=== PATIENT | female | born 1945 | race Caucasian/White ===

== ENCOUNTER 2016-11-18 20:39 | Emergency (ER) | payer OTHER ==
[~2016-11-18] VITALS: Ht 162.6 cm; Wt 63.5 kg
[~2016-11-18 20:39] MED LIST: AMT50 PO; BUSP15TA70 PO; ESCI5TAB PO; LISI-725 PO; MELO7.5T5 PO
[2016-11-18 21:03] VITALS: TEMP 36.9; Ht 162.6 cm; Wt 63.5 kg
--- NOTE | 2016-11-18 23:19 | EMERGENCY ROOM VISIT NOTE ---
ED Visit Note First contact with patient: 21:43 CHIEF COMPLAINT: Rash HISTORY OF PRESENT ILLNESS: This 71-year-old female patient presents to the emergency department complaining of a rash on her nose and around her lips which started 3 days ago. Patient states she had been out in the sun the day before and thought that she got a sunburn on her face. She reports blistering rash on her nose and around her lips that is painful and burning in nature. The patient denies fever, chills, nausea, or loss of appetite. They deny any URI symptoms. The patient has tried some topical lotion for the rash. No change in food, soap, detergents, or other environmental factors. No new medications. No weakness or numbness. Patient states she did have some eye irritation 2 days ago with swelling and redness around the eyes, but states this has gotten better. She denies eye pain, discharge, or changes in vision. She wears glasses, denies wearing contacts. She did not receive a shingles vaccination. Her tetanus is up-to-date. REVIEW OF SYSTEMS: A 6 system review of systems was completed with positives and pertinent negatives listed in the HPI. ALLERGIES: See chart MEDICATIONS: See chart PMH: See chart SOCIAL HISTORY: See chart PHYSICAL EXAM: Vital Signs: Reviewed Nurse's notes, vital signs stable. GENERAL : Pleasant, Cooperative, in no acute distress, well-developed, well-nourished. SKIN: Excoriated lesions noted around the lips appear consistent with possible HSV infection. There is also one lesion noted on the left side of the nose. No drainage from the lesions. Capillary refill less than 2 seconds. EYES: The pupils are equal round and reactive to light and accommodation. EOMs are full and without tenderness. There is no discharge from the eyes and they are not injected. There is no foreign body visible under the eyelid even after lid eversion. Funduscopic exam reveals no hemorrhages, papilledema, or other abnormalities. No foreign body was seen embedded in the cornea under slit lamp exam. The cornea was clear and no hyphema was seen. Fluorescein uptake was observed with ultraviolet light significant for a possible dendritic lesion forming on the cornea of the left eye. EMERGENCY DEPARTMENT COURSE: I examined the patient. A slit lamp exam was performed as above. Patient was given her first dose of valacyclovir in the ED , prescription sent to pharmacy. I did speak on the phone with Dr. Hooks, Dr. Agrawal's ophthalmology colleague, who agrees with patient follow-up in the clinic tomorrow. The patient was given strict follow-up instructions, she verbalized understanding. The patient was discharged home in good condition. Medication Reconciliation: I attest that I have personally reviewed the patient' s current medication list. Blood pressure screening: The patient was found to have an elevated blood pressure and was referred to their primary doctor for recheck and further treatment. I discussed the patient with Dr. Rice, who also evaluated the patient and agrees with my assessment and disposition. Current/Historical Medications Scheduled Amitriptyline Hcl (Elavil), 10 MG PO HS Buspirone Hcl (Buspar), 15 MG PO BID Escitalopram Oxalate (Lexapro), 5 MG PO BID Lisinopril (Zestril), 20 MG PO DAILY Meloxicam (Mobic), 7.5 MG PO BID Valacyclovir Hcl (Valtrex), 1,000 MG PO TID Allergies Coded Allergies: Hydrocodone (Unverified Allergy, Unknown, UNKNOWN, 11/18/16) Morphine (Unverified Allergy, Unknown, HIVES, 11/18/16) Sulfa Drugs (Verified Allergy, Unknown, 11/18/16) Vital Signs Date Time Temp Pulse Resp B/P (MAP) Pulse Ox O2 Delivery O2 Flow Rate FiO2 11/19/16 00:43 60 18 171/83 98 Room Air 11/18/16 23:27 61 16 160/86 99 Room Air 11/18/16 21:03 36.9 63 18 167/72 96 Room Air Medications Administered Medications (Trade) Dose Ordered Sig/Jordi Route Start Time Stop Time Status Last Admin Dose Admin Valacyclovir HCl (Valtrex Tab) 1,000 mg NOW ONCE PO 11/18/16 23:15 11/18/16 23:16 DC 11/18/16 23:26 1,000 MG Departure Information Impression Primary Impression: Shingles Additional Impression: 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 Patient Instructions ED Shingles, My [facility] Additional Instructions Valacyclovir 1 tablet 3 times a day for 7 days. Take medication as prescribed. This is to treat the shingles. You may use saline drops or refresh ointment to the eyes to relieve irritation. Tylenol or Motrin as needed for pain. Call Dr. Agrawal's clinic tomorrow morning at 8am to make an appointment tomorrow for follow up. Please return to the ER for worsening symptoms, including severe headache, blurry or decreased vision, discharge from the eyes, fevers or chills, or any other concerns. 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
[2016-11-18] MEDS ORDERED: VALA1TAB2 PO (23:58)
[2016-11-19 00:43] VITALS: BP 171/83; PULSE 60; O2SAT 98
--- NOTE | 2016-11-19 01:41 | EMERGENCY ROOM VISIT NOTE ---
ED Visit Note First contact with patient: 21:43 I have personally evaluated this patient examined her and reviewed the pertinent labs and data. I have discussed the case with Nimisha Madden, the nurse practitioner, and agree with the plan. Please refer to the GAS SYSTEMS WORKER note. This patient comes in after having some blisters around her lips are both sides but more so on the right are also into her face. She has no ocular complaints however when we did stain her eyes, she has a some increase uptake of the fluoroscein on the left eye between 6 and 9:00, there is a corneal abnormality but not at definite dendritic lesion. We will start Valtrex for possible shingles although this may be more of a fever blisters and also may be related to sun exposure. She did get in the sun and has been rubbing her eyes a lot. We have talked to Dr. [place] and they will see her in the office in the morning to recheck the eyes for lesions and further treatment.
== END 2016-11-19 00:42 | disposition home or self-care (01) ==
LOC: C.EDB 20:40 → C.EDD 11-19 00:42
DX: B02.30 Zoster ocular disease, unspecified (principal); B00.52 Herpesviral keratitis; Z79.899 Other long term (current) drug therapy

== ENCOUNTER → 2017-02-02 | Outpatient (CLI) | payer OTHER | LOC: C.PATHSPEC 17:44 | PROVIDERS: ATTEND Plastic Surgery | DX: D22.9 Melanocytic nevi, unspecified (principal) ==

== ENCOUNTER → 2017-06-07 | Outpatient (CLI) | payer BC ==
--- NOTE | 2017-06-08 14:01 | MAMMOGRAPHY REPORT ---
BILATERAL DIGITAL SCREENING MAMMOGRAM TOMOSYNTHESIS WITH CAD: 06/07/2017 CLINICAL HISTORY: Routine screening. Patient has no complaints. TECHNIQUE: Breast tomosynthesis in addition to standard 2D mammography was performed. Current study was also evaluated with a Computer Aided Detection (CAD) system. COMPARISON: Comparison is made to exams dated: 02/26/2016 mammogram, 01/07/2015 mammogram, and 07/11/19 14 mammogram - [facility]. BREAST COMPOSITION: The tissue of both breasts is heterogeneously dense, which may obscure small mas ses. FINDINGS: There are mild vascular calcifications in both breasts. No suspicious mass, architectural distortion or cluster of microcalcifications is seen. IMPRESSION: ACR BI-RADS CATEGORY 2: BENIGN There is no mammographic evidence of malignancy. A 1 year screening mammogram is recommended. The pa tient will receive written notification of the results. Approximately 10% of breast cancers are not detected with mammography. A negative mammographic report should not delay biopsy if a clinically suggestive mass is present. Melida Lindo M.D. ay/:06/07/2017 15:55:04 Manager Business Process: Amairani MRUPHY(Carlos)(Gloria)(BD), [facility] letter sent: Normal 1/2 BI-RADS Code: ACR BI-RADS Category 2: Benign
== END | disposition home or self-care (01) ==
LOC: C.MAMM 10:15
PROVIDERS: ATTEND Physician Assistant
DX: Z12.31 Encounter for screening mammogram for malignant neoplasm of breast (principal)

== ENCOUNTER → 2017-07-20 | Day surgery (SDC) | payer MEDICARE ==
[2017-07-12 07:51] VITALS: Ht 162.6 cm; Wt 63.6 kg
[~2017-07-20] VITALS: Ht 162.6 cm; Wt 63.6 kg
[~2017-07-20] MED LIST changes: +500ML BSS 0.3ML EPI 1:1000PF IRRIG ONE; +ACETAMINOPHEN 325 MG TAB PO PRN; +AMIT10TA6 PO; -AMT50 PO; +AMVISC PLUS 0.8ML SYRINGE INT OCU ONE; +ATROPINE SULFATE 0.1 MG/ML 5ML SYR IV PRN; +BETAXOLOL HCL 0.25% OP SUSP PER DROP CHARGE OPL SCH; +BRIMONIDINE TART 0.2% OP SOLN PER DROP CHARGE ONE; +BSS FLUSH ONE; +ENDOCOAT 0.85ML SYRINGE INT OCU ONE; +EpHEDrine SULFATE INJ 50 MG/ML AMP IV PRN; +EpINEphrine INJ 1MG/ML AMP 1 MG/ML AMP ONE; +FENTANYL CITRATE INJ 50 MCG/1 ML 2 ML VIAL IV PRN; +LACTATED RINGER'S 1000ML 500 ML IV SCH; +LIDOCAINE 4% OP SOLN DROP CHARGE ONE; +LIDOCAINE 4% OP SOLN DROP CHARGE OPL SCH; +LIDOCAINE HCL 1% MPF 2 ML VIAL ONE; +MIDAZOLAM HCL 1 MG/ML 2ML VIAL ONE; +MIX: 4ML BSS 1ML EPI 1:1000 PF INSTIL ONE; +MOXIFLOXACIN OPH SOLN PER DROP CHARGE ONE; +PHENYLEPHRINE HCL 10% OP SOLN PER DROP CHARGE OPL SCH; +POVIDONE-IODINE OP SOLN 30 ML BTL ONE; +PROPARACAINE 0.5% OP SOLN PER DROP CHARGE OPL SCH; +PROPARACAINE HCL 0.5% OP SOLN 15 ML BTL OPL ONE; +SENN-56 PO; +TOBRAMYCIN/DEXAMETHASONE OPH OINT PER APPLN CHARGE ONE
[2017-07-20] MEDS: PHENYLEPHRINE HCL 2.5% OP SOLN PER DROP CHARGE OPL SCH ×2 (06:34→06:41)
--- NOTE | 2017-07-20 06:36 | History & Physical Bridge - SC ---
H&P Re-Evaluation Bridge Note: I have examined the patient, reviewed the History & Physical and in the interval since the performance of the History & Physical I have noted the following changes of clinical significance: No changes noted
[2017-07-20] MEDS: TROPICAMIDE 1% OP SOLN PER DROP CHARGE OPL SCH ×2 (06:37→06:42)
[2017-07-20] MEDS: CYCLOPENTOLATE HCL 1% OP SOLN PER DROP CHARGE OPL SCH ×2 (06:38→06:43)
[2017-07-20] MEDS: MOXIFLOXACIN OPH SOLN PER DROP CHARGE OPL SCH ×2 (06:39→06:48)
--- NOTE | 2017-07-20 07:23 | [facility] Operative Report ---
Operative Report Date of Service Jul 20, 2017. Operative Report 1. PREOPERATIVE DIAGNOSIS: Senile nuclear cataract, left eye. 2. POSTOPERATIVE DIAGNOSIS: Senile nuclear cataract, left eye. 3. PROCEDURE: Phacoemulsification of left cataract with posterior chamber lens implant, type [employer]ch [employer] Lomb, model MI60L, power +19.5 diopters. ANESTHESIA: Local standby. SURGEON: Dr. Meyer. COMPLICATIONS: None. OPERATING TIME: 10 minutes. 4. OPERATION AND FINDINGS: DESCRIPTION OF PROCEDURE: The left pupil was dilated. The patient was transported to the Femto Laser room. The Femto Laser was used to make the primary incision, the astigmatic incision, open the capsule, and break up the lens. The patient was transported to the operating room. The anesthetic was administered using a topical technique. The left eye was prepped and draped. A speculum was placed. A clear corneal incision was formed. The chamber was filled with Amvisc Plus and Endocoat. Epinephrine solution was used. A paracentesis was placed. A capsulorrhexis was performed. The nucleus was hydrodissected. The lens was removed with phacoemulsification. Time was 2.75 seconds. The aspiration unit was used to remove the cortex. The capsule was filled with Amvisc Plus. The lens implant was folded and placed into the capsule. The incisions were hydrated. The Amvisc was aspirated. The wounds were secure. The chamber was deep. The pupil was round. The keratotomy incisions were opened. Brimonidine, TobraDex ointment and Vigamox solution were placed. The speculum was removed. The patient was returned to the Recovery Room in stable condition. I attest to the content of the Intraoperative Record and any orders documented therein. Any exceptions are noted below. The scribe's documentation has been prepared in my presence, under my direction and personally reviewed by me in its entirety. I confirm that the note above accurately reflects all work, treatment, procedures, and medical decision making performed by me. I personally scribed for Deandre Meyer M.D. ([email or web address]) on 07/20/17 at 07:23. Electronically submitted by Khushboo Diaz ([email or web address]).
[2017-07-20 07:25] VITALS: TEMP 36.3
--- NOTE | 2017-07-20 07:26 | Discharge Instructions-SurgCtr ---
Discharge Instructions Date of Service Jul 20, 2017. Visit Reason for Visit: Cataract Left Eye Discharge Discharge Diagnosis / Problem: lens implant left eye Discharge Goals Goal(s): Improve function Activity Recommendations Activity Limitations: resume your previous activity Lifting Limitations: no more than 10 pounds Exercise/Sports Limitations: gradually increase as tolerated May Resume Sexual Activity: when tolerated Shower/Bathe: tomorrow Driving or Machine Use: resume 1 day after discharge Anesthesia . Post Anesthesia Instructions: If you have had General Anesthesia or IV Sedation: * Do not drive today. * Resume driving when surgeon permits. * Do not make important decisions or sign legal documents today. * Call surgeon for: 1. Temperature elevations greater than 101 degrees F. 2. Uncontrollable pain. 3. Excessive bleeding. 4. Persistent nausea and vomiting. 5. Medication intolerance (nausea, vomiting or rash). * For nausea and vomiting use only clear liquids such as: tea, soda, bouillon until nausea subsides, then gradually increase diet as tolerated. * If you have any concerns or questions, call your surgeon's office. If physician is unavailable and it is an emergency, call 911 or go to the nearest emergency room. . Instructions / Follow-Up Instructions / Follow-Up ACTIVITY RECOMMENDATIONS: * Light activities. * Mild irritation and blurred vision are common for the first few days. * You may walk outside, read, watch television. * Redness around the white part of the eye is common. MEDICATIONS: Resume previous medications unless instructed otherwise by your surgeon. Start all eye drops at 1 pm today: * Eye drops (today and tomorrow): Prednisone - one drop in operative eye every 3 hours while awake Ofloxacin - one drop in operative eye every 3 hours while awake SPECIAL CARE INSTRUCTIONS: * Tape plastic shield over eye to sleep at night. Call your doctor at with any concerns or problems. FOLLOW UP VISIT: Follow-up with Dr Meyer at [place] office as scheduled. Diet Recommendations Home Diet: no limitations Procedures Procedures Performed: Left Cataract Phacoemulsification With Intraocular Lens Implant Pending Studies Studies pending at discharge: no Medical Emergencies . Who to Call and When: Medical Emergencies: If at any time you feel your situation is an emergency, please call 911 immediately. . Non-Emergent Contact Non-Emergency issues call your: Automatic Presser Call Non-Emergent contact if: your pain is not controlled [phone] . . "Provider Documentation" section prepared by Deandre Meyer. .
[2017-07-20 07:50] VITALS: BP 144/84; PULSE 68; O2SAT 97
--- NOTE | 2017-07-20 08:07 | Anesthesia Progress Nt - [facility] ---
Anesthesia Post Op Note Date & Time Jul 20, 2017 at 08:06 Vital Signs Pain Intensity: 0 Vital Signs Past 12 Hours Date Time Temp Pulse Resp B/P (MAP) Pulse Ox O2 Delivery O2 Flow Rate FiO2 07/20/17 07:50 68 16 144/84 (104) 97 Room Air 07/20/17 07:25 36.3 69 16 143/89 (107) 100 Room Air 07/20/17 07:01 60 20 169/80 96 07/20/17 06:55 59 16 167/91 94 07/20/17 06:25 36.5 68 16 155/84 (107) 97 Room Air Notes Mental Status: alert / awake / arousable, participated in evaluation Pt Amnestic to Procedure: Yes Nausea / Vomiting: adequately controlled Pain: adequately controlled Airway Patency, RR, SpO2: stable & adequate BP & HR: stable & adequate Hydration State: stable & adequate Anesthetic Complications: no major complications apparent
== END | disposition home or self-care (01) ==
LOC: X.SURG 06:10
PROVIDERS: ATTEND Specialist
DX: H25.12 Age-related nuclear cataract, left eye (principal); I10 Essential (primary) hypertension; Z88.5 Allergy status to narcotic agent; Z88.2 Allergy status to sulfonamides

== ENCOUNTER → 2017-07-28 | Outpatient (CLI) | payer MEDICARE ==
[~2017-07-28] MED LIST changes: -500ML BSS 0.3ML EPI 1:1000PF IRRIG ONE; -ACETAMINOPHEN 325 MG TAB PO PRN; -AMVISC PLUS 0.8ML SYRINGE INT OCU ONE; -ATROPINE SULFATE 0.1 MG/ML 5ML SYR IV PRN; -BETAXOLOL HCL 0.25% OP SUSP PER DROP CHARGE OPL SCH; -BRIMONIDINE TART 0.2% OP SOLN PER DROP CHARGE ONE; -BSS FLUSH ONE; -ENDOCOAT 0.85ML SYRINGE INT OCU ONE; -EpHEDrine SULFATE INJ 50 MG/ML AMP IV PRN; -EpINEphrine INJ 1MG/ML AMP 1 MG/ML AMP ONE; -FENTANYL CITRATE INJ 50 MCG/1 ML 2 ML VIAL IV PRN; -LACTATED RINGER'S 1000ML 500 ML IV SCH; -LIDOCAINE 4% OP SOLN DROP CHARGE ONE; -LIDOCAINE 4% OP SOLN DROP CHARGE OPL SCH; -LIDOCAINE HCL 1% MPF 2 ML VIAL ONE; -MIDAZOLAM HCL 1 MG/ML 2ML VIAL ONE; -MIX: 4ML BSS 1ML EPI 1:1000 PF INSTIL ONE; -MOXIFLOXACIN OPH SOLN PER DROP CHARGE ONE; -PHENYLEPHRINE HCL 10% OP SOLN PER DROP CHARGE OPL SCH; -POVIDONE-IODINE OP SOLN 30 ML BTL ONE; -PROPARACAINE 0.5% OP SOLN PER DROP CHARGE OPL SCH; -PROPARACAINE HCL 0.5% OP SOLN 15 ML BTL OPL ONE; -TOBRAMYCIN/DEXAMETHASONE OPH OINT PER APPLN CHARGE ONE
[2017-07-28 17:13] LABS: EOS % 1.6 %; EOS ABS # 0.09 K/uL (0-0.5); HEMATOCRIT 42.5 % (37-47); HEMOGLOBIN 14.7 g/dL (12.0-16.0); IG# 0.01 K/uL (0.00-0.02); LYMPH % 31.8 %; MEAN CELL VOLUME 93.8 fL (80-100); MEAN CORPUSCULAR HEMOGLOBIN 32.5 pg (25-34); MEAN CORPUSCULAR HGB CONC 34.6 g/dl (32-36); MEAN PLATELET VOLUME 10.7 fL (7.4-10.4); MONO % 8.3 %; MONO ABS # 0.47 K/uL (0.11-0.59); NEUT % 58.1 %; NEUT ABS # 3.29 K/uL (1.4-6.5); PLATELET COUNT 193 K/uL (130-400); RED CELL DISTRIBUTION WIDTH CV 12.5 % (11.5-14.5); RED CELL DISTRIBUTION WIDTH SD 42.8 fL (36.4-46.3); WHITE BLOOD COUNT 5.66 K/uL (4.8-10.8)
== END | disposition home or self-care (01) ==
LOC: C.LABBC 14:47
PROVIDERS: ATTEND Specialist
DX: M31.6 Other giant cell arteritis (principal)

== ENCOUNTER 2017-12-12 19:49 | Emergency (ER) | payer MEDICARE ==
[~2017-12-12] VITALS: Ht 162.6 cm; Wt 67.1 kg
[~2017-12-12 19:49] MED LIST changes: -AMIT10TA6 PO; +AMIT50TA3 PO; +ASPI81TA28 PO
[2017-12-12 19:53] VITALS: Ht 162.6 cm; Wt 67.1 kg
--- NOTE | 2017-12-12 20:27 | DIAGNOSTIC IMAGING REPORT ---
RIGHT FOOT 3 VIEWS HISTORY: Dropped frozen food on foot COMPARISON: None. FINDINGS: There is no fracture or dislocation. Mild soft tissue swelling within the dorsal forefoot. Posterior calcaneal spur is noted. No radiopaque foreign bodies. IMPRESSION: No fractures. Electronically signed by: Hermann Bustos M.D. 12/12/2017 8:26 PM Dictated Date/Time: 12/12/2017 8:22 PM
--- NOTE | 2017-12-12 21:27 | EMERGENCY ROOM VISIT NOTE ---
History First contact with patient: 20:59 Chief Complaint: FOOT PAIN Stated Complaint: DROPPED FROZEN CONTAINER ON FOOT,POSSIBLY BROKEN History of Present Illness The patient is a 72 year old female who presents to the Emergency Room via private vehicle with complaints of "dropped frozen container and foot, possibly broken". The patient states that earlier today, she was at home around 12:30 PM when she actually dropped a heavy, 15-20 pound frozen bag of food on her right foot, specifically just proximal to the right fifth digit of that foot. She notes pain with walking. She points to bruising and swelling of that region. She notes that it will at times shooting radiate up her leg. She notes the only area that she was struck was on the right distal lateral foot. Review of Systems A complete 6-point Review of Systems was discussed with the patient, with pertinent positives and negatives listed in the History of Present Illness. All remaining Review of Systems questions can be considered negative unless otherwise specified. Past Medical/Surgical History Noncontributory. Family History Depression Diabetes mellitus FH: [place] (myocardial infarction) Hypertension Social History Smoking Status: Never Smoker Alcohol Use: none Drug Use: none Marital Status: Housing Status: lives with family Current/Historical Medications Scheduled Amitriptyline Hcl (Amitriptyline Hcl), 50 MG PO HS Aspirin (Aspirin Ec), 81 MG PO DAILY Buspirone Hcl (Buspar), 15 MG PO BID Escitalopram Oxalate (Lexapro), 5 MG PO BID Lisinopril (Zestril), 20 MG PO QAM Meloxicam (Mobic), 7.5 MG PO BID Sennosides (Senna-Lax), 2 TABS PO HS Physical Exam Vital Signs Date Time Temp Pulse Resp B/P (MAP) Pulse Ox O2 Delivery O2 Flow Rate FiO2 12/12/17 21:46 36.9 88 17 146/76 96 12/12/17 19:53 36.9 88 17 146/76 96 Room Air Physical Exam VITAL SIGNS - Vital signs and nursing notes were reviewed. Stable. Afebrile. GENERAL -72-year-old female appearing her stated age who is in no acute distress. Communicates well with provider and answers questions appropriately. SKIN - Without rashes. No meningeal or petechial rash. The skin overlying the right foot, specifically at the distal and lateral most aspect just proximal to that of the right fifth toe is edematous, slightly erythematous and is darkened indicative of bruising. No bony deformity noted to inspection. The integument is intact. No other abnormality noted to inspection of the foot, ankle or leg. EXTREMITIES - No clubbing or peripheral cyanosis. No pretibial edema present. There is tenderness to palpation overlying the patient's right fifth metatarsal distal region. No other areas of tenderness. Skin changes and visual inspection as above. She is neurovascular intact in that region and distally. +5/5 strength noted in UE/LE bilaterally. Medical Decision & Procedures ER Provider Diagnostic Interpretation: RIGHT FOOT 3 VIEWS HISTORY: Dropped frozen food on foot COMPARISON: None. FINDINGS: There is no fracture or dislocation. Mild soft tissue swelling within the dorsal forefoot. Posterior calcaneal spur is noted. No radiopaque foreign bodies. IMPRESSION: No fractures. Electronically signed by: Hermann Bustos M.D. 12/12/2017 8:26 PM Dictated Date/Time: 12/12/2017 8:22 PM Medical Decision Patient was seen and evaluated as above in room D1 peer. Review was performed of nursing notes and vital signs. After obtaining a thorough history and physical examination the above work up was performed. She presents to us today with pain in the right foot at the distalmost lateral portion. X-ray does not reveal fracture. I suspect soft tissue contusion. I will recommend postop shoe , limited weightbearing and follow-up with orthopedics if the pain persists for repeat x-ray if she was educated upon risk of occult fracture. She is to elevate and ice the region. She is to be cautious with movements. She is to return here with worsening. Neurovascularly intact noted. The patient was educated upon management, educated upon todays findings/results, educated upon symptoms in which to return, had questions answered prior to discharge, and was discharged home in good condition. I attest that I have personally reviewed the patient medication list. I attest that I have reviewed the patient's blood pressure and it was found to be elevated likely secondary to situation. In the evaluation and treatment of this patient the following differential diagnoses were entertained: Fracture, dislocation, contusion, occult fracture, among others. Impression Primary Impression: Foot pain Departure Information Dispostion Home / Self-Care Condition GOOD Referrals Maris Lee PA-C (PCP) Gerald Marie D.O. Patient Instructions My [facility] Additional Instructions You have been treated in the Emergency Department for L toe pain. For pain control, you can use the following [id number] medicines (if >12 yo): - Regular strength (325mg/tab) Tylenol (acetaminophen) 2 tabs every 4-6 hours as needed. Do not exceed 12 tablets in a 24 hour period. Avoid taking more than 3 grams (3000 mg) of Tylenol per day. This includes any other sources of acetaminophen you may take on a regular basis. - Regular strength (200 mg/tab) Advil (ibuprofen) 1-2 tabs every 4-6 hours as needed. Do not exceed a dose of 3200 mg per day. If this is a recent injury (<24 hrs), ice can be applied to the area of pain for the first 3 days to help decrease pain and inflammation. You have been provided the number for an Orthopaedic Surgeon. You should call this number as soon as possible to establish a follow-up visit from today's Emergency Department visit. Return to the Emergency Department if your current symptoms worsen despite treatment course outlined above, or if you develop any of the following symptoms : intractable pain despite aforementioned treatment course or new onset of numbness or tingling of the foot.
[2017-12-12 21:46] VITALS: BP 146/76; PULSE 88; TEMP 36.9; O2SAT 96
== END 2017-12-12 21:47 | disposition home or self-care (01) ==
LOC: C.EDB 19:50 → C.EDD 21:47
DX: M79.671 Pain in right foot (principal); R60.0 Localized edema; W20.8XXA Other cause of strike by thrown, projected or falling object, initial encounter; Z79.82 Long term (current) use of aspirin; Z79.899 Other long term (current) drug therapy

== ENCOUNTER 2023-01-12 05:04 | Observation (INO) ==
--- NOTE | 2022-12-29 10:02 | PAT Medication Instructions ---
Medication Instructions Date of Service December 29, 2022 Home Medications Medication Instructions Recorded blood pressure monitor #1 ea 03/11/20 rosuvastatin 5 mg tablet 5 mg PO QPM #90 tabs 07/26/22 escitalopram oxalate 10 mg tablet 10 mg PO HS #90 tabs 08/16/22 lisinopril 10 mg tablet 10 mg PO QAM #90 tabs 08/30/22 hydrochlorothiazide 25 mg tablet 25 mg PO QAM #90 tabs 09/06/22 buspirone 7.5 mg tablet 7.5 mg PO BID #180 tabs 10/01/22 esomeprazole magnesium 40 mg 40 mg PO BID #180 ea 10/01/22 granules delayed release for susp meloxicam 7.5 mg tablet 7.5 mg PO BID PRN pain #180 tabs 10/11/22 Prolia 60 mg/mL subcutaneous 60 mg subcut ONCE #1 mL 11/29/22 syringe (denosumab) gabapentin 300 mg capsule 300 mg PO BID #120 caps 12/07/22 aspirin 81 mg tablet,delayed release 81 mg PO QAM sennosides 8.6 mg tablet (senna) 17.2 mg PO HS melatonin 10 mg capsule 10 mg PO HS calcium carbonate 500 mg-vitamin D3 3.125 mcg (125 unit) tablet 1 tab PO QAM ketoconazole 2 %-hydrocortisone 2.5 % topical cream See Rx Instructions topical .COMPLEX PRN ud rosuvastatin 5 mg tablet 5 mg PO QPM escitalopram oxalate 10 mg tablet 10 mg PO HS lisinopril 10 mg tablet 10 mg PO QAM hydrochlorothiazide 25 mg tablet 25 mg PO QAM buspirone 7.5 mg tablet 7.5 mg PO BID esomeprazole magnesium 40 mg granules delayed release for susp 40 mg PO BID meloxicam 7.5 mg tablet 7.5 mg PO BID PRN pain Prolia 60 mg/mL subcutaneous syringe (denosumab) 60 mg subcut ONCE gabapentin 300 mg capsule 300 mg PO BID acetaminophen 500 mg capsule 1,000 mg PO BID PRN Pain Continue as directed Prolia 60 mg/mL subcutaneous syringe (denosumab) 60 mg subcut ONCE ASK your surgeon for instructions meloxicam 7.5 mg tablet 7.5 mg PO BID PRN pain STOP taking 24 hours before surgery ketoconazole 2 %-hydrocortisone 2.5 % topical cream See Rx Instructions topical .COMPLEX PRN ud DO NOT take the morning of surgery calcium carbonate 500 mg-vitamin D3 3.125 mcg (125 unit) tablet 1 tab PO QAM lisinopril 10 mg tablet 10 mg PO QAM hydrochlorothiazide 25 mg tablet 25 mg PO QAM Take morning of surgery With a small sip of water, OTHERWISE NOTHING TO EAT OR DRINK AFTER MIDNIGHT: aspirin 81 mg tablet,delayed release 81 mg PO QAM (unless surgeon directed otherwise) buspirone 7.5 mg tablet 7.5 mg PO BID esomeprazole magnesium 40 mg granules delayed release for susp 40 mg PO BID gabapentin 300 mg capsule 300 mg PO BID acetaminophen 500 mg capsule 1,000 mg PO BID PRN Pain (if needed) Take evening before surgery sennosides 8.6 mg tablet (senna) 17.2 mg PO HS melatonin 10 mg capsule 10 mg PO HS rosuvastatin 5 mg tablet 5 mg PO QPM escitalopram oxalate 10 mg tablet 10 mg PO HS buspirone 7.5 mg tablet 7.5 mg PO BID esomeprazole magnesium 40 mg granules delayed release for susp 40 mg PO BID gabapentin 300 mg capsule 300 mg PO BID acetaminophen 500 mg capsule 1,000 mg PO BID PRN Pain (if needed) Other Notes If you have any questions please call us at [phone] or [phone] or [phone] or [phone]
--- NOTE | 2023-01-07 08:52 | Anesthesiology Consultation ---
Date of Service January 07, 2023 Assessment & Plan (1) Encounter for pre-operative examination: - Case discussed with Dr. Baires who also personally reviewed chart including pre-op EKG and he advised patient is acceptable to proceed with surgery as scheduled for [facility] tomorrow. - Outpatient joint assessment: Patient is currently scheduled for inpatient pathway. If re-evaluated and patient/surgeon requests outpatient pathway, patient is not recommended candidate for outpatient joint program from anesthes ia standpoint. Chart Review Chart Review: Acceptable Risk for Surgery and Patient seen in Pre Admission Testing Teaching & Discussion Pre-Anesthesia Teaching/Discussion Notes: Instructed NPO after midnight before surgery, except medications with 15 cc of water. Medication instructions provided according to the PAT guidelines. History Surgery Operation Date: 01/12/23 08:50 Proposed Procedures p Left Total Knee Arthroplasty - Mihai Shelton MD Height/Weight Height: 5 ft 4 in Weight: 75.3 kg Allergies Allergy/AdvReac Type Severity Reaction Status Date / Time acetaminophen Allergy Severe itching Verified 01/06/23 16:27 Sulfa (Sulfonamide Allergy Intermediate Hives Verified 12/29/22 10:51 Antibiotics) hydrocodone AdvReac Mild GI upset Verified 12/29/22 10:51 morphine AdvReac Mild Hives Verified 12/29/22 10:51 tramadol Allergy Intermediate diarrhea Uncoded 01/06/23 16:27 Medications Home Medications Medication Instructions Recorded Confirmed Last Taken aspirin 81 mg tablet,delayed 81 mg PO QAM 10/09/19 12/29/22 08/04/21 release sennosides 8.6 mg tablet (senna) 17.2 mg PO HS 10/09/19 12/29/22 08/04/21 blood pressure monitor #1 ea 03/11/20 12/09/22 Unknown melatonin 10 mg capsule 10 mg PO HS 10/03/20 12/29/22 08/04/21 calcium carbonate 500 mg-vitamin 1 tab PO QAM 02/12/21 12/29/22 08/04/21 D3 3.125 mcg (125 unit) tablet ketoconazole 2 %-hydrocortisone See Rx Instructions topical 01/22/22 12/29/22 Unknown 2.5 % topical cream .COMPLEX PRN ud rosuvastatin 5 mg tablet 5 mg PO QPM #90 tabs 07/26/22 12/29/22 Unknown escitalopram oxalate 10 mg tablet 10 mg PO HS #90 tabs 08/16/22 12/29/22 Unknown lisinopril 10 mg tablet 10 mg PO QAM #90 tabs 08/30/22 12/29/22 Unknown hydrochlorothiazide 25 mg tablet 25 mg PO QAM #90 tabs 09/06/22 12/29/22 Unknown buspirone 7.5 mg tablet 7.5 mg PO BID #180 tabs 10/01/22 12/29/22 Unknown esomeprazole magnesium 40 mg 40 mg PO BID #180 ea 10/01/22 12/29/22 Unknown granules delayed release for susp meloxicam 7.5 mg tablet 7.5 mg PO BID PRN pain #180 tabs 10/11/22 12/29/22 Unknown Prolia 60 mg/mL subcutaneous 60 mg subcut ONCE #1 mL 11/29/22 12/29/22 Unknown syringe (denosumab) gabapentin 300 mg capsule 300 mg PO BID #120 caps 12/07/22 12/29/22 Unknown acetaminophen 500 mg capsule 1,000 mg PO BID PRN Pain 12/29/22 12/29/22 Unknown acetaminophen 500 mg tablet 1,000 mg PO TID pain 30 days #180 01/10/23 Unknown (Tylenol Extra Strength) tabs aspirin 81 mg tablet,delayed 81 mg PO BID 45 days #90 tabs 01/10/23 Unknown release (Keyanna Low Dose Aspirin) ketorolac 10 mg tablet 10 mg PO Q6 pain 5 days #20 tabs 01/10/23 Unknown ondansetron 4 mg disintegrating 4 mg PO Q8 PRN nausea #20 tabs 01/10/23 Unknown tablet oxycodone 5 mg tablet 5 mg PO Q4H PRN pain #40 tabs 01/10/23 Unknown sennosides 8.6 mg tablet (Senokot) 8.6 mg PO BID prevent constipation 01/10/23 Unknown 14 days #28 tabs Past Medical History Medical History (Updated 01/07/23 @ 09:32 by Summer Mcintosh PA-C) Acquired deviated nasal septum Anxiety Depression Hip pain left, occasional History of COVID-19 03/2021-denies hospitalization-denies residual symptoms Hx of migraine headaches Hypertension controlled, stable per pt; white coat hypertension LPRD (laryngopharyngeal reflux disease) controlled, stable per pt; occasional dysphagia with food LVH (left ventricular hypertrophy) Mild cLVH per 10/2020 Echo Mixed conductive and sensorineural hearing loss of left ear with restricted hearing of right ear Osteoporosis Stroke "Mini stroke" to left eye during cataract surgery (2019) > blurry vision residual Vertigo occasional, chronic, denies change or worsening Patient denies h/o seizures, heart attack, heart failure, DM, blood clots/DVTs or blood transfusions. Exercise / Class Metabolic Activity III < 4 Walking/Shop/Light housework (less than 8 steps in home, denies chest discomfort or shortness with usual activities) Past Family History Family History Brother Cardiac arrest Father Cardiac arrest Mother Cardiac arrest Dementia Other Heart disease Hypertension No family history of adverse response to anesthesia No family history of bleeding disorder Past Surgical History Surgical History (Updated 01/07/23 @ 09:35 by Summer Mcintosh PA-C) H/O hemorrhoidectomy H/O laparoscopy x2, tubal pregnancies H/O wrist surgery Left (2018) History of appendectomy History of colonoscopy History of dilatation and curettage History of esophageal dilatation History of esophagogastroduodenoscopy (EGD) History of hip surgery Right LYNDON (1999), replacement (2000), repair of replacement (2001) History of lumbar surgery History of thumb surgery Left History of tonsillectomy History of tooth extraction History of trigger finger Right ring + small finger trigger finger release (01/2021, [facility] [place] Hx of bilateral cataract extraction Past Anesthesia History No Hx of Anesthesia Complications and No Family Hx of Anesthesia Complications History of PONV No Hx of PONV and No Hx of Motion Sickness Social History Smoking Status: Never smoker Do You Dip or Chew Tobacco: No Hx Alcohol Use: No Hx Substance Use: No substance use type: does not use Review of Systems Occasional snoring, denies witnessed apneas. Patient denies chest pain, shortness of breath, dyspnea on exertion, fever, chills, cough, wheezing, or palpitations. Physical Exam Vital Signs Vitals BP 108/70 P 63 TEMP 98.4 SP02 99% on RA RESP 18 Physical Patient resting comfortably in chair in no acute distress, alert and oriented, responding appropriately throughout visit Full cervical extension range of motion without pain TMD 3.5 finger breadths Mallampati Score 2 Dentition: edentulous, full upper and lower dentures Lungs: normal respiratory effort. Good air movement, clear throughout to auscultation, no adventitious breath sounds Cardiac: regular rate and rhythm, no murmurs noted Carotid arteries: negative bruit bilat Lab Results Anesthesia Preop Results Results Anesthesia Widget: WBC 6.48 K/ul (4.8-10.8) 01/07/23 Hgb 13.4 g/dl (12.0-16.0) 01/07/23 Hct 40.6 % (37.0-47.0) 01/07/23 Plt 220 K/uL (130-400) 01/07/23 Na 138 mmol/L (136-145) 01/07/23 K 4.4 mmol/L (3.5-5.1) 01/07/23 Cl 104 mmol/L (98-107) 01/07/23 CO2 27 mmol/L (21-32) 01/07/23 BUN 34 mg/dl (6-23) H 01/07/23 Creat 0.93 mg/dl (0.6-1.2) 01/07/23 Glucose Level 107 mg/dl (70-99(Fasting)) H 01/07/23 PT 9.9 Seconds (9.0-12.0) 01/07/23 PTT 25.0 Seconds (21.0-31.0) 01/07/23 INR 0.9 (0.9-1.1) 01/07/23 TSH 2.154 uIu/ml (0.300-4.500) 11/23/22 Blood Type B Positive 01/07/23 Antibody Screen NEGATIVE 01/07/23 Testing Electrocardiogram Date: 01/07/23 Sinus rhythm with 1st degree AV block, rate 61 bpm Inferior infarct, age undetermined Anterolateral infarct, age undetermined When compared with 07/25/22 ECG LBBB is no longer present Anterior infarct is now present Anterolateral infarct is now present Inferior infarct is now present Chest X-Ray Date: 01/07/23 No acute process Echocardiogram Date: 10/31/20 EF 60-65% Normal LV wall motion Mild cLVH No significant valvular heart disease Stress Test Date: 03/13/19 Negative for inducible ischemia MPHR 113% Cervical Spine Date: 08/03/22 x-ray 1. No acute bony abnormality is seen involving the cervical spine. 2. Osteopenia and spondylotic change as above.
[2023-01-12] MEDS ORDERED: ceFAZolin 2000MG 2,000 MG/15 ML SYR IV SCH (06:00)
[2023-01-12] MEDS ORDERED: LR 500ML BOLUS, THEN 15ML/HR IV SCH (06:00)
[2023-01-12] MEDS ORDERED: BUPIVACAINE LIPOSOME/PF 266 MG, BUPIVACAINE/EPINEPHRINE 50 ML, SODIUM CHLORIDE 0.9% PF ... INFIL SCH (06:00)
[2023-01-12] MEDS ORDERED: ACETAMINOPHEN 500 MG TAB PO SCH (06:00)
[2023-01-12] MEDS ORDERED: TRANEXAMIC ACID 1,000 MG **IV Intra-op IV SCH (06:00)
[2023-01-12] MEDS ORDERED: dexAMETHasone**PF** 10 MG/ML VIAL IV SCH (06:00)
[2023-01-12] MEDS ORDERED: LR 60ML/HR IV SCH (06:00)
[2023-01-12] MEDS ORDERED: FAMOTIDINE 20 MG TAB PO SCH (06:00)
[2023-01-12] MEDS ORDERED: METOCLOPRAMIDE HCL 10 MG TABLET PO SCH (06:00)
[2023-01-12] MEDS ORDERED: BUPIVACAINE 0.5 % 5 MG/1 ML PF 10ML VIAL ONE (06:17)
[2023-01-12] MEDS ORDERED: EPINEPHrine INJ 1 MG/ML AMP ONE (06:17)
[2023-01-12] MEDS ORDERED: ROPIVACAINE 0.5% 5 MG/ML 30 ML VIAL ONE (06:17)
[2023-01-12] MEDS ORDERED: LIDOCAINE 2% 2 ML VIAL/AMP(20MG/ML) INFIL ONE (06:40)
[2023-01-12] MEDS ORDERED: PROPOFOL IV EMULSION 10 MG/ML 20 ML VIAL IV ONE (06:40)
[2023-01-12] MEDS ORDERED: fentaNYL citrate PF 100 MCG/2 ML VIAL ONE (06:41)
[2023-01-12] MEDS ORDERED: MIDAZOLAM HCL 1 MG/ML 2ML VIAL ONE (06:41)
--- NOTE | 2023-01-12 06:52 | History & Physical Bridge Note ---
Date of Service January 12, 2023 History & Physical Bridge Note I have examined the patient, reviewed the History & Physical and in the interval since the performance of the History & Physical I have noted the following changes of clinical significance: no changes noted
[2023-01-12] MEDS ORDERED: SODIUM CHLORIDE 0.9% PF INJ 10 ML VIAL ONE (06:54)
[2023-01-12] MEDS ORDERED: BUPIVACAINE/EPINEPHRINE 0.25% 1:200,000 30 ML VIAL ONE (06:54)
[2023-01-12] MEDS ORDERED: BUPIVACAINE LIPOSOME 1.3% 266 MG/20 ML VIAL ONE (06:55)
[2023-01-12] MEDS ORDERED: SODIUM CHLORIDE 0.9% PF 50 ML VIAL ONE (06:56)
--- NOTE | 2023-01-12 09:10 | Operative Report ---
PG Post Operative Report Pre & Post Diagnosis Operation Date: 01/12/23 07:00 Pre-Op Diagnosis: Left Knee Degenerative Joint Disease Post-Op Diagnosis: Left Knee Degenerative Joint Disease I identified the patient and participated in the time-out.: Yes Procedure Operation Date: 01/12/23 07:00 Actual Procedures p Left Unicompartmental Knee Arthroplasty(Left) - Mihai Shelton MD Surgeon Mihai Shelton MD Project Construction Manager Thomas Lagunas PA-C Estimated Blood Loss 25 Findings Consistent with Post-Op Diagnosis Operative findings revealed full-thickness cartilage loss of the medial femoral condyle and the portion of the medial tibial plateau. Her ACL and PCL were intact. The lateral compartment was well-preserved. There is very mild changes in the trochlea. Small knee joint effusion. Specimens Left knee sent for pathology Anesthesia Type Spinal MAC Complications none Disposition Accompanied Patient To Recovery: No Indications Patient 77-year-old female whose had a year history of increasing left knee pain discomfort describes gotten worse particularly more severe over the past several months patient been to extensive conservative treatment which became less successful over time. X-rays show progressive knee arthritis. MRI showed fairly isolated medial compartment disease with significant marrow edema in the meniscus tear. The patient indicated for surgical management. Description of Procedure Operative implants consist of: 1. [employer] [place] small femoral component. 2. [employer] [place] left medial size B tibial tray. 3. 4 mm mobile-bearing polyethylene insert. The patient was taken the operating, identified, placed on the operating table supine position. All contact areas were appropriately padded. IV antibiotics tried by anesthesia team. A spinal anesthetic and abductor canal block had provided holding area. Pena catheter was placed in sterile fashion the left factor was then placed in left lower extremities and prepped and draped in usual sterile fashion. The left leg was elevated exsanguinated with use of an Esmarch and the turn was placed at 300 mmHg. An anterior approach the left knee was then performed to longitudinal incision beginning at the superior pole patella and extending just medial to the tibial tubercle. Sharp dissection was carried through subcutaneous tissues to the extensor mechanism. A medial parapatellar arthrotomy incision was made. Some subperiosteal dissection was carried out medially taking great care to protect the MCL ligament at all times. The fat pad was resected. I examined the knee. The ACL and PCL were intact and the lateral compartment was well-preserved. There is fairly mild changes in the trochlea and we elected proceed with a partial knee replacement. The femur was then sized to a size small. Some osteophytes were taken off the intercondylar notch area. The external tibial alignment jig was then placed in the interface the tibia and adjusted to the small spoon and attached with a 4G clamp. The tibial cutting guide was secured in place. The proximal tibial cut was made. The tibia was sized to a size B. Attention drawn the femur. The distal femur was then with a sharp drill. The IM estela was placed. A small left femoral template was placed set at 4. It was attached to the IM estela. The holes were drilled for the femoral component. Posterior cutting guide was placed and posterior cut was made. The knee was then flexed and the medial meniscus remnant was excised. 0 spigot was used to milled the distal femur. We then trialed the knee and the 4 feeler gauge fit in flexion and the 1 in extension. Therefore a 3 spigot was used and a distal femur was milled. After this the 4 feeler gauge fit appropriate in flexion extension. We elect to place these implants. All trial implants were removed. The tibial tray was pinned in place and the toothbrush blade was used to create the defect for the tibial keel. The distal femoral preparation device was placed. The posterior osteophyte was removed. The anterior femur was milled. We then trialed the knee 1 more time and the 4 in splint fit appropriately. I elect to place these implants. All trial implants were removed. I irrigated extensively. We injected with 100 cc of combination of 20 cc of Exparel, 30 cc normal saline, 50 cc of quarter percent Marcaine with epinephrine. Patient did receive 1 g tranexamic acid. The knee was then irrigated. A single batch [place] G cement was mixed. A [employer] [place] left medial size B tray was cemented in place followed by a small femoral component. All extraneous cement was removed. The 4 feeler gauge was placed and the knee was brought out into about 30 degrees short of full extension till cement hardened. Final cement check was then performed. We trialed the knee 1 more time and the 4 insert fit appropriately. The permanent 4 insert was placed. I irrigated extensively. The tourniquet was let down for tourniquet time 64 minutes. Hemostasis reduced electrocautery. Extensor mechanism then closed with #1 Vicryl suture in a [id number] fashion. The subcutaneous tissue then closed with 2 Dexon suture in a buried interrupted fashion skin was closed skin yokasta. Leg was then cleaned and dried and sterile dressing was Xeroform, 4 fours, sterile ABD pad, sterile cast padding, Rohit bandage were applied. Patient then transferred to the recovery room in stable condition. The patient tolerated the procedure well and there were no complications. Thomas Lagunas, my physician entry level marketing assistant, was present for the entire procedure. His assistance was essential and required for appropriate patient positioning, prepping and draping, surgical exposure, performing the technical details of the operation, placement the implants, closure of the wound, and placement of the sterile bandage. I attest to the content of the Intraoperative Record and any orders documented therein. Any exceptions are noted below.
[2023-01-12] MEDS ORDERED: ATROPINE SULFATE 0.1 MG/ML 10ML SYR IV PRN (09:18)
[2023-01-12] MEDS ORDERED: ePHEDrine sulfate 50 MG/ML AMP IV PRN (09:18)
--- NOTE | 2023-01-12 09:41 | XRay Report ---
LEFT KNEE 2 VIEWS History: Left knee arthroplasty. Degenerative arthritis. Postop. FINDINGS: The patient is status post a left medial unicondylar knee prosthesis. The hardware is intac t. No fracture or dislocation. Skin yokasta are in place. IMPRESSION: Left medial unicondylar knee prosthesis. No evidence for hardware complication. ACT 112: Negative or not required by law. Electronically signed by: Hermann Bustos M.D. 01/12/2023 9:40 AM
--- NOTE | 2023-01-12 09:43 | Anesthesiology Progress Note ---
Date of Service January 12, 2023 Anesthesia Post Procedure Vital Signs Vital Signs: Temp Pulse Resp BP Pulse Ox O2 Del Method O2 Flow Rate 01/12/23 09:35 64 15 130/55 L 96 Oxymask 2 01/12/23 09:25 65 13 129/54 L 97 Oxymask 4 01/12/23 09:15 62 15 118/57 L 100 Oxymask 4 01/12/23 09:05 36.1 C L 74 12 124/52 L 99 Oxymask 6 01/12/23 05:57 36.6 C 56 L 18 169/77 H 97 Room Air Transfer of Care Handoff Completed per policy Notes Mental Status: alert / awake / arousable Patient Amnestic to Procedure: Yes Nausea / Vomiting: adequately controlled Pain: adequately controlled Airway Patency, RR, SpO2: stable & adequate BP & HR: stable & adequate Hydration State: stable & adequate Neuraxial Anesthesia: was administered and sensory block is resolving Anesthetic Complications: no major complications apparent
[2023-01-12] MEDS ORDERED: NALOXONE HCL 0.4 MG/1 ML VIAL/CARP IV PRN (10:09)
[2023-01-12] MEDS ORDERED: ALUMINUM/MAGNESIUM SUSP 30 ML UDC PO PRN (10:09)
[2023-01-12] MEDS ORDERED: MAGNESIUM HYDROXIDE SUSP 30 ML UDC PO PRN (10:09)
[2023-01-12] MEDS ORDERED: HYDROmorphone INJ 0.5 MG/0.5 ML SYR IV PRN (10:09)
[2023-01-12] MEDS ORDERED: bisacodyL 10 MG SUPP PR PRN (10:09)
[2023-01-12] MEDS ORDERED: SODIUM CHLORIDE 0.9% 1,000 ML IV SCH (10:09)
[2023-01-12] MEDS ORDERED: ONDANSETRON INJ 2 MG/ML 2 ML VIAL IV PRN (10:09)
[2023-01-12] MEDS ORDERED: METOCLOPRAMIDE HCL INJ 5 MG/ML 2 ML VIAL IV PRN (10:09)
[2023-01-12] MEDS: PANTOprazole 40 MG TAB PO SCH ×2 (11:15→19:57)
[2023-01-12] MEDS: lisinopril 10 MG TAB PO SCH (11:15)
[2023-01-12] MEDS: MULTIVITAMIN TAB PO SCH (11:15)
[2023-01-12] MEDS: ASPIRIN 81 MG ECTAB PO SCH ×2 (11:16→19:54)
[2023-01-12] MEDS: DOCUSATE SODIUM 100 MG CAP PO SCH ×2 (11:16→20:00)
[2023-01-12] MEDS: KETOROLAC TROMETHAMINE 15 MG/ML VIAL IV SCH ×3 (11:16→23:08)
[2023-01-12] MEDS: hydroCHLOROthiazide 25 MG TAB PO SCH (11:16)
[2023-01-12] MEDS: CALCIUM 600MG + VIT D 400 IU TAB PO SCH (11:16)
[2023-01-12] MEDS: ceFAZolin 1000MG 1,000 MG/7.5 ML SYR IV SCH ×2 (14:39→23:08)
[2023-01-12] MEDS: ACETAMINOPHEN 500 MG TAB PO SCH ×2 (14:39→19:53)
[2023-01-12] MEDS: oxyCODONE HCL IR 5 MG TAB (IMMEDIATE RELEASE) PO PRN (19:52)
[2023-01-12] MEDS: busPIRone 7.5 MG TAB PO SCH (19:55)
[2023-01-12] MEDS: GABAPENTIN 300 MG CAP PO SCH (19:56)
[2023-01-12] MEDS: ESCITALOPRAM OXALATE 10 MG TAB PO SCH (19:56)
[2023-01-12] MEDS: MELATONIN 3 MG TAB PO SCH (19:57)
[2023-01-12] MEDS: ROSUVASTATIN CALCIUM 5 MG TAB PO SCH (19:58)
[2023-01-12] MEDS: SENNA 8.6 MG TAB PO SCH (20:00)
[2023-01-12] MEDS ORDERED: SENNA 8.6 MG TAB PO SCH (21:00)
[2023-01-13] MEDS: oxyCODONE HCL IR 5 MG TAB (IMMEDIATE RELEASE) PO PRN ×5 (01:04→21:39)
[2023-01-13] MEDS: KETOROLAC TROMETHAMINE 15 MG/ML VIAL IV SCH ×3 (05:43→17:31)
[2023-01-13 06:12] LABS: Hematocrit (blood only) 32.1 % (37.0-47.0); Hemoglobin 10.7 g/dl (12.0-16.0); Mean Corpuscular Hemoglobin 31.4 pg (25.0-34.0); Mean Corpuscular Hgb Conc 33.3 g/dL (32.0-36.0); Mean Corpuscular Volume 94.1 fL (80.0-100.0); Mean Platelet Volume 10.8 fL (9.4-12.4); Platelet Count 192 K/uL (130-400); RDW Coefficient of Variation 14.5 % (11.5-14.5); RDW Standard Deviation 49.8 fL (36.4-46.3); Red Blood Count 3.41 M/uL (4.20-5.40); White Blood Count 9.92 K/ul (4.8-10.8)
[2023-01-13 06:21] LABS: BUN Creatinine Ratio 39.4 (10-20); Calcium 7.8 mg/dl (8.6-10.3); Creatinine Clr Calc Pharmacy 48.1 ml/min; Est GFR (African American) 64.2 ml/min; Est GFR (Non-African American) 55.4 ml/min; Potassium 4.1 mmol/L (3.5-5.1)
[2023-01-13] MEDS: ACETAMINOPHEN 500 MG TAB PO SCH ×3 (07:51→20:03)
--- NOTE | 2023-01-13 07:51 | Orthopedic Progress Note ---
Date of Service January 13, 2023 Assessment & Plan (1) Status post left partial knee replacement: 77-year-old female postop day 1 from a left partial knee replacement. She is doing pretty well. Bit more pain with suspected but not out of the ordinary. Leg is functioning pretty well. She is neurologically intact. Plan: 1. DVT prophylaxis including thigh-high teds, SCDs, aspirin twice a day. 2. PT OT. Weight-bear as tolerated left total knee protocol. 3. Pain control doing okay with current pain regimen. 4. Disposition plan is to discharge to home with some home health. We will see how she does in therapy today. Subjective . 77-year-old female postop day 1 from a left partial knee replacement. He is doing okay this morning. Currently had quite a bit of discomfort last night but doing better this morning. No chest pain or shortness of breath. Review of Systems All systems reviewed & are unremarkable except as noted in HPI & below. Physical Exam . Physical examination was a pleasant middle-age female. She is sitting up in bed looks pretty comfortable this morning. Examination left leg reveals the dressing clean dry and intact. Leg is well aligned. She can dorsiflex and plantarflex her foot appropriately. She can do a pretty good straight leg raise. Respiratory normal respiratory effort, lungs clear to auscultation Cardiovascular RRR, no murmur, no edema Gastrointestinal (Abdomen) normal bowel sounds, soft, nontender, no hepatosplenomegaly Results & Data Results & Data Laboratory Results . Hemoglobin is 10.7. Hematocrit is 32.1. Electrolytes are stable. Diagnostic Findings . PG Care Time/CCT Total # of Minutes Spent Total Time Spent with Patient: Total time spent is greater than 50% in coordination of care (as documented) at patient's floor/unit and/or counseling patient: Coding Level of Care Code 12032 Post Operative Follow-Up Diagnoses Status post left partial knee replacement Z96.652
[2023-01-13] MEDS: COUGH DROP (SUGAR FREE) LOZ 24 LOZ/1 BOX BUCCAL PRN (07:52)
[2023-01-13] MEDS: PANTOprazole 40 MG TAB PO SCH ×2 (07:54→20:06)
[2023-01-13] MEDS: lisinopril 10 MG TAB PO SCH (07:54)
[2023-01-13] MEDS: MULTIVITAMIN TAB PO SCH (07:54)
[2023-01-13] MEDS: hydroCHLOROthiazide 25 MG TAB PO SCH (07:57)
[2023-01-13] MEDS: GABAPENTIN 300 MG CAP PO SCH ×2 (07:57→20:05)
[2023-01-13] MEDS: DOCUSATE SODIUM 100 MG CAP PO SCH ×2 (07:57→20:07)
[2023-01-13] MEDS: CALCIUM 600MG + VIT D 400 IU TAB PO SCH (07:58)
[2023-01-13] MEDS: busPIRone 7.5 MG TAB PO SCH ×2 (07:58→20:05)
[2023-01-13] MEDS: ASPIRIN 81 MG ECTAB PO SCH ×2 (07:58→20:04)
[2023-01-13] MEDS ORDERED: dexAMETHasone 10 MG in SYRINGE 0 ML IV SCH (08:00)
[2023-01-13] MEDS: ROSUVASTATIN CALCIUM 5 MG TAB PO SCH (20:06)
[2023-01-13] MEDS: MELATONIN 3 MG TAB PO SCH (20:06)
[2023-01-13] MEDS: ESCITALOPRAM OXALATE 10 MG TAB PO SCH (20:06)
[2023-01-13] MEDS: SENNA 8.6 MG TAB PO SCH (20:08)
[2023-01-14] MEDS: KETOROLAC TROMETHAMINE 15 MG/ML VIAL IV SCH ×2 (00:24→05:35)
[2023-01-14] MEDS: ACETAMINOPHEN 500 MG TAB PO SCH ×3 (07:45→19:52)
[2023-01-14] MEDS: CALCIUM 600MG + VIT D 400 IU TAB PO SCH (07:46)
[2023-01-14] MEDS: hydroCHLOROthiazide 25 MG TAB PO SCH (07:46)
[2023-01-14] MEDS: DOCUSATE SODIUM 100 MG CAP PO SCH ×2 (07:46→19:53)
[2023-01-14] MEDS: lisinopril 10 MG TAB PO SCH ×2 (07:47→19:54)
[2023-01-14] MEDS: MULTIVITAMIN TAB PO SCH (07:47)
[2023-01-14] MEDS: ASPIRIN 81 MG ECTAB PO SCH ×2 (07:49→19:55)
[2023-01-14] MEDS: PANTOprazole 40 MG TAB PO SCH ×2 (07:49→19:53)
[2023-01-14] MEDS: busPIRone 7.5 MG TAB PO SCH ×2 (07:50→19:54)
[2023-01-14] MEDS: GABAPENTIN 300 MG CAP PO SCH ×2 (07:50→19:52)
--- NOTE | 2023-01-14 09:38 | Orthopedic Progress Note ---
Date of Service January 14, 2023 Assessment & Plan (1) Status post left partial knee replacement: 77-year-old female postop day 2 from a left partial knee replacement. Clinically she seems to be doing okay. Subjectively if she is concerned about this dizziness. She is done well in therapy. Plan: 1. DVT prophylaxis including thigh-high teds, SCDs, aspirin twice a day. 2. PT OT. Weight-bear as. Total knee protocol. 3. Pain control seems to be doing okay with current pain regimen. 4. Disposition she is hoping to be discharged home with home health. She does not feel ready to go home yet today. She is a little dizzy in order to be cautious with her. If she is not doing any better by tomorrow she might need to go to rehab. We will see how therapy goes today and tomorrow morning. Subjective . 77-year-old female postop day 2 from a left partial knee replacement. Her legs doing okay. Mod amount of pain. She is continue to feel dizzy and lightheaded when she gets up. She is concerned about falling. Does not have much help at home. Denies any chest pain or shortness of breath. Review of Systems All systems reviewed & are unremarkable except as noted in HPI & below. Physical Exam . Physical exam shows a pleasant elderly female. Sitting up in bedside chair looks comfortable. Examination left leg reveals to be well aligned. Dressings in place. A little bit of bloody drainage at the inferior aspect. She can do a good straight leg raise. Range of motion 0 to 90 degrees. She is neurologically intact. Results & Data Results & Data Laboratory Results . Diagnostic Findings . PG Care Time/CCT Total # of Minutes Spent Total Time Spent with Patient: Total time spent is greater than 50% in coordination of care (as documented) at patient's floor/unit and/or counseling patient: Coding Level of Care Code 88250 Post Operative Follow-Up Diagnoses Status post left partial knee replacement Z96.652
[2023-01-14] MEDS: oxyCODONE HCL IR 5 MG TAB (IMMEDIATE RELEASE) PO PRN ×3 (09:51→19:50)
[2023-01-14] MEDS: COUGH DROP (SUGAR FREE) LOZ 24 LOZ/1 BOX BUCCAL PRN (19:51)
[2023-01-14] MEDS: SENNA 8.6 MG TAB PO SCH (19:54)
[2023-01-14] MEDS: MELATONIN 3 MG TAB PO SCH (19:56)
[2023-01-14] MEDS: ESCITALOPRAM OXALATE 10 MG TAB PO SCH (19:56)
[2023-01-14] MEDS: ROSUVASTATIN CALCIUM 5 MG TAB PO SCH (19:56)
[2023-01-15] MEDS: oxyCODONE HCL IR 5 MG TAB (IMMEDIATE RELEASE) PO PRN ×2 (01:09→08:05)
--- NOTE | 2023-01-15 07:52 | Orthopedic Progress Note ---
Date of Service January 15, 2023 Assessment & Plan (1) Status post left partial knee replacement: 77-year-old female postop day 3 from left knee replacement gradually improving. Still in quite a bit of pain. Medically she seems to be improved. Plan: 1. DVT prophylaxis including thigh-high teds, SCDs, aspirin twice a day. 2. PT OT. Weight-bear as tolerated left total knee protocol. 3. Pain control doing okay with current pain regimen. 4. Disposition plan to discharge home with some home health hopefully today Subjective . 77-year-old female postop day 3 from a partial knee replacement. Doing bit better this morning. The dizziness seems to be improved. Still having quite a bit left knee pain. No chest pain or shortness of breath Review of Systems All systems reviewed & are unremarkable except as noted in HPI & below. Physical Exam . Physical examination was a pleasant elderly female. She is lying in bed looks pretty comfortable. Examination left leg reveals leg to be well aligned. Mild swelling. She can dorsiflex and plantarflex her foot appropriately. She has a good straight leg raise. Results & Data Results & Data Laboratory Results . Diagnostic Findings . PG Care Time/CCT Total # of Minutes Spent Total Time Spent with Patient: Total time spent is greater than 50% in coordination of care (as documented) at patient's floor/unit and/or counseling patient: Coding Level of Care Code 16503 Post Operative Follow-Up Diagnoses Status post left partial knee replacement Z96.652
[2023-01-15] MEDS: PANTOprazole 40 MG TAB PO SCH (08:02)
[2023-01-15] MEDS: DOCUSATE SODIUM 100 MG CAP PO SCH (08:02)
[2023-01-15] MEDS: MULTIVITAMIN TAB PO SCH (08:02)
[2023-01-15] MEDS: busPIRone 7.5 MG TAB PO SCH (08:02)
[2023-01-15] MEDS: GABAPENTIN 300 MG CAP PO SCH (08:02)
[2023-01-15] MEDS: hydroCHLOROthiazide 25 MG TAB PO SCH (08:02)
[2023-01-15] MEDS: CALCIUM 600MG + VIT D 400 IU TAB PO SCH (08:03)
[2023-01-15] MEDS: ASPIRIN 81 MG ECTAB PO SCH (08:03)
[2023-01-15] MEDS: lisinopril 10 MG TAB PO SCH (08:03)
[2023-01-15] MEDS: ACETAMINOPHEN 500 MG TAB PO SCH (08:03)
== END 2023-01-15 12:11 | disposition home health service (06) ==
LOC: ASU 05:04 → 3E 05:04

== ENCOUNTER 2024-04-27 09:45 | Inpatient (IN) ==
--- NOTE | 2024-04-27 09:55 | Emergency Department Note ---
Impression & Plan Hypoxia, Fever, Elevated troponin ED Provider Note NAME: CALVIN GONZALEZ AGE: 79 SEX: F : 1945 ARRIVES VIA: Ambulance INFORMANT: Patient ED PROVIDER(S): Korey Quinn DO CHIEF COMPLAINT: Recurrent falls, confusion HPI: Patient is a 79-year-old female with a past medical history of hypertension, heart failure, and cerebral meningioma who presents to the ER following several falls. Patient fell twice yesterday and twice today. Per EMS who provided additional history they note that the patient has been confused today. She denies any headache or neck pain. No chest pain or shortness of breath. No belly pain. No nausea, vomiting, or diarrhea. She notes that she has some mild pain with her shoulder on the left when she turns certain ways. Movement of her shoulder does not change the pain and she has pain in her nose as well following falling forward and hitting her head. notes that she has been coughing since yesterday. He believes that she has only fallen once. ADDITIONAL HISTORY OBTAINED: Per HPI Chronic Medical/Social Conditions Affecting Care: Per HPI PAST MEDICAL HISTORY:See Below PAST SURGICAL HISTORY:See Below FAMILY HISTORY:See Below SOCIAL HISTORY:See Below HOME MEDICATIONS:See Below ALLERGIES:See Below VITALS:See Below PHYSICAL EXAMINATION: GENERAL: alert, well appearing, well nourished, no distress, non-toxic HEAD: normal cephalic, atraumatic EYE EXAM: normal conjunctiva, PERRL and EOM's grossly intact OROPHARYNX: no exudate, no erythema, lips, buccal mucosa, and tongue normal and mucous membranes are moist NECK: supple, no nuchal rigidity, cervical collar in place, no midline tenderness on palpation CHEST: stable to compression anteriorly and posteriorly LUNGS: clear to auscultation. Normal chest wall mechanics HEART: no murmurs, S1 normal and S2 normal ABDOMEN: abdomen soft, non-tender, normo-active bowel sounds, no masses, no rebound or guarding. PELVIS: stable to compression anteriorly and posteriorly BACK: Back is symmetrical on inspection and there is no deformity, no midline tenderness, no CVA tenderness. UPPER EXTREMITIES: full active and passive range of motion of all joints without tenderness to palpation LOWER EXTREMITIES: full active and passive range of motion of all joints without tenderness to palpation NEURO EXAM: Normal sensorium, cranial nerves II-XII grossly intact, normal speech, no gross weakness of arms, no gross weakness of legs. GCS: 15. MEDICAL DECISION MAKING: Patient is a 79-year-old female who presents ER for the above-stated complaint. IV was established and blood work was obtained. Labs show no significant leukocytosis. Mild anemia at 11.2. BMP along with LFTs bilirubin was unremarkable. Lactic acid was normal. Trope was mildly elevated. Lipase was normal. Pro-Andrzej normal. Chest x-ray with questionable right lower lobe infiltrates. CT of the head face and cervical spine was negative. X-ray of the pelvis was unremarkable. Patient was given IV fluids, Tylenol, Rocephin and azithromycin. She was updated bedside. Discussed with the hospitalist for further evaluation management treatment. Consults/Care Managements Discussions: Per [facility] Triage Nursing notes reviewed. Limited review of prior medical records performed Vital Signs: reviewed and remarkable for febrile Differential diagnosis: Differential diagnosis includes etiologies such as sepsis, UTI, pneumonia, metabolic, electrolyte abnormalities, cardiac sources, intracerebral event, toxicologic, neurological, as well as others were entertained. ER treatment provided: See below Diagnostics interpreted by me include EKG and cardiac monitoring as listed below: -Cardiac Monitoring: An order was placed for continuous cardiac monitoring. The monitor shows a rate of 60 with sinus rhythm. -ECG: Sinus rhythm rate of 55 Normal axis PVCs QTc 415 T wave inversions from V4 through V6 -Laboratory studies:Interpreted by me as stated above in MDM and shown below. Imaging studies: Xrays: As interpreted by me: Portable AP upright 1 view of the chest shows opacity in the right lower base X-ray of the pelvis showed no acute fracture CTs show: CT of the head face cervical spine was negative per radiology Procedures:none Critical Care: I have personally spent 35 minutes of critical care time in the direct management of this patient. This includes bedside care, interpretation of diagnostic studies, and testing, discussion with consultants, patient, and family members, and other required patient management activities. This 35 minutes is in excess of all separately billable procedures. Past Med/Surg History Problem List (Updated 04/27/24 @ 14:01 by Korey Quinn DO) Elevated troponin (Acute) Fever (Acute) Hypoxia (Acute) Fall (Acute) Elevated troponin Acute respiratory failure with hypoxemia Pneumonia Hypertension controlled, stable per pt; white coat hypertension LVH (left ventricular hypertrophy) Diastolic dysfunction Dyslipidemia Insomnia Meningioma, cerebral Trigeminal neuralgia of left side of face Vitamin D deficiency Hyperparathyroidism Arthritis of knee, left Depression with anxiety LPRD (laryngopharyngeal reflux disease) controlled, stable per pt; occasional dysphagia with food Osteoporosis Ulnar neuropathy Carpal tunnel syndrome, left Sacroiliitis Cervical stenosis of spinal canal Medical History TMJ dysfunction Glossopharyngeal neuralgia syndrome Constipation Hip bursitis, left Hiatal hernia Contusion of left knee Vitamin D deficiency LVH (left ventricular hypertrophy) Mild cLVH per 10/2020 Echo Mixed conductive and sensorineural hearing loss of left ear with restricted hearing of right ear History of COVID-19 03/2021-denies hospitalization-denies residual symptoms Hx of migraine headaches Vertigo occasional, chronic, denies change or worsening Osteoporosis Acquired deviated nasal septum Stroke "Mini stroke" to left eye during cataract surgery (2018) > blurry vision residual Knee osteonecrosis, left Hip pain left, occasional Depression Anxiety Surgical History Status post left partial knee replacement H/O laparoscopy x2, tubal pregnancies History of esophageal dilatation History of esophagogastroduodenoscopy (EGD) History of trigger finger Right ring + small finger trigger finger release (01/2021, [facility] [place]) History of colonoscopy History of dilatation and curettage Hx of bilateral cataract extraction H/O hemorrhoidectomy History of thumb surgery Left History of tonsillectomy History of lumbar surgery H/O wrist surgery Left (2018) History of tooth extraction History of hip surgery Right LYNDON (1999), replacement (2000), repair of replacement (2001) History of appendectomy Family History Brother Cardiac arrest Father Cardiac arrest Mother Cardiac arrest Dementia Other Heart disease Hypertension No family history of adverse response to anesthesia No family history of bleeding disorder Denies family history of Ovarian cancer Breast cancer Lung cancer Colorectal cancer Stroke Social History Smoking Status: Never smoker Second Hand Exposure: No; Do You Dip or Chew Tobacco: No; Hx Alcohol Use: No Hx Substance Use: No Preferred Language: Jordanian Communication Ability: Effective Visual Impairment: No Limitations Hearing Ability: Normal 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 Beliefs That Will Affect Care: None marital status: Current Living Situation: Spouse current occupational status: retired How many Children do You have: 3 Feels Safe at Home: Yes Childhood Exposure to Second-Hand Smoke: No Diet: regular caffeine: No Dental Care, Regularly: Yes Physical Activity Frequency: Does not Exercise Seatbelt Use: always Sunscreen Use: Yes Do you think of yourself as: straight/heterosexual Assistive Devices: Cane and Walker Allergies Allergies Allergy/AdvReac Type Severity Reaction Status Date / Time Sulfa (Sulfonamide Allergy Intermediate Hives Verified 04/27/24 13:52 Antibiotics) morphine Allergy Mild Hives Verified 04/27/24 13:52 tramadol AdvReac Intermediate Diarrhea Verified 04/27/24 13:52 hydromorphone [From Dilaudid] AdvReac Hallucinati Verified 04/27/24 13:52 ons Home Meds Home Medications Medication Instructions Recorded Confirmed ketoconazole 2 %-hydrocortisone See Rx Instructions topical 01/22/22 04/12/24 2.5 % topical cream .COMPLEX PRN ud aspirin 81 mg tablet,delayed 81 mg PO DAILY 04/05/23 04/12/24 release (Keyanna Low Dose Aspirin) cholecalciferol (vitamin D3) 50 100 mcg PO DAILY 05/09/23 04/12/24 mcg (2,000 unit) capsule L.acid,bul,para,rham-B.anim,long cap PO DAILY 08/04/23 04/12/24 10 billion cell-inulin 100 mg capsule (Probitoic Digestive Support (6 strain)) calcium 500 mg (as 1 tab PO BID 03/06/24 04/12/24 carbonate)-vitamin D3 3.125 mcg (125 unit) tablet melatonin 10 mg capsule 5 mg PO HS 03/06/24 04/12/24 pregabalin 75 mg capsule 75 mg PO BID 04/03/24 04/12/24 Previous Rx's Medication Instructions Recorded blood pressure monitor #1 ea 03/11/20 diclofenac sodium 1 % topical gel 2 g topical QID #300 grams 03/02/23 denosumab 60 mg/mL subcutaneous 60 mg subcut Q6MO #1 mL 05/18/23 syringe (Prolia) rosuvastatin 5 mg tablet 5 mg PO QPM #90 tabs 08/08/23 escitalopram oxalate 10 mg tablet 10 mg PO DAILY #90 tabs 11/14/23 esomeprazole magnesium 40 mg 40 mg PO BID #180 caps 12/13/23 capsule,delayed release buspirone 7.5 mg tablet 7.5 mg PO BID #180 tabs 12/20/23 hydrochlorothiazide 25 mg tablet 25 mg PO QAM #90 tabs 12/26/23 lisinopril 20 mg tablet 20 mg PO QAM #60 tabs 03/20/24 Magic Mouthwash 300 mL mouthwash 5 ml mucous membrane Q6 PRN pain 03/31/24 #300 mL lidocaine HCl 2 % mucosal solution 1 applic mucous membrane QID PRN 04/03/24 (Lidocaine Viscous) oral ulcers #300 mL oxycodone 10 mg tablet See Rx Instructions PO Q6H PRN 04/12/24 severe pain (scale score 7-10) #90 tabs lamotrigine 100 mg tablet 100 mg PO BID #60 tabs 04/16/24 Results & Data (ED) Vital Signs Vital Signs - 24 hr 04/27/24 09:51 04/27/24 09:51 04/27/24 09:59 Temperature 38.5 C H Temperature Source Oral Pulse Rate 51 L 51 L Pulse Rate [Apical] 51 L Pulse Rate from SpO2 Sensor Pulse Rhythm Irregular Irregular Pulse Rhythm [Apical] Irregular Pulse Strength Normal Pulse Strength [Apical] Normal Respiratory Rate 19 19 19 Respiratory Effort / Characteristics Non-Labored Non-Labored Respiratory Depth Normal Normal Respiratory Pattern Regular Regular Blood Pressure 127/84 Blood Pressure [Right Arm] 125/84 Blood Pressure Mean 98 Blood Pressure Mean [Right Arm] 97 Blood Pressure Position Lying Pulse Oximetry 88 L 88 L 94 Oxygen Delivery Method Room Air Room Air Nasal Cannula Oxygen Flow Rate 2 Sepsis Recent Fever Within 48 Hours Yes Sepsis New/Unexplained Change in Mental Status Yes Sepsis Action Taken by Nursing Physician Notified 04/27/24 10:00 04/27/24 10:16 04/27/24 10:30 Temperature Temperature Source Pulse Rate 61 66 61 Pulse Rate [Apical] Pulse Rate from SpO2 Sensor 58 L 55 L Pulse Rhythm Pulse Rhythm [Apical] Pulse Strength Pulse Strength [Apical] Respiratory Rate 18 20 Respiratory Effort / Characteristics Respiratory Depth Respiratory Pattern Blood Pressure 131/60 99/64 L Blood Pressure [Right Arm] Blood Pressure Mean 83 75 Blood Pressure Mean [Right Arm] Blood Pressure Position Pulse Oximetry 95 95 Oxygen Delivery Method Nasal Cannula Nasal Cannula Oxygen Flow Rate 2 2 Sepsis Recent Fever Within 48 Hours Sepsis New/Unexplained Change in Mental Status Sepsis Action Taken by Nursing 04/27/24 12:00 Temperature Temperature Source Pulse Rate Pulse Rate [Apical] 55 L Pulse Rate from SpO2 Sensor Pulse Rhythm Pulse Rhythm [Apical] Pulse Strength Pulse Strength [Apical] Respiratory Rate 20 Respiratory Effort / Characteristics Respiratory Depth Respiratory Pattern Blood Pressure Blood Pressure [Right Arm] 96/56 L Blood Pressure Mean Blood Pressure Mean [Right Arm] 69 Blood Pressure Position Pulse Oximetry 95 Oxygen Delivery Method Room Air Oxygen Flow Rate Sepsis Recent Fever Within 48 Hours Sepsis New/Unexplained Change in Mental Status Sepsis Action Taken by Nursing Laboratory Data 04/27/24 10:17 04/27/24 10:17 Lab Results 04/27/24 04/27/24 04/27/24 Range/Units 10:17 10:20 10:22 WBC 8.17 (4.8-10.8) K/ul RBC 3.64 L (4.20-5.40) M/uL Hgb 11.2 L (12.0-16.0) g/dl Hct 33.5 L (37.0-47.0) % MCV 92.0 (80.0-100.0) fL MCH 30.8 (25.0-34.0) pg MCHC 33.4 (32.0-36.0) g/dL RDW Std Deviation 45.6 (36.4-46.3) fL RDW Coeff of Jerry 13.4 (11.5-14.5) % Plt Count 176 (130-400) K/uL MPV 11.0 (9.4-12.4) fL Immature Gran % (Auto) 0.2 % Neut % (Auto) 88.0 % Lymph % (Auto) 7.1 % [place] % (Auto) 4.7 % Eos % (Auto) 0.0 % Baso % (Auto) 0.0 % Neut # (Auto) 7.19 H (1.40-6.50) K/uL Lymph # (Auto) 0.58 L (1.20-3.40) K/uL [place] # (Auto) 0.38 (0.11-0.59) K/uL Eos # (Auto) 0.00 (0.00-0.50) K/uL Baso # (Auto) 0.00 (0.00-0.20) K/uL Immature Gran # (Auto) 0.02 (0.01-0.20) K/uL Sodium 137 (136-145) mmol/L Potassium 4.0 (3.5-5.1) mmol/L Chloride 102 (98-107) mmol/L Carbon Dioxide 28 (21-32) mmol/L Anion Gap 7 (3-11) BUN 13 (6-23) mg/dl Creatinine 0.83 (0.6-1.2) mg/dl Est Cr Clr Drug Dosing 53.9 ml/min eGFR 72.11 BUN/Creatinine Ratio 15.7 (10-20) Glucose 125 H (70-99(Fasting)) mg/dl Lactate 1.3 (0.4-2.0) mmol/L Calcium 8.6 (8.6-10.3) mg/dl Total Bilirubin 0.5 (0.2-1.0) mg/dl AST 24 (13-39) U/L ALT 15 (7-52) U/L Alkaline Phosphatase 39 (34-104) U/L Troponin I High Sens 26.8 H (0-14) pg/ml Total Protein 6.7 (6.0-8.3) gm/dl Albumin 3.8 (3.4-5.0) gm/dl Globulin 2.9 (2.5-4.0) gm/dl Albumin/Globulin Ratio 1.3 (0.9-2) Lipase 29 (11-82) U/L Procalcitonin 0.13 (0-0.5) ng/ml Urine Color Yellow Urine Appearance Clear (Clear) Urine pH 7.5 (4.5-7.5) Ur Specific [place] 1.011 (1.000-1.030) Urine Protein Negative (Negative) Urine Glucose (UA) Negative (Negative) Urine Ketones Negative (Negative) Urine Blood Negative (Negative) Urine Nitrite Negative (Negative) Urine Bilirubin Negative (Negative) Urine Urobilinogen Negative (Negative) Ur Leukocyte Esterase Trace H (Negative) Urine WBC (Auto) 0-5 (0-5) /hpf Urine RBC (Auto) 0-2 (0-2) /hpf U Hyaline Cast (Auto) 0-2 (0-2) /lpf U Epithel Cells (Auto) 0-2 (0-2) /hpf Urine Bacteria (Auto) None Seen (None Seen) Adenovirus (PCR) (NotDetected) B. pertussis DNA (PCR) (NotDetected) B.parapertussis DNA PCR (NotDetected) C. pneumoniae DNA (PCR) (NotDetected) Coronavirus OC43 (PCR) (NotDetected) Coronavirus HKU1 (PCR) (NotDetected) Coronavirus 229E (PCR) (NotDetected) SARS-CoV-2 (PCR) (NotDetected) Coronavirus NL63 (PCR) (NotDetected) Human Metapneumovir PCR (NotDetected) Influenza Type A (PCR) (NotDetected) Influenza Type B (PCR) (NotDetected) M. pneumoniae (PCR) (NotDetected) Parainfluenza 1 (PCR) (NotDetected) Parainfluenza 2 (PCR) (NotDetected) Parainfluenza 3 (PCR) (NotDetected) Parainfluenza 4 (PCR) (NotDetected) RSV (PCR) (NotDetected) Entero/Rhino (PCR) (NotDetected) 04/27/24 04/27/24 Range/Units 12:00 Unknown WBC (4.8-10.8) K/ul RBC (4.20-5.40) M/uL Hgb (12.0-16.0) g/dl Hct (37.0-47.0) % MCV (80.0-100.0) fL MCH (25.0-34.0) pg MCHC (32.0-36.0) g/dL RDW Std Deviation (36.4-46.3) fL RDW Coeff of Jerry (11.5-14.5) % Plt Count (130-400) K/uL MPV (9.4-12.4) fL Immature Gran % (Auto) % Neut % (Auto) % Lymph % (Auto) % [place] % (Auto) % Eos % (Auto) % Baso % (Auto) % Neut # (Auto) (1.40-6.50) K/uL Lymph # (Auto) (1.20-3.40) K/uL [place] # (Auto) (0.11-0.59) K/uL Eos # (Auto) (0.00-0.50) K/uL Baso # (Auto) (0.00-0.20) K/uL Immature Gran # (Auto) (0.01-0.20) K/uL Sodium (136-145) mmol/L Potassium (3.5-5.1) mmol/L Chloride (98-107) mmol/L Carbon Dioxide (21-32) mmol/L Anion Gap (3-11) BUN (6-23) mg/dl Creatinine (0.6-1.2) mg/dl Est Cr Clr Drug Dosing ml/min eGFR BUN/Creatinine Ratio (10-20) Glucose (70-99(Fasting)) mg/dl Lactate (0.4-2.0) mmol/L Calcium (8.6-10.3) mg/dl Total Bilirubin (0.2-1.0) mg/dl AST (13-39) U/L ALT (7-52) U/L Alkaline Phosphatase (34-104) U/L Troponin I High Sens 26.9 H (0-14) pg/ml Total Protein (6.0-8.3) gm/dl Albumin (3.4-5.0) gm/dl Globulin (2.5-4.0) gm/dl Albumin/Globulin Ratio (0.9-2) Lipase (11-82) U/L Procalcitonin (0-0.5) ng/ml Urine Color Urine Appearance (Clear) Urine pH (4.5-7.5) Ur Specific [place] (1.000-1.030) Urine Protein (Negative) Urine Glucose (UA) (Negative) Urine Ketones (Negative) Urine Blood (Negative) Urine Nitrite (Negative) Urine Bilirubin (Negative) Urine Urobilinogen (Negative) Ur Leukocyte Esterase (Negative) Urine WBC (Auto) (0-5) /hpf Urine RBC (Auto) (0-2) /hpf U Hyaline Cast (Auto) (0-2) /lpf U Epithel Cells (Auto) (0-2) /hpf Urine Bacteria (Auto) (None Seen) Adenovirus (PCR) Not Detected (NotDetected) B. pertussis DNA (PCR) Not Detected (NotDetected) B.parapertussis DNA PCR Not Detected (NotDetected) C. pneumoniae DNA (PCR) Not Detected (NotDetected) Coronavirus OC43 (PCR) Not Detected (NotDetected) Coronavirus HKU1 (PCR) Not Detected (NotDetected) Coronavirus 229E (PCR) Not Detected (NotDetected) SARS-CoV-2 (PCR) Not Detected (NotDetected) Coronavirus NL63 (PCR) Not Detected (NotDetected) Human Metapneumovir PCR Not Detected (NotDetected) Influenza Type A (PCR) Not Detected (NotDetected) Influenza Type B (PCR) Not Detected (NotDetected) M. pneumoniae (PCR) Not Detected (NotDetected) Parainfluenza 1 (PCR) Not Detected (NotDetected) Parainfluenza 2 (PCR) Not Detected (NotDetected) Parainfluenza 3 (PCR) Not Detected (NotDetected) Parainfluenza 4 (PCR) Not Detected (NotDetected) RSV (PCR) Not Detected (NotDetected) Entero/Rhino (PCR) Not Detected (NotDetected) Administered Medications Discontinued Medications Acetaminophen (Acetaminophen 325 Mg Tab) 650 mg PO NOW STA Stop: 04/27/24 09:58 Last Admin: 04/27/24 10:42 Dose: 650 mg Documented By: SRL Azithromycin (Azithromycin 250 Mg Tab) 500 mg PO NOW ONE Stop: 04/27/24 11:52 Last Admin: 04/27/24 12:35 Dose: 500 mg Documented By: ANDI Sodium Chloride (Nss) 1,000 mls @ 999 mls/hr IV .Q1H1M ONE Stop: 04/27/24 10:57 Last Infusion: 04/27/24 11:58 Dose: Infused Documented By: Admin: 04/27/24 10:41 Dose: 999 mls/hr Documented By: SRL Ceftriaxone Sodium (Rocephin) 2,000 mg in 50 mls @ 100 mls/hr IV NOW STA Stop: 04/27/24 12:20 Last Infusion: 04/27/24 13:08 Dose: Infused Documented By: Admin: 04/27/24 12:35 Dose: 100 mls/hr Documented By: ANDI Sodium Chloride (Nss) 500 mls @ 999 mls/hr IV .Q31M ONE Stop: 04/27/24 12:43 Last Infusion: 04/27/24 13:08 Dose: Infused Documented By: Admin: 04/27/24 12:36 Dose: 999 mls/hr Documented By: ANDI Imaging Data Radiologist's Impression: Cervical Spine CT 04/27/24 09:51 CT cervical spine wo con CLINICAL HISTORY: 79 years-old Female with Trauma/fall. Acute neck injury status post fall COMPARISON: 07/19/2023 TECHNIQUE: Multiple axial CT images of the cervical spine were obtained without contrast. A dose lowering technique was utilized adhering to the principles of ALARA. FINDINGS: Moderate to advanced degenerative changes of the cervical spine redemonstrated. No acute cervical spine fracture or subluxation identified. The cervical soft tissues appear unremarkable. Intralobular septal thickening of the lung apices. No pneumothorax. Nonspecific wall thickening of the upper thoracic esophagus. Moderate calcified plaque of the carotid bulbs. Head CT dictated separately. IMPRESSION: No acute cervical spine fracture or subluxation identified. ACT 112: Negative or not required by law. The above report was generated using voice recognition software. It may contain grammatical, syntax or spelling errors. Electronically signed by: Grant Roman M.D. 04/27/2024 11:35 AM Chest X-Ray 04/27/24 09:51 XR chest 1V portable HISTORY: 79 years-old Female Chest pain, nonspecific COMPARISON: 10/21/2023 TECHNIQUE: AP view of the chest FINDINGS: Small pleural effusions. Mild cardiomegaly. Pulmonary vascular congestion with interstitial coarsening. Ill-defined right mid lung and right greater than left bibasilar airspace opacities. No pneumothorax. Bones appear grossly intact. Atherosclerosis of the aorta. IMPRESSION: 1. Cardiomegaly with interstitial pulmonary edema and small pleural effusions. 2. Right basilar predominant opacities may represent atelectasis versus pneumonitis. ACT 112: Negative or not required by law. The above report was generated using voice recognition software. It may contain grammatical, syntax or spelling errors. Electronically signed by: Grant Roman M.D. 04/27/2024 10:[address] 04/27/24 09:51 CT facial bones wo con CLINICAL HISTORY: 79 years-old Female presenting with Trauma/fall. Acute facial and head trauma status post fall COMPARISON STUDY: CT head and cervical spine studies of same day TECHNIQUE: High-resolution CT scan of the facial bones is performed. Images are reviewed in the axial, sagittal, and coronal planes. IV contrast was not administered for this examination. A dose lowering technique was utilized adhering to the principles of ALARA. FINDINGS: Streak artifact from the patient's earrings limit the exam. Mastoid air cells and middle ear cavities appear clear. Degenerative changes of the cervical spine. Mild mucosal thickening of the ethmoid sinuses. Mild leftward bowing and spurring of the nasal septum. No acute facial bone fracture identified. Moderate degeneration of the right temporomandibular joint. Right greater than left bilateral cole bullosa. Unremarkable soft tissues. Bilateral lens repair. IMPRESSION: No acute facial bone fracture. ACT 112: Negative or not required by law. The above report was generated using voice recognition software. It may contain grammatical, syntax or spelling errors. Electronically signed by: Grant Roman M.D. 04/27/2024 11:[address] 04/27/24 09:51 CT head/brain wo con CLINICAL HISTORY: Trauma/fall Technique: Contiguous axial CT images of the head were acquired from the base of the skull to the vertex without intravenous contrast administration. Images were viewed in brain, subdural and bone windows. Automated dose lowering techniques and/or adjustment according to patient size were utilized for this exam. Comparison: Comparison is made to CT head 07/19/2023 Findings: The ventricles, basal cisterns, and cerebral sulci are normal. There is no acute intracranial hemorrhage or evidence of acute territorial infarction. Neither mass effect, shift of the midline structures, nor abnormal extra-axial fluid collections are shown. Imaged portions of the paranasal sinuses and mastoid air cells are clear. The orbits appear normal. There are no acute fractures of the calvaria or scalp swelling. Impression: No acute intracranial hemorrhage, no evidence of acute territorial infarction or other acute intracranial disease process. ACT 112: Negative or not required by law. Electronically signed by: Pascual Perkins M.D. 04/27/2024 11:23 AM Pelvis X-Ray 04/27/24 09:51 XR pelvis 1-2V routine CLINICAL HISTORY: fall TECHNIQUE: A single frontal view of the pelvis was obtained. Comparison: None available at the time of this dictation. FINDINGS: There is no evidence of an acute fracture. Right hip arthroplasty and pelvic reconstruction is seen. No soft tissue abnormality is seen. IMPRESSION: No evidence of acute osseous injury. ACT 112: Negative or not required by law. Electronically signed by: Pascual Perkins M.D. 04/27/2024 10:37 AM Discharge Plan Visit Data Chief Complaint: Fall Stated Complaint: FALL, CONFUSION ED Provider: Korey Quinn Discharge Problem: Hypoxia, Fever, Elevated troponin Forms Stand Alone Forms: [facility] [employer] Prescriptions Prescriptions: No Action (DME) blood pressure monitor Kit See Rx Instructions .ROUTE .MEDSUPPLY Qty: 1 0RF Rx Instructions: AUTOMATIC BLOOD PRESSURE CUFF DX: I10 diclofenac sodium 1 % gel 2 g topical QID Qty: 300 3RF Rx Instructions: apply to single elbow, wrist or hand; for hand includes palm/fingers/back of hand cholecalciferol (vitamin D3) 50 mcg (2,000 unit) capsule 100 mcg PO DAILY Prolia 60 mg/mL syringe 60 mg subcut Q6MO Qty: 1 1RF Rx Instructions: auth good starts 11/25/22 with no end date rosuvastatin 5 mg tablet 5 mg PO QPM Qty: 90 3RF escitalopram oxalate 10 mg tablet 10 mg PO DAILY Qty: 90 3RF esomeprazole magnesium 40 mg capsule,delayed release(DR/EC) 40 mg PO BID Qty: 180 3RF buspirone 7.5 mg tablet 7.5 mg PO BID Qty: 180 3RF hydrochlorothiazide 25 mg tablet 25 mg PO QAM Qty: 90 3RF lamotrigine 100 mg tablet 100 mg PO BID Qty: 60 5RF Probiotic Digest Supp (6-strn) 10 billion cell -100 mg capsule PO DAILY ketoconazole-hydrocortisone 2-2.5 % cream See Rx Instructions topical .COMPLEX PRN (Reason: ud) Rx Instructions: Apply to rash once daily topically ; Apply to rash once daily PRN; aspirin [Keyanna Low Dose Aspirin] 81 mg tablet,delayed release (DR/EC) 81 mg PO DAILY Rx Instructions: Take to prevent blood clots. melatonin 10 mg capsule 5 mg PO HS lisinopril 20 mg tablet 20 mg PO QAM Qty: 60 0RF Hold Instructions: reduction to 10 mg with dizziness after Covid pregabalin 75 mg capsule 75 mg PO BID lidocaine HCl [Lidocaine Viscous] 2 % solution 1 applic mucous membrane QID PRN (Reason: oral ulcers) Qty: 300 0RF oxycodone 10 mg tablet See Rx Instructions PO Q6H PRN (Reason: severe pain (scale score 7-10)) Qty: 90 0RF Hold Instructions: change to 4x daily Rx Instructions: 5-10mg po q6hrs orally every 6 hours PRN; calcium carbonate-vitamin D3 500 mg-3.125 mcg (125 unit) tablet 1 tab PO BID Magic Mouthwash 300 mL mouthwash 5 ml mucous membrane Q6 PRN (Reason: pain) Qty: 300 0RF Rx Instructions: Benadryl 12.5 mg/5 mL oral elixir; Maalox 200 mg-200 mg-20 mg/5 mL oral suspension; Xylocaine Viscous 2 % mucosal solution;[Generic substitution ok] 1:1:1 compound Per 300 mL Swish and spit. Referrals Referrals: Milton López DO [Primary Care Provider] - Discharge Problem: Fever Qualifiers: Fever type: unspecified Qualified Code(s): R50.9 - Fever, unspecified
--- NOTE | 2024-04-27 10:38 | XRay Report ---
XR pelvis 1-2V routine CLINICAL HISTORY: fall TECHNIQUE: A single frontal view of the pelvis was obtained. Comparison: None available at the time of this dictation. FINDINGS: There is no evidence of an acute fracture. Right hip arthroplasty and pelvic reconstruction is seen. No soft tissue abnormality is seen. IMPRESSION: No evidence of acute osseous injury. ACT 112: Negative or not required by law. Electronically signed by: Pascual Perkins M.D. 04/27/2024 10:37 AM
[2024-04-27] MEDS: SODIUM CHLORIDE 0.9% 1,000 ML IV ONE (10:41)
[2024-04-27] MEDS: ACETAMINOPHEN 325 MG TAB PO STA (10:42)
[2024-04-27 10:46] LABS: Hematocrit (blood only) 33.5 % (37.0-47.0); Hemoglobin 11.2 g/dl (12.0-16.0); Immature Granulocytes # (auto) 0.02 K/uL (0.01-0.20); Immature Granulocytes % (auto) 0.2 %; Lymphocytes # (auto) 0.58 K/uL (1.20-3.40); Lymphocytes % (auto) 7.1 %; Mean Corpuscular Hemoglobin 30.8 pg (25.0-34.0); Mean Corpuscular Hgb Conc 33.4 g/dL (32.0-36.0); Monocytes # (auto) 0.38 K/uL (0.11-0.59); Monocytes % (auto) 4.7 %; Neutrophils # (auto) 7.19 K/uL (1.40-6.50); Platelet Count 176 K/uL (130-400); RDW Coefficient of Variation 13.4 % (11.5-14.5); RDW Standard Deviation 45.6 fL (36.4-46.3); Red Blood Count 3.64 M/uL (4.20-5.40); White Blood Count 8.17 K/ul (4.8-10.8)
--- NOTE | 2024-04-27 10:46 | XRay Report ---
XR chest 1V portable HISTORY: 79 years-old Female Chest pain, nonspecific COMPARISON: 10/21/2023 TECHNIQUE: AP view of the chest FINDINGS: Small pleural effusions. Mild cardiomegaly. Pulmonary vascular congestion with interstitial coarsenin g. Ill-defined right mid lung and right greater than left bibasilar airspace opacities. No pneumothor ax. Bones appear grossly intact. Atherosclerosis of the aorta. IMPRESSION: 1. Cardiomegaly with interstitial pulmonary edema and small pleural effusions. 2. Right basilar predominant opacities may represent atelectasis versus pneumonitis. ACT 112: Negative or not required by law. The above report was generated using voice recognition software. It may contain grammatical, syntax o r spelling errors. Electronically signed by: Grant Roman M.D. 04/27/2024 10:45 AM
[2024-04-27 10:56] LABS: Albumin Globulin Ratio 1.3 (0.9-2); Albumin Level 3.8 gm/dl (3.4-5.0); BUN Creatinine Ratio 15.7 (10-20); Bilirubin,Total 0.5 mg/dl (0.2-1.0); Calcium 8.6 mg/dl (8.6-10.3); Creatinine Clr Calc Pharmacy 53.9 ml/min; Globulin 2.9 gm/dl (2.5-4.0); Total Protein 6.7 gm/dl (6.0-8.3)
[2024-04-27 11:01] LABS: Troponin I High Sensitivity 26.8 pg/ml (0-14)
[2024-04-27 11:02] LABS: Appearance Urine Clear (Clear); Bacteria Urine Automated None Seen (None Seen); Bilirubin Urine Negative (Negative); Blood Urine Negative (Negative); Cast Urine Automated 0-2 /lpf (0-2); Color Urine Yellow; Epithelial Cell Urine Auto 0-2 /hpf (0-2); Glucose Urine UA Negative (Negative); Ketones Urine Negative (Negative); Leukocyte Esterase Urine Trace (Negative); Nitrite Urine Negative (Negative); Protein Urine Negative (Negative); RBC Urine Automated 0-2 /hpf (0-2); Specific Gravity Urine 1.011 (1.000-1.030); Urobilinogen Urine Negative (Negative); WBC Urine Automated 0-5 /hpf (0-5); pH Urine 7.5 (4.5-7.5)
--- NOTE | 2024-04-27 11:24 | CT Scan Report ---
CT head/brain wo con CLINICAL HISTORY: Trauma/fall Technique: Contiguous axial CT images of the head were acquired from the base of the skull to the [place] without intravenous contrast administration. Images were viewed in brain, subdural and [facility]. Automated dose lowering techniques and/or adjustment according to patient size were utilized for this exam. Comparison: Comparison is made to CT head 07/19/2023 Findings: The ventricles, basal cisterns, and cerebral sulci are normal. There is no acute intracranial hemorrh age or evidence of acute territorial infarction. Neither mass effect, shift of the midline structures , nor abnormal extra-axial fluid collections are shown. Imaged portions of the paranasal sinuses and mastoid air cells are clear. The orbits appear normal. There are no acute fractures of the calvaria or scalp swelling. Impression: No acute intracranial hemorrhage, no evidence of acute territorial infarction or other acute intracra nial disease process. ACT 112: Negative or not required by law. Electronically signed by: Pascual Perkins M.D. 04/27/2024 11:23 AM
--- NOTE | 2024-04-27 11:37 | CT Scan Report ---
CT cervical spine wo con CLINICAL HISTORY: 79 years-old Female with Trauma/fall. Acute neck injury status post fall COMPARISON: 07/19/2023 TECHNIQUE: Multiple axial CT images of the cervical spine were obtained without contrast. A dose low ering technique was utilized adhering to the principles of ALARA. FINDINGS: Moderate to advanced degenerative changes of the cervical spine redemonstrated. No acute ce rvical spine fracture or subluxation identified. The cervical soft tissues appear unremarkable. Intr alobular septal thickening of the lung apices. No pneumothorax. Nonspecific wall thickening of the up per thoracic esophagus. Moderate calcified plaque of the carotid bulbs. Head CT dictated separately. IMPRESSION: No acute cervical spine fracture or subluxation identified. ACT 112: Negative or not required by law. The above report was generated using voice recognition software. It may contain grammatical, syntax o r spelling errors. Electronically signed by: Grant Roman M.D. 04/27/2024 11:35 AM
--- NOTE | 2024-04-27 11:43 | CT Scan Report ---
CT facial bones wo con CLINICAL HISTORY: 79 years-old Female presenting with Trauma/fall. Acute facial and head trauma statu s post fall COMPARISON STUDY: CT head and cervical spine studies of same day TECHNIQUE: High-resolution CT scan of the facial bones is performed. Images are reviewed in the axia l, sagittal, and coronal planes. IV contrast was not administered for this examination. A dose lower ing technique was utilized adhering to the principles of ALARA. FINDINGS: Streak artifact from the patient's earrings limit the exam. Mastoid air cells and middle ear cavities appear clear. Degenerative changes of the cervical spine. Mild mucosal thickening of the ethmoid sin uses. Mild leftward bowing and spurring of the nasal septum. No acute facial bone fracture identified . Moderate degeneration of the right temporomandibular joint. Right greater than left bilateral conch a bullosa. Unremarkable soft tissues. Bilateral lens repair. IMPRESSION: No acute facial bone fracture. ACT 112: Negative or not required by law. The above report was generated using voice recognition software. It may contain grammatical, syntax o r spelling errors. Electronically signed by: Grant Roman M.D. 04/27/2024 11:42 AM
[2024-04-27 11:48] LABS: Adenovirus PCR Not Detected (NotDetected); Bordetella parapertussis PCR Not Detected (NotDetected); Bordetella pertussis PCR Not Detected (NotDetected); Chlamydia pneumoniae PCR Not Detected (NotDetected); Coronavirus 229E PCR Not Detected (NotDetected); Coronavirus CoV-2 (COVID19)PCR Not Detected (NotDetected); Coronavirus HKU1 PCR Not Detected (NotDetected); Coronavirus NL63 PCR Not Detected (NotDetected); Coronavirus OC43PCR Not Detected (NotDetected); Human Metapneumovirus PCR Not Detected (NotDetected); Influenza A PCR Not Detected (NotDetected); Influenza B PCR Not Detected (NotDetected); Mycoplasma pneumoniae PCR Not Detected (NotDetected); Parainfluenza Virus 1 PCR Not Detected (NotDetected); Parainfluenza Virus 2 PCR Not Detected (NotDetected); Parainfluenza Virus 3 PCR Not Detected (NotDetected); Parainfluenza Virus 4 PCR Not Detected (NotDetected); Respiratory Syncytial VirusPCR Not Detected (NotDetected); Rhinovirus/Enterovirus PCR Not Detected (NotDetected)
--- OUTSIDE RECORDS SUMMARY | 2024-04-27 12:16 | External Medical Summary | Continuity of Care Document ---
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 Name Role Phone Milton López Primary Care Physician [phone] [id number] Date(s): 04/17/24 - 04/17/[address] [place] [address] [facility] [address] [place] [address] [phone] Encounter Diagnosis Body mass index [BMI] 26.0-26.9, adult(Discharge Diagnosis) - 04/17/24 Trigeminal neuralgia(Discharge Diagnosis) - 04/17/24 Discharge Disposition: Home or Self Care Attending Physician: KYAW Cullen Julia Referring Physician: DO López Brian R Allergies, Adverse Reactions, Alerts Substance Criticality Severity Reaction Reaction Severity Status morphine Hives Active HYDROmorphone Hallucinations A ctive traMADol Diarrhea Active sulfa drugs Hives Active Medications acetaminophen 325 mg oral tablet Start: 12/27/23 10:32:00 AM EDT, 1 tab, PO, q4h, PRN: as needed for pain Start Date: 12/27/23 Status: Ordered aspirin 81 mg oral capsule Start: 12/27/23 10:30:00 AM EDT, 1 cap, PO, q24h Start Date: 12/27/23 Status: Ordered baclofen 20 mg oral tablet Start: 12/27/23 10:34:00 AM EDT, 1 tab, PO, bid Start Date: 12/27/23 Status: Ordered busPIRone 7.5 mg oral tablet Start: 12/27/23 10:30:00 AM EDT, 1 tab, PO, bid Start Date: 12/27/23 Status: Ordered escitalopram 10 mg oral tablet Start: 12/27/23 10:34:00 AM EDT, 1 tab, PO, Daily Start Date: 12/27/23 Status: Ordered esomeprazole 20 mg oral delayed release capsule Start: 12/27/23 10:33:00 AM EDT, 2 cap, PO, Daily Start Date: 12/27/23 Status: Ordered hydroCHLOROthiazide 25 mg oral tablet Start: 12/27/23 10:34:00 AM EDT, 1 tab, PO, Daily Start Date: 12/27/23 Status: Ordered lamoTRIgine 100 mg oral tablet Start: 12/27/23 10:35:00 AM EDT, 1 tab, PO, Daily Start Date: 12/27/23 Status: Ordered lisinopril 10 mg oral tablet Start: 12/27/23 10:32:00 AM EDT, 1 tab, PO, Daily Start Date: 12/27/23 Status: Ordered Melatonin Start: 12/27/23 10:32:00 AM EDT Start Date: 12/27/23 Status: Ordered oxyCODONE 10 mg oral tablet Start: 02/06/24 2:15:00 PM EDT, 1 tab, PO, q4h, Disp# 120 tab, Refills: 0, Note to Pharmacy: Increased regimen post-procedure, PRN: Pain, Pharmacy: [id number] Start Date: 02/06/24 Status: Ordered oxyCODONE 5 mg oral tablet Start: 03/28/24 10:49:00 AM EST, 5 mg =, PO, q6h, Disp# 120 tab, Refills: 0, PRN: as needed for pain, Pharmacy: [id number] Start Date: 03/28/24 Status: Ordered oxyCODONE 5 mg oral tablet Start: 12/27/23 10:35:00 AM EDT, 1 tab, PO, q4h, Refills: 0, PRN: as needed for pain Start Date: 12/27/23 Status: Ordered pregabalin 75 mg oral capsule Start: 03/21/24 3:08:00 PM EST, 1 cap, PO, bid, Disp# 60 cap, Refills: 3, Pharmacy: [id number] Start Date: 03/21/24 Stop Date: 07/19/24 Status: Ordered Probiotic Formula Start: 12/27/23 10:33:00 AM EDT Start Date: 12/27/23 Status: Ordered Prolia 60 mg/mL subcutaneous solution Start: 12/27/23 10:31:00 AM EDT Start Date: 12/27/23 Status: Ordered rosuvastatin 5 mg oral tablet Start: 12/27/23 10:33:00 AM EDT, 1 tab, PO, Daily Start Date: 12/27/23 Status: Ordered Vitamin D3 Start: 12/27/23 10:31:00 AM EDT Start Date: 12/27/23 Status: Ordered Mental Status 04/17/24 Barriers to Learning one year None evide nt Mandatory Health Literacy Documentation Yes Health Literacy Communication Barriers N ever Primary Language Japanese Problem List Condition Confirmation Course Effective Dates Status Health Status Informant Arthritis of knee Confirmed Active Atypical face pain Confirmed Active Atypical neuralgia Confirmed Active Left carpal tunnel syndrome Confirmed Active Deviated nasal septum Confirmed Active Diastolic dysfunction Confirmed Active Dyslipidemia Confirmed Active Dysphagia Confirmed Active Glossopharyngeal neuralgia syndrome Confirmed Active Hiatal hernia Confirmed Active Hyperparathyroidism Confirmed Active Hypertension Confirmed Active Sacroiliitis Confirmed Active Insomnia Confirmed Active Cerebral meningioma Confirmed Active LVH (left ventricular hypertrophy) Confirmed Active Migraines Confirmed Active Anxiety and depression Confirmed Active Osteoporosis Confirmed Active Left SNHL Confirmed Active Cervical stenosis of spine Confirmed Active 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 Vertigo Confirmed Active Vitamin D deficiency Confirmed Active Diagnosis Diagnosis Type Effective Dates Health Status Clinical Service Informant Body mass index [BMI] 26.0-26.9, adult Discharge Diagnosis 04/17/24 Non-Specified Trigeminal neuralgia Discharge Diagnosis 04/17/24 Non-Specified Procedures Procedure Date Related Diagnosis Body Site Status Gamma Knife 1 01/23/24 Completed Appendectomy Completed Bilateral cataract extraction Completed Carpal tunnel decompression Completed Colonoscopy Completed Dilation and curettage Co mpleted Dilation of esophageal stricture Completed Esophagogastroduodenoscopy Completed Extraction of wisdom tooth Completed Finger 2 Completed Hemorrhoidectomy Complete d History of lumbar spine surgery Completed Laparoscopy Completed Miscarriage of tubal ectopic Completed Release of trigger finger Completed Right hip injury 3 Comple khari Tonsillectomy Completed Total knee replacement, LEFT Completed 1Dr. [facility] Left atypical face pain 49.3 minutes 2right hand middle finger nail 3and replacement Vital Signs Most recent to oldest [Reference Range]: 1 Height 160.02 cm (04/17/24 10:24 AM) Patient Weight 67.0 kg (04/17/24 10:24 AM) Body Mass Index 26.17 kg/m2 (04/17/24 10:24 AM) Social History Social History Type Response Smoking Status Never smoked cigaret kayleen Sex Female Sex Representation Female (finding) Patient Care team information Care Team Personnel Name: DO López Brian R Position: Referring Member Role: Primary Care Provider Address: [address] [place] [address] [place] Care Team Related Persons Name: FRANCIS GONZALEZ
--- OUTSIDE RECORDS SUMMARY | 2024-04-27 12:16 | External Medical Summary | Continuity of Care Document ---
Author Name Unknown [facility] [address] 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 [address] [facility] [place] [address], [address], [address] [place] [address] [phone] Encounter Diagnosis Trigeminal neuralgia(Discharge Diagnosis) - 04/20/24 Discharge Disposition: Home or Self Care Attending Physician: MD Jain Randolph Y Allergies, Adverse Reactions, Alerts Substance Criticality Severity Reaction Reaction Severity Status morphine Hives Active HYDROmorphone Hallucinations A ctive traMADol Diarrhea Active sulfa drugs Hives Active Assessment and Plan Extracted from: Title:Office Visit Note Author:MD Cristobal, Byron russell Y Date:04/20/24 1.Trigeminal neuralgia Interventions: -None at this time Patient was just evaluatedat neurosurgeryfor possibleablationby Dr. Escobar Medications: Since patient has no side effectwith Lyrica at 75 mg twice a daybut with no efficacy,increaseLyrica to 150mg twice a dayfor 2 weeksthen increase to3 times daily. Patient will also look intoaddingmarijuana Gummiesin the future. - Can consider adding duloxetine in the future in conjunction with Lyrica. Follow Up: -4-6 weeks [2] Jomar Jain M.D. Medications acetaminophen 325 mg oral tablet Start: [...] Pharmacy: Increased regimen post-procedure, PRN: Pain, Pharmacy: [id number] Start Date: 02/06/24 Status: Ordered oxyCODONE 5 mg oral tablet Start: 03/28/24 10:49:00 AM EST, 5 mg =, PO, q6h, Disp# 120 tab, Refills: 0, PRN: as needed for pain, Pharmacy: [id number] Start Date: 03/28/24 Status: Ordered pregabalin 150 mg oral capsule Start: 04/20/24 2:33:00 PM EST, 1 cap, PO, tid, Disp# 90 cap, Refills: 3, Pharmacy: [id number] Start Date: 04/20/24 Stop Date: 08/18/24 Status: Ordered pregabalin 75 mg oral capsule Start: 03/21/24 3:08:00 PM EST, 1 cap, PO, bid, Disp# 60 cap, Refills: 3, Pharmacy: [id number] Start Date: 03/21/24 Stop [...] Start Date: 12/27/23 Status: Ordered Mental Status 04/20/24 Barriers to Learning one year None evide nt Mandatory Health Literacy Documentation Yes Health Literacy Communication Barriers N ever Primary Language [place] Problem List Condition Confirmation Course Effective Dates [...] Effective Dates Health Status Clinical Service Informant Trigeminal neuralgia Discharge Diagnosis 04/20/24 Procedures Procedure Date Related Diagnosis Body Site [...] 2right hand middle finger nail 3and replacement Social History Social History Type Response Smoking Status Never smoked cigaret kayleen Sex Female Sex Representation Female (finding) Chronic Pain Outpt Note * MD Cristobal, Jomar Gama: PERFORM Event Display: Chronic Pain Outpt Note Authored Date: [id number] Chief Complaint pain management Left facepainsecondary to trigeminal neuralgia History of Present Illness Charlee a79 year-oldFemalewith a past medical history significant forHTN, cervical stenosis, hyperparathyroidism, migraine headaches whohas trigeminal neuralgia with left sided facial pain. Patient was started onLyrica 75 mg twice a day few weeks agowith minimalimprovement. Location of pain:deep in the left ear as well as anterior/posterior to ear Pain radiates to:left frontalhead, down towards left jaw Onset of current episode:December 2022 Precipitating event or injury: The patientdoes notrecall precipitating event or injury.Denies dental pain, dental or jaw injury, or preceding rash over the left face. The patient characterizes the pain as:constant with sharp exacerbations Thereis notassociated paraesthesias__ The pain is9/10 currently,8/10 on average,6/10 at its least, and10/10 at worst The pain worsens with:air from the car window when it hits her ear, moving her jaw certain ways, otherwise exacerbations are random The pain is relieved by:oxycodone 10 mg every 4 hours Patientdeniesweakness_. Patientdeniesbowel or bladder incontinence,Deniessymptoms of saddle anesthesia,deniesfevers/chills/night sweats,deniesunintentional weight loss. Psychosocial Factors: The patient describes their mood asdepressed. The patientdeniessuicidal ideation. The patient'ssleephas been severely affectedaffected by the pain (total 2.5-3 hours of sleep per night, wakes up very often from pain).The patient's activities of daily livinghas been mildly affec tedaffected by the pain.The patientis notemployed. Thereis not pending litigationrelated to the presenting pain condition.The patientis noton social security disability income. Specialists Seen: The patient was referred byKYAW Cullen Julia. Other providers seen for this condition include: Dentist [facility] - saw them for about 9 months The patientdoes nothave a controlled substance contract with another provider. [1] Review of Systems: A 10 point review of systems was negative except HPI Assessment/Plan 1.Trigeminal neuralgia Interventions: -None at this time Patient was just evaluatedat neurosurgeryfor possibleablationby Dr. Escobar Medications: Since patient has no side effectwith Lyrica at 75 mg twice a daybut with no efficacy,increaseLyrica to 150mg twice a dayfor 2 weeksthen increase to3 times daily. Patient will also look intoaddingmarijuana Gummiesin the future. - Can consider adding duloxetine in the future in conjunction with Lyrica. Follow Up: -4-6 weeks [2] Jomar Jain M.D. Problem List/Past Medical History Ongoing Anxiety and depression Arthritis of knee Atypical face pain Atypical neuralgia Cerebral meningioma Cervical stenosis of spine Deviated nasal septum Diastolic dysfunction Dyslipidemia Dysphagia Glossopharyngeal neuralgia syndrome Hiatal hernia Hyperparathyroidism Hypertension Insomnia Left carpal tunnel syndrome Left SNHL LVH (left ventricular hypertrophy) Migraines Osteoporosis Sacroiliitis TMJ dysfunction Ulnar neuropathy Vertigo Vitamin D deficiency Resolved COVID-19 Procedure/Surgical History Gamma Knife| Service Date: 01/23/2024History of lumbar spine surgeryDilation and curettageBilateral cataract extractionDilation of esophageal strictureTonsillectomyAppendectomyCarpal tunnel decompressionRelease of trigger fingerTotal knee replacement, LEFTEsophagogas troduodenoscopyColonoscopyHemorrhoidectomyLaparoscopyExtraction of wisdom toothMiscarriage of tubal ectopic pregnancyFingerRight hip injury Medications acetaminophen(acetaminophen 325 mg oral tablet), 325 mg= 1 tab, PO, q4h, PRN aspirin(aspirin 81 mg oral capsule), 81 mg= 1 cap, PO, q24h baclofen(baclofen 20 mg oral tablet), 20 mg= 1 tab, PO, bid bifidobacterium-lactobacillus(Probiotic Formula) busPIRone(busPIRone 7.5 mg oral tablet), 7.5 mg= 1 tab, PO, bid cholecalciferol(Vitamin D3) denosumab(Prolia 60 mg/mL subcutaneous solution) escitalopram(escitalopram 10 mg oral tablet), 10 mg= 1 tab, PO, Daily esomeprazole(esomeprazole 20 mg oral delayed release capsule), 40 mg= 2 cap, PO, Daily hydroCHLOROthiazide(hydroCHLOROthiazide 25 mg oral tablet), 25 mg= 1 tab, PO, Daily lamoTRIgine(lamoTRIgine 100 mg oral tablet), 100 mg= 1 tab, PO, Daily lisinopril(lisinopril 10 mg oral tablet), 10 mg= 1 tab, PO, Daily melatonin(Melatonin) oxyCODONE(oxyCODONE 10 mg oral tablet), 10 mg= 1 tab, PO, q4h, PRN oxyCODONE(oxyCODONE 5 mg oral tablet), 5 mg, PO, q6h, PRN pregabalin(pregabalin 75 mg oral capsule), 75 mg= 1 cap, PO, bid, 3 refills pregabalin(pregabalin 150 mg oral capsule), 150 mg= 1 cap, PO, tid, 3 refills rosuvastatin(rosuvastatin 5 mg oral tablet), 5 mg= 1 tab, PO, Daily Allergies HYDROmorphoneHallucinations morphineHives sulfa drugsHives traMADolDiarrhea Social History Smoking Status Never smoked cigarettes Alcohol - Denies Alcohol Use Employment/School Status:Retired Home/Environment Lives with:Spouse Living situation:Home/Independent Home equipment:Walker/Cane Nutrition/Health - Comments: occasional difficulty swallowing Substance Abuse - Denies Substance Abuse Tobacco - Denies Tobacco Use Family History Cardiac arrest: Mother, Father and Brother. Dementia: Mother. Health Status Family Member(s) Family Member(s) Relationship: Mother, Age: Unknown, Cause: cardiac arrest Relationship: Father, Age: Unknown, Cause: cardiac arrest Relationship: Brother, Age: Unknown, Cause: cardiac arrest Recommendations Health Maintenance Pending(in the next year) OverDue Adult Influenza Vaccine due10/30/23and every 1year Due Medicare Annual Wellness Visit due04/20/24and every 1year Satisfied(in the past 1 year) There are no satisfied recommendations within the defined date range [1]Chronic Pain Consult; DO Dean Toquynh 03/21/2024 13:03 EST [2]Chronic Pain Consult; DO Dean Toquynh 03/21/2024 13:03 EST Electronic Signature on File Electronically Reviewed/Signed by: Jomar Jain MD Author Signature Dt/Tm:04/20/2024 02:51 PM Department of Anesthesia [facility] Patient Care team information Care Team Personnel Name: DO López Brian R Position: Referring Member Role: Primary Care Provider Address: [address] [place] [address] [place] Care Team Related Persons Name: FRANCIS GONZALEZ"
[2024-04-27] MEDS: cefTRIAXone SODIUM 2,000 MG/50 ML BAG IV STA (12:35)
[2024-04-27] MEDS: AZITHROMYCIN 250 MG TAB PO ONE (12:35)
[2024-04-27] MEDS: SODIUM CHLORIDE 0.9% 500 ML IV ONE (12:36)
--- NOTE | 2024-04-27 13:21 | History & Physical Report ---
Date of Service April 27, 2024 Assessment & Plan (1) Pneumonia: (2) Acute respiratory failure with hypoxemia: (3) Elevated troponin: (4) Fall: Plan This patient is a 79-year-old female with a history of meningioma, trigeminal neuralgia on chronic opioids, HTN, HL, GERD, anxiety disorder, osteoporosis, cervical spine stenosis, hyperparathyroidism, who presents to the ER with falls, mild confusion at home, cough and congestion, with pneumonia on admission. #Pneumonia/acute encephalopathy/acute hypoxemic respiratory failure-mild confusion secondary to febrile illness but has already resolved with resolution of fever in the ED. Pneumonia is multifocal on chest x-ray and she has crackles on examination and fever along with cough and congestion. Viral respiratory BioFire panel is negative but yet so is procalcitonin. Blood pressures here are a bit low despite initial IV fluid resuscitation. Lactate is negative. Nonetheless, suspect community-acquired pneumonia. Admit to medical floor with telemetry for arrhythmia monitoring given junctional rhythm on ECG Continue ceftriaxone and azithromycin Follow chest imaging to resolution in 4 to 6 weeks Supplemental O2 to keep pulse ox greater than 90% and wean off as able to Tylenol as needed for fever Follow blood cultures #Elevated troponin-minimally elevated in the mid 20s x 2, no chest pain and here with pneumonia. Likely myocardial demand ischemia. ECG with junctional rhythm and some T wave inversions. Trend serial troponin x 1 more along with serial EKGs Check echocardiogram Monitor on telemetry #Falls-has fallen 8 times in the last month since increasing the dose of her pregabalin for trigeminal neuralgia. Suspect medication related. She is on chronic oxycodone but the dose of this has not changed. CT head/face/cervical spine negative for acute issues. Lower pregabalin dose back down to original dosing of 75 Mg p.o. twice daily PT/OT evaluations ordered #Trigeminal neuralgia/chronic pain/opioid dependence-chronic and planning to undergo some sort of nerve ablation procedure at [place] in the near future Continue Lyrica but at lower dose of 75 Mg p.o. twice daily Continue home oxycodone dose #Anxiety disorder-no acute issues Continue home Lexapro, Lamictal, and BuSpar #HTN/HL-blood pressures here are soft-giving further IV fluid bolus Continue home aspirin but hold home HCTZ, lisinopril until blood pressures improve Continue home statin #GERD-no acute issues Continue PPI DVT prophylaxis-Lovenox SQ, SCDs Disposition-admit to medical floor with telemetry unit, PT/OT evaluations ordered for multiple falls to see if needs rehab placement History of Present Illness Chief Complaint: Falls, confusion Primary Care Provider: Milton López DO This patient is a 79-year-old female with a history of meningioma, trigeminal neuralgia on chronic opioids, HTN, HL, GERD, anxiety disorder, osteoporosis, cervical spine stenosis, hyperparathyroidism, who presents to the ER with falls, mild confusion at home, nonproductive cough and congestion x 1 day. She had shaking chills all through last night in bed. She was found to be febrile in the ER and mildly hypoxic and showed multifocal pneumonia on her chest x-ray. A viral respiratory BioFire was negative. In the falls, she did strike her head and face on 04/[address] of the head/face and cervical spine was negative for acute issues. Her ECG did show a junctional rhythm as well as a mildly elevated troponin but she did not have any chest pains. Her notes that she has fallen 8 times in the last month since the dose of her Lyrica was increased to 150 mg 3 times a day. Allergies Allergy/AdvReac Type Severity Reaction Status Date / Time Sulfa (Sulfonamide Allergy Intermediate Hives Verified 04/27/24 13:52 Antibiotics) morphine Allergy Mild Hives Verified 04/27/24 13:52 tramadol AdvReac Intermediate Diarrhea Verified 04/27/24 13:52 hydromorphone [From Dilaudid] AdvReac Hallucinati Verified 04/27/24 13:52 ons Home Medications Medication Instructions Recorded Confirmed Type blood pressure monitor #1 ea 03/11/20 04/12/24 Rx ketoconazole 2 %-hydrocortisone See Rx Instructions topical 01/22/22 04/12/24 History 2.5 % topical cream .COMPLEX PRN ud diclofenac sodium 1 % topical gel 2 g topical QID #300 grams 03/02/23 04/27/24 Rx aspirin 81 mg tablet,delayed 81 mg PO DAILY 04/05/23 04/27/24 History release (Keyanna Low Dose Aspirin) cholecalciferol (vitamin D3) 50 100 mcg PO DAILY 05/09/23 04/27/24 History mcg (2,000 unit) capsule denosumab 60 mg/mL subcutaneous 60 mg subcut Q6MO #1 mL 05/18/23 04/12/24 Rx syringe (Prolia) L.acid,bul,para,rham-B.anim,long 1 cap PO DAILY 08/04/23 04/27/24 History 10 billion cell-inulin 100 mg capsule (Probitoic Digestive Support (6 strain)) rosuvastatin 5 mg tablet 5 mg PO QPM #90 tabs 08/08/23 04/12/24 Rx escitalopram oxalate 10 mg tablet 10 mg PO DAILY #90 tabs 11/14/23 04/12/24 Rx esomeprazole magnesium 40 mg 40 mg PO BID #180 caps 12/13/23 04/12/24 Rx capsule,delayed release buspirone 7.5 mg tablet 7.5 mg PO BID #180 tabs 12/20/23 04/12/24 Rx hydrochlorothiazide 25 mg tablet 25 mg PO QAM #90 tabs 12/26/23 04/12/24 Rx calcium 500 mg (as 1 tab PO BID 03/06/24 04/27/24 History carbonate)-vitamin D3 3.125 mcg (125 unit) tablet melatonin 10 mg capsule 5 mg PO HS 03/06/24 04/27/24 History lisinopril 20 mg tablet 20 mg PO QAM #60 tabs 03/20/24 04/12/24 Rx Magic Mouthwash 300 mL mouthwash 5 ml mucous membrane Q6 PRN pain 03/31/24 04/12/24 Rx #300 mL lidocaine HCl 2 % mucosal solution 1 applic mucous membrane QID PRN 04/03/24 04/12/24 Rx (Lidocaine Viscous) oral ulcers #300 mL lamotrigine 100 mg tablet 100 mg PO BID #60 tabs 04/16/24 Rx oxycodone 5 mg tablet 5 mg PO Q6H PRN Pain 04/27/24 04/27/24 History pregabalin 150 mg capsule 150 mg PO TID 04/27/24 04/27/24 History Past Med/Surg History Problem List (Updated 04/27/24 @ 14:01 by Korey Quinn DO) Elevated troponin (Acute) Fever (Acute) Hypoxia (Acute) Fall (Acute) Elevated troponin Acute respiratory failure with hypoxemia Pneumonia Hypertension controlled, stable per pt; white coat hypertension LVH (left ventricular hypertrophy) Diastolic dysfunction Dyslipidemia Insomnia Meningioma, cerebral Trigeminal neuralgia of left side of face Vitamin D deficiency Hyperparathyroidism Arthritis of knee, left Depression with anxiety LPRD (laryngopharyngeal reflux disease) controlled, stable per pt; occasional dysphagia with food Osteoporosis Ulnar neuropathy Carpal tunnel syndrome, left Sacroiliitis Cervical stenosis of spinal canal Medical History TMJ dysfunction Glossopharyngeal neuralgia syndrome Constipation Hip bursitis, left Hiatal hernia Contusion of left knee Vitamin D deficiency LVH (left ventricular hypertrophy) Mild cLVH per 10/2020 Echo Mixed conductive and sensorineural hearing loss of left ear with restricted hearing of right ear History of COVID-19 03/2021-denies hospitalization-denies residual symptoms Hx of migraine headaches Vertigo occasional, chronic, denies change or worsening Osteoporosis Acquired deviated nasal septum Stroke "Mini stroke" to left eye during cataract surgery (2018) > blurry vision residual Knee osteonecrosis, left Hip pain left, occasional Depression Anxiety Surgical History Status post left partial knee replacement H/O laparoscopy x2, tubal pregnancies History of esophageal dilatation History of esophagogastroduodenoscopy (EGD) History of trigger finger Right ring + small finger trigger finger release (01/2021, [facility] [place]) History of colonoscopy History of dilatation and curettage Hx of bilateral cataract extraction H/O hemorrhoidectomy History of thumb surgery Left History of tonsillectomy History of lumbar surgery H/O wrist surgery Left (2018) History of tooth extraction History of hip surgery Right LYNDON (1999), replacement (2000), repair of replacement (2001) History of appendectomy Family History Brother Cardiac arrest Father Cardiac arrest Mother Cardiac arrest Dementia Other Heart disease Hypertension No family history of adverse response to anesthesia No family history of bleeding disorder Denies family history of Ovarian cancer Breast cancer Lung cancer Colorectal cancer Stroke Social History Smoking Status: Never smoker Second Hand Exposure: No; Do You Dip or Chew Tobacco: No; Hx Alcohol Use: No Hx Substance Use: No Preferred Language: Ethiopian Communication Ability: Effective Visual Impairment: No Limitations Hearing Ability: Normal Police Officer Required: No Beliefs That Will Affect Care: None marital status: Current Living Situation: Spouse current occupational status: retired How many Children do You have: 3 Feels Safe at Home: Yes Childhood Exposure to Second-Hand Smoke: No Diet: regular caffeine: No Dental Care, Regularly: Yes Physical Activity Frequency: Does not Exercise Seatbelt Use: always Sunscreen Use: Yes Do you think of yourself as: straight/heterosexual Assistive Devices: Cane and Walker Physical Exam Constitutional: WD/WN, vitals as above Eyes: PERRL, conjunctivae normal, anicteric sclerae ENMT: external ear and nose normal, oropharynx normal Neck: trachea midline, no thyromegaly Respiratory: normal respiratory effort; no cough Auscultation: + crackles (Bibasilar); no rhonchi and no wheezes Cardiovascular: Rate/Rhythm: regular rhythm and + bradycardic Heart Sounds: no murmur Vessels: dorsalis pedis pulses present Extremities: no edema Chest (Breasts): Chest: normal inspection of chest Gastrointestinal (Abdomen): normal bowel sounds, soft, nontender, no hepatosplenomegaly Musculoskeletal: Extremities: extremities normal to inspection; no cyanosis and no clubbing Skin: no rashes, warm and dry Neurologic: moves all extremities and awake; no focal motor deficits Psychiatric: A+Ox3, euthymic affect Lymphatic: no lymphedema Results & Data Results & Data Vital Signs (Past 12 Hours) Vital Signs Temp Pulse Pulse Resp BP BP Pulse Ox 04/27/24 12:00 55 L 20 96/56 L 95 04/27/24 10:30 61 20 99/64 L 95 04/27/24 10:16 66 04/27/24 10:00 61 18 131/60 95 04/27/24 09:59 51 L 19 125/84 94 04/27/24 09:51 51 L 19 88 L 04/27/24 09:51 38.5 C H 51 L 19 127/84 88 L O2 Del Method O2 Flow Rate 04/27/24 12:00 Room Air 04/27/24 10:30 Nasal Cannula 2 04/27/24 10:16 04/27/24 10:00 Nasal Cannula 2 04/27/24 09:59 Nasal Cannula 2 04/27/24 09:51 Room Air 04/27/24 09:51 Room Air Laboratory Results CBC, CMP, troponin, procalcitonin, UA, viral respiratory BioFire panel reviewed Diagnostic Findings Chest x-ray image personally reviewed by me CT head, face, cervical spine reviewed Pelvis x-ray reviewed ECG Additional Comments: ECG on 04/27/2024 1205 with junctional rhythm with PVCs, rate 55, T wave inversions in inferior anterolateral leads new from previous Code Status & VTE Plan Code Status Full code PG Care Time/CCT Total # of Minutes Spent Total Time Spent with Patient: Total time spent is greater than 50% in coordination of care (as documented) at patient's floor/unit and/or counseling patient: Coding Level of Care Code 20980 INT INP/OBS CARE 3/75MIN Diagnoses Pneumonia J18.9 Acute respiratory failure with hypoxemia J96.01 Elevated troponin R79.89 Fall W19.XXXA
[2024-04-27] MEDS: SODIUM CHLORIDE 0.9% 250 ML IV ONE (15:19)
[2024-04-27] MEDS ORDERED: ONDANSETRON INJ 2 MG/ML 2 ML VIAL IV PRN (16:33)
[2024-04-27] MEDS: oxyCODONE HCL IR 5 MG TAB (IMMEDIATE RELEASE) PO PRN (17:10)
[2024-04-27] MEDS: ENOXAPARIN INJ 40 MG/0.4 ML SYR SQ SCH (17:11)
--- NOTE | 2024-04-27 18:08 | Electrocardiogram Report ---
Test Reason : Blood Pressure : */* mmHG Vent. Rate : 70 BPM Atrial Rate : * BPM P-R Int : * ms QRS Dur : 96 ms QT Int : 412 ms P-R-T Axes : * -9 -46 degrees QTcB Int : 444 ms Accelerated Junctional rhythm with frequent Premature ventricular complexes and fusion beats Low voltage QRS Abnormal ECG Confirmed by Dionicio Taylor ([id number]) on 04/27/2024 6:08:38 PM Referred By: REFERRED SELF Confirmed By: Dionicio Taylor
--- NOTE | 2024-04-27 18:09 | Electrocardiogram Report ---
Test Reason : Blood Pressure : */* mmHG Vent. Rate : 55 BPM Atrial Rate : * BPM P-R Int : * ms QRS Dur : 88 ms QT Int : 434 ms P-R-T Axes : * 0 -47 degrees QTcB Int : 415 ms Junctional rhythm with occasional Premature ventricular complexes Low voltage QRS T wave abnormality, consider inferolateral ischemia Abnormal ECG When compared with ECG of 27-Apr-2024 09:55, (unconfirmed) Inverted T waves have replaced nonspecific T wave abnormality in Lateral leads Confirmed by Dionicio Taylor ([id number]) on 04/27/2024 6:09:01 PM Referred By: REFERRED SELF Confirmed By: Dionicio Taylor
[2024-04-27] MEDS: POLYETHYLENE (MIRALAX) 17 GM PACK PO PRN (19:12)
[2024-04-27] MEDS: ACETAMINOPHEN 325 MG TAB PO PRN (19:12)
[2024-04-27] MEDS: CALCIUM 600MG + VIT D 400 IU TAB PO SCH (20:56)
[2024-04-27] MEDS: MELATONIN 3 MG TAB PO SCH (20:56)
[2024-04-27] MEDS: PREGABALIN 75 MG CAP PO SCH (20:56)
[2024-04-27] MEDS: busPIRone 7.5 MG TAB PO SCH (20:56)
[2024-04-27] MEDS: lamoTRIgine 100 MG TAB PO SCH (20:57)
[2024-04-27] MEDS: PANTOprazole 40 MG TAB PO SCH (20:58)
[2024-04-27] MEDS: ROSUVASTATIN CALCIUM 5 MG TAB PO SCH (20:59)
[2024-04-28] MEDS: COUGH DROP (SUGAR FREE) LOZ 24 LOZ/1 BOX BUCCAL PRN (04:36)
[2024-04-28 07:52] LABS: Hematocrit (blood only) 30.5 % (37.0-47.0); Immature Granulocytes # (auto) 0.02 K/uL (0.01-0.20); Immature Granulocytes % (auto) 0.4 %; Lymphocytes # (auto) 1.14 K/uL (1.20-3.40); Lymphocytes % (auto) 23.5 %; Mean Corpuscular Hemoglobin 30.6 pg (25.0-34.0); Mean Corpuscular Hgb Conc 32.8 g/dL (32.0-36.0); Mean Corpuscular Volume 93.3 fL (80.0-100.0); Mean Platelet Volume 11.2 fL (9.4-12.4); Monocytes # (auto) 0.47 K/uL (0.11-0.59); Monocytes % (auto) 9.7 %; Neutrophils # (auto) 3.23 K/uL (1.40-6.50); Neutrophils % (auto) 66.4 %; Platelet Count 164 K/uL (130-400); RDW Coefficient of Variation 13.5 % (11.5-14.5); RDW Standard Deviation 46.1 fL (36.4-46.3); Red Blood Count 3.27 M/uL (4.20-5.40); White Blood Count 4.86 K/ul (4.8-10.8)
[2024-04-28 07:59] LABS: BUN Creatinine Ratio 15.2 (10-20); Calcium 8.2 mg/dl (8.6-10.3); Creatinine Clr Calc Pharmacy 68.5 ml/min; Magnesium 2.2 mg/dl (1.7-2.4); Potassium 3.7 mmol/L (3.5-5.1)
[2024-04-28] MEDS: lisinopril 20 MG TAB PO SCH (08:36)
[2024-04-28] MEDS: CHOLECALCIFEROL 25 MCG (1000 UNITS) TAB PO SCH (08:36)
[2024-04-28] MEDS: ASPIRIN 81 MG ECTAB PO SCH (08:36)
[2024-04-28] MEDS: AZITHROMYCIN 250 MG TAB PO SCH (08:37)
[2024-04-28] MEDS: ESCITALOPRAM OXALATE 10 MG TAB PO SCH (08:37)
--- NOTE | 2024-04-28 10:54 | Hospitalist Progress Note ---
<Statement entered by Stephanie Banuelos MD - 04/28/24 17:15> I have reviewed vital signs, chart notes, labs and imaging. I have also discussed the management of the patient with the JULEE and I agree with the exam findings documented in the history and physical examination and the documented assessment and plan unless otherwise stated below. 79-year-old woman with trigeminal neuralgia on recently increased Lyrica and chronic opioids admitted with right basilar pneumonia, could be CAP versus aspiration pneumonia or pneumonitis plan to continue ceftriaxone and azithromycin she seems to be responding, fever may be resolved she has minimally elevated troponin consistent with myocardial demand ischemia, BNP elevated at 578 and had a junctional rhythm upon presentation in the ED that is now resolved. telemetry overnight sinus rhythm with first-degree AV block. I reviewed her TTE today she does have elevated right ventricular systolic pressure and grade 1 diastolic dysfunction which probably explains her BNP elevation. She is not having any overt signs and symptoms of heart failure, seems to be well-managed on her usual lisinopril and hydrochlorothiazide which we will resume in the morning Date of Service April 28, 2024 Assessment & Plan (1) Pneumonia: Plan: This patient is a 79-year-old female with a history of meningioma, trigeminal neuralgia on chronic opioids, HTN, HL, GERD, anxiety disorder, osteoporosis, cer vical spine stenosis, hyperparathyroidism, who presents to the ER with falls, mild confusion at home, cough and congestion, with pneumonia on admission. #Pneumonia/acute encephalopathy/acute hypoxemic respiratory failure-mild confusion secondary to febrile illness but has already resolved with resolution of fever in the ED. Pneumonia is multifocal on chest x-ray. Viral respiratory BioFire panel is negative but yet so is procalcitonin. Lactate is negative. Nonetheless, suspect community-acquired pneumonia. Admit to medical floor with telemetry for arrhythmia monitoring given junctional rhythm on ECG Continue ceftriaxone and azithromycin Follow chest imaging to resolution in 4 to 6 weeks Supplemental O2 to keep pulse ox greater than 90% - currently on Room Air Tylenol as needed for fever Blood cultures - prelim result shows no growth after 24 hours (2) Acute respiratory failure with hypoxemia: Plan: See #1 (3) Elevated troponin: Plan: Elevated troponin-minimally elevated in the mid 20s x 2, no chest pain and here with pneumonia. Likely myocardial demand ischemia. ECG with junctional rhythm and some T wave inversions. Trend serial troponin x 1 more along with serial EKGs. Repeat EKG done at 1140 = When compared with ECG of 27-Apr-2024 - Sins rhythm has replaced junctional rhythm; T wave inversion no longer evident in lateral leads. Check echocardiogram Monitor on telemetry (4) Fall: Plan: Has fallen 8 times in the last month since increasing the dose of her pregabalin for trigeminal neuralgia. Suspect medication related. She is on chronic oxycodone but the dose of this has not changed. CT head/face/cervical spine negative for acute issues. Lower pregabalin dose back down to original dosing of 75 Mg p.o. twice daily PT/OT evaluations ordered Plan #Trigeminal neuralgia/chronic pain/opioid dependence-chronic and planning to undergo some sort of nerve ablation procedure at [place] in the near future Continue Lyrica but at lower dose of 75 Mg p.o. twice daily Continue home oxycodone dose #Anxiety disorder-no acute issues Continue home Lexapro, Lamictal, and BuSpar #HTN/HL Continue home aspirin and Lisinopril. Restart HCTZ as BPs have been stable. Continue home statin #GERD-no acute issues Continue PPI DVT prophylaxis-Lovenox SQ, SCDs Disposition-admit to medical floor with telemetry unit, PT/OT evaluations ordered for multiple falls to see if needs rehab placement Admission and Anticipated Discharge Date Admission Date: April 27, 2024 Subjective Nu Tamayo is sitting in bed. Reports improvement of her symptoms. CT head/face/cspine was negative. Biofire was negative. Blood cultures pending. She continues on Ceftriaxone and Azithromycin for Pneumonia. Possible discharge tomorrow. Review of Systems Constitutional: no fever and no chills Ear, Nose, Mouth, Throat: + ear pain (L; Chronic) Respiratory: no cough and no dyspnea Cardiovascular: no chest pain and no edema Gastrointestinal: no abdominal pain, no constipation and no diarrhea/loose stools Genitourinary: no dysuria Integumentary: no rash Physical Exam Constitutional: WD/WN, vitals as above Eyes: PERRL Respiratory: no respiratory distress, no labored breathing and no cough Auscultation: lungs clear to auscultation bilaterally Cardiovascular: Rate/Rhythm: regular rate and regular rhythm Gastrointestinal (Abdomen): Inspection/Auscultation: normal bowel sounds Percussion/Palpation: abdomen soft; abdomen nontender Musculoskeletal: Extremities: extremities normal to inspection Skin: no rashes Psychiatric: Orientation: alert and oriented x 3 Results & Data Results & Data Vital Signs (Past 12 Hours) Vital Signs Temp Pulse Pulse Resp BP BP Pulse Ox 04/28/24 07:32 36.7 C 58 L 17 155/65 H 93 04/28/24 07:25 62 04/28/24 06:32 91 04/28/24 03:54 36.7 C 89 18 148/54 H 97 04/27/24 23:36 60 04/27/24 23:14 36.4 C L 65 18 141/57 H 95 O2 Del Method O2 Flow Rate 04/28/24 07:32 Room Air 04/28/24 07:25 04/28/24 06:32 Room Air 04/28/24 03:54 Nasal Cannula 1 04/27/24 23:36 04/27/24 23:14 Nasal Cannula 1 PG Care Time/CCT Total # of Minutes Spent Total Time Spent with Patient: Total time spent is greater than 50% in coordination of care (as documented) at patient's floor/unit and/or counseling patient: Coding [place] [address] SUB INP/OBS CARE 2/35MIN Patient Type Established History Expanded Problem Focused Exam Expanded Problem Focused Medical Decision Making Moderate Complexity Diagnoses Pneumonia J18.9 Acute respiratory failure with hypoxemia J96.01 Elevated troponin R79.89 Fall W19.XXXA
--- NOTE | 2024-04-28 11:41 | Electrocardiogram Report ---
Test Reason : Blood Pressure : */* mmHG Vent. Rate : 58 BPM Atrial Rate : 58 BPM P-R Int : 242 ms QRS Dur : 100 ms QT Int : 454 ms P-R-T Axes : 75 -5 -21 degrees QTcB Int : 445 ms Sinus bradycardia with 1st degree A-V block Low voltage QRS Inferior infarct , age undetermined Cannot rule out Anterior infarct (cited on or before 07-Jan-2023) Abnormal ECG When compared with ECG of 27-Apr-2024 12:05, Sinus rhythm has replaced Junctional rhythm T wave inversion no longer evident in Lateral leads Confirmed by Capri Tate ([id number]) on 04/28/2024 11:40:53 AM Referred By: REFERRED SELF Confirmed By: Capri Tate
[2024-04-28] MEDS: cefTRIAXone SODIUM 1,000 MG/50 ML BAG IV SCH (12:47)
[2024-04-28] MEDS: AZITHROMYCIN 250 MG TAB PO STA (17:21)
[2024-04-29 07:33] VITALS: RESP 19; TEMP 98.6; O2SAT 96
[2024-04-29] MEDS: AZITHROMYCIN 250 MG TAB PO ONE (09:58)
[2024-04-29] MEDS: hydroCHLOROthiazide 25 MG TAB PO SCH (09:58)
--- NOTE | 2024-04-29 10:58 | Discharge Summary ---
<Statement entered by Stephanie Banuelos MD - 04/29/24 17:47> I have reviewed vital signs, chart notes, labs and imaging. I have personally seen, evaluated and examined the patient. I have also discussed the management of the patient with the JULEE and I agree with the exam findings documented in the history and physical examination and the documented assessment and plan unless otherwise stated below. On exam she is awake alert oriented walking around the room steadily, lungs are clear to auscultation bilaterally not sure whether she had CAP or aspiration pneumonia/pneumonitis but clinically improved on current antibiotics I think a big trigger was the increase in pregabalin dose which she did not tolerate, doing much better on her previous dose Discharge Summary Date of Service April 29, 2024 Principal Dx & Hospital Course #1 = Principal Diagnosis (1) Pneumonia: This patient is a 79-year-old female with a history of meningioma, trigeminal neuralgia on chronic opioids, HTN, HL, GERD, anxiety disorder, osteoporosis, cervical spine stenosis, hyperparathyroidism, who presents to the ER with falls, mild confusion at home, cough and congestion, with pneumonia on admission. #Pneumonia/acute encephalopathy/acute hypoxemic respiratory failure-mild confusion secondary to febrile illness but has already resolved with resolution of fever in the ED. Pneumonia is multifocal on chest x-ray ?aspiration pneumonitis. Viral respiratory BioFire panel is negative but yet so is procalcitonin. Lactate is negative. Nonetheless, suspect community-acquired pneumonia and was treated with 2 days of IV ceftriaxone and azithromycin. Will discharge on 5 more days of Cefuroxime. Course of Azithromycin completed here. Discharge to home. Follow chest imaging to resolution in 4 to 6 weeks Tylenol as needed for fever Blood cultures - prelim result shows no growth after 24 hours (2) Acute respiratory failure with hypoxemia: See #1 (3) Elevated troponin: Elevated troponin-minimally elevated in the mid 20s x 2, no chest pain and here with pneumonia. Likely myocardial demand ischemia. ECG with junctional rhythm and some T wave inversions. Trend serial troponin x 1 more along with serial EKGs. Repeat EKG done at 1140 = When compared with ECG of 27-Apr-2024 - Sins rhythm has replaced junctional rhythm; T wave inversion no longer evident in lateral leads. Restarted her HCTZ. Echo showed moderate L ventricular hypertrophy. LVEF >70%. Trace mitral regurg, mild tricuspid regurg. R ventricular systolic pressure 30- 40mmHG. Grade 1 diastolic dysfunction. (4) Fall: Has fallen 8 times in the last month since increasing the dose of her pregabalin for trigeminal neuralgia. Suspect medication related. She is on chronic oxycodone but the dose of this has not changed. CT head/face/cervical spine negative for acute issues. Lower pregabalin dose back down to original dosing of 75 Mg p.o. twice daily PT reports she is at her baseline functional status and is good to return to home. Plan #Trigeminal neuralgia/chronic pain/opioid dependence-chronic and planning to undergo some sort of nerve ablation procedure at [facility] in the near future Continue Lyrica but at lower dose of 75 Mg p.o. twice daily. She had a script refilled on 04/18 for a months supply of 75mg BID. She was reduced to that dose inpatient and should stay at the reduced dose d/t falls/confusion. Continue home oxycodone dose #Anxiety disorder-no acute issues Continue home Lexapro, Lamictal, and BuSpar #HTN/HL Continue home aspirin and Lisinopril. Restart HCTZ as BPs have been stable. Continue home statin #GERD-no acute issues Continue PPI DVT during hospital stay prophylaxis-Lovenox SQ, SCDs Admission HPI Per Admitting Provider This patient is a 79-year-old female with a history of meningioma, trigeminal neuralgia on chronic opioids, HTN, HL, GERD, anxiety disorder, osteoporosis, cervical spine stenosis, hyperparathyroidism, who presents to the ER with falls, mild confusion at home, nonproductive cough and congestion x 1 day. She had shaking chills all through last night in bed. She was found to be febrile in the ER and mildly hypoxic and showed multifocal pneumonia on her chest x-ray. A viral respiratory BioFire was negative. In the falls, she did strike her head and face on 04/[address] of the head/face and cervical spine was negative for acute issues. Her ECG did show a junctional rhythm as well as a mildly elevated troponin but she did not have any chest pains. Her notes that she has fallen 8 times in the last month since the dose of her Lyrica was increased to 150 mg 3 times a day. Discharge Exam Constitutional WD/WN, vitals as above Eyes PERRL Respiratory no respiratory distress, no labored breathing and no cough Auscultation: lungs clear to auscultation bilaterally Cardiovascular Rate/Rhythm: regular rate and regular rhythm Gastrointestinal (Abdomen) Inspection/Auscultation: normal bowel sounds Percussion/Palpation: abdomen soft; abdomen nontender Musculoskeletal Extremities: extremities normal to inspection Skin no rashes Psychiatric Orientation: alert and oriented x 3 Discharge Plan Discharge Items Patient Disposition: Home - Self-Care Reason For Visit: PNA,CONFUSION Discharge Diagnosis: PNA, Confusion Activity: Resume your previous activity Non-emergency contact: Primary Care Provider Call non-emergency contact if: your symptoms worsen and your temperature is above 101 Follow-up/Referrals: Milton López, [Primary Care Provider] - Diet: Heart Healthy Addtl Attending Provider Instructions: Complete 5 more days of antibiotics. I am ordering Cefuroxime 500mg twice daily for the next five days. Please take your Lyrica (Pregabalin) 75mg twice daily. An RX for this was filled on 04/18, so you should have some remaining at home. Pending Studies at Discharge: Yes (Prelim Blood Cultures are Negative. Final result pending) Stand-Alone Forms: [facility] [employer], Smoking Cessation Medications and DC Order Prescriptions: New pregabalin [Lyrica] 75 mg Capsule 75 mg PO BID Qty: 60 0RF cefuroxime axetil 500 mg tablet 500 mg PO BID 5 Days Qty: 10 0RF Continued (DME) blood pressure monitor Kit See Rx Instructions .ROUTE .MEDSUPPLY Qty: 1 0RF Rx Instructions: AUTOMATIC BLOOD PRESSURE CUFF DX: I10 diclofenac sodium 1 % gel 2 g topical QID Qty: 300 3RF Rx Instructions: Unable to verify OTC meds at this date/time. Apply to single elbow, wrist or hand; for hand includes palm/fingers/back of hand cholecalciferol (vitamin D3) 50 mcg (2,000 unit) capsule 100 mcg PO DAILY Rx Instructions: Unable to verify OTC meds at this date/time. Prolia 60 mg/mL syringe 60 mg subcut Q6MO Qty: 1 1RF Rx Instructions: auth good starts 11/25/22 with no end date rosuvastatin 5 mg tablet 5 mg PO QPM Qty: 90 3RF escitalopram oxalate 10 mg tablet 10 mg PO DAILY Qty: 90 3RF esomeprazole magnesium 40 mg capsule,delayed release(DR/EC) 40 mg PO BID Qty: 180 3RF buspirone 7.5 mg tablet 7.5 mg PO BID Qty: 180 3RF hydrochlorothiazide 25 mg tablet 25 mg PO QAM Qty: 90 3RF lamotrigine 100 mg tablet 100 mg PO BID Qty: 60 5RF Probiotic Digest Supp (6-strn) 10 billion cell -100 mg capsule 1 cap PO DAILY Rx Instructions: Unable to verify OTC meds at this date/time. ketoconazole-hydrocortisone 2-2.5 % cream See Rx Instructions topical .COMPLEX PRN (Reason: ud) Rx Instructions: Apply to rash once daily topically ; Apply to rash once daily PRN; aspirin [Keyanna Low Dose Aspirin] 81 mg tablet,delayed release (DR/EC) 81 mg PO DAILY Rx Instructions: Take to prevent blood clots. Unable to verify OTC meds at this date/time. melatonin 10 mg capsule 5 mg PO HS Rx Instructions: Unable to verify OTC meds at this date/time. lidocaine HCl [Lidocaine Viscous] 2 % solution 1 applic mucous membrane QID PRN (Reason: oral ulcers) Qty: 300 0RF calcium carbonate-vitamin D3 500 mg-3.125 mcg (125 unit) tablet 1 tab PO BID Rx Instructions: Unable to verify OTC meds at this date/time. Magic Mouthwash 300 mL mouthwash 5 ml mucous membrane Q6 PRN (Reason: pain) Qty: 300 0RF Rx Instructions: Benadryl 12.5 mg/5 mL oral elixir; Maalox 200 mg-200 mg-20 mg/5 mL oral suspension; Xylocaine Viscous 2 % mucosal solution;[Generic substitution ok] 1:1:1 compound Per 300 mL Swish and spit. oxycodone 5 mg tablet 5 mg PO Q6H PRN (Reason: Pain) lisinopril 20 mg tablet 0 mg PO QAM Rx Instructions: Per pharmacy, Lisinopril 10mg was discontinued by their system on 03/20/24. They do NOT have a lisinopril 20mg on file. Unable to verify w/ pt. Original Directions: 20mg by mouth daily Discontinued pregabalin 150 mg capsule 150 mg PO TID Discharge Orders: Discharge Order (Routine); Ordered 04/29/24 Ordered By: Clarisa Chowdhury Admission Data Admit Date/Time: 04/27/24 11:37 Attending Provider: Stephanie Banuelos Admit Provider: Samantha Hyman Primary Care Provider: Milton López Other Providers: Samantha Hyman Hospital Stay Data Consultations 04/27/24 12:13 ED Decision to Admit Stat Diagnostic Imagining Performed 04/27/24 09:51 CT cervical spine wo con Stat CT face [CT facial bones wo con] Stat CT head/brain wo con Stat Pending Results Patient Have Any Pending Studies at Discharge: Yes (Prelim Blood Cultures are Negative. Final result pending) Discharge Instructions Given to Patient (Per Discharging Provider) Complete 5 more days of antibiotics. I am ordering Cefuroxime 500mg twice daily for the next five days. Please take your Lyrica (Pregabalin) 75mg twice daily. An RX for this was filled on 04/18, so you should have some remaining at home. Total Time Total Time Spent Total Time Spent (In Minutes): 30 Coding [place] [address] INP/OBS DISCH >30 MIN Patient Type Established History Expanded Problem Focused Exam Expanded Problem Focused Medical Decision Making Moderate Complexity Diagnoses Pneumonia J18.9 Acute respiratory failure with hypoxemia J96.01 Elevated troponin R79.89 Fall W19.XXXA
[2024-04-29 12:26] VITALS: BP 155/65; PULSE 64
--- NOTE | 2024-04-30 09:00 | Electrocardiogram Report ---
Test Reason : Blood Pressure : */* mmHG Vent. Rate : 54 BPM Atrial Rate : 54 BPM P-R Int : 232 ms QRS Dur : 102 ms QT Int : 458 ms P-R-T Axes : 71 9 -19 degrees QTcB Int : 434 ms Sinus bradycardia with 1st degree A-V block Low voltage QRS Cannot rule out Inferior infarct (cited on or before 07-Jan-2023) Cannot rule out Anterior infarct (cited on or before 07-Jan-2023) Abnormal ECG When compared with ECG of 28-Apr-2024 05:56, No significant change was found Confirmed by Capri Tate (Ugo) on 04/30/2024 8:59:58 AM Referred By: REFERRED SELF Confirmed By: Capri Tate
== END 2024-04-29 14:00 | disposition home or self-care (01) | DRG 193 ==
LOC: ED 09:45 → 2S 11:37 → SUATTDRO 11:37 → 2S 15:15
DX: Z79.82 Long term (current) use of aspirin; Z79.891 Long term (current) use of opiate analgesic; T42.6X5A Adverse effect of other antiepileptic and sedative-hypnotic drugs, initial encounter; J18.9 Pneumonia, unspecified organism; G89.29 Other chronic pain; F41.9 Anxiety disorder, unspecified; Z79.899 Other long term (current) drug therapy; G93.40 Encephalopathy, unspecified; J96.01 Acute respiratory failure with hypoxia; Z88.5 Allergy status to narcotic agent; Z88.2 Allergy status to sulfonamides; I24.89 Other forms of acute ischemic heart disease; I49.2 Junctional premature depolarization; K21.9 Gastro-esophageal reflux disease without esophagitis; R29.6 Repeated falls; E78.5 Hyperlipidemia, unspecified; Z79.620 Long term (current) use of immunosuppressive biologic; G50.0 Trigeminal neuralgia; I10 Essential (primary) hypertension

== ENCOUNTER 2024-08-04 12:51 | Observation (INO) ==
[2024-08-04] MEDS: FAMOTIDINE 20MG IV PUSH 20 MG/5 ML SYR IV STA (13:22)
[2024-08-04] MEDS: dexAMETHasone**PF** 10 MG/ML VIAL IV ONE (13:22)
[2024-08-04] MEDS: diphenhydrAMINE 50 MG/ML VIAL IV STA (13:22)
[2024-08-04 13:47] LABS: Hematocrit (blood only) 37.2 % (37.0-47.0); Immature Granulocytes # (auto) 0.01 K/uL (0.01-0.20); Immature Granulocytes % (auto) 0.2 %; Lymphocytes % (auto) 21.5 %; Mean Corpuscular Hemoglobin 28.2 pg (25.0-34.0); Mean Corpuscular Hgb Conc 32.3 g/dL (32.0-36.0); Mean Corpuscular Volume 87.5 fL (80.0-100.0); Mean Platelet Volume 10.4 fL (9.4-12.4); Monocytes # (auto) 0.66 K/uL (0.11-0.59); Monocytes % (auto) 11.8 %; Neutrophils % (auto) 66.5 %; Platelet Count 250 K/uL (130-400); RDW Coefficient of Variation 14.4 % (11.5-14.5); Red Blood Count 4.25 M/uL (4.20-5.40); White Blood Count 5.57 K/ul (4.8-10.8)
[2024-08-04 13:51] LABS: Albumin Globulin Ratio 1.2 (0.9-2); Albumin Level 4.3 gm/dl (3.4-5.0); BUN Creatinine Ratio 15.1 (10-20); Bilirubin,Total 0.6 mg/dl (0.2-1.0); Calcium 9.2 mg/dl (8.6-10.3); Creatinine Clr Calc Pharmacy 50.2 ml/min; Globulin 3.5 gm/dl (2.5-4.0); Potassium 3.9 mmol/L (3.5-5.1); Total Protein 7.8 gm/dl (6.0-8.3)
--- NOTE | 2024-08-04 14:45 | Emergency Department Note ---
Impression & Plan Angioedema ED Provider Note NAME: CALVIN GONZALEZ AGE: 79 SEX: Female INFORMANT: Patient ED PROVIDER(S): Rohan Benson MD CHIEF COMPLAINT: Allergic reaction PLAN: Disposition: Admission Outpatient prescription management: none Referral: None MEDICAL DECISION MAKING: Patient was evaluated promptly as she was made a priority due to the lip swelling. Her examination looked consistent with angioedema and she is on an MELISSA inhibitor. She did take this today. She had an IV established. She was treated with IV Benadryl, Decadron, and Pepcid. She was monitored frequently. I did reassess her every 15 to 20 minutes. She had stabilized but still had moderate swelling of the upper lip. After about 1 hour and 45 minutes from arrival she had some slight improvement in the swelling. Vital signs are stable. She was monitored and frequently reassessed. Patient seemed to stabilize as far as the upper lip goes. At about 4 hours from time of arrival she had some swelling develop in the right cheek but the tongue and airway were patent. Voice was unchanged. At this point I discussed the need for admission with the patient and and they were in agreement. I did discuss her case with on-call critical care, . He felt the patient can be monitored in the PCU setting on the hospitalist service and did require ICU admission at this point. Did recommend FFP. Patient did consent to FFP transfusion. I did order this. Did consult with the [facility] hospitalist service, Dr. Riddle. Discussed case and presentation. Also discussed recommendations from ICU. Patient was reassessed prior to FFP infusion and was stable. FFP infusion initiated in ED. Patient was admitted for further management. Care/management discussed with: Case management, ICU, hospitalist Level of care consideration(s): After review of the information above and other included data, I feel the patient requires escalation of care to admission Triage Nursing notes: reviewed and agree them. Vital Signs: reviewed and remarkable for hypertension Additional History obtained from: Patient's . Notes voice is normal. Chronic Medical/Social Conditions affecting care: Hypertension, MELISSA inhibitor use Prior/ Outside/ External records reviewed: none Differential Diagnosis: Angioedema, allergic reaction, anaphylaxis, urticaria, Sigala-Rock syndrome, toxic epidermal necrolysis, erythema multiforme, contact dermatitis, cellulitis, as well as other pathologies. Diagnostics, independently interpreted by me: ECG: none Cardiac Monitoring: Cardiac monitoring ordered by me: The patient was placed on continuous cardiac monitoring and observed. It revealed a normal sinus rhythm at 69 beats per minute without ectopy or evidence of dysrhythmia. Medical decision rules: none Imaging studies: Deferred HPI: 79 year old Female arrives for evaluation of possible allergic reaction. Patient notes this happened about 9:00 this morning. She notes upper lip swelling. She states her mouth feels funny but denies any tongue swelling. is present and states voice is about normal for her. Patient notes no new exposures. No prior history of severe allergic reaction. She does have some medication allergies but has not been given any of those recently. Patient notes a transient bit of lip swelling last week but it resolved. Pt denies LOC, headache, fevers, chills, diaphoresis, visual changes, neck pain, chest pain, breathing difficulties, nausea, vomiting, abdominal pain, back pain, melena, hematochezia, urinary symptoms, numbness, weakness, lymphadenopathy, rash, or other complaints. PAST MEDICAL HISTORY: See Below, hypertension PAST SURGICAL HISTORY: See Below, SOCIAL HISTORY: See Below, HOME MEDICATIONS: See Below ALLERGIES: See Below VITALS: See Below PHYSICAL EXAMINATION: GENERAL: Awake, alert, mildly-appearing, in no distress HENT: Normocephalic, atraumatic. Moderate angioedema of the upper lip which is symmetric. Lower lip is normal. Oropharynx unremarkable. Tongue is normal. Uvula unremarkable. EYES: Normal conjunctiva. Sclera non-icteric. NECK: Inspection normal. Non-tender. Supple. No nuchal rigidity. FROM. No masses. No stridor. RESPIRATORY: Clear to auscultation. No wheezes. No rales. Normal respiratory effort. CARDIAC: Normal rate. Normal rhythm. No murmurs. No rubs. Extremities warm and well perfused. Pulses equal. No JVD. GI: Soft, non-distended. No tenderness to palpation. No rebound or guarding. No masses. RECTAL: Deferred. MUSCULOSKELETAL: Atraumatic. The back is symmetrical on inspection without obvious abnormality. There is no CVA tenderness to palpation. No joint edema. LOWER EXTREMITIES: Calves are equal size bilaterally and non-tender. No edema. No discoloration. NEURO: Normal sensorium. No sensory or motor deficits noted. SKIN: No rash or jaundice noted. PROCEDURES: none CRITICAL CARE: I have personally spent greater than 45 minutes of critical care time in the direct management of this patient. This includes bedside care, interpretation of diagnostic studies, and testing, discussion with consultants, patient, and family members, and other required patient management activities. These minutes are in excess of all separately billable procedures. OBSERVATION NOTE: none Past Med/Surg History Problem List (Updated 08/04/24 @ 14:45 by Rohan Benson MD) Angioedema (Acute) Myofascial pain Opioid-induced constipation Cervical paraspinal muscle spasm Cervico-occipital neuralgia Pneumonia Hypertension controlled, stable per pt; white coat hypertension LVH (left ventricular hypertrophy) Diastolic dysfunction Dyslipidemia Insomnia Meningioma, cerebral Trigeminal neuralgia of left side of face Vitamin D deficiency Hyperparathyroidism Arthritis of knee, left Depression with anxiety LPRD (laryngopharyngeal reflux disease) controlled, stable per pt; occasional dysphagia with food Osteoporosis Ulnar neuropathy Carpal tunnel syndrome, left Sacroiliitis Cervical stenosis of spinal canal Medical History Elevated troponin Hypoxia Acute respiratory failure with hypoxemia Fall TMJ dysfunction Glossopharyngeal neuralgia syndrome Constipation Hip bursitis, left Hiatal hernia Contusion of left knee Vitamin D deficiency LVH (left ventricular hypertrophy) Mild cLVH per 10/2020 Echo Mixed conductive and sensorineural hearing loss of left ear with restricted hearing of right ear History of COVID-19 03/2021-denies hospitalization-denies residual symptoms Hx of migraine headaches Vertigo occasional, chronic, denies change or worsening Osteoporosis Acquired deviated nasal septum Stroke "Mini stroke" to left eye during cataract surgery (2018) > blurry vision residual Knee osteonecrosis, left Hip pain left, occasional Depression Anxiety Surgical History Status post left partial knee replacement H/O laparoscopy x2, tubal pregnancies History of esophageal dilatation History of esophagogastroduodenoscopy (EGD) History of trigger finger Right ring + small finger trigger finger release (01/2021, [facility] [place]) History of colonoscopy History of dilatation and curettage Hx of bilateral cataract extraction H/O hemorrhoidectomy History of thumb surgery Left History of tonsillectomy History of lumbar surgery H/O wrist surgery Left (2018) History of tooth extraction History of hip surgery Right LYNDON (1999), replacement (2000), repair of replacement (2001) History of appendectomy Family History Brother Cardiac arrest Father Cardiac arrest Mother Cardiac arrest Dementia Other Heart disease Hypertension No family history of adverse response to anesthesia No family history of bleeding disorder Denies family history of Ovarian cancer Breast cancer Lung cancer Colorectal cancer Stroke Social History Smoking Status: Never smoker Second Hand Exposure: No; Do You Dip or Chew Tobacco: No; Hx Alcohol Use: No Hx Substance Use: No Preferred Language: Micronesian Communication Ability: Effective Visual Impairment: No Limitations Hearing Ability: Normal Content Development Manager Required: No Beliefs That Will Affect Care: None marital status: Current Living Situation: Spouse current occupational status: retired How many Children do You have: 3 Feels Safe at Home: Yes Childhood Exposure to Second-Hand Smoke: No Diet: regular caffeine: No Dental Care, Regularly: Yes Physical Activity Frequency: Does not Exercise Seatbelt Use: always Sunscreen Use: Yes Do you think of yourself as: straight/heterosexual Assistive Devices: Denture - Upper and Denture - Lower Allergies Allergies Allergy/AdvReac Type Severity Reaction Status Date / Time Sulfa (Sulfonamide Allergy Intermediate Hives Verified 08/04/24 16:40 Antibiotics) morphine Allergy Mild Hives Verified 08/04/24 16:40 tramadol AdvReac Intermediate Diarrhea Verified 08/04/24 16:40 hydromorphone [From Dilaudid] AdvReac Hallucinati Verified 08/04/24 16:40 ons Home Meds Home Medications Medication Instructions Recorded Confirmed ketoconazole 2 %-hydrocortisone See Rx Instructions topical 01/22/22 08/04/24 2.5 % topical cream .COMPLEX PRN ud aspirin 81 mg tablet,delayed 81 mg PO DAILY 04/05/23 08/04/24 release (Keyanna Low Dose Aspirin) L.acid,bul,para,rham-B.anim,long 1 cap PO DAILY 04/30/24 08/04/24 10 billion cell-inulin 100 mg capsule (Probitoic Digestive Support (6 strain)) calcium 500 mg (as 1 tab PO BID 04/30/24 08/04/24 carbonate)-vitamin D3 3.125 mcg (125 unit) tablet cholecalciferol (vitamin D3) 50 100 mcg PO DAILY 04/30/24 08/04/24 mcg (2,000 unit) capsule melatonin 10 mg capsule 5 mg PO HS 04/30/24 08/04/24 cyclobenzaprine 5 mg tablet 5 mg PO BID PRN muscle spasm 06/25/24 08/04/24 duloxetine 30 mg capsule,delayed 0 mg PO DAILY 07/31/24 08/04/24 release escitalopram oxalate 10 mg tablet 10 mg PO DAILY 07/31/24 08/04/24 lidocaine HCl 2 % mucosal solution 1 applic mucous membrane DAILY 07/31/24 08/04/24 (Lidocaine Viscous) pregabalin 75 mg capsule 75 mg PO TID 08/04/24 08/04/24 Previous Rx's Medication Instructions Recorded blood pressure monitor #1 ea 03/11/20 esomeprazole magnesium 40 mg 40 mg PO BID #180 caps 12/13/23 capsule,delayed release hydrochlorothiazide 25 mg tablet 25 mg PO QAM #90 tabs 12/26/23 lamotrigine 100 mg tablet 100 mg PO BID #60 tabs 04/16/24 denosumab 60 mg/mL subcutaneous 60 mg subcut Q6MO #1 mL 05/25/24 syringe (Prolia) duloxetine 60 mg capsule,delayed 60 mg PO DAILY #30 caps 06/06/24 release lisinopril 20 mg tablet 20 mg PO QAM #90 tabs 06/11/24 Magic Mouthwash 300 mL mouthwash 5 ml mucous membrane Q6 PRN pain 06/25/24 #300 mL diclofenac sodium 1 % topical gel 2 g topical QID PRN pain #100 grams 06/25/24 oxycodone 10 mg tablet 10 mg PO Q8H PRN pain #90 tabs 07/20/24 rosuvastatin 5 mg tablet 5 mg PO QPM #90 tabs 07/31/24 Results & Data (ED) Vital Signs Vital Signs - 24 hr 08/04/24 12:56 08/04/24 13:27 08/04/24 13:27 Temperature 36.7 C Temperature Source Temporal Artery Scan Pulse Rate 72 Pulse Rate [Apical] 66 Pulse Rate from SpO2 Sensor Pulse Rhythm Pulse Rhythm [Apical] Regular Pulse Strength [Apical] Normal Respiratory Rate 18 22 Respiratory Effort / Characteristics Non-Labored Spontaneous Non-Labored Spontaneous Respiratory Depth Normal Normal Respiratory Pattern Regular Regular Blood Pressure 136/72 Blood Pressure [Right Arm] 149/66 H Blood Pressure Mean 93 Blood Pressure Mean [Right Arm] 93 Blood Pressure Position [Right Arm] Semi-fowlers Pulse Oximetry 96 96 96 Oxygen Delivery Method Room Air Room Air Room Air Sepsis Recent Fever Within 48 Hours No Sepsis New/Unexplained Change in Mental Status N/A Sepsis Action Taken by Nursing No Action Required 08/04/24 13:27 08/04/24 13:33 08/04/24 13:38 Temperature Temperature Source Pulse Rate 66 68 66 Pulse Rate [Apical] Pulse Rate from SpO2 Sensor 68 Pulse Rhythm Regular Pulse Rhythm [Apical] Pulse Strength [Apical] Respiratory Rate 22 18 Respiratory Effort / Characteristics Respiratory Depth Respiratory Pattern Blood Pressure 174/71 H Blood Pressure [Right Arm] Blood Pressure Mean 105 Blood Pressure Mean [Right Arm] Blood Pressure Position [Right Arm] Pulse Oximetry 96 95 Oxygen Delivery Method Room Air Room Air Sepsis Recent Fever Within 48 Hours Sepsis New/Unexplained Change in Mental Status Sepsis Action Taken by Nursing 08/04/24 14:00 08/04/24 14:12 08/04/24 14:30 Temperature Temperature Source Pulse Rate 65 Pulse Rate [Apical] Pulse Rate from SpO2 Sensor 65 Pulse Rhythm Pulse Rhythm [Apical] Pulse Strength [Apical] Respiratory Rate 18 Respiratory Effort / Characteristics Respiratory Depth Respiratory Pattern Blood Pressure 150/77 H 159/75 H Blood Pressure [Right Arm] Blood Pressure Mean 96 103 Blood Pressure Mean [Right Arm] Blood Pressure Position [Right Arm] Pulse Oximetry 92 Oxygen Delivery Method Room Air Sepsis Recent Fever Within 48 Hours Sepsis New/Unexplained Change in Mental Status Sepsis Action Taken by Nursing 08/04/24 14:36 08/04/24 15:00 08/04/24 15:30 Temperature Temperature Source Pulse Rate 62 65 66 Pulse Rate [Apical] Pulse Rate from SpO2 Sensor 63 65 66 Pulse Rhythm Pulse Rhythm [Apical] Pulse Strength [Apical] Respiratory Rate 16 23 16 Respiratory Effort / Characteristics Respiratory Depth Respiratory Pattern Blood Pressure 151/85 H 150/77 H Blood Pressure [Right Arm] Blood Pressure Mean 101 132 Blood Pressure Mean [Right Arm] Blood Pressure Position [Right Arm] Pulse Oximetry 95 93 92 Oxygen Delivery Method Room Air Sepsis Recent Fever Within 48 Hours Sepsis New/Unexplained Change in Mental Status Sepsis Action Taken by Nursing 08/04/24 16:31 08/04/24 17:00 08/04/24 17:41 Temperature Temperature Source Pulse Rate 64 67 72 Pulse Rate [Apical] Pulse Rate from SpO2 Sensor 65 68 Pulse Rhythm Pulse Rhythm [Apical] Pulse Strength [Apical] Respiratory Rate 20 23 Respiratory Effort / Characteristics Respiratory Depth Respiratory Pattern Blood Pressure 159/92 H 165/80 H Blood Pressure [Right Arm] Blood Pressure Mean 118 99 Blood Pressure Mean [Right Arm] Blood Pressure Position [Right Arm] Pulse Oximetry 94 94 Oxygen Delivery Method Sepsis Recent Fever Within 48 Hours Sepsis New/Unexplained Change in Mental Status Sepsis Action Taken by Nursing 08/04/24 19:13 Temperature 36.7 C Temperature Source Oral Pulse Rate 69 Pulse Rate [Apical] Pulse Rate from SpO2 Sensor Pulse Rhythm Pulse Rhythm [Apical] Pulse Strength [Apical] Respiratory Rate 16 Respiratory Effort / Characteristics Respiratory Depth Respiratory Pattern Blood Pressure 169/80 H Blood Pressure [Right Arm] Blood Pressure Mean 109 Blood Pressure Mean [Right Arm] Blood Pressure Position [Right Arm] Pulse Oximetry 94 Oxygen Delivery Method Sepsis Recent Fever Within 48 Hours Sepsis New/Unexplained Change in Mental Status Sepsis Action Taken by Nursing Laboratory Data 08/04/24 13:15 08/04/24 13:15 Lab Results 08/04/24 08/04/24 Range/Units 13:15 17:18 WBC 5.57 (4.8-10.8) K/ul RBC 4.25 (4.20-5.40) M/uL Hgb 12.0 (12.0-16.0) g/dl Hct 37.2 (37.0-47.0) % MCV 87.5 (80.0-100.0) fL MCH 28.2 (25.0-34.0) pg MCHC 32.3 (32.0-36.0) g/dL RDW Std Deviation 46.0 (36.4-46.3) fL RDW Coeff of Jerry 14.4 (11.5-14.5) % Plt Count 250 (130-400) K/uL MPV 10.4 (9.4-12.4) fL Immature Gran % (Auto) 0.2 % Neut % (Auto) 66.5 % Lymph % (Auto) 21.5 % Divide % (Auto) 11.8 % Eos % (Auto) 0.0 % Baso % (Auto) 0.0 % Neut # (Auto) 3.70 (1.40-6.50) K/uL Lymph # (Auto) 1.20 (1.20-3.40) K/uL Divide # (Auto) 0.66 H (0.11-0.59) K/uL Eos # (Auto) 0.00 (0.00-0.50) K/uL Baso # (Auto) 0.00 (0.00-0.20) K/uL Immature Gran # (Auto) 0.01 (0.01-0.20) K/uL Sodium 136 (136-145) mmol/L Potassium 3.9 (3.5-5.1) mmol/L Chloride 102 (98-107) mmol/L Carbon Dioxide 30 (21-32) mmol/L Anion Gap 4 (3-11) BUN 13 (6-23) mg/dl Creatinine 0.86 (0.6-1.2) mg/dl Est Cr Clr Drug Dosing 50.2 ml/min eGFR 69.10 BUN/Creatinine Ratio 15.1 (10-20) Glucose 86 (70-99(Fasting)) mg/dl Calcium 9.2 (8.6-10.3) mg/dl Total Bilirubin 0.6 (0.2-1.0) mg/dl AST 16 (13-39) U/L ALT 10 (7-52) U/L Alkaline Phosphatase 48 (34-104) U/L Total Protein 7.8 (6.0-8.3) gm/dl Albumin 4.3 (3.4-5.0) gm/dl Globulin 3.5 (2.5-4.0) gm/dl Albumin/Globulin Ratio 1.2 (0.9-2) Blood Type B Positive Antibody Screen NEGATIVE Administered Medications Discontinued Medications Dexamethasone Sodium Phosphate (DexamethasonePf 10 Mg/Ml Vial) 10 mg IV NOW ONE Stop: 08/04/24 13:10 Last Admin: 08/04/24 13:22 Dose: 10 mg Documented By: Diphenhydramine HCl (Diphenhydramine 50 Mg/Ml Vial) 25 mg IV NOW STA Stop: 08/04/24 13:10 Last Admin: 08/04/24 13:22 Dose: 25 mg Documented By: MSEstuardo Famotidine (Pepcid 20mg Iv Push) 20 mg in 5 mls @ 2.5 mls/min IV NOW STA Stop: 08/04/24 13:10 Last Admin: 08/04/24 13:22 Dose: 2.5 mls/min Documented By: MSG Discharge Plan Visit Data Chief Complaint: Allergic Reaction Stated Complaint: SWOLLEN LIP FROM ALLERGIC REACTION ED Provider: Rohan Benson Discharge Problem: Angioedema Forms Stand Alone Forms: My [facility] Prescriptions Prescriptions: No Action duloxetine 30 mg capsule,delayed release(DR/EC) 0 mg PO DAILY Rx Instructions: Verified on 07/31/24 by other medical staff, but this hasn't been filled since 05/2024 x30 day supply per pharmacy. escitalopram oxalate 10 mg tablet 10 mg PO DAILY lidocaine HCl [Lidocaine Viscous] 2 % solution 1 applic mucous membrane DAILY Rx Instructions: Not on file w/ pharmacy (DME) blood pressure monitor Kit See Rx Instructions .ROUTE .MEDSUPPLY Qty: 1 0RF Rx Instructions: AUTOMATIC BLOOD PRESSURE CUFF DX: I10 esomeprazole magnesium 40 mg capsule,delayed release(DR/EC) 40 mg PO BID Qty: 180 3RF Rx Instructions: Last filled 05/2024 x30 day supply hydrochlorothiazide 25 mg tablet 25 mg PO QAM Qty: 90 3RF lamotrigine 100 mg tablet 100 mg PO BID Qty: 60 5RF Probiotic Digest Supp (6-strn) 10 billion cell -100 mg capsule 1 cap PO DAILY Rx Instructions: Unable to verify OTC meds at this date/time. melatonin 10 mg capsule 5 mg PO HS Rx Instructions: Unable to verify OTC meds at this date/time. cholecalciferol (vitamin D3) 50 mcg (2,000 unit) capsule 100 mcg PO DAILY Rx Instructions: Unable to verify OTC meds at this date/time. calcium carbonate-vitamin D3 500 mg-3.125 mcg (125 unit) tablet 1 tab PO BID Rx Instructions: Unable to verify OTC meds at this date/time. Prolia 60 mg/mL syringe 60 mg subcut Q6MO Qty: 1 1RF Rx Instructions: auth good starts 11/25/22 with no end date lisinopril 20 mg tablet 20 mg PO QAM Qty: 90 3RF rosuvastatin 5 mg tablet 5 mg PO QPM Qty: 90 3RF ketoconazole-hydrocortisone 2-2.5 % cream See Rx Instructions topical .COMPLEX PRN (Reason: ud) Rx Instructions: Apply to rash once daily topically ; Apply to rash once daily PRN; aspirin [Keyanna Low Dose Aspirin] 81 mg tablet,delayed release (DR/EC) 81 mg PO DAILY Rx Instructions: Take to prevent blood clots. Unable to verify OTC meds at this date/time. cyclobenzaprine 5 mg tablet 5 mg PO BID PRN (Reason: muscle spasm) diclofenac sodium 1 % gel 2 g topical QID PRN (Reason: pain) Qty: 100 1RF Rx Instructions: Unable to verify OTC meds at this date/time. Apply to single elbow, wrist or hand; for hand includes palm/fingers/back of hand Magic Mouthwash 300 mL mouthwash 5 ml mucous membrane Q6 PRN (Reason: pain) Qty: 300 0RF Rx Instructions: Benadryl 12.5 mg/5 mL oral elixir; Maalox 200 mg-200 mg-20 mg/5 mL oral suspension; Xylocaine Viscous 2 % mucosal solution;[Generic substitution ok] 1:1:1 compound Per 300 mL Swish and spit. duloxetine 60 mg capsule,delayed release(DR/EC) 60 mg PO DAILY Qty: 30 2RF oxycodone 10 mg tablet 10 mg PO Q8H PRN (Reason: pain) Qty: 90 0RF pregabalin 75 mg capsule 75 mg PO TID Referrals Referrals: Milton López DO [Primary Care Provider] -
--- NOTE | 2024-08-04 16:56 | History & Physical Report ---
Date of Service August 04, 2024 Assessment & Plan (1) Angioedema: Plan: Patient received IV steroids post steroid administration patient again started swelling up and her cheeks were getting swollen intensive care unit physician was consulted recommendation was to get her FFP's and admit her overnight for observation to PCU Patient also received Benadryl and histamine jennifer As patient is not getting better and there is an danger of progression I will admit patient keep her on IV Benadryl overnight DC lisinopril start patient on amlodipine DVT prophylaxis (2) Hypertension: Plan: IV steroids can also increase hypertension will start patient on amlodipine Plan Admit patient to PCU patient will be n.p.o. except ice chips and water further recommendations will be based on patient response to treatment and hospital course History of Present Illness Primary Care Provider: Milton López DO 79 year old Female arrives for evaluation of possible allergic reaction. Patient notes this happened about 9:00 this morning. She notes upper lip swe lling. She states her mouth feels funny but denies any tongue swelling. is present and states voice is about normal for her. Patient notes no new exposures. No prior history of severe allergic reaction. She does have some medication allergies but has not been given any of those recently. Patient notes a transient bit of lip swelling last week but it resolved. Pt denies LOC, headache, fevers, chills, diaphoresis, visual changes, neck pain, chest pain, breathing difficulties, nausea, vomiting, abdominal pain, back pain, melena, hematochezia, urinary symptoms, numbness, weakness, lymphadenopathy, rash, or other complaints. Allergies Allergy/AdvReac Type Severity Reaction Status Date / Time Sulfa (Sulfonamide Allergy Intermediate Hives Verified 08/05/24 11:28 Antibiotics) morphine Allergy Mild Hives Verified 08/05/24 11:28 tramadol AdvReac Intermediate Diarrhea Verified 08/05/24 11:28 hydromorphone [From Dilaudid] AdvReac Hallucinati Verified 08/05/24 11:28 ons lisinopril Allergy Severe angioedema Uncoded 08/05/24 11:28 Home Medications Medication Instructions Recorded Confirmed Type blood pressure monitor #1 ea 03/11/20 07/31/24 Rx ketoconazole 2 %-hydrocortisone See Rx Instructions topical 01/22/22 08/04/24 History 2.5 % topical cream .COMPLEX PRN ud aspirin 81 mg tablet,delayed 81 mg PO DAILY 04/05/23 08/04/24 History release (Keyanna Low Dose Aspirin) esomeprazole magnesium 40 mg 40 mg PO BID #180 caps 12/13/23 08/04/24 Rx capsule,delayed release hydrochlorothiazide 25 mg tablet 25 mg PO QAM #90 tabs 12/26/23 08/04/24 Rx lamotrigine 100 mg tablet 100 mg PO BID #60 tabs 04/16/24 08/04/24 Rx L.acid,bul,para,rham-B.anim,long 1 cap PO DAILY 04/30/24 08/04/24 History 10 billion cell-inulin 100 mg capsule (Probitoic Digestive Support (6 strain)) calcium 500 mg (as 1 tab PO BID 04/30/24 08/04/24 History carbonate)-vitamin D3 3.125 mcg (125 unit) tablet cholecalciferol (vitamin D3) 50 100 mcg PO DAILY 04/30/24 08/04/24 History mcg (2,000 unit) capsule melatonin 10 mg capsule 5 mg PO HS 04/30/24 08/04/24 History denosumab 60 mg/mL subcutaneous 60 mg subcut Q6MO #1 mL 05/25/24 08/04/24 Rx syringe (Prolia) duloxetine 60 mg capsule,delayed 60 mg PO DAILY #30 caps 06/06/24 08/04/24 Rx release Magic Mouthwash 300 mL mouthwash 5 ml mucous membrane Q6 PRN pain 06/25/24 08/04/24 Rx #300 mL cyclobenzaprine 5 mg tablet 5 mg PO BID PRN muscle spasm 06/25/24 08/04/24 History diclofenac sodium 1 % topical gel 2 g topical QID PRN pain #100 grams 06/25/24 08/04/24 Rx oxycodone 10 mg tablet 10 mg PO Q8H PRN pain #90 tabs 07/20/24 08/04/24 Rx duloxetine 30 mg capsule,delayed 0 mg PO DAILY 07/31/24 08/04/24 History release escitalopram oxalate 10 mg tablet 10 mg PO DAILY 07/31/24 08/04/24 History lidocaine HCl 2 % mucosal solution 1 applic mucous membrane DAILY 07/31/24 08/04/24 History (Lidocaine Viscous) rosuvastatin 5 mg tablet 5 mg PO QPM #90 tabs 07/31/24 08/04/24 Rx pregabalin 75 mg capsule 75 mg PO TID 08/04/24 08/04/24 History amlodipine 10 mg tablet 10 mg PO DAILY 30 days #30 tabs 08/05/24 Rx diphenhydramine HCl 25 mg capsule 25 mg PO HS itching 30 days #30 08/05/24 Rx (Benadryl) caps Past Med/Surg History Problem List (Updated 08/04/24 @ 14:45 by Rohan Benson MD) Angioedema (Acute) Myofascial pain Opioid-induced constipation Cervical paraspinal muscle spasm Cervico-occipital neuralgia Pneumonia Hypertension controlled, stable per pt; white coat hypertension LVH (left ventricular hypertrophy) Diastolic dysfunction Dyslipidemia Insomnia Meningioma, cerebral Trigeminal neuralgia of left side of face Vitamin D deficiency Hyperparathyroidism Arthritis of knee, left Depression with anxiety LPRD (laryngopharyngeal reflux disease) controlled, stable per pt; occasional dysphagia with food Osteoporosis Ulnar neuropathy Carpal tunnel syndrome, left Sacroiliitis Cervical stenosis of spinal canal Medical History Elevated troponin Hypoxia Acute respiratory failure with hypoxemia Fall TMJ dysfunction Glossopharyngeal neuralgia syndrome Constipation Hip bursitis, left Hiatal hernia Contusion of left knee Vitamin D deficiency LVH (left ventricular hypertrophy) Mild cLVH per 10/2020 Echo Mixed conductive and sensorineural hearing loss of left ear with restricted hearing of right ear History of COVID-19 03/2021-denies hospitalization-denies residual symptoms Hx of migraine headaches Vertigo occasional, chronic, denies change or worsening Osteoporosis Acquired deviated nasal septum Stroke "Mini stroke" to left eye during cataract surgery (2018) > blurry vision residual Knee osteonecrosis, left Hip pain left, occasional Depression Anxiety Surgical History Status post left partial knee replacement H/O laparoscopy x2, tubal pregnancies History of esophageal dilatation History of esophagogastroduodenoscopy (EGD) History of trigger finger Right ring + small finger trigger finger release (01/2021, [facility] [place]) History of colonoscopy History of dilatation and curettage Hx of bilateral cataract extraction H/O hemorrhoidectomy History of thumb surgery Left History of tonsillectomy History of lumbar surgery H/O wrist surgery Left (2018) History of tooth extraction History of hip surgery Right LYNDON (1999), replacement (2000), repair of replacement (2001) History of appendectomy Family History Brother Cardiac arrest Father Cardiac arrest Mother Cardiac arrest Dementia Other Heart disease Hypertension No family history of adverse response to anesthesia No family history of bleeding disorder Denies family history of Ovarian cancer Breast cancer Lung cancer Colorectal cancer Stroke Social History Smoking Status: Never smoker Second Hand Exposure: No; Do You Dip or Chew Tobacco: No; Tobacco Cessation Education Requested by Patient: No Hx Alcohol Use: No Hx Substance Use: No Preferred Language: Kazakh Communication Ability: Effective Visual Impairment: No Limitations Hearing Ability: Normal Court Operations Clerk Required: No Beliefs That Will Affect Care: None marital status: Current Living Situation: Spouse current occupational status: retired How many Children do You have: 3 Other Information That Helps Us Care for You: No Feels Safe at Home: Yes Safety Concerns: Feels Safe At This Time Childhood Exposure to Second-Hand Smoke: No Diet: regular caffeine: No Dental Care, Regularly: Yes Physical Activity Frequency: Does not Exercise Seatbelt Use: always Sunscreen Use: Yes Do you think of yourself as: straight/heterosexual Assistive Devices: Cane, Denture - Upper, Denture - Lower, Glasses and Walker Review of Systems Review of Systems: Positive for swelling of the upper lip cheeks negative for any wheezing negative for any itching negative for any chest tightness or sore throat negative for any closeness of the upper respiratory Physical Exam Physical Exam: GENERAL: Awake, alert, mildly-appearing, in no distress HENT: Normocephalic, atraumatic. Moderate angioedema of the upper lip which is symmetric. Lower lip is normal. Oropharynx unremarkable. Tongue is normal. Uvula unremarkable. EYES: Normal conjunctiva. Sclera non-icteric. NECK: Inspection normal. Non-tender. Supple. No nuchal rigidity. FROM. No bertha s. No stridor. RESPIRATORY: Clear to auscultation. No wheezes. No rales. Normal respiratory effort. CARDIAC: Normal rate. Normal rhythm. No murmurs. No rubs. Extremities warm and well perfused. Pulses equal. No JVD. GI: Soft, non-distended. No tenderness to palpation. No rebound or guarding. No masses. RECTAL: Deferred. MUSCULOSKELETAL: Atraumatic. The back is symmetrical on inspection without obvious abnormality. There is no CVA tenderness to palpation. No joint edema. LOWER EXTREMITIES: Calves are equal size bilaterally and non-tender. No edema. No discoloration. NEURO: Normal sensorium. No sensory or motor deficits noted. SKIN: No rash or jaundice noted. Results & Data Results & Data Vital Signs (Past 12 Hours) Vital Signs Temp Pulse Pulse Resp BP BP Pulse Ox 08/04/24 14:36 62 16 95 08/04/24 14:30 159/75 H 08/04/24 14:12 65 18 92 08/04/24 14:00 150/77 H 08/04/24 13:38 66 08/04/24 13:33 68 18 174/71 H 95 08/04/24 13:27 66 22 96 08/04/24 13:27 66 22 149/66 H 96 08/04/24 13:27 96 08/04/24 12:56 36.7 C 72 18 136/72 96 O2 Del Method 08/04/24 14:36 Room Air 08/04/24 14:30 08/04/24 14:12 Room Air 08/04/24 14:00 08/04/24 13:38 08/04/24 13:33 Room Air 08/04/24 13:27 Room Air 08/04/24 13:27 Room Air 08/04/24 13:27 Room Air 08/04/24 12:56 Room Air PG Care Time/CCT Total # of Minutes Spent Total Time Spent with Patient: Total time spent is greater than 50% in coordination of care (as documented) at patient's floor/unit and/or counseling patient: Coding Level of Care Code 28382 INT INP/OBS CARE 2/55MIN Diagnoses Angioedema T78.3XXA Hypertension I10
[2024-08-04] MEDS ORDERED: SODIUM CHLORIDE 0.9% 100 ML IV PRN (17:13)
[2024-08-04 23:39] VITALS: RESP 18
[2024-08-05] MEDS ORDERED: ACETAMINOPHEN 325 MG TAB PO PRN (02:07)
[2024-08-05] MEDS ORDERED: diphenhydrAMINE 50 MG/ML VIAL IV PRN (02:07)
[2024-08-05] MEDS ORDERED: ONDANSETRON INJ 2 MG/ML 2 ML VIAL IV PRN (02:07)
[2024-08-05] MEDS: amLODIPine BESYLATE 5 MG TAB PO ONE (02:44)
[2024-08-05] MEDS: MELATONIN 3 MG TAB PO PRN (02:47)
[2024-08-05 07:50] VITALS: BP 155/95; PULSE 78; TEMP 98.1; O2SAT 98
[2024-08-05] MEDS: predniSONE 20 MG TAB PO SCH (08:00)
[2024-08-05] MEDS: PANTOprazole 40 MG TAB PO SCH (08:00)
--- NOTE | 2024-08-05 16:53 | Discharge Summary ---
Date of Service August 05, 2024 Admission HPI Per Admitting Provider 79 year old Female arrives for evaluation of possible allergic reaction. Patient notes this happened about 9:00 this morning. She notes upper lip swelling. She states her mouth feels funny but denies any tongue swelling. is present and states voice is about normal for her. Patient notes no new exposures. No prior history of severe allergic reaction. She does have some medication allergies but has not been given any of those recently. Patient notes a transient bit of lip swelling last week but it resolved. Pt denies LOC, headache, fevers, chills, diaphoresis, visual changes, neck pain, chest pain, breathing difficulties, nausea, vomiting, abdominal pain, back pain, melena, hematochezia, urinary symptoms, numbness, weakness, lymphadenopathy, rash, or other complaints. Admission Exam (Per Admitting) Constitutional GENERAL: Awake, alert, mildly-appearing, in no distress HENT: Normocephalic, atraumatic. Swelling of the upper lip has significantly reduced lower lip is normal. Oropharynx unremarkable. Tongue is normal. Uvula unremarkable. EYES: Normal conjunctiva. Sclera non-icteric. NECK: Inspection normal. Non-tender. Supple. No nuchal rigidity. FROM. No masses. No stridor. RESPIRATORY: Clear to auscultation. No wheezes. No rales. Normal respiratory effort. CARDIAC: Normal rate. Normal rhythm. No murmurs. No rubs. Extremities warm and well perfused. Pulses equal. No JVD. GI: Soft, non-distended. No tenderness to palpation. No rebound or guarding. No masses. RECTAL: Deferred. MUSCULOSKELETAL: Atraumatic. The back is symmetrical on inspection without obvious abnormality. There is no CVA tenderness to palpation. No joint edema. LOWER EXTREMITIES: Calves are equal size bilaterally and non-tender. No edema. No discoloration. NEURO: Normal sensorium. No sensory or motor deficits noted. SKIN: No rash or jaundice noted. Discharge Data Consultations 08/04/24 17:15 ED Decision to Admit Stat Hospital Course (1) Angioedema: Patient received IV steroids post steroid administration patient again started swelling up and her cheeks were getting swollen intensive care unit physician was consulted recommendation was to get her FFP's and admit her overnight for observation to PCU Patient also received Benadryl and histamine jennifer As patient is not getting better and there is an danger of progression I will admit patient keep her on IV Benadryl overnight DC lisinopril start patient on amlodipine Overnight patient improved significantly we will discharge patient on p.o. Benadryl DC lisinopril start amlodipine and prednisone 10 mg on a tapering dose (2) Hypertension: IV steroids can also increase hypertension will start patient on amlodipine Plan Discharge patient home with outpatient follow-up with primary care doctor Coding Level of Care Code 55467 INP/OBS DISCH >30 MIN Diagnoses Angioedema T78.3XXA Hypertension I10
== END 2024-08-05 12:36 | disposition home or self-care (01) ==
LOC: SUATTDRO → EDINP 12:51 → ED 12:51 → 2E 08-05 02:08

== ENCOUNTER 2025-01-17 23:07 | Inpatient (IN) ==
[2025-01-17] MEDS: ONDANSETRON INJ 2 MG/ML 2 ML VIAL IV STA (23:30)
[2025-01-17] MEDS: KETOROLAC TROMETHAMINE 15 MG/ML VIAL IV STA (23:30)
[2025-01-17] MEDS: HYDROmorphone INJ 0.5 MG/0.5 ML SYR IV STA (23:33)
--- NOTE | 2025-01-17 23:49 | Emergency Department Note ---
Impression & Plan Septic arthritis of hip [facility] Provider Note NAME: CALVIN GONZALEZ AGE: 79 SEX: Female INFORMANT: Patient ED PROVIDER(S): Laura Moya DO CHIEF COMPLAINT: right hip pain PLAN: Disposition: [facility] MEDICAL DECISION MAKING: This is a 79-year-old female patient with a history of right hip arthroplasty with pelvic reconstruction from an accident years ago who presents to the emergency department with sudden onset of severe right hip pain. Patient denies any acute trauma. She states that the pain was kind of gradual in onset throughout the day but became much more severe tonight. laboratory studies revealed a white blood cell count of 12.8. Sed rate was 44. C-reactive protein was 3.67. H&H were stable. BUN was elevated at 27 with a BUN/creatinine ratio of 28.4. Glucose was 104. Procalcitonin and lactate were negative. Patient was medicated with IV Dilaudid and Zofran upon initial arrival because of the severe pain. She also did receive a dose of IV Toradol. Plain films were performed Which showed evidence of the hardware in her right hip. Patient will go for MRI of the right hip and lumbar spine. She was medicated with a subsequent dose of IV Dilaudid. I reviewed the results with the patient and her . The patient was treated with IV vancomycin and IV Rocephin out of concern this is septic arthritis. Patient will require admission to the hospital through the [facility] Triage Nursing notes: reviewed and agree with them. Vital Signs: reviewed and unremarkable Prior/ Outside/ External records reviewed: I did look at previous x-rays of the hardware noted in her right hip. Differential Diagnosis: Loosening hardware, acute fracture, prosthetic dislocation, hip strain Diagnostics, independently interpreted by me: Imaging studies: right hip/pelvis x-ray: no displaced hardware. It appears unchanged from previous plain films. MRI of the lumbar spine: As per [facility] MRI of the right hip: As per [facility] HPI: 79 year old Female arrives for evaluation of Right hip pain. patient with a history of right hip arthroplasty with pelvic reconstruction from an accident years ago who presents to the emergency department with severe right hip pain. Patient denies any acute trauma. She states that the pain was kind of gradual in onset throughout the day but became much more severe tonight. PAST MEDICAL HISTORY: See Below, PAST SURGICAL HISTORY: See Below, SOCIAL HISTORY: See Below, HOME MEDICATIONS: see list ALLERGIES: see list VITALS: See Below PHYSICAL EXAMINATION: HEENT: Head - normocephalic and atraumatic. Pupils are equal, round, and reactive to light. Extraocular eye muscles are intact, and sclera are anicteric. Nose - moist nasal mucosa without discharge. Mouth - moist buccal mucosa. Oropharynx is nonerythematous and there is no tonsillar exudate or edema noted. Neck: Supple; no cervical lymphadenopathy appreciated Heart: Regular rate and rhythm. There is a normal S1 and S2 with no murmurs, clicks, or gallops appreciated. Lungs: Clear to auscultation bilaterally with no wheezes, rales, or rhonchi. Abdomen: Soft, completely nontender, nondistended, with good bowel sounds. There are no palpable pulsatile masses or hepatosplenomegaly. There is no guarding, rigidity, or rebound noted. Extremities: Limited range of motion to the right lower extremity secondary to pain. Moderate pain to palpation over the right groin and right hip. The patient has full range of motion of the left lower extremity although it does seem to increase the pain on the right side when she moves the left leg. Skin: warm and dry with good turgor and no rashes. back: No obvious pain to palpation of the lumbar spine. 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 A complete history and physical was performed. IV lock was initiated and labs were drawn as above. Patient was medicated with IV Dilaudid and IV Zofran for the severe pain she has with even slight movement of the right lower extremity. She went on to receive a dose of IV Toradol. BUN/creatinine ratio was elevated. The patient was bolused with IV normal saline solution. Plain films of the right hip/pelvis were performed as described above. The patient's arrived in the emergency department and explained that the patient has been having some increased difficulty with ambulation for the past couple weeks and has complained of low back pain. Patient will go for MRI of the lumbar spine and right hip. She was given another dose of IV Dilaudid for comfort. MRI shows a fluid collection in the right hip concerning for possible septic arthritis. The patient will be medicated with IV vancomycin and IV Rocephin. patient will be evaluated by the [facility] group for further inpatient care. Past Med/Surg History Problem List (Updated 01/18/25 @ 06:00 by Laura Moya DO) Septic arthritis of hip (Acute) Hives (Acute) Allergic reaction (Acute) Leg pain MDD (major depressive disorder), recurrent episode, mild Nervus intermedius neuralgia Abdominal pain DDD (degenerative disc disease), cervical Traumatic coccydynia Cervical dystonia Myofascial pain Opioid-induced constipation Cervical paraspinal muscle spasm Cervico-occipital neuralgia Pneumonia Meningioma, cerebral Trigeminal neuralgia of left side of face Cervical stenosis of spinal canal Vitamin D deficiency Hyperparathyroidism Sacroiliitis Carpal tunnel syndrome, left Ulnar neuropathy LPRD (laryngopharyngeal reflux disease) controlled, stable per pt; occasional dysphagia with food Dyslipidemia Osteoporosis Depression with anxiety Arthritis of knee, left Insomnia Diastolic dysfunction LVH (left ventricular hypertrophy) Hypertension controlled, stable per pt; white coat hypertension Medical History Meningioma, cerebral hx, per [place] neuro records Traumatic coccydynia hx, 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 Gave her 2 failed enemas. Resolved with milk of magnesia after seeing dr and getting instructions to take it." Diastolic dysfunction hx, w/LVH Status post gamma [place] [facility] [place] (late 2023) per pt. "to help with pain she has deep in her left ear." Cervico-occipital neuralgia left; per [place] neuro record "Her symptoms are not really typical for trigeminal neuralgia and have not responded to standard treatments for this condition, including the recent gamma knife procedure done at [facility]. I suspect she has cervical occipital neuralgia or auricular neuralgia." DDD (degenerative disc disease), cervical Hx of hyperparathyroidism Dyslipidemia History of hypertension Hx of insomnia Cervical stenosis of spinal canal pain with ROM in neck per pt.; has received steroid injections in the past from [place] pain clinic History of dysphagia Hx of abdominal pain "belly hurts when she eats" Ear pain, left "reason for oxycodone" per pt. Per [place] neurology record "Her symptoms are not really typical for trigeminal neuralgia and have not responded to standard treatments for this condition, including the recent gamma knife procedure done at [facility]. I suspect she has cervical occipital neuralgia or auricular neuralgia." Angioedema 07/2024, found to be a reaction to her lisinopril, no longer taking Elevated troponin Hypoxia hx, resolved Acute respiratory failure with hypoxemia Fall TMJ dysfunction pt denies Glossopharyngeal neuralgia syndrome hx Constipation Hip bursitis, left hx, resolved Hiatal hernia Contusion of left knee hx resolved Vitamin D deficiency LVH (left ventricular hypertrophy) Mild cLVH per 10/2020 Echo Mixed conductive and sensorineural hearing loss of left ear with restricted hearing of right ear History of COVID-19 03/2021-denies hospitalization-denies residual symptoms Hx of migraine headaches Vertigo occasional, chronic, denies change or worsening Osteoporosis Acquired deviated nasal septum Stroke "Mini stroke" to left eye during cataract surgery (2018) > blurry vision residual Knee osteonecrosis, left resolved w/sx. Hip pain left, occasional Depression Anxiety Surgical History Status post left partial knee replacement H/O laparoscopy x2, tubal pregnancies History of esophageal dilatation History of esophagogastroduodenoscopy (EGD) History of trigger finger Right ring + small finger trigger finger release (01/2021, [facility] [place] History of colonoscopy History of dilatation and curettage Hx of bilateral cataract extraction H/O hemorrhoidectomy History of thumb surgery Left History of tonsillectomy History of lumbar surgery late 50's or early 60's in age, lower back H/O wrist surgery Left (2018) History of tooth extraction History of hip surgery Right LYNDON (1999), replacement (2000), repair of replacement (2001) History of appendectomy Family History Brother Cardiac arrest Father Cardiac arrest Mother Cardiac arrest Dementia Other Heart disease Hypertension No family history of adverse response to anesthesia No family history of bleeding disorder Denies family history of Ovarian cancer Breast cancer Lung cancer Colorectal cancer Stroke Social History Smoking Status: Never smoker Second Hand Exposure: Yes (hx, smoked years ago); Do You Dip or Chew Tobacco: No; Hx Alcohol Use: Yes (many years ago, socially) Hx Substance Use: No Preferred Language: Armenian Communication Ability: Effective Visual Impairment: No Limitations Hearing Ability: Normal 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 Beliefs That Will Affect Care: None marital status: Current Living Situation: Spouse current occupational status: retired How many Children do You have: 3 Feels Safe at Home: Yes Childhood Exposure to Second-Hand Smoke: No Diet: regular caffeine: No Dental Care, Regularly: Yes Physical Activity Frequency: Does not Exercise Seatbelt Use: always Sunscreen Use: Yes Do you think of yourself as: straight/heterosexual Assistive Devices: Denture - Upper, Denture - Lower and Glasses Allergies Allergies Allergy/AdvReac Type Severity Reaction Status Date / Time lisinopril Allergy Severe angioedema Verified 01/18/25 00:03 cashew nut Allergy Intermediate Hives Verified 01/18/25 00:03 morphine Allergy Intermediate Hives Verified 01/18/25 00:03 Sulfa (Sulfonamide Allergy Intermediate Hives Verified 01/18/25 00:03 Antibiotics) amoxicillin [From Augmentin] AdvReac Intermediate Diarrhea Verified 01/18/25 00:03 cefdinir AdvReac Intermediate Diarrhea Verified 01/18/25 00:06 clavulanic acid AdvReac Intermediate Diarrhea Verified 01/18/25 00:03 [From Augmentin] hydromorphone [From Dilaudid] AdvReac Intermediate Hallucinati Verified 01/18/25 00:03 ons pregabalin AdvReac Intermediate Dizziness Verified 01/18/25 00:03 tramadol AdvReac Intermediate Diarrhea Verified 01/18/25 00:03 Home Meds Home Medications Medication Instructions Recorded Confirmed aspirin 81 mg tablet,delayed 81 mg PO QAM 04/05/23 01/18/25 release (Keyanna Low Dose Aspirin) L.acid,bul,para,rham-B.anim,long 1 cap PO QAM 04/30/24 01/18/25 10 billion cell-inulin 100 mg capsule (Probitoic Digestive Support (6 strain)) melatonin 10 mg capsule 10 mg PO HS 04/30/24 01/18/25 amlodipine 10 mg tablet 10 mg PO QAM 10/26/24 01/18/25 calcium 600 mg (as 1 tab PO BID 10/26/24 01/18/25 carbonate)-vitamin D3 10 mcg (400 unit) tablet (Calcium 600 + D(3)) cholecalciferol (vitamin D3) 50 50 mcg PO BID 10/26/24 01/18/25 mcg (2,000 unit) capsule (Vitamin D3) onabotulinumtoxinA 100 unit 300 unit IM DIRECTED 12/26/24 01/18/25 solution for injection Previous Rx's Medication Instructions Recorded blood pressure monitor #1 ea 03/11/20 denosumab 60 mg/mL subcutaneous 60 mg subcut Q6MO #1 mL 05/25/24 syringe (Prolia) diclofenac sodium 1 % topical gel 2 g topical QID PRN pain #100 grams 06/25/24 rosuvastatin 5 mg tablet 5 mg PO QPM #90 tabs 07/31/24 hydrochlorothiazide 25 mg tablet 25 mg PO QAM #90 tabs 09/25/24 lamotrigine 100 mg tablet 100 mg PO BID #60 tabs 10/24/24 baclofen 10 mg tablet 10 mg PO BID #60 tabs 11/06/24 spironolactone 25 mg tablet 25 mg PO QAM #90 tabs 11/06/24 Colin Hose #1 ea 11/26/24 duloxetine 60 mg capsule,delayed 60 mg PO QAM #30 caps 12/03/24 release mirtazapine 15 mg tablet 15 mg PO HS #30 tabs 01/02/25 Results & Data (ED) Vital Signs Vital Signs - 24 hr 01/17/25 23:21 01/17/25 23:21 01/18/25 00:00 Temperature 37.0 C 37 C Temperature Source Oral Oral Pulse Rate 84 Pulse Rate [Right Finger] 84 Pulse Rhythm Regular Pulse Rhythm [Right Finger] Regular Pulse Strength Normal Pulse Strength [Right Finger] Normal Respiratory Rate 25 H 24 Respiratory Effort / Characteristics Non-Labored Spontaneous Non-Labored Spontaneous Respiratory Depth Normal Normal Respiratory Pattern Regular Blood Pressure 124/57 L Blood Pressure [Left Arm] 124/57 L Blood Pressure Mean 79 Blood Pressure Mean [Left Arm] 79 Blood Pressure Position Lying Blood Pressure Position [Left Arm] Lying Pulse Oximetry 97 97 80 L Oxygen Delivery Method Room Air Room Air Nasal Cannula Oxygen Flow Rate 0 Sepsis Recent Fever Within 48 Hours No Sepsis New/Unexplained Change in Mental Status No Sepsis Action Taken by Nursing No Action Required Oxygen Flow Rate - Titration 3 Pulse Oximetry Post Tiitration 97 01/18/25 00:27 01/18/25 02:00 01/18/25 04:00 Temperature Temperature Source Pulse Rate Pulse Rate [Right Finger] 80 72 64 Pulse Rhythm Pulse Rhythm [Right Finger] Regular Regular Pulse Strength Pulse Strength [Right Finger] Normal Normal Respiratory Rate 16 18 17 Respiratory Effort / Characteristics Non-Labored Spontaneous Non-Labored Spontaneous Non-Labored Spontaneous Respiratory Depth Normal Normal Normal Respiratory Pattern Regular Regular Regular Blood Pressure Blood Pressure [Left Arm] 137/67 130/58 L 133/75 Blood Pressure Mean Blood Pressure Mean [Left Arm] 90 82 94 Blood Pressure Position Blood Pressure Position [Left Arm] Semi-fowlers Lying Lying Pulse Oximetry 96 99 94 Oxygen Delivery Method Nasal Cannula Room Air Room Air Oxygen Flow Rate 3 Sepsis Recent Fever Within 48 Hours Sepsis New/Unexplained Change in Mental Status Sepsis Action Taken by Nursing Oxygen Flow Rate - Titration Pulse Oximetry Post Tiitration 01/18/25 05:17 Temperature Temperature Source Pulse Rate Pulse Rate [Right Finger] Pulse Rhythm Pulse Rhythm [Right Finger] Pulse Strength Pulse Strength [Right Finger] Respiratory Rate Respiratory Effort / Characteristics Respiratory Depth Respiratory Pattern Blood Pressure Blood Pressure [Left Arm] Blood Pressure Mean Blood Pressure Mean [Left Arm] Blood Pressure Position Blood Pressure Position [Left Arm] Pulse Oximetry 98 Oxygen Delivery Method Nasal Cannula Oxygen Flow Rate 3 Sepsis Recent Fever Within 48 Hours Sepsis New/Unexplained Change in Mental Status Sepsis Action Taken by Nursing Oxygen Flow Rate - Titration Pulse Oximetry Post Tiitration Laboratory Data 01/17/25 23:30 01/17/25 23:30 Lab Results 01/17/25 01/18/25 01/18/25 Range/Units 23:30 02:05 04:12 WBC 12.83 H (4.8-10.8) K/ul RBC 4.40 (4.20-5.40) M/uL Hgb 12.6 (12.0-16.0) g/dl Hct 38.1 (37.0-47.0) % MCV 86.6 (80.0-100.0) fL MCH 28.6 (25.0-34.0) pg MCHC 33.1 (32.0-36.0) g/dL RDW Std Deviation 45.9 (36.4-46.3) fL RDW Coeff of Jerry 14.6 H (11.5-14.5) % Plt Count 227 (130-400) K/uL MPV 11.0 (9.4-12.4) fL Immature Gran % (Auto) 0.5 % Neut % (Auto) 76.5 % Lymph % (Auto) 13.8 % [place] % (Auto) 9.1 % Eos % (Auto) 0.0 % Baso % (Auto) 0.1 % Neut # (Auto) 9.81 H (1.40-6.50) K/uL Lymph # (Auto) 1.77 (1.20-3.40) K/uL [place] # (Auto) 1.17 H (0.11-0.59) K/uL Eos # (Auto) 0.00 (0.00-0.50) K/uL Baso # (Auto) 0.01 (0.00-0.20) K/uL Immature Gran # (Auto) 0.07 (0.01-0.20) K/uL ESR 44 H (0-30) mm/hr Sodium 135 L (136-145) mmol/L Potassium 3.3 L (3.5-5.1) mmol/L Chloride 98 (98-107) mmol/L Carbon Dioxide 26 (21-32) mmol/L Anion Gap 11 (3-11) BUN 27 H (6-23) mg/dl Creatinine 0.95 (0.6-1.2) mg/dl Est Cr Clr Drug Dosing 46.8 ml/min eGFR 61.33 BUN/Creatinine Ratio 28.4 H (10-20) Glucose 104 H (70-99(Fasting)) mg/dl Lactate 0.8 1.2 (0.4-2.0) mmol/L Calcium 8.9 (8.6-10.3) mg/dl Total Bilirubin 0.8 (0.2-1.0) mg/dl AST 24 (13-39) U/L ALT 25 (7-52) U/L Alkaline Phosphatase 48 (34-104) U/L C-Reactive Protein 3.67 H (0-0.5) mg/dl Total Protein 7.6 (6.0-8.3) gm/dl Albumin 4.4 (3.4-5.0) gm/dl Globulin 3.2 (2.5-4.0) gm/dl Albumin/Globulin Ratio 1.4 (0.9-2) Procalcitonin 0.06 (0-0.5) ng/ml Administered Medications Discontinued Medications Hydromorphone HCl (Hydromorphone Inj 0.5 Mg/0.5 Ml Syr) 0.5 mg IV NOW STA Stop: 01/17/25 23:22 Last Admin: 01/17/25 23:33 Dose: 0.5 mg Documented By: MELISSA Hydromorphone HCl (Hydromorphone Inj 0.5 Mg/0.5 Ml Syr) 0.5 mg IV NOW STA Stop: 01/18/25 01:57 Last Admin: 01/18/25 02:03 Dose: 0.5 mg Documented By: MELISSA Sodium Chloride (Nss) 500 mls @ 999 mls/hr IV .Q31M ONE Stop: 01/18/25 03:10 Last Infusion: 01/18/25 03:58 Dose: Infused Documented By: Admin: 01/18/25 03:27 Dose: 999 mls/hr Documented By: MELISSA Ceftriaxone Sodium (Rocephin) 2,000 mg in 50 mls @ 100 mls/hr IV NOW STA Stop: 01/18/25 06:00 Last Infusion: 01/18/25 06:11 Dose: Infused Documented By: Admin: 01/18/25 05:41 Dose: 100 mls/hr Documented By: MELISSA Ketorolac Tromethamine (Ketorolac Tromethamine 15 Mg/Ml Vial) 15 mg IV NOW STA Stop: 01/17/25 23:22 Last Admin: 01/17/25 23:30 Dose: 15 mg Documented By: MELISSA Ondansetron HCl (Ondansetron Inj 2 Mg/Ml 2 Ml Vial) 4 mg IV NOW STA Stop: 01/17/25 23:22 Last Admin: 01/17/25 23:30 Dose: 4 mg Documented By: MELISSA Ondansetron HCl (Ondansetron Inj 2 Mg/Ml 2 Ml Vial) 4 mg IV NOW STA Stop: 01/18/25 04:54 Last Admin: 01/18/25 04:58 Dose: 4 mg Documented By: MARSHALL Imaging Data Radiologist's Impression: Hip/Pelvis X-Ray 01/17/25 23:21 Exam(s): XR HIP + PELVIS, 2-3 views EXAM: XR Right Hip With Pelvis When Performed, 2 or 3 Views CLINICAL HISTORY: severe pain in right hip and groin. TECHNIQUE: Two or three views of the right hip with pelvis when performed. COMPARISON: No relevant prior studies available. FINDINGS: Bones/joints: Postsurgical changes consistent with right total hip arthroplasty noted. There is also surgical hardware about the right pelvic bones. No acute osseous abnormality. No abnormal alignment involving the hip arthroplasty. No periprosthetic fracture or lucency. Soft tissues: Unremarkable. IMPRESSION: Right total hip arthroplasty. No abnormal alignment or acute osseous traumatic injury. Electronically signed by: Jimi Dorsey MD 01/18/25 02:25 AM Hip MRI 01/18/25 01:29 EXAM: MR hip RT wo con CLINICAL HISTORY: Severe right hip pain TECHNIQUE: MRI of the right hip joint was performed without intravenous contrast administration. Sequences obtained include coronal T1-weighted, T2-weighted, STIR (Short Tau Inversion Recovery), axial T1-weighted, and T2-weighted sequences. COMPARISON: None. FINDINGS: Articular Structures: Status post right hip arthroplasty, causing susceptibility artifacts. There is a related mild fluid signal/effusion with a suggestion of internal low signal intensity foci within the joint. There is no evidence of acute fracture or dislocation. Muscles and Tendons: The gluteus medius and minimus tendon insertions appear thickened, showing high signal with related mild soft tissue edema. There is no evidence of complete tears. There is a small greater trochanteric bursa. There is a relatively reduced girth of the right periarticular muscles compared to the left side. The rest of the hip muscles and tendons are unremarkable without evidence of tears. Soft Tissues: There is no evidence of soft tissue masses or abnormalities adjacent to the hip joint. There is a small greater trochanteric bursa. There are prominent inguinal lymph nodes. Vascular Structures: There is a normal appearance of the femoral artery and vein without evidence of vascular anomalies. IMPRESSION: 1. Status post right hip arthroplasty, causing susceptibility artifacts. There is a related mild fluid signal/effusion with suggestion of internal low signal intensity foci within the joint, worrisome for early particle disease. Clinical assessment and correlation with other imaging modalities are recommended. 2. Gluteal tendinopathy. 3. Small greater trochanteric bursitis. Electronically signed by Jonathan Ron 01-18-2025 05:26 AM Lumbar Spine MRI 01/18/25 01:51 EXAM: MR lumbar spine wo con CLINICAL HISTORY: eval for low back pain with weakness in legs TECHNIQUE: Different pulse sequences were performed in different planes for the lumbar spine without contrast. Images were sent through PACS for diagnostic interpretation. COMPARISON: No previous studies are available for comparison. FINDINGS: Vertebral Alignment: S-shaped thoracolumbar scoliosis is present. There is a grade I retrolisthesis of L2 over L3. Internal metallic fixation of L1 and L2 is noted. Vertebral Bodies and Intervertebral Discs: There is diffuse mottling of the bone marrow of the scanned spine, suspicious for osteoporosis. Vertebral body height is normal. No fracture is identified. There are no lytic or sclerotic lesions. Marked lumbar spondylosis with anterolateral marginal osteophytosis is present. The intervertebral discs demonstrate disc desiccation and decreased height, as well as opposing vertebral endplate subchondral degenerative marrow changes and Schmorl's nodes. [id number] analysis: T12-L1: There is a 5 mm mild diffuse disc bulge, mildly indenting the thecal sac with mild encroachment upon both neural foraminal fat. L1-L2: There is no focal disc pathology, spinal canal stenosis, or neural foraminal stenosis. L2-L3: There is a diffuse bulge with a central and left paracentral 12 mm disc herniation, compressing the thecal sac with moderate spinal canal stenosis and impingement upon both neural recesses as well as marked encroachment upon both exit foramina, more on the left. L3-L4: There is a moderate 11 mm diffuse disc bulge with left posterolateral protrusion, indenting the thecal sac with effacement of right foraminal fat and mild effacement of left foraminal fat. Mild spinal canal stenosis and moderate left and marked right neural foraminal stenosis are present. L4-L5: There is a mild 6 mm diffuse disc bulge with mild thecal indentation, moderate encroachment upon the right exit foramen, and mild partial left foraminal fat encroachment. L5-S1: There is a mild 3 mm diffuse disc bulge encroaching upon the anterior epidural fat. No spinal canal stenosis is present. There is mild encroachment upon the neural foramina. There is superadded foraminal and spinal canal stenosis due to multilevel facet arthropathy and ligamentum flavum hypertrophy. Spinal Cord and Nerve Roots: The conus medullaris terminates at the L1 level without abnormality. Nerve roots appear unremarkable bilaterally. The lower thoracic spinal cord, conus medullaris, and cauda equina nerve roots are unremarkable. Soft Tissues: A right cortical renal cyst is noted. IMPRESSION: 1. S-shaped thoracolumbar scoliosis. 2. Grade I retrolisthesis of L2 over L3. 3. Internal metallic fixation of L1 and L2 with discal prosthesis. No gross postoperative complications are identified. 4. Diffuse mottling of the bone marrow of the scanned spine, suspicious for osteoporosis. 5. Marked lumbar spondylosis with facet arthritic changes. 6. Multilevel degenerative disc pathologies with different grades of spinal canal and foraminal compromise as described. Electronically signed by Jonathan Ron 01-18-2025 04:27 AM Discharge Plan Visit Data Chief Complaint: Hip Pain Stated Complaint: R Hip Pain ED Provider: Laura Moya Discharge Problem: Septic arthritis of hip Condition: Serious Forms Stand Alone Forms: [facility] [employer] Prescriptions Prescriptions: No Action (DME) blood pressure monitor Kit See Rx Instructions .ROUTE .MEDSUPPLY Qty: 1 0RF Rx Instructions: AUTOMATIC BLOOD PRESSURE CUFF DX: I10 Probiotic Digest Supp (6-strn) 10 billion cell -100 mg capsule 1 cap PO QAM melatonin 10 mg capsule 10 mg PO HS Prolia 60 mg/mL syringe 60 mg subcut Q6MO Qty: 1 1RF rosuvastatin 5 mg tablet 5 mg PO QPM Qty: 90 3RF hydrochlorothiazide 25 mg tablet 25 mg PO QAM Qty: 90 3RF lamotrigine 100 mg tablet 100 mg PO BID Qty: 60 5RF baclofen 10 mg tablet 10 mg PO BID Qty: 60 2RF spironolactone 25 mg tablet 25 mg PO QAM Qty: 90 3RF duloxetine 60 mg capsule,delayed release(DR/EC) 60 mg PO QAM Qty: 30 5RF Hold Instructions: started mirtazapine for depression aspirin [Keyanna Low Dose Aspirin] 81 mg tablet,delayed release (DR/EC) 81 mg PO QAM Rx Instructions: Take to prevent blood clots. diclofenac sodium 1 % gel 2 g topical QID PRN (Reason: pain) Qty: 100 1RF mirtazapine 15 mg tablet 15 mg PO HS Qty: 30 1RF (DME) [facility] [place] See Rx Instructions .MEDSUPPLY Qty: 1 0RF Rx Instructions: As directed onabotulinumtoxinA 100 unit recon soln 300 unit IM DIRECTED Rx Instructions: NON-COSMETIC USE. 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 calcium carbonate-vitamin D3 [Calcium 600 + D(3)] 600 mg-10 mcg (400 unit) Tablet 1 tab PO BID cholecalciferol (vitamin D3) [Vitamin D3] 50 mcg (2,000 unit) Capsule 50 mcg PO BID amlodipine 10 mg tablet 10 mg PO QAM Referrals Referrals: Milton López DO [Primary Care Provider] -
[2025-01-17 23:55] LABS: Hematocrit (blood only) 38.1 % (37.0-47.0); Hemoglobin 12.6 g/dl (12.0-16.0); Immature Granulocytes # (auto) 0.07 K/uL (0.01-0.20); Immature Granulocytes % (auto) 0.5 %; Mean Corpuscular Hemoglobin 28.6 pg (25.0-34.0); Mean Corpuscular Volume 86.6 fL (80.0-100.0); Platelet Count 227 K/uL (130-400); RDW Standard Deviation 45.9 fL (36.4-46.3); Red Blood Count 4.40 M/uL (4.20-5.40); White Blood Count 12.83 K/ul (4.8-10.8)
[2025-01-18 00:28] LABS: Alanine Aminotransferase 25.0 U/L (7-52); Albumin Globulin Ratio 1.4 (0.9-2); Albumin Level 4.4 gm/dl (3.4-5.0); Alkaline Phosphatase 48.0 U/L (34-104); Anion Gap 11.0 (3-11); Bilirubin,Total 0.8 mg/dl (0.2-1.0); Blood Urea Nitrogen 27.0 mg/dl (6-23); Calcium 8.9 mg/dl (8.6-10.3); Carbon Dioxide 26.0 mmol/L (21-32); Chloride 98.0 mmol/L (98-107); Creatinine Clr Calc Pharmacy 46.8 ml/min; Globulin 3.2 gm/dl (2.5-4.0); Glucose 104.0 mg/dl (70-99(Fasting)); Potassium 3.3 mmol/L (3.5-5.1); Sodium 135.0 mmol/L (136-145); Total Protein 7.6 gm/dl (6.0-8.3)
[2025-01-18] MEDS: HYDROmorphone INJ 0.5 MG/0.5 ML SYR IV STA (02:03)
--- NOTE | 2025-01-18 02:26 | XRay Report ---
Exam(s): XR HIP + PELVIS, 2-3 views EXAM: XR Right Hip With Pelvis When Performed, 2 or 3 Views CLINICAL HISTORY: severe pain in right hip and groin. TECHNIQUE: Two or three views of the right hip with pelvis when performed. COMPARISON: No relevant prior studies available. FINDINGS: Bones/joints: Postsurgical changes consistent with right total hip arthroplasty noted. There is also surgical hardware about the right pelvic bones. No acute osseous abnormality. No abnormal alignment involving the hip arthroplasty. No periprosthetic fracture or lucency. Soft tissues: Unremarkable. IMPRESSION: Right total hip arthroplasty. No abnormal alignment or acute osseous traumatic injury. Electronically signed by: Jimi Dorsey MD 01/18/25 02:25 AM
[2025-01-18] MEDS: SODIUM CHLORIDE 0.9% 500 ML IV ONE (03:27)
--- NOTE | 2025-01-18 04:28 | Magnetic Resonance Report ---
EXAM: MR lumbar spine wo con CLINICAL HISTORY: eval for low back pain with weakness in legs TECHNIQUE: Different pulse sequences were performed in different planes for the lumbar spine without contrast. Images were sent through PACS for diagnostic interpretation. COMPARISON: No previous studies are available for comparison. FINDINGS: Vertebral Alignment: S-shaped thoracolumbar scoliosis is present. There is a grade I retrolisthesis of L2 over L3. Internal metallic fixation of L1 and L2 is noted. Vertebral Bodies and Intervertebral Discs: There is diffuse mottling of the bone marrow of the scanned spine, suspicious for osteoporosis. Vertebral body height is normal. No fracture is identified. There are no lytic or sclerotic lesions. Marked lumbar spondylosis with anterolateral marginal osteophytosis is present. The intervertebral discs demonstrate disc desiccation and decreased height, as well as opposing vertebral endplate subchondral degenerative marrow changes and Schmorl's nodes. [id number] analysis: T12-L1: There is a 5 mm mild diffuse disc bulge, mildly indenting the thecal sac with mild encroachment upon both neural foraminal fat. L1-L2: There is no focal disc pathology, spinal canal stenosis, or neural foraminal stenosis. L2-L3: There is a diffuse bulge with a central and left paracentral 12 mm disc herniation, compressing the thecal sac with moderate spinal canal stenosis and impingement upon both neural recesses as well as marked encroachment upon both exit foramina, more on the left. L3-L4: There is a moderate 11 mm diffuse disc bulge with left posterolateral protrusion, indenting the thecal sac with effacement of right foraminal fat and mild effacement of left foraminal fat. Mild spinal canal stenosis and moderate left and marked right neural foraminal stenosis are present. L4-L5: There is a mild 6 mm diffuse disc bulge with mild thecal indentation, moderate encroachment upon the right exit foramen, and mild partial left foraminal fat encroachment. L5-S1: There is a mild 3 mm diffuse disc bulge encroaching upon the anterior epidural fat. No spinal canal stenosis is present. There is mild encroachment upon the neural foramina. There is superadded foraminal and spinal canal stenosis due to multilevel facet arthropathy and ligamentum flavum hypertrophy. Spinal Cord and Nerve Roots: The conus medullaris terminates at the L1 level without abnormality. Nerve roots appear unremarkable bilaterally. The lower thoracic spinal cord, conus medullaris, and cauda equina nerve roots are unremarkable. Soft Tissues: A right cortical renal cyst is noted. IMPRESSION: 1. S-shaped thoracolumbar scoliosis. 2. Grade I retrolisthesis of L2 over L3. 3. Internal metallic fixation of L1 and L2 with discal prosthesis. No gross postoperative complications are identified. 4. Diffuse mottling of the bone marrow of the scanned spine, suspicious for osteoporosis. 5. Marked lumbar spondylosis with facet arthritic changes. 6. Multilevel degenerative disc pathologies with different grades of spinal canal and foraminal compromise as described. Electronically signed by Jonathan Ron 01-18-2025 04:27 AM
[2025-01-18] MEDS: ONDANSETRON INJ 2 MG/ML 2 ML VIAL IV STA (04:58)
--- NOTE | 2025-01-18 05:27 | Magnetic Resonance Report ---
EXAM: MR hip RT wo con CLINICAL HISTORY: Severe right hip pain TECHNIQUE: MRI of the right hip joint was performed without intravenous contrast administration. Sequences obtained include coronal T1-weighted, T2-weighted, STIR (Short Tau Inversion Recovery), axial T1-weighted, and T2-weighted sequences. COMPARISON: None. FINDINGS: Articular Structures: Status post right hip arthroplasty, causing susceptibility artifacts. There is a related mild fluid signal/effusion with a suggestion of internal low signal intensity foci within the joint. There is no evidence of acute fracture or dislocation. Muscles and Tendons: The gluteus medius and minimus tendon insertions appear thickened, showing high signal with related mild soft tissue edema. There is no evidence of complete tears. There is a small greater trochanteric bursa. There is a relatively reduced girth of the right periarticular muscles compared to the left side. The rest of the hip muscles and tendons are unremarkable without evidence of tears. Soft Tissues: There is no evidence of soft tissue masses or abnormalities adjacent to the hip joint. There is a small greater trochanteric bursa. There are prominent inguinal lymph nodes. Vascular Structures: There is a normal appearance of the femoral artery and vein without evidence of vascular anomalies. IMPRESSION: 1. Status post right hip arthroplasty, causing susceptibility artifacts. There is a related mild fluid signal/effusion with suggestion of internal low signal intensity foci within the joint, worrisome for early particle disease. Clinical assessment and correlation with other imaging modalities are recommended. 2. Gluteal tendinopathy. 3. Small greater trochanteric bursitis. Electronically signed by Jonathan Ron 01-18-2025 05:26 AM
[2025-01-18] MEDS ORDERED: VANCOMYCIN CONSULT ACTIVE PRN (05:31)
[2025-01-18] MEDS: cefTRIAXone SODIUM 2,000 MG/50 ML BAG IV STA (05:41)
--- NOTE | 2025-01-18 06:06 | History & Physical Report ---
Date of Service January 18, 2025 Assessment & Plan (1) Right hip pain: (2) Hyponatremia: (3) Hypokalemia: (4) Diarrhea: Plan 79-year-old female PMHx MDD, DDD, cerebral meningioma, hyperparathyroidism, sacroiliitis, LPRD, dyslipidemia, OP, HTN, LVH, and a multitude of orthopedic c onditions presenting for worsening R hip pain over the past [address] [employer] [employer]. Her evaluation does reveal mild leukocytosis, elevated inflammatory markers, and few3 electrolyte abnormalities. Imaging concerning for progressive MSK changes as well as ? early particle disease of R hip arthroplasty. To be admitted for further pain control and management of R hip disease. #R Hip Pain/? joint infection Presenting ~ [address] [employer], worsening the AM of arrival; Imaging suggestive of possible early particle disease. Presence of leukocytosis without elevated lactate or procal. Inflammatory markers elevated in conjunction. Abx to cover for possible prosthetic joint infection. ?? surgical intervention. - CBC mild leukocytosis 12.83, stable H/H; ESR 44, CRP 3.67; lactate WNL x 2, pr ocal 0.06 - CBC am - Hip/pelvis XR R total hip arthroplasty, no abnormal alignment or acute osseous traumatic injury - R hip MRI s/p R hip arthroplasty, fluid signal/effusion with foci in joint (? early particle disease), gluteal tendinopathy, small greater trochanteric bursitis - Lumbar spine MRI scoliosis, grade I retrolisthesis of L2/L3, internal fixation L1-L2, diffuse mottling of bone marrow (OP), L spondylosis, multilevel DDD - Fall precautions - NPO for now - IVF LR @ 80 mL/hr - Zofran prn N/V - Acetaminophen prn fever/pain, Dilaudid for severe pain - Ceftriaxone + vancomycin - continue, pending ortho input - PT/OT consulted - appreciate assistance - Ortho consulted -- appreciate input + recs #Hypokalemia Pending Mg; Asx. - K 3.3, Mg pending - BMP am - EKG pending - KCl 30 mEq IV #Hyponatremia In setting of grossly WNL glucose. - Na 135, glucose 104 - BMP am - Consider serum osmol, urine osmol, urine Na if no improvement with IVF - Gentle IVF - LR @ 80 mL/hr x 1 L #Diarrhea Recent course of oral antibiotics for UTI, still with LUTS and diarrhea now. - CBC leukocytosis 12k - UA pending - Stool Biofire pending #HTN- Amlodipine HCTZ, spironolactone - continue #HLD- Rosuvastatin - continue #Pain- Baclofen, diclofenac gel prn - continue #OP- Denosumab q6mo - continue as outpatient #Psych- Lamotrigine, duloxetine currently on hold - continue lamotrigine #Insomnia- Melatonin, mirtazapine - continue Dispo: Admit, med/sx VTE Prophylaxis: SCDs -- held ASA the am of arrival if possibility of surgical intervention however, add back once determined tx course This document was dictated utilizing Seriously. Please excuse any grammatical errors that may be secondary to use of this software. Admission and Anticipated Discharge Date Admission Date: 01/18/2025 History of Present Illness Chief Complaint: Hip pain Primary Care Provider: Milton López DO 79-year-old female PMHx MDD, DDD, cerebral meningioma, hyperparathyroidism, sacroiliitis, LPRD, dyslipidemia, OP, HTN, LVH, and a multitude of orthopedic conditions presenting for worsening R hip pain over the past [address] [employer] [employer]. Pt does not remember any triggering events, trauma, or falls that worsened her symptoms. Admits to her LLE being bothersome to her for months prior to this, with unexplained swelling that she was following her orthopedic doctor for. She described her present R hip pain as a severe, 10/10 sharp pain that is mainly at her lateral hip and radiating into her groin. She does admit to LUTS (dysuria) and was recently treated with abx for a UTI. Now having diarrhea x 7 days and complaining of a sore bottom. She denies numbness/tingling. No neuro deficits but her ambulation is limited 2/2 the pain. She is unable to tolerate the pain, stating that even when sitting in a motorized scooter at [facility], her pain was too severe to bare. She denies F/C, CP, SOB, palpitations, abdominal pain, N/V/C, URI symptoms, weakness, syncope, or falls. She is very concerned about her pain. Her initial hip replacement was completed in 1999, with revision in 2001. She states she always hears clicking when she walks. ED evaluation reveals CBC with leukocytosis 12.83, stable H/H; ESR 44, CRP 3.67; CMP Na 135, K 3.3, BUN 27, ratio 28.4, glucose 104; lactate 0.8, 1.2 on repeat; procal 0.06; hip/pelvis XR R total hip arthroplasty, no abnormal alignment or acute osseous traumatic injury; R hip MRI s/p R hip arthroplasty with susceptibility artifacts, mild fluid signal/effusion with suggestion of internal low signal intensity foci in joint (? early particle disease), gluteal tendinopathy, small greater trochanteric bursitis; Lumbar spine MRI S-shaped thoracolumbar scoliosis, grade I retrolisthesis of L2/L3, internal metallic fixation L1-L2, diffuse mottling of bone marrow (OP), marked lumbar spondylosis, multilevel DDD.; Provided with vancomycin, 500 mL NSS, zofran 4mg IV x2, ketorolac 15mg IV, hydromorphone 0.5mg IV x 2, and ceftriaxone 2g IV in ED. Please see Dr. Shelton's attestation for adjustments/additions to treatment plan. Allergies Allergy/AdvReac Type Severity Reaction Status Date / Time lisinopril Allergy Severe angioedema Verified 01/18/25 00:03 cashew nut Allergy Intermediate Hives Verified 01/18/25 00:03 morphine Allergy Intermediate Hives Verified 01/18/25 00:03 Sulfa (Sulfonamide Allergy Intermediate Hives Verified 01/18/25 00:03 Antibiotics) amoxicillin [From Augmentin] AdvReac Intermediate Diarrhea Verified 01/18/25 00:03 cefdinir AdvReac Intermediate Diarrhea Verified 01/18/25 00:06 clavulanic acid AdvReac Intermediate Diarrhea Verified 01/18/25 00:03 [From Augmentin] hydromorphone [From Dilaudid] AdvReac Intermediate Hallucinati Verified 01/18/25 00:03 ons pregabalin AdvReac Intermediate Dizziness Verified 01/18/25 00:03 tramadol AdvReac Intermediate Diarrhea Verified 01/18/25 00:03 Home Medications Medication Instructions Recorded Confirmed Type blood pressure monitor #1 ea 03/11/20 01/10/25 Rx aspirin 81 mg tablet,delayed 81 mg PO QAM 04/05/23 01/18/25 History release (Keyanna Low Dose Aspirin) L.acid,bul,para,rham-B.anim,long 1 cap PO QAM 04/30/24 01/18/25 History 10 billion cell-inulin 100 mg capsule (Probitoic Digestive Support (6 strain)) melatonin 10 mg capsule 10 mg PO HS 04/30/24 01/18/25 History denosumab 60 mg/mL subcutaneous 60 mg subcut Q6MO #1 mL 05/25/24 01/18/25 Rx syringe (Prolia) diclofenac sodium 1 % topical gel 2 g topical QID PRN pain #100 grams 06/25/24 01/18/25 Rx rosuvastatin 5 mg tablet 5 mg PO QPM #90 tabs 07/31/24 01/18/25 Rx hydrochlorothiazide 25 mg tablet 25 mg PO QAM #90 tabs 09/25/24 01/18/25 Rx lamotrigine 100 mg tablet 100 mg PO BID #60 tabs 10/24/24 01/18/25 Rx amlodipine 10 mg tablet 10 mg PO QAM 10/26/24 01/18/25 History calcium 600 mg (as 1 tab PO BID 10/26/24 01/18/25 History carbonate)-vitamin D3 10 mcg (400 unit) tablet (Calcium 600 + D(3)) cholecalciferol (vitamin D3) 50 50 mcg PO BID 10/26/24 01/18/25 History mcg (2,000 unit) capsule (Vitamin D3) baclofen 10 mg tablet 10 mg PO BID #60 tabs 11/06/24 01/18/25 Rx spironolactone 25 mg tablet 25 mg PO QAM #90 tabs 11/06/24 01/18/25 Rx Colin Hose #1 ea 11/26/24 01/10/25 Rx duloxetine 60 mg capsule,delayed 60 mg PO QAM #30 caps 12/03/24 01/18/25 Rx release onabotulinumtoxinA 100 unit 300 unit IM DIRECTED 12/26/24 01/18/25 History solution for injection mirtazapine 15 mg tablet 15 mg PO HS #30 tabs 01/02/25 01/18/25 Rx Past Med/Surg History Problem List (Updated 01/18/25 @ 06:52 by Tamela Wilkerson PA-C) Hypokalemia Hyponatremia Right hip pain Septic arthritis of hip (Acute) Hives (Acute) Allergic reaction (Acute) Leg pain MDD (major depressive disorder), recurrent episode, mild Nervus intermedius neuralgia Abdominal pain DDD (degenerative disc disease), cervical Traumatic coccydynia Cervical dystonia Myofascial pain Opioid-induced constipation Cervical paraspinal muscle spasm Cervico-occipital neuralgia Pneumonia Meningioma, cerebral Trigeminal neuralgia of left side of face Cervical stenosis of spinal canal Vitamin D deficiency Hyperparathyroidism Sacroiliitis Carpal tunnel syndrome, left Ulnar neuropathy LPRD (laryngopharyngeal reflux disease) controlled, stable per pt; occasional dysphagia with food Dyslipidemia Osteoporosis Depression with anxiety Arthritis of knee, left Insomnia Diastolic dysfunction LVH (left ventricular hypertrophy) Hypertension controlled, stable per pt; white coat hypertension Medical History Meningioma, cerebral hx, per [facility] neuro records Traumatic coccydynia hx, 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 Gave her 2 failed enemas. Resolved with milk of magnesia after seeing dr and getting instructions to take it." Diastolic dysfunction hx, w/LVH Status post gamma knife treatment [facility] [place], ~6 months ago (late 2023) per pt. "to help with pain she has deep in her left ear." Cervico-occipital neuralgia left; per [place] neuro record "Her symptoms are not really typical for trigeminal neuralgia and have not responded to standard treatments for this condition, including the recent gamma knife procedure done at [facility]. I suspect she has cervical occipital neuralgia or auricular neuralgia." DDD (degenerative disc disease), cervical Hx of hyperparathyroidism Dyslipidemia History of hypertension Hx of insomnia Cervical stenosis of spinal canal pain with ROM in neck per pt.; has received steroid injections in the past from [facility] pain clinic History of dysphagia Hx of abdominal pain "belly hurts when she eats" Ear pain, left "reason for oxycodone" per pt. Per [place] neurology record "Her symptoms are not really typical for trigeminal neuralgia and have not responded to standard treatments for this condition, including the recent gamma knife procedure done at [facility]. I suspect she has cervical occipital neuralgia or auricular neuralgia." Angioedema 07/2024, found to be a reaction to her lisinopril, no longer taking Elevated troponin Hypoxia hx, resolved Acute respiratory failure with hypoxemia Fall TMJ dysfunction pt denies Glossopharyngeal neuralgia syndrome hx Constipation Hip bursitis, left hx, resolved Hiatal hernia Contusion of left knee hx resolved Vitamin D deficiency LVH (left ventricular hypertrophy) Mild cLVH per 10/2020 Echo Mixed conductive and sensorineural hearing loss of left ear with restricted hearing of right ear History of COVID-19 03/2021-denies hospitalization-denies residual symptoms Hx of migraine headaches Vertigo occasional, chronic, denies change or worsening Osteoporosis Acquired deviated nasal septum Stroke "Mini stroke" to left eye during cataract surgery (2018) > blurry vision residual Knee osteonecrosis, left resolved w/sx. Hip pain left, occasional Depression Anxiety Surgical History Status post left partial knee replacement H/O laparoscopy x2, tubal pregnancies History of esophageal dilatation History of esophagogastroduodenoscopy (EGD) History of trigger finger Right ring + small finger trigger finger release (01/2021, [facility]) History of colonoscopy History of dilatation and curettage Hx of bilateral cataract extraction H/O hemorrhoidectomy History of thumb surgery Left History of tonsillectomy History of lumbar surgery late 50's or early 60's in age, lower back H/O wrist surgery Left (2018) History of tooth extraction History of hip surgery Right LYNDON (1999), replacement (2000), repair of replacement (2001) History of appendectomy Family History Brother Cardiac arrest Father Cardiac arrest Mother Cardiac arrest Dementia Other Heart disease Hypertension No family history of adverse response to anesthesia No family history of bleeding disorder Denies family history of Ovarian cancer Breast cancer Lung cancer Colorectal cancer Stroke Social History Smoking Status: Never smoker Second Hand Exposure: Yes (hx, smoked years ago); Do You Dip or Chew Tobacco: No; Hx Alcohol Use: Yes (many years ago, socially) Hx Substance Use: No Preferred Language: Greek Communication Ability: Effective Visual Impairment: No Limitations Hearing Ability: Normal First Officer Required: No Beliefs That Will Affect Care: None marital status: Current Living Situation: Spouse current occupational status: retired How many Children do You have: 3 Feels Safe at Home: Yes Childhood Exposure to Second-Hand Smoke: No Diet: regular caffeine: No Dental Care, Regularly: Yes Physical Activity Frequency: Does not Exercise Seatbelt Use: always Sunscreen Use: Yes Do you think of yourself as: straight/heterosexual Assistive Devices: Denture - Upper, Denture - Lower and Glasses Review of Systems Review of Systems: All systems reviewed & are unremarkable except as noted in Subjective Physical Exam Physical Exam: General: No acute distress, tearful 2/2 pain Skin: Warm and dry Head: Normocephalic, atraumatic Eyes: PERRL, conjunctivae clear, sclera non-icteric ENT: External ear and ear canal without swelling; nose atraumatic; no teeth, tongue normal appearance, pharynx normal but dry Neck: Supple, no LAD Cardio: RRR, no M/G/R, S1 and S2 normal Resp: O2 via NC (none at baseline); No respiratory distress, Lungs CTA in all lobes bilaterally, no wheezes, rales, or rhonchi Abdomen: Soft, symmetric, nontender; No masses or hepatosplenomegaly; Bowel sounds normoactive MSK: No deformities; pulses palpable and equal; no edema; limited ROM RLE, tenderness to palpation R hip/groin; No neuro deficits. Neuro: Awake, alert; Sensation intact bilaterally; CN grossly intact Psych: Appropriate mood and affect; good judgement and insight. present in room at time of visit. Results & Data Results & Data Vital Signs (Past 12 Hours) Vital Signs Temp Pulse Pulse Resp BP BP Pulse Ox 01/18/25 05:17 98 01/18/25 04:00 64 17 133/75 94 01/18/25 02:00 72 18 130/58 L 99 01/18/25 00:27 80 16 137/67 96 01/18/25 00:00 80 L 01/17/25 23:21 37 C 84 24 124/57 L 97 01/17/25 23:21 37.0 C 84 25 H 124/57 L 97 O2 Del Method O2 Flow Rate 01/18/25 05:17 Nasal Cannula 3 01/18/25 04:00 Room Air 01/18/25 02:00 Room Air 01/18/25 00:27 Nasal Cannula 3 01/18/25 00:00 Nasal Cannula 0 01/17/25 23:21 Room Air 01/17/25 23:21 Room Air Laboratory Results 01/18/25 04:12 Aerobic Blood Culture - Pending Blood Anaerobic Blood Culture - Pending 01/18/25 04:12 Aerobic Blood Culture - Pending Blood Anaerobic Blood Culture - Pending 01/18/25 01/18/25 01/17/25 04:12 02:05 23:30 WBC 12.83 H RBC 4.40 Hgb 12.6 Hct 38.1 MCV 86.6 MCH 28.6 MCHC 33.1 RDW Std Deviation 45.9 RDW Coeff of Jerry 14.6 H Plt Count 227 MPV 11.0 Immature Gran % (Auto) 0.5 Neut % (Auto) 76.5 Lymph % (Auto) 13.8 Haakon % (Auto) 9.1 Eos % (Auto) 0.0 Baso % (Auto) 0.1 Neut # (Auto) 9.81 H Lymph # (Auto) 1.77 Haakon # (Auto) 1.17 H Eos # (Auto) 0.00 Baso # (Auto) 0.01 Immature Gran # (Auto) 0.07 ESR 44 H Sodium 135 L Potassium 3.3 L Chloride 98 Carbon Dioxide 26 Anion Gap 11 BUN 27 H Creatinine 0.95 Est Cr Clr Drug Dosing 46.8 eGFR 61.33 BUN/Creatinine Ratio 28.4 H Glucose 104 H Lactate 1.2 0.8 Calcium 8.9 Total Bilirubin 0.8 AST 24 ALT 25 Alkaline Phosphatase 48 C-Reactive Protein 3.67 H Total Protein 7.6 Albumin 4.4 Globulin 3.2 Albumin/Globulin Ratio 1.4 Procalcitonin 0.06 Diagnostic Findings Hip/Pelvis X-Ray 01/17/25 23:21 Exam(s): XR HIP + PELVIS, 2-3 views EXAM: XR Right Hip With Pelvis When Performed, 2 or 3 Views CLINICAL HISTORY: severe pain in right hip and groin. TECHNIQUE: Two or three views of the right hip with pelvis when performed. COMPARISON: No relevant prior studies available. FINDINGS: Bones/joints: Postsurgical changes consistent with right total hip arthroplasty noted. There is also surgical hardware about the right pelvic bones. No acute osseous abnormality. No abnormal alignment involving the hip arthroplasty. No periprosthetic fracture or lucency. Soft tissues: Unremarkable. IMPRESSION: Right total hip arthroplasty. No abnormal alignment or acute osseous traumatic injury. Electronically signed by: Jimi Dorsey MD 01/18/25 02:25 AM Hip MRI 01/18/25 01:29 EXAM: MR hip RT wo con CLINICAL HISTORY: Severe right hip pain TECHNIQUE: MRI of the right hip joint was performed without intravenous contrast administration. Sequences obtained include coronal T1-weighted, T2-weighted, STIR (Short Tau Inversion Recovery), axial T1-weighted, and T2-weighted sequences. COMPARISON: None. FINDINGS: Articular Structures: Status post right hip arthroplasty, causing susceptibility artifacts. There is a related mild fluid signal/effusion with a suggestion of internal low signal intensity foci within the joint. There is no evidence of acute fracture or dislocation. Muscles and Tendons: The gluteus medius and minimus tendon insertions appear thickened, showing high signal with related mild soft tissue edema. There is no evidence of complete tears. There is a small greater trochanteric bursa. There is a relatively reduced girth of the right periarticular muscles compared to the left side. The rest of the hip muscles and tendons are unremarkable without evidence of tears. Soft Tissues: There is no evidence of soft tissue masses or abnormalities adjacent to the hip joint. There is a small greater trochanteric bursa. There are prominent inguinal lymph nodes. Vascular Structures: There is a normal appearance of the femoral artery and vein without evidence of vascular anomalies. IMPRESSION: 1. Status post right hip arthroplasty, causing susceptibility artifacts. There is a related mild fluid signal/effusion with suggestion of internal low signal intensity foci within the joint, worrisome for early particle disease. Clinical assessment and correlation with other imaging modalities are recommended. 2. Gluteal tendinopathy. 3. Small greater trochanteric bursitis. Electronically signed by Jonathan Ron 01-18-2025 05:26 AM Lumbar Spine MRI 01/18/25 01:51 EXAM: MR lumbar spine wo con CLINICAL HISTORY: eval for low back pain with weakness in legs TECHNIQUE: Different pulse sequences were performed in different planes for the lumbar spine without contrast. Images were sent through PACS for diagnostic interpretation. COMPARISON: No previous studies are available for comparison. FINDINGS: Vertebral Alignment: S-shaped thoracolumbar scoliosis is present. There is a grade I retrolisthesis of L2 over L3. Internal metallic fixation of L1 and L2 is noted. Vertebral Bodies and Intervertebral Discs: There is diffuse mottling of the bone marrow of the scanned spine, suspicious for osteoporosis. Vertebral body height is normal. No fracture is identified. There are no lytic or sclerotic lesions. Marked lumbar spondylosis with anterolateral marginal osteophytosis is present. The intervertebral discs demonstrate disc desiccation and decreased height, as well as opposing vertebral endplate subchondral degenerative marrow changes and Schmorl's nodes. [id number] analysis: T12-L1: There is a 5 mm mild diffuse disc bulge, mildly indenting the thecal sac with mild encroachment upon both neural foraminal fat. L1-L2: There is no focal disc pathology, spinal canal stenosis, or neural foraminal stenosis. L2-L3: There is a diffuse bulge with a central and left paracentral 12 mm disc herniation, compressing the thecal sac with moderate spinal canal stenosis and impingement upon both neural recesses as well as marked encroachment upon both exit foramina, more on the left. L3-L4: There is a moderate 11 mm diffuse disc bulge with left posterolateral protrusion, indenting the thecal sac with effacement of right foraminal fat and mild effacement of left foraminal fat. Mild spinal canal stenosis and moderate left and marked right neural foraminal stenosis are present. L4-L5: There is a mild 6 mm diffuse disc bulge with mild thecal indentation, moderate encroachment upon the right exit foramen, and mild partial left foraminal fat encroachment. L5-S1: There is a mild 3 mm diffuse disc bulge encroaching upon the anterior epidural fat. No spinal canal stenosis is present. There is mild encroachment upon the neural foramina. There is superadded foraminal and spinal canal stenosis due to multilevel facet arthropathy and ligamentum flavum hypertrophy. Spinal Cord and Nerve Roots: The conus medullaris terminates at the L1 level without abnormality. Nerve roots appear unremarkable bilaterally. The lower thoracic spinal cord, conus medullaris, and cauda equina nerve roots are unremarkable. Soft Tissues: A right cortical renal cyst is noted. IMPRESSION: 1. S-shaped thoracolumbar scoliosis. 2. Grade I retrolisthesis of L2 over L3. 3. Internal metallic fixation of L1 and L2 with discal prosthesis. No gross postoperative complications are identified. 4. Diffuse mottling of the bone marrow of the scanned spine, suspicious for osteoporosis. 5. Marked lumbar spondylosis with facet arthritic changes. 6. Multilevel degenerative disc pathologies with different grades of spinal canal and foraminal compromise as described. Electronically signed by Jonathan Ron 01-18-2025 04:27 AM Medications Administered Vancomycin IV Ceftriaxone 2g IV Ketorolac 15mg IV Hydromoprhone 0.5mg IV x 2 Zofran 4mg IV x 2 500 mL NSS Code Status & VTE Plan Code Status Full PG Care Time/CCT Total # of Minutes Spent Total Time Spent with Patient: Total time spent is greater than 50% in coordination of care (as documented) at patient's floor/unit and/or counseling patient: Coding Level of Care Code 75233 INT INP/OBS CARE 3/75MIN Diagnoses Right hip pain M25.551 Hyponatremia E87.1 Hypokalemia E87.6 Diarrhea R19.7 Diarrhea type: unspecified type (4) Diarrhea Diarrhea type: unspecified type Qualified Code(s): R19.7 - Diarrhea, unspecif ied
[2025-01-18] MEDS ORDERED: NALOXONE HCL 0.4 MG/1 ML VIAL/CARP IV PRN (06:13)
[2025-01-18] MEDS ORDERED: ACETAMINOPHEN 500 MG TAB PO PRN (06:13)
[2025-01-18] MEDS ORDERED: HYDROmorphone INJ 0.5 MG/0.5 ML SYR IV PRN (06:13)
[2025-01-18] MEDS: VANCOMYCIN HCL 1,500 MG in SODIUM CHLORIDE 0.9% 500 ML IV ONE (06:47)
[2025-01-18] MEDS: LACTATED RINGER'S 1,000 ML IV SCH (06:47)
[2025-01-18 06:59] LABS: Magnesium 1.9 mg/dl (1.7-2.4)
[2025-01-18] MEDS: POTASSIUM CHLORIDE / WTR 10 MEQ/100 ML PLCT IV SCH (07:41)
[2025-01-18] MEDS: HYDROmorphone INJ 0.5 MG/0.5 ML SYR IV PRN (07:57)
[2025-01-18 08:42] LABS: Cdiff Toxin B Gene (2yr or >) Negative Cdiff Gene (Neg)
[2025-01-18 09:18] LABS: Adenovirus F 40/41 PCR Not Detected (NotDetected); Campylobacter PCR Not Detected (NotDetected); Enteroaggregative E.coli(EAEC) Not Detected (NotDetected); Shiga-like Toxin E.coli (STEC) Not Detected (NotDetected); Vibrio species PCR Not Detected (NotDetected)
--- NOTE | 2025-01-18 09:39 | XRay Report ---
XR chest 1V portable CLINICAL HISTORY: Requiring O2 COMPARISON STUDY: 12/27/2024 FINDINGS: Stable mild cardiomegaly with mild pulmonary vascular congestion. Stable mild scarring or a telectasis in the lung bases. No new consolidation or pleural effusion. No pneumothorax. IMPRESSION: Stable exam. ACT 112: Negative or not required by law. Electronically signed by: Morgan Zimmerman M.D. 01/18/2025 9:38 AM
[2025-01-18] MEDS ORDERED: ONDANSETRON INJ 2 MG/ML 2 ML VIAL IV PRN (11:27)
[2025-01-18] MEDS ORDERED: MAGNESIUM HYDROXIDE SUSP 30 ML UDC PO PRN (11:27)
[2025-01-18] MEDS ORDERED: POLYETHYLENE (MIRALAX) 17 GM PACK PO PRN (11:27)
[2025-01-18] MEDS: hydroCHLOROthiazide 25 MG TAB PO SCH (12:53)
[2025-01-18] MEDS: SPIRONOLACTONE 25 MG TAB PO SCH (12:54)
[2025-01-18] MEDS: lamoTRIgine 100 MG TAB PO SCH (12:56)
[2025-01-18] MEDS: BACLOFEN 10 MG TAB PO SCH (12:56)
--- NOTE | 2025-01-18 13:19 | Pharmacy Report ---
Pharmacy PK ABX Note - Date of Service January 18, 2025 - Assessment and Plan Assessment 79 year old F receiving vancomycin and ceftriaxone for treatment of possible prosthetic joint infection. Patient with worsening right hip pain for ~ 7 days. * Mild leukocytosis, afebrile, normal lactate and procalcitonin. Renal function is normal and at baseline. * Recent cefdinir use for UTI treatment. * Pertinent microbiologic data includes: Blood cultures x2 from 01/18 are pending Day # 1 of antimicrobial therapy. Plan Vancomycin * Loading dose: 1500 mg IV x 1 * Maintenance dose: 1250 mg IV every 24 hours * Regimen is predicted to achieve target AUC/LEYLA of 400-600 mg/L.hr * Random level ordered for: 01/20/25 at 0900. Ceftriaxone 2gm iv q 24 hour. Pharmacy will continue to follow and will adjust dose/frequency as necessary. Thank you. Pharmacy has transitioned to AUC monitoring for vancomycin. AUC/LEYLA is the preferred PK/PD target and is associated with decreased risk of nephrotoxicity compared to traditional trough targets.
[2025-01-18] MEDS ORDERED: MoRPHine SULFATE 2 MG/ML CARP IV PRN (14:48)
--- NOTE | 2025-01-18 14:50 | Hospitalist Progress Note ---
Date of Service January 18, 2025 Assessment & Plan (1) Right hip pain: (2) Hyponatremia: (3) Hypokalemia: (4) Diarrhea: Plan 79-year-old female PMHx MDD, DDD, cerebral meningioma, hyperparathyroidism, sacroiliitis, LPRD, dyslipidemia, OP, HTN, LVH, and a multitude of orthopedic c onditions presenting for worsening R hip pain over the past 7 days [employer] #R Hip Pain/? 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 Presence of leukocytosis without elevated lactate or procal. Inflammatory markers elevated in conjunction. Abx to cover for possible prosthetic joint infection. ?? surgical intervention. CBC mild leukocytosis 12.83, stable H/H; ESR 44, CRP 3.67; lactate WNL x 2, procal 0.06 Hip/pelvis XR R total hip arthroplasty, no abnormal alignment or acute osseous traumatic injury R hip MRI s/p R hip arthroplasty, fluid signal/effusion with foci in joint (? early particle disease), gluteal tendinopathy, small greater trochanteric bursitis Lumbar spine MRI scoliosis, grade I retrolisthesis of L2/L3, internal fixation L1-L2, diffuse mottling of bone marrow (OP), L spondylosis, multilevel DDD B/l Doppler study negative for DVT. Did reveal Left bakers cyst. BC pending. IVF LR @ 80 mL/hr Zofran prn N/V Acetaminophen prn fever/pain --> did have low grade fever 01/18. IV Morphine for severe pain - reported allergy to morphine. Benadryl prn in event patient experiences itching. Suspect since she is on IV steroids she will not have adverse effect. Ceftriaxone + vancomycin + IV Solu-medrol 40mg BID - continue, pending ortho input PT/OT consulted - appreciate assistance Ortho consulted -- appreciate input + recs #Hypokalemia Pending Mg; Asx. K 3.3, Mg 1.9 s/p KCl 30 mEq IV #Hyponatremia In setting of grossly WNL glucose. Na 135, glucose 104 Consider serum osmol, urine osmol, urine Na if no improvement with IVF Gentle IVF - LR @ 80 mL/hr x 2 L #Diarrhea Recent course of oral antibiotics for UTI, still with LUTS and diarrhea now. CBC leukocytosis 12k Stool Biofire + C diff negative. If continues, consider Imodium prn but continue to monitor for now. #HTN- Amlodipine HCTZ, spironolactone - continue #HLD- Rosuvastatin - continue #Pain- Baclofen, diclofenac gel prn - continue #OP- Denosumab q6mo - continue as outpatient #Psych- Lamotrigine, duloxetine currently on hold - continue lamotrigine #Insomnia- Melatonin, mirtazapine - continue Dispo: Admit, med/sx VTE Prophylaxis: SCDs -- held ASA the am of arrival if possibility of surgical intervention however, add back once determined tx course Updated at bedside 01/18. Admission and Anticipated Discharge Date Admission Date: January 18, 2025 Supervising Physician Co-Signing Physician Notes The patient was not seen by me. The chart was reviewed. Case discussed with CEDRICK Hyde. Agree with assessment and plan Subjective Nu was seen and examined this afternoon. She was tearful at time of encounter. Reports right hip/inguinal pain. Has been ongoing for ~ 1 week now. States she cannot move her right leg. She also reports occassional left lower extremity edema. She denies any CP or SOB. Physical Exam Physical Exam: General: tearful, VS as above Resp: normal respiratory effort, lungs clear to auscultation CV: RRR, no murmur Abd: normal bowel sounds, non tender, no hepatosplenomegaly Extremities: no LE edema noted. No tenderness to palpation over right hip or right inguinal region. No bruising or erythema identified. Neuro: A&O x3 Skin: intact, no lesions noted Results & Data Results & Data Vital Signs (Past 12 Hours) Vital Signs Temp Pulse Pulse Resp BP Pulse Ox O2 Del Method 01/18/25 11:44 36.7 C 56 L 19 122/56 L 99 Nasal Cannula 01/18/25 10:20 63 20 115/45 L 99 Nasal Cannula 01/18/25 09:47 60 01/18/25 08:19 65 19 128/57 L 99 Nasal Cannula 01/18/25 07:40 63 15 95/49 L 99 Room Air 01/18/25 07:40 99 Room Air 01/18/25 06:50 60 18 118/61 100 Nasal Cannula 01/18/25 05:17 98 Nasal Cannula 01/18/25 04:00 64 17 133/75 94 Room Air O2 Flow Rate 01/18/25 11:44 2 01/18/25 10:20 2 01/18/25 09:47 01/18/25 08:19 2 01/18/25 07:40 01/18/25 07:40 01/18/25 06:50 3 01/18/25 05:17 3 01/18/25 04:00 PG Care Time/CCT Total # of Minutes Spent Total Time Spent with Patient: Total time spent is greater than 50% in coordination of care (as documented) at patient's floor/unit and/or counseling patient: Coding Level of Care Code None Diagnoses Right hip pain M25.551 Hyponatremia E87.1 Hypokalemia E87.6 Diarrhea R19.7 Diarrhea type: unspecified type (4) Diarrhea Diarrhea type: unspecified type Qualified Code(s): R19.7 - Diarrhea, unspecified
[2025-01-18] MEDS: ACETAMINOPHEN 500 MG TAB PO SCH (15:17)
[2025-01-18] MEDS: KETOROLAC TROMETHAMINE 15 MG/ML VIAL IV PRN (15:46)
--- NOTE | 2025-01-18 16:40 | Ultrasound Report ---
Clinical History: Pain Technique: Venous ultrasound evaluation was performed utilizing grayscale, color Doppler and wave form evaluation. Images were also obtained with and without compression Findings: The bilateral common femoral, superficial femoral, popliteal, and visualized calf veins demonstrate normal anechoic lumens with full compressibility. Normal flow is seen on color Doppler images. Expected waveforms were produced with augmentation maneuvers There is a left knee Mcqueen's cyst, measuring 2.9 x 1.4 x 1.3 cm Impression: 1. No evidence of deep venous thrombosis 2. Left knee Mcqueen's cyst Electronically signed by Luisito Wilkes 01-18-2025 4:39 PM
[2025-01-18] MEDS ORDERED: diphenhydrAMINE Capsule 25 MG CAP PO PRN (17:37)
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
[2025-01-18 18:14] LABS: Appearance Urine Clear (Clear); Glucose Urine UA 1+ (Negative)
[2025-01-18] MEDS: MELATONIN 3 MG TAB PO SCH (20:20)
[2025-01-18] MEDS: VANCOMYCIN HCL 1,250 MG in SODIUM CHLORIDE 0.9% 250 ML IV SCH (20:20)
[2025-01-18] MEDS: ROSUVASTATIN CALCIUM 5 MG TAB PO SCH (20:21)
[2025-01-18] MEDS: MIRTAZAPINE TAB 15 MG TAB PO SCH (20:21)
--- NOTE | 2025-01-18 22:51 | Electrocardiogram Report ---
Test Reason : Blood Pressure : */* mmHG Vent. Rate : 56 BPM Atrial Rate : 56 BPM P-R Int : 220 ms QRS Dur : 98 ms QT Int : 482 ms P-R-T Axes : 73 -39 -48 degrees QTcB Int : 465 ms Sinus bradycardia with 1st degree A-V block Left axis deviation Possible Anterior infarct , age undetermined Abnormal ECG When compared with ECG of 27-Dec-2024 12:01, Left bundle branch block is no longer Present Borderline criteria for Anterior infarct are now Present Confirmed by Alex Bonner ([id number]) on 01/18/2025 10:51:07 PM Referred By: REFERRED SELF Confirmed By: Alex Bonner
[2025-01-19] MEDS: cefTRIAXone SODIUM 2,000 MG/50 ML BAG IV SCH (06:00)
[2025-01-19 07:15] LABS: Hematocrit (blood only) 33.0 % (37.0-47.0); Hemoglobin 11.1 g/dl (12.0-16.0); Mean Corpuscular Hemoglobin 29.8 pg (25.0-34.0); Mean Corpuscular Volume 88.7 fL (80.0-100.0); Platelet Count 181 K/uL (130-400); RDW Standard Deviation 47.1 fL (36.4-46.3); Red Blood Count 3.72 M/uL (4.20-5.40); White Blood Count 8.88 K/ul (4.8-10.8)
[2025-01-19 07:55] LABS: Anion Gap 5.0 (3-11); Blood Urea Nitrogen 16.0 mg/dl (6-23); Calcium 8.0 mg/dl (8.6-10.3); Carbon Dioxide 25.0 mmol/L (21-32); Chloride 110.0 mmol/L (98-107); Creatinine Clr Calc Pharmacy 68.4 ml/min; Glucose 184.0 mg/dl (70-99(Fasting)); Potassium 3.7 mmol/L (3.5-5.1); Sodium 140.0 mmol/L (136-145)
--- NOTE | 2025-01-19 09:28 | Orthopedic Progress Note ---
Date of Service January 19, 2025 Assessment & Plan (1) Right hip pain: Plan: patient is currently on vancomycin. Agree with continuing this for empiric treatment. Blood cultures are negative at 24 hours. Continue to follow these. If blood cultures are negative at 48 hours might consider hip aspiration after that. Serum cobalt and chromium levels are pending. Discussed with patient that she does have some evidence of wear of her total hip which is to be expected since the prosthesis is over 23 years old. Her exam is not concerning for an acutely infected hip given that her symptoms are stable, skin is normal and that she is able to tolerate passive range of motion. She is hemodynamically stable and not septic. No plans for acute surgery. I do think she is probably going to need to consider a revision total hip arthroplasty due to particle disease and/or metallosis. This would not need to be done urgently. I told her I do not do these surgeries and that she would likely need to go to a specialized Medical Center for this. I texted with Dr. Shelton yesterday and he will plan to see the patient on Tuesday. At the present time she can weight-bear as tolerated with a walker. PT OT. DVT prophylaxis per the primary team. (2) H/O total hip arthroplasty: Admission and Anticipated Discharge Date Admission Date: January 18, 2025 Subjective Nu Tamayo is seen and examined on a.m. rounds. She reports that her hip is feeling better today. Has not had any fevers overnight. No numbness or tingling down her leg. Physical Exam Physical Exam: On exam she is resting comfortably in bed in no acute distress. Alert and oriented x 3. She is afebrile and vital signs are stable. Tmax overnight was 36.7 C. Right hip exam shows patient have a well-healed long incision from her prior surgeries through a Brandon Langenbeck approach. There is no redness swelling or evidence of infection. She tolerates a gentle logroll. Passive Abduction is to 25 degrees without pain. I am able to flex her hip up to 90 degrees, externally rotate her 30 degrees and internally rotate her 15 degrees without pain. However going beyond this range of motion does cause her discomfort in her groin. Distally she is neurovascularly intact. Results & Data Vital Signs (Past 12 Hours) Vital Signs Temp Pulse Resp BP Pulse Ox O2 Del Method 01/19/25 07:15 36.7 C 89 18 138/72 91 Room Air 01/18/25 23:00 36.7 C 66 18 116/65 92 Room Air Laboratory Results White count this morning is normal at 8. CRP is still elevated at 10.
--- NOTE | 2025-01-19 10:52 | Hospitalist Progress Note ---
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 CRP uptrending from 3.67 to 10.63, Procal negative x 2. BC negative @ 24 hours marcus. Hip/pelvis XR R total hip arthroplasty, no abnormal alignment or acute osseous traumatic injury R hip MRI s/p R hip arthroplasty, fluid signal/effusion with foci in joint (? early particle disease), gluteal tendinopathy, small greater trochanteric bursitis Lumbar spine MRI scoliosis, grade I retrolisthesis of L2/L3, internal fixation L1-L2, diffuse mottling of bone marrow (OP), L spondylosis, multilevel DDD B/l Doppler study negative for DVT. Did reveal Left bakers cyst. s/p IVF. Zofran prn for N/V. Discontinued Rocephin, Continue IV Vancomycin + IV Solu Medrol 40mg IV BID. Scheduled Tylenol 1000mg q 8h + oxycodone prn 5mg every 4 hours as needed for breakthrough pain. Ortho following --> recommending continuing vancomycin. considering joint aspiration of right hip if BC return neg @ 48 hours. PT/OT consulted. #Hypokalemia - resolved K 3.3, Mg 1.9 on admission. K now stable at 3.7. #Hyponatremia - resolved. Na 135 on admission now stable at 140 s/p IVF #Diarrhea Recent course of oral antibiotics for UTI, still with LUTS and diarrhea now. CBC leukocytosis 12k Stool Biofire + C diff negative. If continues, consider Imodium prn but continue to monitor for now. #HTN Amlodipine HCTZ, spironolactone on hold secondary to softer pressures day of admission. BP stable at 128/63 w/o any anti-hypertensives. Continue to monitor & resume when able. #HLD- Rosuvastatin - continue #Pain- Baclofen, diclofenac gel prn - continue #OP- Denosumab q6mo - continue as outpatient #Psych- Lamotrigine, duloxetine currently on hold - continue lamotrigine #Insomnia- Melatonin, mirtazapine - continue Dispo: Admit, med/sx VTE Prophylaxis: SCDs Admission and Anticipated Discharge Date Admission Date: January 18, 2025 Supervising Physician Co-Signing Physician Notes The patient was not seen by me. The chart was reviewed. Case discussed with CEDRICK Hyde. Agree with assessment and plan Subjective Nu was seen & examined this morning. She notes that her hip has improved greatly since yesterday. She was able to ambulate to the bathroom but reports she needs help to do so. She has been afebrile overnight. Denies any additional complaints aside from right hip pain. Physical Exam Physical Exam: General: NAD, VS: BP 128/63, P83, Resp 17, Temp 36.6. Resp: normal respiratory effort Extremities: Moves all extremities, no edema, no erythema or warmth to right hip. Neuro: A&O x3 Skin: intact, no lesions noted Results & Data Results & Data Vital Signs (Past 12 Hours) Vital Signs Temp Pulse Resp BP Pulse Ox O2 Del Method 01/19/25 07:15 36.7 C 89 18 138/72 91 Room Air 01/18/25 23:00 36.7 C 66 18 116/65 92 Room Air PG Care Time/CCT Total # of Minutes Spent Total Time Spent with Patient: Total time spent is greater than 50% in coordination of care (as documented) at patient's floor/unit and/or counseling patient: Coding Level of Care Code 03725 SUB INP/OBS CARE 2/35MIN Diagnoses Right hip pain M25.551 Hyponatremia E87.1 Hypokalemia E87.6 Diarrhea R19.7 Diarrhea type: unspecified type (4) Diarrhea Diarrhea type: unspecified type Qualified Code(s): R19.7 - Diarrhea, unspecified
--- NOTE | 2025-01-19 11:01 | Pharmacy Report ---
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 Patient with worsening right hip pain for ~ 7 days. * Mild leukocytosis, afebrile, normal lactate and procalcitonin. Renal function is normal and at baseline. * Recent cefdinir use for UTI treatment. * Pertinent microbiologic data includes: 01/18 blood cultures NGTD Day # 2 of antimicrobial therapy. Plan Vancomycin * Loading dose: 1500 mg IV x 1 (01/18 @1999) * Previous maintenance dose: 1250 mg IV every 24 hours * Regimen is predicted to be subtherapeutic to target AUC/LEYLA of 400-600 mg/L.hr * Given improvement in SCr today, going to increase to vancomycin 1500 mg IV every 24 hours * Random level ordered for: 01/20/25 at 0900 Pharmacy will continue to follow and will adjust dose/frequency as necessary. Thank you. Pharmacy has transitioned to AUC monitoring for vancomycin. AUC/LEYLA is the preferred PK/PD target and is associated with decreased risk of nephrotoxicity compared to traditional trough targets.
[2025-01-19] MEDS: DICLOFENAC SOD 1% GEL 100 GM TUBE EXT PRN (15:36)
[2025-01-19] MEDS: VANCOMYCIN HCL 1,500 MG in SODIUM CHLORIDE 0.9% 500 ML IV SCH (15:37)
[2025-01-20 09:18] LABS: Hematocrit (blood only) 32.0 % (37.0-47.0); Hemoglobin 10.0 g/dl (12.0-16.0); Mean Corpuscular Hemoglobin 28.4 pg (25.0-34.0); Mean Corpuscular Volume 90.9 fL (80.0-100.0); Platelet Count 180 K/uL (130-400); RDW Standard Deviation 50.4 fL (36.4-46.3); Red Blood Count 3.52 M/uL (4.20-5.40); White Blood Count 13.75 K/ul (4.8-10.8)
[2025-01-20 09:33] LABS: Anion Gap 7.0 (3-11); Blood Urea Nitrogen 23.0 mg/dl (6-23); Calcium 7.8 mg/dl (8.6-10.3); Carbon Dioxide 24.0 mmol/L (21-32); Chloride 107.0 mmol/L (98-107); Creatinine Clr Calc Pharmacy 57.0 ml/min; Glucose 243.0 mg/dl (70-99(Fasting)); Potassium 4.0 mmol/L (3.5-5.1); Sodium 138.0 mmol/L (136-145)
--- NOTE | 2025-01-20 09:58 | Orthopedic Progress Note ---
Date of Service January 20, 2025 Assessment & Plan (1) Right hip pain: Plan: Continue IV antibiotics per internal medicine service Serum cobalt and chromium levels are pending. Will order image-guided aspiration of her right hip to be sent for cell count, crystals, gram stain, and cultures. Discussed with patient that she does have some evidence of wear of her total hip which is to be expected since the prosthesis is over 23 years old. Her exam is not concerning for an acutely infected hip given that her symptoms are stable, skin is normal and that she is able to tolerate passive range of motion. She is hemodynamically stable and not septic. No plans for acute surgery. I do think she is going to need to consider a revision total hip arthroplasty due to particle disease and/or metallosis. This would not need to be done urgently. I told her I do not do these surgeries and that she would likely need to go to a specialized Medical Center for this. Transition ortho care to Dr. Shelton tomorrow. At the present time she can weight-bear as tolerated with a walker. PT OT. DVT prophylaxis per the primary team. (2) H/O total hip arthroplasty: Admission and Anticipated Discharge Date Admission Date: January 18, 2025 Subjective Patient reports that her hip continues to improve. She did get up to walk but only got 1 step past the door of her room she says because of hip pain. Really no pain in her hip at rest however. Denies any fevers or chills. Physical Exam Physical Exam: On exam she is resting comfortably in bed in no acute distress. Alert and oriented x 3. She is afebrile and vital signs are stable. Right hip exam shows patient have a well-healed long incision from her prior surgeries through a Brandon Langenbeck approach. There is no redness swelling or evidence of infection. She tolerates a gentle logroll. Passive Abduction is to 25 degrees without pain. I am able to flex her hip up to 90 degrees, externally rotate her 30 degrees and internally rotate her 15 degrees without pain. How ever going beyond this range of motion does cause her discomfort in her groin. Distally she is neurovascularly intact. Results & Data Vital Signs (Past 12 Hours) Vital Signs Temp Pulse Resp BP BP Pulse Ox O2 Del Method 01/20/25 07:52 36.6 C 55 L 20 119/67 96 Room Air 09/20/25 23:00 36.5 C 78 18 153/72 H 92 Room Air Laboratory Results White count was 13 this morning up from 8 yesterday. CRP was pending at the time of this dictation. Serum cobalt and chromium levels are not yet back. Her blood cultures are negative at 48 hours.
--- NOTE | 2025-01-20 12:11 | Pharmacy Report ---
Pharmacy PK ABX Note - Date of Service January 20, 2025 - Assessment and Plan Assessment 79 year old F receiving vancomycin for treatment of possible prosthetic joint infection. Patient with worsening right hip pain for ~ 7 days. * Mild leukocytosis, afebrile, normal lactate and procalcitonin. Renal function is normal and at baseline. * Recent cefdinir use for UTI treatment * Pertinent microbiologic data includes: 01/18 blood cultures NGTD Day # 3 of antimicrobial therapy. Plan Vancomycin * Loading dose: 1500 mg IV x 1 (01/18 @1999) * Previous maintenance dose: 1500 mg IV every 24 hours * Level this AM at 0900 was 8.9 * Current regimen is predicted to be subtherapeutic to target AUC/LEYLA of 400- 600 mg/L.hr * Increase to vancomycin 1000 mg IV every 12 hours today * Random level ordered for: 01/22/25 at 0900 Pharmacy will continue to follow and will adjust dose/frequency as necessary. Thank you. Pharmacy has transitioned to AUC monitoring for vancomycin. AUC/LEYLA is the preferred PK/PD target and is associated with decreased risk of nephrotoxicity compared to traditional trough targets.
--- NOTE | 2025-01-20 12:40 | Hospitalist Progress Note ---
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 CRP downtrended from 10.63 to 4.18 , Procal negative x 2. BC negative @ 48 hours marcus. Hip/pelvis XR R total hip arthroplasty, no abnormal alignment or acute osseous traumatic injury R hip MRI s/p R hip arthroplasty, fluid signal/effusion with foci in joint (? early particle disease), gluteal tendinopathy, small greater trochanteric bursitis Lumbar spine MRI scoliosis, grade I retrolisthesis of L2/L3, internal fixation L 1-L2, diffuse mottling of bone marrow (OP), L spondylosis, multilevel DDD B/l Doppler study negative for DVT. Did reveal Left bakers cyst. s/p IVF. Zofran prn for N/V. Discontinued Rocephin, Continue IV Vancomycin + IV Solu Medrol 40mg IV BID. Scheduled Tylenol 1000mg q 8h + oxycodone prn 5mg every 4 hours as needed for breakthrough pain. Ortho following --> recommending continuing vancomycin. right hip aspiration ordered, likely to be done 01/21 by IR. PT/OT consulted --> recommending rehab prior to dc home. #Hypokalemia - resolved K 3.3, Mg 1.9 on admission. K now stable at 4.0 #Hyponatremia - resolved. Na 135 on admission now stable at 138 s/p IVF #Diarrhea - resolved Recent course of oral antibiotics for UTI, still with LUTS and diarrhea now. Stool Biofire + C diff negative. Per nursing documentation, stools have been formed. Continue to monitor for now. #HTN Amlodipine HCTZ, spironolactone on hold secondary to softer pressures day of admission. BP stable at 119/67 w/o any anti-hypertensives. - medications may need adjusted prior to dc. #HLD- Rosuvastatin - continue #Pain- Baclofen, diclofenac gel prn - continue #OP- Denosumab q6mo - continue as outpatient #Psych- Lamotrigine, duloxetine currently on hold - continue lamotrigine #Insomnia- Melatonin, mirtazapine - continue Dispo: Admit, med/sx VTE Prophylaxis: SCDs, consider addition of chemical prophylaxis after needle aspiration 01/21. Admission and Anticipated Discharge Date Admission Date: January 18, 2025 Supervising Physician Co-Signing Physician Notes The patient was not seen by me. The chart was reviewed. Case discussed with CEDRICK Hyde. Agree with assessment and plan Subjective Nu Tamayo was seen & examined this morning. she reports her right hip hurts less today. She denies any additional complaints aside from her right hip pain. Physical Exam Physical Exam: General: NAD, VS: BP 119/67; P55; R20; T36.6C Resp: normal respiratory effort Extremities: no edema Neuro: A&O x3 Skin: intact, no lesions noted Results & Data Results & Data Vital Signs (Past 12 Hours) Vital Signs Temp Pulse Resp BP Pulse Ox O2 Del Method 01/20/25 07:52 36.6 C 55 L 20 119/67 96 Room Air PG Care Time/CCT Total # of Minutes Spent Total Time Spent with Patient: Total time spent is greater than 50% in coordination of care (as documented) at patient's floor/unit and/or counseling patient: Coding Level of Care Code 28273 SUB INP/OBS CARE 2/35MIN Diagnoses Right hip pain M25.551 Hyponatremia E87.1 Hypokalemia E87.6 Diarrhea R19.7 Diarrhea type: unspecified type (4) Diarrhea Diarrhea type: unspecified type Qualified Code(s): R19.7 - Diarrhea, unspecified
--- NOTE | 2025-01-20 12:42 | Electrocardiogram Report ---
Test Reason : Blood Pressure : */* mmHG Vent. Rate : 80 BPM Atrial Rate : 80 BPM P-R Int : 212 ms QRS Dur : 138 ms QT Int : 456 ms P-R-T Axes : 75 -36 124 degrees QTcB Int : 525 ms Sinus rhythm with 1st degree A-V block Left axis deviation Left bundle branch block Abnormal ECG When compared with ECG of 18-Jan-2025 12:25, Left bundle branch block is now Present Borderline criteria for Anterior infarct are no longer Present Confirmed by Capri Tate (Ugo) on 01/20/2025 12:42:23 PM Referred By: REFERRED SELF Confirmed By: Capri Tate
[2025-01-20] MEDS: VANCOMYCIN HCL / NSS 1,000 MG/270 ML BAG IV SCH (13:57)
[2025-01-21 07:02] LABS: Hematocrit (blood only) 36.0 % (37.0-47.0); Hemoglobin 11.8 g/dl (12.0-16.0); Mean Corpuscular Hemoglobin 29.9 pg (25.0-34.0); Mean Corpuscular Volume 91.1 fL (80.0-100.0); Platelet Count 229 K/uL (130-400); RDW Standard Deviation 50.6 fL (36.4-46.3); Red Blood Count 3.95 M/uL (4.20-5.40); White Blood Count 13.96 K/ul (4.8-10.8)
[2025-01-21 07:38] LABS: Anion Gap 6.0 (3-11); Blood Urea Nitrogen 20.0 mg/dl (6-23); Calcium 8.0 mg/dl (8.6-10.3); Carbon Dioxide 27.0 mmol/L (21-32); Chloride 107.0 mmol/L (98-107); Creatinine Clr Calc Pharmacy 57.0 ml/min; Glucose 164.0 mg/dl (70-99(Fasting)); Potassium 3.9 mmol/L (3.5-5.1); Sodium 140.0 mmol/L (136-145)
--- NOTE | 2025-01-21 11:26 | Hospitalist Progress Note ---
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 Hip/pelvis XR R total hip arthroplasty, no abnormal alignment or acute osseous traumatic injury. R hip MRI s/p R hip arthroplasty, fluid signal/effusion with foci in joint (? early particle disease), gluteal tendinopathy, small greater trochanteric bursitis. Lumbar spine MRI scoliosis, grade I retrolisthesis of L2/L3, internal fixation L1-L2, diffuse mottling of bone marrow (OP), L spondylosis, multilevel DDD. B/l Doppler study negative for DVT. Did reveal Left bakers cyst. #R Hip Pain - with Wear of articular bearing surface of right LYNDON with possible chromium and/or cobalt toxicity - CBC w/ mild bump of WBC likely secondary to high dose steroids - CRP downtrended from 10.63 to 4.18, Procal negative x 2 - Blood cultures negative >48 hours - Serum cobalt and chromium levels pending - Continue IV Vancomycin + IV Solu Medrol 40mg IV BID. - Pain regimen: Scheduled Tylenol 1000mg Q8h, oxycodone 5mg Q4h PRN breakthrough pain - Ortho following --> recommending continuing vancomycin. Right hip aspiration ordered for 01/21 - PT/OT consulted --> recommending rehab prior to dc home #HTN - Amlodipine HCTZ, spironolactone on hold secondary to softer pressures day of admission. - BP stable at 136/68 w/o any anti-hypertensives - medications may need adjusted prior to dc #Hypokalemia - resolved - K 3.3, Mag 1.9 on admission. Repleted and now remains WNL and stable #Hyponatremia - resolved - Na 135 on admission, s/p IV fluids, now WNL and stable #Diarrhea - resolved - Recent course of oral antibiotics for UTI. Stool Biofire and C diff negative - Stools are now formed. Continue to monitor #HLD- Rosuvastatin - continue #Pain- Baclofen, diclofenac gel prn - continue #OP- Denosumab q6mo - continue as outpatient #Psych- Lamotrigine, duloxetine currently on hold - continue lamotrigine #Insomnia- Melatonin, mirtazapine - continue VTE Prophylaxis: SCDs Dispo: Continued inpatient stay. PT/OT recommending SNF, no referrals made yet. Updated at bedside Ordered IR right hip aspiration Admission and Anticipated Discharge Date Admission Date: January 18, 2025 Supervising Physician Co-Signing Physician Notes PA Supervision Note: I did not personally see or examine the patient today, but I verified all lmoeli points of CEDRICK Peter's assessment and plan with the following exceptions/additions: None Subjective Patient seen and evaluated at bedside with her present. She reports her pain is well-controlled with her current pain regimen, though her pain is exacerbated with certain movements/weightbearing. She has been ambulating to and from the bathroom today. We discussed the plan of her getting an IR aspiration today, as well as her outpatient orthopedic physician, Dr. Shelton, seeing her today. She denies any nausea, vomiting, abdominal pain, diarrhea. She is sleeping well at night and has a good appetite. No additional complaints or concerns at this time. Physical Exam Physical Exam: General: No acute distress, nondiaphoretic, well-developed, well-nourished. Skin: Warm, dry. No rashes or peripheral edema noted. Cardiac: Regular rate and rhythm without murmurs gallops or rubs. Pulm: Clear to auscultation bilaterally without wheezes, rales or rhonchi. Normal respiratory effort. 95% on room air. Abdominal: Soft, nontender, nondistended. Bowel sounds present. Extremities: Right hip with well-healed scar from previous arthroplasty. No swelling, erythema, or evidence of superficial infection of right hip. Tolerates some ROM without pain, but full ROM does cause pain in her groin. Neurovascularly intact in lower extremities bilaterally. Neuro: A&O x3. No focal neurological deficits. Results & Data Results & Data Vital Signs (Past 12 Hours) Vital Signs Temp Pulse Resp BP Pulse Ox O2 Del Method 01/21/25 07:00 98.1 F 55 L 16 163/69 H 95 Room Air Laboratory Results Reviewed CBC Reviewed BMP, chemistries Reviewed blood cultures PG Care Time/CCT Total # of Minutes Spent Total Time Spent with Patient: Total time spent is greater than 50% in coordination of care (as documented) at patient's floor/unit and/or counseling patient: Coding Level of Care Code 28300 SUB INP/OBS CARE 3/50MIN Diagnoses Right hip pain M25.551 Hyponatremia E87.1 Hypokalemia E87.6 Diarrhea R19.7 Diarrhea type: unspecified type (4) Diarrhea Diarrhea type: unspecified type Qualified Code(s): R19.7 - Diarrhea, unspecified
--- NOTE | 2025-01-21 14:11 | Fluoroscopy Report ---
Fluoroscopic guided right hip joint aspiration INDICATION: Hip pain with effusion; history of total hip arthroplasty PROCEDURE: Procedure and risks were explained. Informed consent was obtained. A final timeout was com pleted. The right hip was prepped and draped in sterile fashion. 1% lidocaine was utilized for skin a nesthesia. Utilizing fluoroscopic guidance, an 18-gauge 10 cm Chiba needle was advanced down to the right hip jaylon int. Spot images were obtained. Approximately 5 mL of a viscus cloudy yellow fluid was aspirated and sent to the lab for analysis. The needle was removed and Band-Aid applied. The patient tolerated the procedure well. Total fluoroscopy time 17 seconds. Study dose 9.94 mGy. IMPRESSION: Right hip joint aspiration as detailed above. Performed, dictated, and signed by Jimi Murray PA-C; to be co-signed by Dr. Mora (. Electronically signed by: Morgan Zimmerman M.D. 01/21/2025 2:56 PM
[2025-01-21 14:19] LABS: Color Synovial Fluid Pale Yellow; Mononuclear WBC Synovial 53.2 %; Polynuclear WBC Synovial 46.8 %; RBC Synovial Fluid Auto 10000 /uL; Source Synovial Fluid Right Hip; WBC Synovial Fluid Auto 3947 /ul (0-200)
[2025-01-22 09:33] LABS: Hematocrit (blood only) 38.0 % (37.0-47.0); Hemoglobin 11.9 g/dl (12.0-16.0); Mean Corpuscular Hemoglobin 28.3 pg (25.0-34.0); Mean Corpuscular Volume 90.5 fL (80.0-100.0); Platelet Count 218 K/uL (130-400); RDW Standard Deviation 50.3 fL (36.4-46.3); Red Blood Count 4.20 M/uL (4.20-5.40); White Blood Count 10.07 K/ul (4.8-10.8)
[2025-01-22 09:46] LABS: Anion Gap 9.0 (3-11); Blood Urea Nitrogen 22.0 mg/dl (6-23); Calcium 7.7 mg/dl (8.6-10.3); Carbon Dioxide 23.0 mmol/L (21-32); Chloride 105.0 mmol/L (98-107); Creatinine Clr Calc Pharmacy 53.5 ml/min; Glucose 291.0 mg/dl (70-99(Fasting)); Potassium 4.1 mmol/L (3.5-5.1); Sodium 137.0 mmol/L (136-145)
--- NOTE | 2025-01-22 11:07 | Hospitalist Progress Note ---
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 Hip/pelvis XR R total hip arthroplasty, no abnormal alignment or acute osseous traumatic injury. R hip MRI s/p R hip arthroplasty, fluid signal/effusion with foci in joint (? early particle disease), gluteal tendinopathy, small greater trochanteric bursitis. Lumbar spine MRI scoliosis, grade I retrolisthesis of L2/L3, internal fixation L1-L2, diffuse mottling of bone marrow (OP), L spondylosis, multilevel DDD. B/l Doppler study negative for DVT. Did reveal Left bakers cyst. #R Hip Pain - with Wear of articular bearing surface of right LYNDON with possible chromium and/or cobalt toxicity - CRP downtrended from 10.63 to 4.18, Procal negative x 2 - Blood cultures negative >48 hours - Serum cobalt and chromium levels pending - Ortho consulted and following - discussed case with Dr. Shelton 01/22 who recommends discontinuing antibiotics at this time, consider anti-inflammatory course on discharge, can discharge as early as tomorrow 01/23 and follow-up with Dr. Shelton outpatient in 1 week - IV Vanco now discontinued - Continue IV Solu Medrol 40mg IV BID - Pain regimen: Scheduled Tylenol 1000mg Q8h, oxycodone 5mg Q4h PRN breakthrough pain - Right hip aspiration 01/21 with elevated synovial WBCs, culture pending - PT/OT consulted --> now recommending return home with home health services #HTN - Amlodipine, HCTZ, spironolactone on hold secondary to softer pressures day of admission - BP stable w/o any anti-hypertensives - medications may need adjusted prior to dc #Hypokalemia - resolved - K 3.3, Mag 1.9 on admission. Repleted and now remains WNL and stable #Hyponatremia - resolved - Na 135 on admission, s/p IV fluids, now WNL and stable #Diarrhea - resolved - Recent course of oral antibiotics for UTI. Stool Biofire and C diff negative - Stools are now formed. Continue to monitor #HLD- Rosuvastatin - continue #Pain- Baclofen, diclofenac gel prn - continue #OP- Denosumab q6mo - continue as outpatient #Psych- Lamotrigine, duloxetine currently on hold since prior to admission- continue lamotrigine #Insomnia- Melatonin, mirtazapine - continue VTE Prophylaxis: SCDs Dispo: Likely discharge home tomorrow 01/23. PT/OT now recommending return home with home health services. Updated at bedside Discussed case via phone call with Dr. Shelton Discontinued IV vancomycin Admission and Anticipated Discharge Date Admission Date: January 18, 2025 Supervising Physician Co-Signing Physician Notes PA Supervision Note: I did not personally see or examine the patient today, but I verified all lomeli points of CEDRICK Peter's assessment and plan with the following exceptions/additions: Can likely resume home amlodipine, HCTZ, and spironolactone tomorrow Subjective Patient seen and evaluated at bedside with her present. She reports doing well with therapy this morning. Her hip pain is well-controlled on her current regimen. She has not discussed her case with Dr. Shelton yet, but she is hopeful he could redo her hip instead of her having to go to a tertiary center. We discussed that we will have a more solidified after Dr. Shelton sees her. She denies any complaints or concerns at this time. Physical Exam Physical Exam: General: No acute distress, nondiaphoretic, well-developed, well-nourished. Skin: Warm, dry. No rashes or peripheral edema noted. Cardiac: Regular rate and rhythm without murmurs gallops or rubs. Pulm: Clear to auscultation bilaterally without wheezes, rales or rhonchi. Normal respiratory effort. 95% on room air. Abdominal: Soft, nontender, nondistended. Bowel sounds present. Extremities: Right hip with well-healed scar from previous arthroplasty. No swelling, erythema, or evidence of superficial infection of right hip. Tolerate s some ROM without pain, but full ROM does cause pain in her groin. Neurovascularly intact in lower extremities bilaterally. Neuro: A&O x3. No focal neurological deficits. Results & Data Results & Data Vital Signs (Past 12 Hours) Vital Signs Temp Pulse Resp BP BP Pulse Ox O2 Del Method 01/22/25 07:17 98.4 F 51 L 16 151/70 H 95 Room Air 01/21/25 23:59 98.4 F 64 18 158/73 H 97 Room Air Laboratory Results Reviewed CBC, BMP PG Care Time/CCT Total # of Minutes Spent Total Time Spent with Patient: Total time spent is greater than 50% in coordination of care (as documented) at patient's floor/unit and/or counseling patient: Coding Level of Care Code 51261 SUB INP/OBS CARE 3/50MIN Diagnoses Right hip pain M25.551 Hyponatremia E87.1 Hypokalemia E87.6 Diarrhea R19.7 Diarrhea type: unspecified type (4) Diarrhea Diarrhea type: unspecified type Qualified Code(s): R19.7 - Diarrhea, unspecified
--- NOTE | 2025-01-22 12:01 | Orthopedic Progress Note ---
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 * Hip synovial fluid WBC 4K, while elevated this could be secondary to this rath er than infection * Dupont/chromium levels pending * Recommend continued monitoring synovial culture and Co/Cr levels * Weight bearing status: WBAT * Daily treatment: Physical Therapy/ Occupational Therapy per protocol * Pain control * Disposition: TBD * Discussed possible revision with patient, if not infected this could be pursued on an elective outpatient basis * Will continue to follow * Remainder care per primary team Subjective 79-year-old female PMHx MDD, DDD, cerebral meningioma, hyperparathyroidism, sacroiliitis, LPRD, dyslipidemia, OP, HTN, LVH, and a multitude of orthopedic conditions presenting for worsening R hip pain over the past 7 days [employer]. Known to orthopedic team, h/o partial knee replacement with Dr Shelton, also R acetabulum ORIF followed by LYNDON and subsequent revision by Dr Long approximately 23 years ago. Presents with worsening right hip pain over the past 1-2 weeks. Reports that overall her hip has been fine since her most recent revision has occasional pain however recent flare was quite significant prompting presentation to ED. Workup including x-ray right hip demonstrated no fracture dislocation, labs including WBC 13 ESR 40, CRP 4. Due to concern for possible PJI patient was started on empiric antibiotics admitted to hospital medicine team. Orthopedics consulted over the weekend, seen by Dr. Christian initially however due to history of Dr. Shelton additional care. Serum chromium and cobalt drawn but still pending. S/p hip aspiration with IR team yesterday, initial synovial analysis with WBC 4K, Gram stain negative, fluid culture still pending. Today during examination pain is improved over the past few days, patient has been ambulating with walker in the hallways. Reports pain located in the anterior hip region/groin but does not seem to flare with passive movements. Review of Systems All systems reviewed & are unremarkable except as noted in HPI & below. Physical Exam . * General: Alert and oriented, no acute distress * Constitutional: well-developed, well-nourished. * Respiratory: Normal respiratory effort, no distress * Gastrointestinal: No tenderness to palpation, no rigidity or guarding. * Skin: No rash or lesion. * Neurologic: Grossly normal * Musculoskeletal: Right hip region with well-healed LYNDON incision. Otherwise no obvious deformity or overlying skin changes to the right hip. Minimal TTP anterior hip region, otherwise no tenderness of the proximal thigh, distal thigh, knee, lower leg. No pain with logroll, passive hip flexion, or IR/ER. AROM foot/ankle intact. Sensation intact plantar/dorsal foot. Brisk capillary refill. Results & Data Results & Data Laboratory Results . 01/21/25 Unknown Gram Stain - Final Hip,Right Aerobic and Anaerobic Culture - Preliminary No growth to date. 01/22/25 01/21/25 09:04 Unknown WBC 10.07 RBC 4.20 Hgb 11.9 L Hct 38.0 MCV 90.5 MCH 28.3 MCHC 31.3 L RDW Std Deviation 50.3 H RDW Coeff of Jerry 15.2 H Plt Count 218 MPV 10.8 Sodium 137 Potassium 4.1 Chloride 105 Carbon Dioxide 23 Anion Gap 9 BUN 22 Creatinine 0.83 Est Cr Clr Drug Dosing 53.5 eGFR 72.11 BUN/Creatinine Ratio 26.5 H Glucose 291 H Calcium 7.7 L Fluid Comment Synovial Source Right Hip Synovial Color Pale Yellow Synovial Appearance Cloudy Synovial WBC (Auto) 3947 H Synovial RBC (Auto) 38407 Synovial Polynuclear % 46.8 Synovial Mononuclear % 53.2 Synovial Crystals Random Vancomycin 12.7 Diagnostic Findings . Arthrography Joint Steriod Inject 01/21/25 11:56 Fluoroscopic guided right hip joint aspiration INDICATION: Hip pain with effusion; history of total hip arthroplasty PROCEDURE: Procedure and risks were explained. Informed consent was obtained. A final timeout was completed. The right hip was prepped and draped in sterile fashion. 1% lidocaine was utilized for skin anesthesia. Utilizing fluoroscopic guidance, an 18-gauge 10 cm Chiba needle was advanced down to the right hip joint. Spot images were obtained. Approximately 5 mL of a viscus cloudy yellow fluid was aspirated and sent to the lab for analysis. The needle was removed and Band-Aid applied. The patient tolerated the procedure well. Total fluoroscopy time 17 seconds. Study dose 9.94 mGy. IMPRESSION: Right hip joint aspiration as detailed above. Performed, dictated, and signed by Jimi Murray PA-C; to be co-signed by Dr. Mora (. Electronically signed by: Morgan Zimmerman M.D. 01/21/2025 2:56 PM PG Care Time/CCT Total # of Minutes Spent Total Time Spent with Patient: Total time spent is greater than 50% in coordination of care (as documented) at patient's floor/unit and/or counseling patient: C[place] [address] SUB INP/OBS CARE 3/50MIN Patient Type Established History Problem Focused Exam Problem Focused Medical Decision Making High Complexity Diagnoses Right hip pain M25.551
--- NOTE | 2025-01-22 12:18 | Pharmacy Report ---
Pharmacy PK ABX Note - Date of Service January 22, 2025 - Assessment and Plan Assessment 01/22: * Vancomycin level came back at ~12.7 mcg/ml - current regimen associated with goal AUC/LEYLA therefore will continue same dose 01/20: * 79 year old F receiving vancomycin for treatment of possible prosthetic joint infection. Patient with worsening right hip pain for ~ 7 days. * Mild leukocytosis, afebrile, normal lactate and procalcitonin. Renal function is normal and at baseline. * Recent cefdinir use for UTI treatment Plan Vancomycin * Continue 1000 mg iv q 12 hours Pharmacy will continue to follow and will adjust dose/frequency as necessary. Thank you. Pharmacy has transitioned to AUC monitoring for vancomycin. AUC/LEYLA is the preferred PK/PD target and is associated with decreased risk of nephrotoxicity compared to traditional trough targets.
--- NOTE | 2025-01-22 14:12 | XRay Report ---
XR hip RT min 2V CLINICAL HISTORY: Check components with hip pain. Need x-table later COMPARISON: 01/17/2025 FINDINGS: Right hip prosthesis and plate screw fixation of the right acetabulum show no hardware com plication. No acute fracture or dislocation. No evidence of osteomyelitis. IMPRESSION: No acute findings. ACT 112: Negative or not required by law. Electronically signed by: Morgan Zimmerman M.D. 01/22/2025 2:10 PM
[2025-01-23 01:31] VITALS: RESP 18; TEMP 97.9
[2025-01-23 06:58] LABS: Hematocrit (blood only) 39.1 % (37.0-47.0); Hemoglobin 12.8 g/dl (12.0-16.0); Mean Corpuscular Hemoglobin 29.7 pg (25.0-34.0); Mean Corpuscular Volume 90.7 fL (80.0-100.0); Platelet Count 220 K/uL (130-400); RDW Standard Deviation 50.4 fL (36.4-46.3); Red Blood Count 4.31 M/uL (4.20-5.40); White Blood Count 10.40 K/ul (4.8-10.8)
[2025-01-23 07:18] LABS: Anion Gap 7.0 (3-11); Blood Urea Nitrogen 21.0 mg/dl (6-23); Calcium 7.7 mg/dl (8.6-10.3); Carbon Dioxide 24.0 mmol/L (21-32); Chloride 108.0 mmol/L (98-107); Creatinine Clr Calc Pharmacy 64.4 ml/min; Glucose 162.0 mg/dl (70-99(Fasting)); Potassium 4.1 mmol/L (3.5-5.1); Sodium 139.0 mmol/L (136-145)
[2025-01-23 07:49] VITALS: BP 167/74; PULSE 61; O2SAT 98
--- NOTE | 2025-01-23 08:52 | Orthopedic Progress Note ---
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 * Hip synovial fluid WBC 4K, while elevated this could be secondary to metallosis rather than infection * Rice/chromium levels pending * Recommend continued monitoring synovial culture and Co/Cr levels * Weight bearing status: WBAT * Daily treatment: Physical Therapy/ Occupational Therapy per protocol * Pain control * Disposition: TBD * Discussed possible revision with patient, if not infected this could be pursued on an elective outpatient basis * Will continue to follow * Remainder care per primary team Subjective 79-year-old female PMHx MDD, DDD, cerebral meningioma, hyperparathyroidism, sa croiliitis, LPRD, dyslipidemia, OP, HTN, LVH, and a multitude of orthopedic conditions presenting for worsening R hip pain over the past 7 days [employer]. Known to orthopedic team, h/o partial knee replacement with Dr Shelton, also R acetabulum ORIF followed by LYNDON and subsequent revision by Dr Long approximately 23 years ago. Presents with worsening right hip pain over the past 1-2 weeks. Reports that overall her hip has been fine since her most recent revision has occasional pain however recent flare was quite significant prompting presentation to ED. Workup including x-ray right hip demonstrated no fracture dislocation, labs including WBC 13 ESR 40, CRP 4. Due to concern for possible PJI patient was started on empiric antibiotics admitted to hospital medicine team. Orthopedics consulted over the weekend, seen by Dr. Christian initially however due to history with Dr. Shelton care has been transitioned to [facility] [place] team. Serum chromium and cobalt drawn but still pending. S/p hip aspirat ion with IR team 01/21, initial synovial analysis with WBC 4K, Gram stain negative, fluid culture preliminary no growth. Today during examination pain is improved over the past few days, patient has been ambulating with walker in the hallways. Reports pain located in the anterior hip region/groin but does not seem to flare with passive movements. Review of Systems All systems reviewed & are unremarkable except as noted in HPI & below. Physical Exam * Musculoskeletal: Right hip region with well-healed LYNDON incision. Otherwise no obvious deformity or overlying skin changes to the right hip. Minimal TTP anterior hip region, otherwise no tenderness of the proximal thigh, distal thigh, knee, lower leg. No pain with logroll, passive hip flexion, or IR/ER. AROM foot/ankle intact. Sensation intact plantar/dorsal foot. Brisk capillary refill. Results & Data Results & Data Laboratory Results . Diagnostic Findings . PG Care Time/CCT Total # of Minutes Spent Total Time Spent with Patient: Total time spent is greater than 50% in coordination of care (as documented) at patient's floor/unit and/or counseling patient: Coding Level of Care Code 82654 SUB INP/OBS CARE 05/26MIN Diagnoses Right hip pain M25.551
[2025-01-23 11:12] LABS: Cobalt, Blood 1.0 mcg/L (<=1.8)
--- NOTE | 2025-01-23 17:14 | Discharge Summary ---
Discharge Summary Date of Service January 23, 2025 Principal Dx & Hospital Course #1 = Principal Diagnosis (1) Right hip pain: (2) Hyponatremia: (3) Hypokalemia: (4) Diarrhea: Plan 79-year-old female PMHx MDD, DDD, cerebral meningioma, hyperparathyroidism, sacroiliitis, LPRD, dyslipidemia, OP, HTN, LVH, and a multitude of orthopedic conditions presenting for worsening R hip pain over the past 7 days [employer]. Hip/pelvis XR R total hip arthroplasty, no abnormal alignment or acute osseous traumatic injury. R hip MRI s/p R hip arthroplasty, fluid signal/effusion with foci in joint (? early particle disease), gluteal tendinopathy, small greater trochanteric bursitis. Lumbar spine MRI scoliosis, grade I retrolisthesis of L2/L3, internal fixation L1-L2, diffuse mottling of bone marrow (OP), L spondylosis, multilevel DDD. B/l Doppler study negative for DVT. Did reveal Left bakers cyst. #R Hip Pain - with Wear of articular bearing surface of right LYNDON with possible chromium and/or cobalt toxicity - CRP downtrended from 10.63 to 4.18, Procal negative x 2 - Blood cultures negative x 5 days - Serum cobalt and chromium levels pending - Right hip aspiration 01/21 with elevated synovial WBCs, culture pending - Initially treated with IV Vancomycin to cover for PJI, however after further workup, felt current presentation is more aligned with metallosis rather than PJI so antibiotics were discontinued on 01/22 - Ortho consulted and followed throughout stay - patient to follow-up with Dr. Shelton in his office in 1 week from discharge - Pain regimen: Scheduled Tylenol 1000mg Q8h, oxycodone 5mg Q4h PRN breakthrough pain - Started Celebrex 200 mg daily on discharge - PT/OT recommended return home with home health services #HTN - Continue Amlodipine, HCTZ, spironolactone #Hypokalemia - resolved. K 3.3, Mag 1.9 on admission. Repleted and now remains WNL and stable #Hyponatremia - resolved. Na 135 on admission, s/p IV fluids, now WNL and stable #Diarrhea - resolved - Recent course of oral antibiotics for UTI. Stool Biofire and C diff negative - Stools are now formed. Continue to monitor #HLD- Rosuvastatin - continue #Pain- Baclofen, diclofenac gel prn - continue #OP- Denosumab q6mo - continue as outpatient #Psych- Lamotrigine, duloxetine currently on hold since prior to admission- continue lamotrigine #Insomnia- Melatonin, mirtazapine - continue VTE Prophylaxis: SCDs Dispo: Discharge home with home health services 01/23 Notes For Next Care Provider Patient to follow-up with Dr. Shelton from orthopedics in his office in 1 week. Serum cobalt and chromium levels still pending on discharge. Synovial culture from right hip aspiration still pending on discharge. Medication Changes From Visit Celebrex 200 mg daily x 10 pills Oxycodone 5 mg every 4 hours as needed for severe pain Admission HPI Per Admitting Provider 79-year-old female PMHx MDD, DDD, cerebral meningioma, hyperparathyroidism, sacroiliitis, LPRD, dyslipidemia, OP, HTN, LVH, and a multitude of orthopedic conditions presenting for worsening R hip pain over the past 7 days [employer]. Pt does not remember any triggering events, trauma, or falls that worsened her symptoms. Admits to her LLE being bothersome to her for months prior to this, with unexplained swelling that she was following her orthopedic doctor for. She described her present R hip pain as a severe, 10/10 sharp pain that is mainly at her lateral hip and radiating into her groin. She does admit to LUTS (dysuria) and was recently treated with abx for a UTI. Now having diarrhea x 7 days and complaining of a sore bottom. She denies numbness/tingling. No neuro deficits but her ambulation is limited 2/2 the pain. She is unable to tolerate the pain, stating that even when sitting in a motorized scooter at [facility], her pain was too severe to bare. She denies F/C, CP, SOB, palpitations, abdominal pain, N/V/C, URI symptoms, weakness, syncope, or falls. She is very concerned about her pain. Her initial hip replacement was completed in 1999, with revision in 2001. She states she always hears clicking when she walks. ED evaluation reveals CBC with leukocytosis 12.83, stable H/H; ESR 44, CRP 3.67; CMP Na 135, K 3.3, BUN 27, ratio 28.4, glucose 104; lactate 0.8, 1.2 on repeat; procal 0.06; hip/pelvis XR R total hip arthroplasty, no abnormal alignment or acute osseous traumatic injury; R hip MRI s/p R hip arthroplasty with susceptibility artifacts, mild fluid signal/effusion with suggestion of internal low signal intensity foci in joint (? early particle disease), gluteal tendinopathy, small greater trochanteric bursitis; Lumbar spine MRI S-shaped thoracolumbar scoliosis, grade I retrolisthesis of L2/L3, internal metallic fixation L1-L2, diffuse mottling of bone marrow (OP), marked lumbar spondylosis, multilevel DDD.; Provided with vancomycin, 500 mL NSS, zofran 4mg IV x2, ketorolac 15mg IV, hydromorphone 0.5mg IV x 2, and ceftriaxone 2g IV in ED. Please see Dr. Shelton's attestation for adjustments/additions to treatment plan. Discharge Exam General: No acute distress, nondiaphoretic, well-developed, well-nourished. Skin: Warm, dry. No rashes or peripheral edema noted. Cardiac: Regular rate and rhythm without murmurs gallops or rubs. Pulm: Clear to auscultation bilaterally without wheezes, rales or rhonchi. Normal respiratory effort. 98% on room air. Abdominal: Soft, nontender, nondistended. Bowel sounds present. Extremities: Right hip with well-healed scar from previous arthroplasty. No swelling, erythema, or evidence of superficial infection of right hip. Tolerates some ROM without pain, but full ROM does cause pain in her groin. Neurovascularly intact in lower extremities bilaterally. Neuro: A&O x3. No focal neurological deficits. Discharge Plan Discharge Items Patient Disposition: Home - Home Health Services Reason For Visit: R Hip Pain, ? PJI Discharge Diagnosis: Right hip pain Condition on Discharge: Serious Activity: Per Instructions section Non-emergency contact: Primary Care Provider and Surgeon Call non-emergency contact if: you have any medication questions, your symptoms worsen and your pain is not controlled Follow-up/Referrals: Mihai Shelton MD [Physician] - (Follow-up in 1 week STEFAN FROM OFFICE WILL CALL PATIENT TO SCHEDULE IN 1 WEEK.) Milton López DO [Primary Care Provider] - 01/30/25 11:30 am (Follow-up in 1-2 weeks) Diet: Heart Healthy Diet Texture: Easy to Chew Addtl Attending Provider Instructions: Nu Tamayo, You were admitted to the hospital due to right hip pain. You had a comprehensive workup for this by both the hospitalist team and the orthopedic team. Given your history, exam, and laboratory results, this is not felt to be an infection, so no further antibiotics are indicated at this time. You were evaluated by physical and Occupational Therapy who recommended home health services be set up at home. This has been coordinated by your wrapper caser. Upon discharge from the hospital: * Take Tylenol 1000 mg every 8 hours. Use this as your first-line pain medication. * Take Celebrex 200 mg once daily. This is an anti-inflammatory medication. * Take the oxycodone 5 mg every 4 hours as needed for severe pain. Do not drive or operate heavy machinery while taking oxycodone as it is a narcotic pain medication. * Continue your usual home medications as prescribed. * Follow-up with Dr. Shelton in his office in 1 week. * Follow-up with your PCP in 1-2 weeks. Please return to the hospital if you experience any of the following: Severe uncontrolled pain, fever of 101 F or higher, inability to ambulate, chest pain, difficulty breathing, passing out, confusion, or any other symptoms concerning for you. It was a pleasure taking care of you while you were in the hospital, Stephanie Peter PA-C Pending Studies at Discharge: Yes Studies:: [place]/chromium levels, aspiration cultures Stand-Alone Forms: My [facility], Pain - Opioid Pain Management, Smoking Cessation Medications and DC Order Prescriptions: New oxycodone 5 mg Tablet 5 mg PO Q4H PRN (Reason: pain) Qty: 14 0RF acetaminophen [Tylenol Extra Strength] 500 mg Tablet 1,000 mg PO Q8H Qty: 30 0RF celecoxib [Celebrex] 200 mg capsule 200 mg PO DAILY Qty: 10 0RF Continued (DME) blood pressure monitor Kit See Rx Instructions .ROUTE .MEDSUPPLY Qty: 1 0RF Rx Instructions: AUTOMATIC BLOOD PRESSURE CUFF DX: I10 Probiotic Digest Supp (6-strn) 10 billion cell -100 mg capsule 1 cap PO QAM melatonin 10 mg capsule 10 mg PO HS Prolia 60 mg/mL syringe 60 mg subcut Q6MO Qty: 1 1RF rosuvastatin 5 mg tablet 5 mg PO QPM Qty: 90 3RF hydrochlorothiazide 25 mg tablet 25 mg PO QAM Qty: 90 3RF lamotrigine 100 mg tablet 100 mg PO BID Qty: 60 5RF baclofen 10 mg tablet 10 mg PO BID Qty: 60 2RF spironolactone 25 mg tablet 25 mg PO QAM Qty: 90 3RF duloxetine 60 mg capsule,delayed release(DR/EC) 60 mg PO QAM Qty: 30 5RF Hold Instructions: started mirtazapine for depression aspirin [Keyanna Low Dose Aspirin] 81 mg tablet,delayed release (DR/EC) 81 mg PO QAM Rx Instructions: Take to prevent blood clots. diclofenac sodium 1 % gel 2 g topical QID PRN (Reason: pain) Qty: 100 1RF mirtazapine 15 mg tablet 15 mg PO HS Qty: 30 1RF (DME) [facility] See Rx Instructions .MEDSUPPLY Qty: 1 0RF Rx Instructions: As directed onabotulinumtoxinA 100 unit recon soln 300 unit IM DIRECTED Rx Instructions: NON-COSMETIC USE. 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 calcium carbonate-vitamin D3 [Calcium 600 + D(3)] 600 mg-10 mcg (400 unit) Tablet 1 tab PO BID cholecalciferol (vitamin D3) [Vitamin D3] 50 mcg (2,000 unit) Capsule 50 mcg PO BID amlodipine 10 mg tablet 10 mg PO QAM Discharge Orders: Discharge Order (Routine); Ordered 01/23/25 Ordered By: Stephanie Peter Admission Data Admit Date/Time: 01/18/25 06:13 Attending Provider: Samantha Hyman Admit Provider: Rissa Shelton Primary Care Provider: Milton López Other Providers: Rissa Shelton; Nixon Lees; IRB Approved Study,Vinod; Melida Lindo; Kaila Fu; Aníbal Davenport; Grant Roman; Colin Posadas; Jorge Villegas; Andria Chavez; Morgan Zimmerman Other Interventions: Discharge Summary Assessment (RN) Last Done: 01/23/25 11:09 Hospital Stay Data Consultations 01/18/25 05:33 ED Decision to Admit Stat 01/18/25 11:27 Consult Orthopedic Surgery Routine 01/20/25 09:50 Consult Physician Routine Diagnostic Imagining Performed Hip/Pelvis X-Ray 01/17/25 23:21 Exam(s): XR HIP + PELVIS, 2-3 views EXAM: XR Right Hip With Pelvis When Performed, 2 or 3 Views CLINICAL HISTORY: severe pain in right hip and groin. TECHNIQUE: Two or three views of the right hip with pelvis when performed. COMPARISON: No relevant prior studies available. FINDINGS: Bones/joints: Postsurgical changes consistent with right total hip arthroplasty noted. There is also surgical hardware about the right pelvic bones. No acute osseous abnormality. No abnormal alignment involving the hip arthroplasty. No periprosthetic fracture or lucency. Soft tissues: Unremarkable. IMPRESSION: Right total hip arthroplasty. No abnormal alignment or acute osseous traumatic injury. Electronically signed by: Jimi Dorsey MD 01/18/25 02:25 AM Hip MRI 01/18/25 01:29 EXAM: MR hip RT wo con CLINICAL HISTORY: Severe right hip pain TECHNIQUE: MRI of the right hip joint was performed without intravenous contrast administration. Sequences obtained include coronal T1-weighted, T2-weighted, STIR (Short Tau Inversion Recovery), axial T1-weighted, and T2-weighted sequences. COMPARISON: None. FINDINGS: Articular Structures: Status post right hip arthroplasty, causing susceptibility artifacts. There is a related mild fluid signal/effusion with a suggestion of internal low signal intensity foci within the joint. There is no evidence of acute fracture or dislocation. Muscles and Tendons: The gluteus medius and minimus tendon insertions appear thickened, showing high signal with related mild soft tissue edema. There is no evidence of complete tears. There is a small greater trochanteric bursa. There is a relatively reduced girth of the right periarticular muscles compared to the left side. The rest of the hip muscles and tendons are unremarkable without evidence of tears. Soft Tissues: There is no evidence of soft tissue masses or abnormalities adjacent to the hip joint. There is a small greater trochanteric bursa. There are prominent inguinal lymph nodes. Vascular Structures: There is a normal appearance of the femoral artery and vein without evidence of vascular anomalies. IMPRESSION: 1. Status post right hip arthroplasty, causing susceptibility artifacts. There is a related mild fluid signal/effusion with suggestion of internal low signal intensity foci within the joint, worrisome for early particle disease. Clinical assessment and correlation with other imaging modalities are recommended. 2. Gluteal tendinopathy. 3. Small greater trochanteric bursitis. Electronically signed by Jonathan Ron 01-18-2025 05:26 AM Lumbar Spine MRI 01/18/25 01:51 EXAM: MR lumbar spine wo con CLINICAL HISTORY: eval for low back pain with weakness in legs TECHNIQUE: Different pulse sequences were performed in different planes for the lumbar spine without contrast. Images were sent through PACS for diagnostic interpretation. COMPARISON: No previous studies are available for comparison. FINDINGS: Vertebral Alignment: S-shaped thoracolumbar scoliosis is present. There is a grade I retrolisthesis of L2 over L3. Internal metallic fixation of L1 and L2 is noted. Vertebral Bodies and Intervertebral Discs: There is diffuse mottling of the bone marrow of the scanned spine, suspicious for osteoporosis. Vertebral body height is normal. No fracture is identified. There are no lytic or sclerotic lesions. Marked lumbar spondylosis with anterolateral marginal osteophytosis is present. The intervertebral discs demonstrate disc desiccation and decreased height, as well as opposing vertebral endplate subchondral degenerative marrow changes and Schmorl's nodes. [id number] analysis: T12-L1: There is a 5 mm mild diffuse disc bulge, mildly indenting the thecal sac with mild encroachment upon both neural foraminal fat. L1-L2: There is no focal disc pathology, spinal canal stenosis, or neural foraminal stenosis. L2-L3: There is a diffuse bulge with a central and left paracentral 12 mm disc herniation, compressing the thecal sac with moderate spinal canal stenosis and impingement upon both neural recesses as well as marked encroachment upon both exit foramina, more on the left. L3-L4: There is a moderate 11 mm diffuse disc bulge with left posterolateral protrusion, indenting the thecal sac with effacement of right foraminal fat and mild effacement of left foraminal fat. Mild spinal canal stenosis and moderate left and marked right neural foraminal stenosis are present. L4-L5: There is a mild 6 mm diffuse disc bulge with mild thecal indentation, moderate encroachment upon the right exit foramen, and mild partial left foraminal fat encroachment. L5-S1: There is a mild 3 mm diffuse disc bulge encroaching upon the anterior epidural fat. No spinal canal stenosis is present. There is mild encroachment upon the neural foramina. There is superadded foraminal and spinal canal stenosis due to multilevel facet arthropathy and ligamentum flavum hypertrophy. Spinal Cord and Nerve Roots: The conus medullaris terminates at the L1 level without abnormality. Nerve roots appear unremarkable bilaterally. The lower thoracic spinal cord, conus medullaris, and cauda equina nerve roots are unremarkable. Soft Tissues: A right cortical renal cyst is noted. IMPRESSION: 1. S-shaped thoracolumbar scoliosis. 2. Grade I retrolisthesis of L2 over L3. 3. Internal metallic fixation of L1 and L2 with discal prosthesis. No gross postoperative complications are identified. 4. Diffuse mottling of the bone marrow of the scanned spine, suspicious for osteoporosis. 5. Marked lumbar spondylosis with facet arthritic changes. 6. Multilevel degenerative disc pathologies with different grades of spinal canal and foraminal compromise as described. Electronically signed by Jonathan Ron 01-18-2025 04:27 AM Chest X-Ray 01/18/25 06:59 XR chest 1V portable CLINICAL HISTORY: Requiring O2 COMPARISON STUDY: 12/27/2024 FINDINGS: Stable mild cardiomegaly with mild pulmonary vascular congestion. Stable mild scarring or atelectasis in the lung bases. No new consolidation or pleural effusion. No pneumothorax. IMPRESSION: Stable exam. ACT 112: Negative or not required by law. Electronically signed by: Morgan Zimmerman M.D. 01/18/2025 9:38 AM Venous Doppler Study 01/18/25 14:48 Clinical History: Pain Technique: Venous ultrasound evaluation was performed utilizing grayscale, color Doppler and wave form evaluation. Images were also obtained with and without compression Findings: The bilateral common femoral, superficial femoral, popliteal, and visualized calf veins demonstrate normal anechoic lumens with full compressibility. Normal flow is seen on color Doppler images. Expected waveforms were produced with augmentation maneuvers There is a left knee Mcqueen's cyst, measuring 2.9 x 1.4 x 1.3 cm Impression: 1. No evidence of deep venous thrombosis 2. Left knee Mcqueen's cyst Electronically signed by Luisito Wilkes 01-18-2025 4:39 PM Arthrography Joint Steriod Inject 01/21/25 11:56 Fluoroscopic guided right hip joint aspiration INDICATION: Hip pain with effusion; history of total hip arthroplasty PROCEDURE: Procedure and risks were explained. Informed consent was obtained. A final timeout was completed. The right hip was prepped and draped in sterile fashion. 1% lidocaine was utilized for skin anesthesia. Utilizing fluoroscopic guidance, an 18-gauge 10 cm Chiba needle was advanced down to the right hip joint. Spot images were obtained. Approximately 5 mL of a viscus cloudy yellow fluid was aspirated and sent to the lab for analysis. The needle was removed and Band-Aid applied. The patient tolerated the procedure well. Total fluoroscopy time 17 seconds. Study dose 9.94 mGy. IMPRESSION: Right hip joint aspiration as detailed above. Performed, dictated, and signed by Jimi Murray PA-C; to be co-signed by Dr. Morgan Morgan. Electronically signed by: Morgan Zimmerman M.D. 01/21/2025 2:56 PM Hip X-Ray 01/22/25 11:58 XR hip RT min 2V CLINICAL HISTORY: Check components with hip pain. Need x-table later COMPARISON: 01/17/2025 FINDINGS: Right hip prosthesis and plate screw fixation of the right acetabulum show no hardware complication. No acute fracture or dislocation. No evidence of osteomyelitis. IMPRESSION: No acute findings. ACT 112: Negative or not required by law. Electronically signed by: Morgan Zimmerman M.D. 01/22/2025 2:10 PM Pending Results Patient Have Any Pending Studies at Discharge: Yes Discharge Instructions Given to Patient (Per Discharging Provider) Nic Ogden were admitted to the hospital due to right hip pain. You had a comprehensive workup for this by both the hospitalist team and the orthopedic team. Given your history, exam, and laboratory results, this is not felt to be an infection, so no further antibiotics are indicated at this time. You were evaluated by physical and Occupational Therapy who recommended home health services be set up at home. This has been coordinated by your wrapper caser. Upon discharge from the hospital: * Take Tylenol 1000 mg every 8 hours. Use this as your first-line pain medication. * Take Celebrex 200 mg once daily. This is an anti-inflammatory medication. * Take the oxycodone 5 mg every 4 hours as needed for severe pain. Do not drive or operate heavy machinery while taking oxycodone as it is a narcotic pain medication. * Continue your usual home medications as prescribed. * Follow-up with Dr. Shelton in his office in 1 week. * Follow-up with your PCP in 1-2 weeks. Please return to the hospital if you experience any of the following: Severe uncontrolled pain, fever of 101 F or higher, inability to ambulate, chest pain, difficulty breathing, passing out, confusion, or any other symptoms concerning for you. It was a pleasure taking care of you while you were in the hospital, Stephanie Peter PA-C Supervising Physician Co-Signing Physician Notes PA Supervision Note: I did not personally see or examine the patient today, but I verified all lomeli points of CEDRICK Peter's assessment and plan with the following exceptions/additions: None Total Time Total Time Spent Total Time Spent (In Minutes): Greater than 30 minutes spent completing this discharge process including direct patient care, medication reconciliation, documentation, review of labs and images, and coordination of care. Coding Level of Care Code 88733 INP/OBS DISCH >30 MIN Diagnoses Right hip pain M25.551 Hyponatremia E87.1 Hypokalemia E87.6 Diarrhea R19.7 Diarrhea type: unspecified type
== END 2025-01-23 12:35 | disposition home health service (06) | DRG 560 ==
LOC: SUATTDRO → ED 23:07 → EDINP 01-18 06:13 → SUATTDRO 01-18 06:13 → 3N 01-18 11:00

== ENCOUNTER 2025-03-20 17:39 | Observation (INO) ==
--- NOTE | 2025-03-20 18:21 | Emergency Department Note ---
Impression & Plan Acute CVA (cerebrovascular accident), Left facial numbness ED Provider Note HISTORY OF PRESENT ILLNESS: Patient is a 80-year-old female presenting with left facial numbness. Patient reports that symptoms started about 3 weeks ago. She states that the left side of her face from just under her left eye to her jawline is completely numb. She states that it feels like the left half of her tongue is numb as well. She states that symptoms have been persistent and not improved in the last 3 weeks. She states that she has also had some discomfort in the left trapezius and left side of her neck. She saw a chiropractor twice in the last week. However, symptoms started before seeing the chiropractor. She denies any numbness or tingling in her extremities, but does note that her left leg intermittently feels numb as compared to her right. Denies any previous history of CVA. She is on a baby aspirin daily but no other anticoagulation or antiplatelet therapies. She denies any chest pain or shortness of breath. Denies any fevers or chills. She denies any notable rashes to her face. Denies any changes in her speech or notable facial droop. ROS: as above PHYSICAL EXAM: Constitutional: Patient appears in no acute distress. HENT: Head: Normocephalic and atraumatic. Eyes: EOMI, PERRL Mouth/Throat: Mucous membranes moist. Neck: Trachea midline. Neck supple. Cardiovascular: RRR, No murmurs, rubs or gallops. Intact distal pulses. Pulmonary/Chest: No respiratory distress. Breath sounds clear and equal bilaterally. No wheezes or rales. Abdominal: Abdomen soft, no tenderness, rebound or guarding. Musculoskeletal: No edema, tenderness or deformity noted. Skin: Warm and dry. No rash, erythema, pallor or cyanosis Psychiatric: Appropriate mood and affect for situation. Neurological: Alert and keenly responsive. Facies symmetric. Able to raise eyebrows, close eyes, smile, puff mouth, stick out tongue, move tongue left and right and raise palate symmetrically. Able to shrug shoulders. PERRLA. SILT to forehead below eye and at jawline. Can hear soft noise bilaterally. Good finger to nose. Strength 5/5 in bilateral upper and lower extremities. SILT throughout bilateral upper and lower extremities, but patient reports decrease sensation to light touch on the left lower extremity and left lower face as compared to the right side. MDM: - Vitals signs showed hypertension - History obtained via patient. History as above. - Chronic conditions affecting care: meningioma; hyperparathyroidism; HTN - Differential diagnoses include, but are not limited to: CVA; intracranial hemorrhage; electrolyte abnormality; paresthesia; carotid dissection - Order placed for continuous cardiac monitoring. At this time, monitor showed rate of 87 bpm with normal sinus rhythm, per my interpretation. - External medical records reviewed. Primary care visit note dated 02/28/2025 was reviewed. Patient was seen for a 4-month follow-up visit. She was referred to allergy secondary to her development of hives to nuts. She was prescribed an EpiPen. - EKG image interpreted by myself showed normal sinus rhythm. Rate 74 bpm. QT 400. No acute ischemic changes. - Laboratory workup interpreted by myself showed normal WBC; normal PT/INR; stable electrolytes; normal AST/ALT - CT head wo contrast negative for acute intracranial pathology. - CTA head/neck negative for acute abnormality. However, noted to have a possible small left frontal meningioma. Patient does report she has a history of a pituitary meningioma. - Patient is 3 weeks into symptoms. She is outside of the window for TNK. No obvious large vessel occlusion to warrant transfer for thrombectomy. - MRI brain wo contrast showed a small superior right nasir lacunar infarct. - Patient loaded with 300 mg PO plavix. - Discussed results with patient. Discussed admission for further stroke workup. - Discussion was had with piano case maker about patient's case and need for admission - Hospitalist, Dr. Shelton, consulted for admission [facility] ASSESSMENT AND PLAN: Diagnosis: Acute CVA; left facial numbness Plan: Admit Past Med/Surg History Problem List (Updated 03/20/25 @ 22:55 by Elba Em MD) Left facial numbness (Acute) Acute CVA (cerebrovascular accident) (Acute) Hypertension controlled, stable per pt; white coat hypertension LVH (left ventricular hypertrophy) Diastolic dysfunction Nervus intermedius neuralgia Meningioma, cerebral Esophageal dysphagia H/O total hip arthroplasty Mood disorder Right hip pain Leg pain MDD (major depressive disorder), recurrent episode, mild Abdominal pain DDD (degenerative disc disease), cervical Traumatic coccydynia Cervical dystonia Myofascial pain Cervical paraspinal muscle spasm Cervico-occipital neuralgia Pneumonia Trigeminal neuralgia of left side of face Cervical stenosis of spinal canal Vitamin D deficiency Hyperparathyroidism Sacroiliitis Carpal tunnel syndrome, left Ulnar neuropathy LPRD (laryngopharyngeal reflux disease) controlled, stable per pt; occasional dysphagia with food Dyslipidemia Osteoporosis Arthritis of knee, left Insomnia Medical History (Updated 03/20/25 @ 22:55 by Elba Em MD) Opioid-induced constipation Trigeminal neuralgia of left side of face follows with dr. parekh, pt. states she gets a shot in the back of her neck for htis History of pneumonia (04/2024) per hx, pt can't recall Hypokalemia Hyponatremia Meningioma, cerebral hx, per [place] neuro records Traumatic coccydynia hx, 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 Gave her 2 failed enemas. Resolved with milk of magnesia after seeing dr and getting instructions to take it." Diastolic dysfunction hx, w/LVH Status [place] [facility] [place] (late 2023) per pt. "to help with pain she has deep in her left ear." Cervico-occipital neuralgia left; per [place] neuro record "Her symptoms are not really typical for trigeminal neuralgia and have not responded to standard treatments for this condition, including the recent gamma knife procedure done at [facility]. I suspect she has cervical occipital neuralgia or auricular neuralgia." DDD (degenerative disc disease), cervical Hx of hyperparathyroidism Dyslipidemia Hx of insomnia Cervical stenosis of spinal canal pain with ROM in neck per pt.; has received steroid injections in the past from [place] pain clinic History of dysphagia Hx of abdominal pain "belly hurts when she eats" Ear pain, left "reason for oxycodone" per pt. Per [place] neurology record "Her symptoms are not really typical for trigeminal neuralgia and have not responded to standard treatments for this condition, including the recent gamma knife procedure done at [facility]. I suspect she has cervical occipital neuralgia or auricular neuralgia." Angioedema 07/2024, found to be a reaction to her lisinopril, no longer taking Elevated troponin Hypoxia hx, resolved Acute respiratory failure with hypoxemia hx Fall hx TMJ dysfunction pt denies ever having Glossopharyngeal neuralgia syndrome hx Constipation Hip bursitis, left hx, resolved Hiatal hernia Contusion of left knee hx resolved Vitamin D deficiency LVH (left ventricular hypertrophy) Mild cLVH per 10/2020 Echo Mixed conductive and sensorineural hearing loss of left ear with restricted hearing of right ear History of COVID-19 (~2011) 03/2021-denies hospitalization-denies residual symptoms Hx of migraine headaches Vertigo states no longer has Osteoporosis Acquired deviated nasal septum Stroke (2019) "Mini stroke" to left eye during cataract surgery (2019) > blurry vision residual Knee osteonecrosis, left resolved w/sx. Hip pain left, occasional Depression Anxiety Surgical History Status post left partial knee replacement (12/2022) H/O laparoscopy x2, tubal pregnancies History of esophageal dilatation History of esophagogastroduodenoscopy (EGD) History of trigger finger (01/2021) Right ring + small finger trigger finger release (01/2021, [facility] [place]) History of colonoscopy History of dilatation and curettage Hx of bilateral cataract extraction H/O hemorrhoidectomy History of thumb surgery Left History of tonsillectomy History of lumbar surgery late 50's or early 60's in age, lower back H/O wrist surgery (2018) Left (2018) History of tooth extraction History of hip surgery (2001) Right LYNDON (1999), replacement (2000), repair of replacement (2001) History of appendectomy Family History Brother Cardiac arrest Father Cardiac arrest Mother Cardiac arrest Dementia Other Heart disease Hypertension No family history of adverse response to anesthesia No family history of bleeding disorder Denies family history of Ovarian cancer Breast cancer Lung cancer Colorectal cancer Stroke Social History Smoking Status: Never smoker Second Hand Exposure: No; Do You Dip or Chew Tobacco: No; Hx Alcohol Use: No Hx Substance Use: No Preferred Language: [place]ese Communication Ability: Effective Visual Impairment: No Limitations Hearing Ability: Normal Nutrition Associate Required: No Beliefs That Will Affect Care: None marital status: Current Living Situation: Spouse current occupational status: retired How many Children do You have: 3 Feels Safe at Home: Yes Childhood Exposure to Second-Hand Smoke: No Diet: regular caffeine: No Dental Care, Regularly: Yes Physical Activity Frequency: Does not Exercise Seatbelt Use: always Sunscreen Use: Yes Do you think of yourself as: straight/heterosexual Assistive Devices: Cane, Denture - Upper, Denture - Lower and Walker Allergies Allergies Allergy/AdvReac Type Severity Reaction Status Date / Time lisinopril Allergy Severe angioedema Verified 03/20/25 19:04 nut - unspecified Allergy Severe Hives Verified 03/20/25 19:04 cashew nut Allergy Intermediate Hives Verified 03/20/25 19:04 morphine Allergy Intermediate Hives Verified 03/20/25 19:04 peanut Allergy Intermediate Hives Verified 03/20/25 19:04 Sulfa (Sulfonamide Allergy Intermediate Hives Verified 03/20/25 19:04 Antibiotics) amoxicillin [From Augmentin] AdvReac Intermediate Diarrhea Verified 03/20/25 19:04 cefdinir AdvReac Intermediate Diarrhea Verified 03/20/25 19:04 clavulanic acid AdvReac Intermediate Diarrhea Verified 03/20/25 19:04 [From Augmentin] hydromorphone [From Dilaudid] AdvReac Intermediate Hallucinati Verified 03/20/25 19:04 ons pregabalin AdvReac Intermediate Dizziness Verified 03/20/25 19:04 tramadol AdvReac Intermediate Diarrhea Verified 03/20/25 19:04 Home Meds Home Medications Medication Instructions Recorded Confirmed aspirin 81 mg tablet,delayed 81 mg PO QAM 04/05/23 03/20/25 release (Keyanna Low Dose Aspirin) L.acid,bul,para,rham-B.anim,long 1 cap PO BID 04/30/24 03/20/25 10 billion cell-inulin 100 mg capsule (Probitoic Digestive Support (6 strain)) melatonin 10 mg capsule 10 mg PO HS 04/30/24 03/20/25 calcium 600 mg (as 1 tab PO BID 10/26/24 03/20/25 carbonate)-vitamin D3 10 mcg (400 unit) tablet (Calcium 600 + D(3)) cholecalciferol (vitamin D3) 50 50 mcg PO BID 10/26/24 03/20/25 mcg (2,000 unit) capsule (Vitamin D3) onabotulinumtoxinA 100 unit 300 unit IM DIRECTED 12/26/24 03/20/25 solution for injection acetaminophen 500 mg tablet 1,000 mg PO Q8H PRN Pain 02/11/25 03/20/25 (Tylenol Extra Strength) amlodipine 5 mg tablet 5 mg PO QAM 02/11/25 03/20/25 diclofenac sodium 1 % topical gel 2 g topical QID PRN pain in hip 02/11/25 03/20/25 Previous Rx's Medication Instructions Recorded blood pressure monitor #1 ea 03/11/20 denosumab 60 mg/mL subcutaneous 60 mg subcut Q6MO #1 mL 05/25/24 syringe (Prolia) hydrochlorothiazide 25 mg tablet 25 mg PO QAM #90 tabs 09/25/24 Colin Hose #1 ea 11/26/24 spironolactone 50 mg tablet 50 mg PO QAM #60 tabs 02/04/25 baclofen 10 mg tablet 10 mg PO BID #60 tabs 02/08/25 rosuvastatin 5 mg tablet 5 mg PO QPM #90 tabs 02/19/25 lamotrigine 150 mg tablet 150 mg PO BID #60 tabs 02/25/25 epinephrine 0.3 mg/0.3 mL 0.3 mg (0.3 mL) IM Q10M PRN 02/28/25 injection, auto-injector (EpiPen) anaphylaxis #2 ea mirtazapine 15 mg tablet 15 mg PO HS #90 tabs 03/11/25 Results & Data (ED) Vital Signs Vital Signs - 24 hr 03/20/25 17:43 03/20/25 18:23 03/20/25 19:42 Temperature 36.5 C Temperature Source Temporal Artery Scan Pulse Rate 81 77 74 Pulse Rate from SpO2 Sensor Respiratory Rate 16 17 Respiratory Effort / Characteristics Non-Labored Spontaneous Respiratory Depth Normal Blood Pressure 149/69 H 141/73 H Blood Pressure Mean 95 121 Pulse Oximetry 96 97 Oxygen Delivery Method Room Air Room Air Sepsis Recent Fever Within 48 Hours No Sepsis New/Unexplained Change in Mental Status No Sepsis Action Taken by Nursing No Action Required 03/20/25 20:00 03/20/25 20:12 03/20/25 20:21 Temperature Temperature Source Pulse Rate 75 76 78 Pulse Rate from SpO2 Sensor 78 76 Respiratory Rate 18 19 18 Respiratory Effort / Characteristics Respiratory Depth Blood Pressure 141/73 H 118/61 177/78 H Blood Pressure Mean 95 80 111 Pulse Oximetry 94 98 97 Oxygen Delivery Method Room Air Room Air Room Air Sepsis Recent Fever Within 48 Hours Sepsis New/Unexplained Change in Mental Status Sepsis Action Taken by Nursing 03/20/25 20:30 03/20/25 21:30 03/20/25 22:00 Temperature Temperature Source Pulse Rate 77 75 77 Pulse Rate from SpO2 Sensor 76 77 78 Respiratory Rate 16 19 17 Respiratory Effort / Characteristics Respiratory Depth Blood Pressure 160/76 H 149/78 H 164/84 H Blood Pressure Mean 104 101 110 Pulse Oximetry 99 97 97 Oxygen Delivery Method Room Air Room Air Room Air Sepsis Recent Fever Within 48 Hours Sepsis New/Unexplained Change in Mental Status Sepsis Action Taken by Nursing 03/20/25 22:32 Temperature Temperature Source Pulse Rate 87 Pulse Rate from SpO2 Sensor Respiratory Rate 18 Respiratory Effort / Characteristics Respiratory Depth Blood Pressure 167/85 H Blood Pressure Mean 133 Pulse Oximetry 95 Oxygen Delivery Method Room Air Sepsis Recent Fever Within 48 Hours Sepsis New/Unexplained Change in Mental Status Sepsis Action Taken by Nursing Laboratory Data 03/20/25 18:59 03/20/25 21:14 Lab Results 03/20/25 03/20/25 03/20/25 Range/Units 18:28 18:59 19:11 WBC Cancelled 6.92 RBC Cancelled 4.41 Hgb Cancelled 13.2 POC Hgb 13.9 (12.0-16.0) g/dl Hct Cancelled 39.7 POC Hct 41 (37-47) % MCV Cancelled 90.0 MCH Cancelled 29.9 MCHC Cancelled 33.2 RDW Std Deviation Cancelled 47.8 H RDW Coeff of Jerry Cancelled 14.4 Plt Count Cancelled 225 MPV Cancelled 10.4 Absolute Nucleated RBC Cancelled Nucleated RBC % (auto) Cancelled Platelet Estimate Cancelled PT Cancelled INR Cancelled APTT Cancelled PTT Ratio Cancelled POC Sodium 142 (135-144) mmol/L Sodium 140 (136-145) mmol/L POC Potassium 4.3 (3.3-5.0) mmol/L Potassium TNP POC Chloride 104 (101-112) mmol/L Chloride 104 (98-107) mmol/L Carbon Dioxide 29 (21-32) mmol/L POC Total CO2 27 (24-31) mmol/L Anion Gap 7 (3-11) POC Anion Gap 16.0 (16-25) mmol/L POC BUN 26 H (7-18) mg/dl BUN 23 (6-23) mg/dl Creatinine 1.09 (0.6-1.2) mg/dl POC Creatinine 1.2 (0.6-1.3) mg/dl Est Cr Clr Drug Dosing 40.7 ml/min eGFR 51.68 BUN/Creatinine Ratio 21.1 H (10-20) Glucose 99 (70-99(Fasting)) mg/dl POC Glucose (other) 87 (70-99) mg/dl Calcium 9.3 (8.6-10.3) mg/dl POC Ioniz Calcium Donnie 1.14 (1.12-1.32) mmol/l Magnesium 2.3 (1.7-2.4) mg/dl Total Bilirubin 0.4 (0.2-1.0) mg/dl AST TNP ALT 13 (7-52) U/L Alkaline Phosphatase 40 (34-104) U/L Total Protein 7.0 (6.0-8.3) gm/dl Albumin 3.9 (3.4-5.0) gm/dl Globulin 3.1 (2.5-4.0) gm/dl Albumin/Globulin Ratio 1.3 (0.9-2) Urine Color Urine Appearance (Clear) Urine pH (4.5-7.5) Ur Specific [place] (1.000-1.030) Urine Protein (Negative) Urine Glucose (UA) (Negative) Urine Ketones (Negative) Urine Blood (Negative) Urine Nitrite (Negative) Urine Bilirubin (Negative) Urine Urobilinogen (Negative) Ur Leukocyte Esterase (Negative) Urine WBC (Auto) (0-5) /hpf Urine RBC (Auto) (0-2) /hpf U Hyaline Cast (Auto) (0-2) /lpf U Epithel Cells (Auto) (0-2) /hpf Urine Bacteria (Auto) (None Seen) Urine Comment 03/20/25 03/20/25 Range/Units 21:14 Unknown WBC RBC Hgb POC Hgb (12.0-16.0) g/dl Hct POC Hct (37-47) % MCV MCH MCHC RDW Std Deviation RDW Coeff of Jerry Plt Count MPV Absolute Nucleated RBC Nucleated RBC % (auto) Platelet Estimate PT 9.7 INR 0.9 APTT 24 PTT Ratio 0.9 POC Sodium (135-144) mmol/L Sodium (136-145) mmol/L POC Potassium (3.3-5.0) mmol/L Potassium 4.6 POC Chloride (101-112) mmol/L Chloride (98-107) mmol/L Carbon Dioxide (21-32) mmol/L POC Total CO2 (24-31) mmol/L Anion Gap (3-11) POC Anion Gap (16-25) mmol/L POC BUN (7-18) mg/dl BUN (6-23) mg/dl Creatinine (0.6-1.2) mg/dl POC Creatinine (0.6-1.3) mg/dl Est Cr Clr Drug Dosing ml/min eGFR BUN/Creatinine Ratio (10-20) Glucose (70-99(Fasting)) mg/dl POC Glucose (other) (70-99) mg/dl Calcium (8.6-10.3) mg/dl POC Ioniz Calcium Donnie (1.12-1.32) mmol/l Magnesium (1.7-2.4) mg/dl Total Bilirubin (0.2-1.0) mg/dl AST 19 ALT (7-52) U/L Alkaline Phosphatase (34-104) U/L Total Protein (6.0-8.3) gm/dl Albumin (3.4-5.0) gm/dl Globulin (2.5-4.0) gm/dl Albumin/Globulin Ratio (0.9-2) Urine Color Yellow Urine Appearance Turbid A (Clear) Urine pH >= 9.0 H (4.5-7.5) Ur Specific [place] 1.015 (1.000-1.030) Urine Protein Negative (Negative) Urine Glucose (UA) Negative (Negative) Urine Ketones Negative (Negative) Urine Blood Negative (Negative) Urine Nitrite Negative (Negative) Urine Bilirubin Negative (Negative) Urine Urobilinogen Negative (Negative) Ur Leukocyte Esterase Negative (Negative) Urine WBC (Auto) 0-5 (0-5) /hpf Urine RBC (Auto) 0-2 (0-2) /hpf U Hyaline Cast (Auto) 0-2 (0-2) /lpf U Epithel Cells (Auto) 0-2 (0-2) /hpf Urine Bacteria (Auto) None Seen (None Seen) Urine Comment Administered Medications Discontinued Medications Ioversol (Optiray 320 125ml) 115 ml IV ONCE ONE Stop: 03/20/25 19:23 Last Admin: 03/20/25: Dose: 115 ml Documented By: JANELL Imaging Data Radiologist's Impression: Head CT 03/20/25 18:05 Clinical History: Left facial numbness Technique: Axial computed tomography images were obtained of the brain without intravenous contrast. Comparison is made to the prior CT dated 11/05/2024 Findings: There is unchanged cerebral atrophy, within expected limits for the patient's age. Areas of decreased attenuation are seen within the periventricular white matter, likely representing chronic small vessel ischemic disease. There is no definite sign of acute or old infarction. No intracranial hemorrhage is evident. No definite mass lesion is seen on this noncontrast examination. There is no midline shift or other form of herniation. No hydrocephalus is seen. No fracture is identified. The orbits and the visualized paranasal sinuses appear unremarkable. The mastoid air cells appear clear. Impression: 1. Cerebral atrophy and chronic small vessel ischemic disease 2. Otherwise unremarkable noncontrast CT of the brain Electronically signed by Luisito Wilkes 03-20-2025 7:44 PM Head CTA 03/20/25 18:05 Clinical History: Left facial numbness Technique: Axial computed tomography images were obtained of the brain after the administration of intravenous contrast according to the CT angiogram protocol Findings: There is calcified plaque within the cavernous and supraclinoid segments of the internal carotid arteries bilaterally, without stenosis No definite stenosis or aneurysm is seen of the anterior, middle, or posterior cerebral artery circulations. There is a prominent right posterior communicating artery. The visualized vertebral arteries and the basilar artery appear unremarkable There is a possible 7 mm left frontal meningioma Impression: 1. No definite stenosis or aneurysm of the intracranial arteries 2. Possible small left frontal meningioma. A follow-up MRI of the brain with and without contrast could be obtained Electronically signed by Luisito Wilkes 03-20-2025 7:53 PM Neck CTA 03/20/25 18:05 Clinical history: Left facial numbness Technique: Axial computed tomography images were obtained of the neck after the administration of intravenous contrast according to the CT angiogram protocol Findings: No stenosis is seen of the common carotid arteries bilaterally. There is a mild stenosis of the left carotid bulb and proximal left internal carotid artery with approximately 30% diameter narrowing. There is mild plaque in the right carotid bulb and proximal right internal carotid artery, without stenosis. There is tortuosity of the mid internal carotid arteries bilaterally. There is a severe stenosis of the proximal right external carotid artery. There is a mild stenosis of the proximal left external carotid artery The left vertebral artery is dominant. No definite vertebral artery stenosis is seen. The visualized thoracic aorta appears unremarkable There is multilevel degenerative disc disease and osteoarthritis of the cervical spine. Impression: 1. Mild stenosis of the left carotid bulb and proximal left ICA 2. Bilateral ECA stenosis Electronically signed by Luisito Wilkes 03-20-2025 8:00 PM Brain MRI 03/20/25 19:55 Exam(s): MRI HEAD Without Contrast EXAM: MR Head Without Intravenous Contrast CLINICAL HISTORY: L facial numbness. NUMBNESS LEFT SIKHISM TO LEFT SIDE OF CHIN X COUPLE WEEKS HEADACHE HX OF MINI STROKE 4-5 YRS. AGO TECHNIQUE: Magnetic resonance images of the head/brain without intravenous contrast in multiple planes. COMPARISON: CT Brain 03-20-2025. FINDINGS: Brain: Age-appropriate central and peripheral atrophy. No acute stroke. Small lacunar infarct in the superior right nasir. Moderate degree of supratentorial periventricular and subcortical white matter hyperintensities on FLAIR and T2-weighted images. Ventricles: No midline shift. No ventriculomegaly. Bones/joints: Unremarkable. No acute fracture. Sinuses: Unremarkable as visualized. No acute sinusitis. Mastoid air cells: Unremarkable as visualized. No mastoid effusion. Orbits: Unremarkable as visualized. IMPRESSION: 1. No acute stroke or hemorrhage. 2. Small superior right nasir lacunar infarct. 3. Nonspecific white matter changes most commonly seen with small vessel disease. Electronically signed by: Cleveland Crawley M.D. 03/20/25 22:18 PM Discharge Plan Visit Data Chief Complaint: TIA Symptoms Stated Complaint: NUMBNESS, LT VISION BAD ED Provider: Elba Em Discharge Problem: Acute CVA (cerebrovascular accident), Left facial numbness Patient Disposition: Admitted As Inpatient Condition: Fair Forms Stand Alone Forms: My [facility] [employer] Prescriptions Prescriptions: No Action (DME) blood pressure monitor Kit See Rx Instructions .ROUTE .MEDSUPPLY Qty: 1 0RF Rx Instructions: AUTOMATIC BLOOD PRESSURE CUFF DX: I10 Probiotic Digest Supp (6-strn) 10 billion cell -100 mg capsule 1 cap PO BID melatonin 10 mg capsule 10 mg PO HS Prolia 60 mg/mL syringe 60 mg subcut Q6MO Qty: 1 1RF hydrochlorothiazide 25 mg tablet 25 mg PO QAM Qty: 90 3RF baclofen 10 mg tablet 10 mg PO BID Qty: 60 2RF rosuvastatin 5 mg tablet 5 mg PO QPM Qty: 90 3RF mirtazapine 15 mg tablet 15 mg PO HS Qty: 90 1RF aspirin [Keyanna Low Dose Aspirin] 81 mg tablet,delayed release (DR/EC) 81 mg PO QAM Rx Instructions: Take to prevent blood clots. lamotrigine 150 mg tablet 150 mg PO BID Qty: 60 5RF epinephrine [EpiPen] 0.3 mg/0.3 mL auto-injector 0.3 mg IM Q10M PRN (Reason: anaphylaxis) Qty: 2 0RF Rx Instructions: for 2 doses spironolactone 50 mg tablet 50 mg PO QAM Qty: 60 0RF (DME) Colin Rea [facility] [place] See Rx Instructions .MEDSUPPLY Qty: 1 0RF Rx Instructions: As directed onabotulinumtoxinA 100 unit recon soln 300 unit IM DIRECTED Rx Instructions: NON-COSMETIC USE. 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- every 3 months calcium carbonate-vitamin D3 [Calcium 600 + D(3)] 600 mg-10 mcg (400 unit) Tablet 1 tab PO BID cholecalciferol (vitamin D3) [Vitamin D3] 50 mcg (2,000 unit) Capsule 50 mcg PO BID amlodipine 5 mg tablet 5 mg PO QAM acetaminophen [Tylenol Extra Strength] 500 mg tablet 1,000 mg PO Q8H PRN (Reason: Pain) diclofenac sodium 1 % gel 2 g topical QID PRN (Reason: pain in hip) Referrals Referrals: Milton López DO [Primary Care Provider] -
[2025-03-20 19:09] LABS: Alanine Aminotransferase 13 U/L (7-52); Albumin Globulin Ratio 1.3 (0.9-2); Albumin Level 3.9 gm/dl (3.4-5.0); Alkaline Phosphatase 40 U/L (34-104); Anion Gap 7 (3-11); Bilirubin,Total 0.4 mg/dl (0.2-1.0); Blood Urea Nitrogen 23 mg/dl (6-23); Calcium 9.3 mg/dl (8.6-10.3); Carbon Dioxide 29 mmol/L (21-32); Chloride 104 mmol/L (98-107); Creatinine Clr Calc Pharmacy 40.7 ml/min; Globulin 3.1 gm/dl (2.5-4.0); Glucose 99 mg/dl (70-99(Fasting)); Magnesium 2.3 mg/dl (1.7-2.4); Sodium 140 mmol/L (136-145); Total Protein 7.0 gm/dl (6.0-8.3)
[2025-03-20 19:23] LABS: Hematocrit (blood only) 39.7 % (37.0-47.0); Hemoglobin 13.2 g/dL (12.0-16.0); Mean Corpuscular Hemoglobin 29.9 pg (25.0-34.0); Mean Corpuscular Volume 90.0 fL (80.0-100.0); Platelet Count 225 K/uL (130-400); RDW Standard Deviation 47.8 fL (36.4-46.3); Red Blood Count 4.41 M/uL (4.20-5.40); White Blood Count 6.92 K/ul (4.8-10.8)
[2025-03-20] MEDS: OPTIRAY 320 125ml IV ONE (19:23)
--- NOTE | 2025-03-20 19:44 | CT Scan Report ---
Clinical History: Left facial numbness Technique: Axial computed tomography images were obtained of the brain without intravenous contrast. Comparison is made to the prior CT dated 11/05/2024 Findings: There is unchanged cerebral atrophy, within expected limits for the patient's age. Areas of decreased attenuation are seen within the periventricular white matter, likely representing chronic small vessel ischemic disease. There is no definite sign of acute or old infarction. No intracranial hemorrhage is evident. No definite mass lesion is seen on this noncontrast examination. There is no midline shift or other form of herniation. No hydrocephalus is seen. No fracture is identified. The orbits and the visualized paranasal sinuses appear unremarkable. The mastoid air cells appear clear. Impression: 1. Cerebral atrophy and chronic small vessel ischemic disease 2. Otherwise unremarkable noncontrast CT of the brain Electronically signed by Luisito Wilkes 03-20-2025 7:44 PM
--- NOTE | 2025-03-20 19:53 | CT Scan Report ---
Clinical History: Left facial numbness Technique: Axial computed tomography images were obtained of the brain after the administration of intravenous contrast according to the CT angiogram protocol Findings: There is calcified plaque within the cavernous and supraclinoid segments of the internal carotid arteries bilaterally, without stenosis No definite stenosis or aneurysm is seen of the anterior, middle, or posterior cerebral artery circulations. There is a prominent right posterior communicating artery. The visualized vertebral arteries and the basilar artery appear unremarkable There is a possible 7 mm left frontal meningioma Impression: 1. No definite stenosis or aneurysm of the intracranial arteries 2. Possible small left frontal meningioma. A follow-up MRI of the brain with and without contrast could be obtained Electronically signed by Luisito Wilkes 03-20-2025 7:53 PM
--- NOTE | 2025-03-20 20:02 | CT Scan Report ---
Clinical history: Left facial numbness Technique: Axial computed tomography images were obtained of the neck after the administration of intravenous contrast according to the CT angiogram protocol Findings: No stenosis is seen of the common carotid arteries bilaterally. There is a mild stenosis of the left carotid bulb and proximal left internal carotid artery with approximately 30% diameter narrowing. There is mild plaque in the right carotid bulb and proximal right internal carotid artery, without stenosis. There is tortuosity of the mid internal carotid arteries bilaterally. There is a severe stenosis of the proximal right external carotid artery. There is a mild stenosis of the proximal left external carotid artery The left vertebral artery is dominant. No definite vertebral artery stenosis is seen. The visualized thoracic aorta appears unremarkable There is multilevel degenerative disc disease and osteoarthritis of the cervical spine. Impression: 1. Mild stenosis of the left carotid bulb and proximal left ICA 2. Bilateral ECA stenosis Electronically signed by Luisito Wilkes 03-20-2025 8:00 PM
[2025-03-20 20:52] LABS: Appearance Urine Turbid (Clear); Bacteria Urine Automated None Seen (None Seen); Cast Urine Automated 0-2 /lpf (0-2); Epithelial Cell Urine Auto 0-2 /hpf (0-2); Glucose Urine UA Negative (Negative); RBC Urine Automated 0-2 /hpf (0-2); WBC Urine Automated 0-5 /hpf (0-5)
[2025-03-20 22:05] LABS: Potassium 4.6 mmol/L (3.5-5.1)
[2025-03-20 22:17] LABS: INR 0.9 (0.9-1.1); Partial Thromboplastin Time 24 Seconds (21-31); Prothrombin Time 9.7 Seconds (9.0-12.0)
--- NOTE | 2025-03-20 22:19 | Magnetic Resonance Report ---
Exam(s): MRI HEAD Without Contrast EXAM: MR Head Without Intravenous Contrast CLINICAL HISTORY: L facial numbness. NUMBNESS LEFT JAIN TO LEFT SIDE OF CHIN X COUPLE WEEKS HEADACHE HX OF MINI STROKE 4-5 YRS. AGO TECHNIQUE: Magnetic resonance images of the head/brain without intravenous contrast in multiple planes. COMPARISON: CT Brain 03-20-2025. FINDINGS: Brain: Age-appropriate central and peripheral atrophy. No acute stroke. Small lacunar infarct in the superior right nasir. Moderate degree of supratentorial periventricular and subcortical white matter hyperintensities on FLAIR and T2-weighted images. Ventricles: No midline shift. No ventriculomegaly. Bones/joints: Unremarkable. No acute fracture. Sinuses: Unremarkable as visualized. No acute sinusitis. Mastoid air cells: Unremarkable as visualized. No mastoid effusion. Orbits: Unremarkable as visualized. IMPRESSION: 1. No acute stroke or hemorrhage. 2. Small superior right nasir lacunar infarct. 3. Nonspecific white matter changes most commonly seen with small vessel disease. Electronically signed by: Cleveland Crawley M.D. 03/20/25 22:18 PM
[2025-03-20] MEDS: CLOPIDOGREL BISULFATE 300 MG TAB PO STA (23:13)
--- NOTE | 2025-03-20 23:16 | History & Physical Report ---
Date of Service March 20, 2025 Assessment & Plan (1) Acute CVA (cerebrovascular accident): (2) Left facial numbness: (3) Left leg numbness: (4) Left hip pain: Plan Patient is a 80-year-old female with a past medical history of HTN, HLD, left trigeminal neuralgia, anxiety, depression, insomnia. Patient presented due to 3 weeks of left facial numbness that extends from her left eye to her jawline and through her tongue as well as left lower extremity numbness and pain. She also sustained a fall at home approximately one week ago resulting in significant left hip pain and ambulatory dysfunction. Workup in the ED revealed a small superior R nasir lacunar infarct on MRI, she is being admitted for further CVA workup and to have PT/OT evals. #CVA/left facial numbness/left LE numbness - Brain MRI revealed small superior R nasir lacunar infarct. Neck CTA with mild stenosis of left carotid bulb and proximal left ICA, BL ECA stenosis. Head CTA negative, head CT with cerebral atrophy and chronic small vessel ischemic dz. - stroke without TNK order set (given symptoms present for several weeks) - active ROM, Q4H neuro checks, pt/ot evals, speech eval - plavix load of 300 mg PO given in ED, continue with 75 mg daily - continue daily ASA 81mg PO - increase home rosuvastatin from 5mg to 20 mg HS (1st dose 03/20) - Telemetry monitoring - echo with bubble study ordered - lipid panel and A1C with AM labs - follow up with neurologist, Dr. Ott, in outpatient setting #left hip pain - with numbness for several weeks associated with above. Significant pain after a fall from chair approx 1 week ago. - Hip/Pelvis XR ordered - Lidoderm patch ordered - Tylenol prn - PT/OT ordered #constipation - reported for several days. - miralax daily - colace prn - defer imaging as nontender abd exam, without n/v - if clinically declines consider KUB #HTN - continue amlodipine, HCTZ, and spironolactone #HLD - increase rosuvastatin as above #mental health/insomnia - continue melatonin, mirtazapine, lamotrigine VTE ppx: SCDs Dispo:med/tele, obs - possible dc 03/21 Admission and Anticipated Discharge Date Admission Date: 03/20/25 History of Present Illness Chief Complaint: TIA symptoms Primary Care Provider: Milton López DO Patient is a 80-year-old female with a past medical history of HTN, HLD, left trigeminal neuralgia, anxiety, depression, insomnia. Patient presented due to 3 weeks of left facial numbness that extends from her left eye to her jawline and through her tongue as well as left lower extremity numbness and pain. She also sustained a fall at home approximately one week ago resulting in significant left hip pain and ambulatory dysfunction. Workup in the ED revealed a small superior R nasir lacunar infarct on MRI, she is being admitted for further CVA workup and to have PT/OT evals. Patient seen at bedside with her present. Patient stated that 3 weeks ago she developed sudden onset left facial numbness and tingling that extends from her left eye down to her jaw and through her tongue. She also has pain of her left eye and reports difficultly swallowing. She stated several weeks ago she also developed left neck pain and left leg numbness which have all occurred around the same time. She went to the chiropractor twice last week for this however it did not help her symptoms. She denies any dizziness, lightheadedness, confusion, facial droop, slurred speech. She denies any history of previous CVA however stated she had a mini stroke after her cataract surgery several years ago. Patient also reports that she fell off of a chair while trying to get her medications from the top of the fridge about 1 week ago striking her head on the cabinet. She denies any trauma to her leg however since then has had worsening leg pain and difficulty with ambulation. She stated she has had her right hip replaced 3 times and is greatly concerned about this. Strength is decrease of left lower extremity, however pain is well- controlled if she is not moving. Patient is also concerned that she is not had a bowel movement in several days, abdomen is nontender. She did take MiraLAX today however has not yet had a bowel movement. She denies any nicotine or alcohol use. She is due for her evening medications. She wishes to be full code. Patient stated she already follows with established neurologist, Dr. Ott. Allergies Allergy/AdvReac Type Severity Reaction Status Date / Time lisinopril Allergy Severe angioedema Verified 03/20/25 19:04 nut - unspecified Allergy Severe Hives Verified 03/20/25 19:04 cashew nut Allergy Intermediate Hives Verified 03/20/25 19:04 morphine Allergy Intermediate Hives Verified 03/20/25 19:04 peanut Allergy Intermediate Hives Verified 03/20/25 19:04 Sulfa (Sulfonamide Allergy Intermediate Hives Verified 03/20/25 19:04 Antibiotics) amoxicillin [From Augmentin] AdvReac Intermediate Diarrhea Verified 03/20/25 19:04 cefdinir AdvReac Intermediate Diarrhea Verified 03/20/25 19:04 clavulanic acid AdvReac Intermediate Diarrhea Verified 03/20/25 19:04 [From Augmentin] hydromorphone [From Dilaudid] AdvReac Intermediate Hallucinati Verified 03/20/25 19:04 ons pregabalin AdvReac Intermediate Dizziness Verified 03/20/25 19:04 tramadol AdvReac Intermediate Diarrhea Verified 03/20/25 19:04 Home Medications Medication Instructions Recorded Confirmed Type blood pressure monitor #1 ea 03/11/20 02/28/25 Rx aspirin 81 mg tablet,delayed 81 mg PO QAM 04/05/23 03/20/25 History release (Keyanna Low Dose Aspirin) L.acid,bul,para,rham-B.anim,long 1 cap PO BID 04/30/24 03/20/25 History 10 billion cell-inulin 100 mg capsule (Probitoic Digestive Support (6 strain)) melatonin 10 mg capsule 10 mg PO HS 04/30/24 03/20/25 History denosumab 60 mg/mL subcutaneous 60 mg subcut Q6MO #1 mL 05/25/24 03/20/25 Rx syringe (Prolia) hydrochlorothiazide 25 mg tablet 25 mg PO QAM #90 tabs 09/25/24 03/20/25 Rx calcium 600 mg (as 1 tab PO BID 10/26/24 03/20/25 History carbonate)-vitamin D3 10 mcg (400 unit) tablet (Calcium 600 + D(3)) cholecalciferol (vitamin D3) 50 50 mcg PO BID 10/26/24 03/20/25 History mcg (2,000 unit) capsule (Vitamin D3) Colin Rea #1 ea 11/26/24 02/28/25 Rx onabotulinumtoxinA 100 unit 300 unit IM DIRECTED 12/26/24 03/20/25 History solution for injection spironolactone 50 mg tablet 50 mg PO QAM #60 tabs 02/04/25 03/20/25 Rx baclofen 10 mg tablet 10 mg PO BID #60 tabs 02/08/25 03/20/25 Rx acetaminophen 500 mg tablet 1,000 mg PO Q8H PRN Pain 02/11/25 03/20/25 History (Tylenol Extra Strength) amlodipine 5 mg tablet 5 mg PO QAM 02/11/25 03/20/25 History diclofenac sodium 1 % topical gel 2 g topical QID PRN pain in hip 02/11/25 03/20/25 History lamotrigine 150 mg tablet 150 mg PO BID #60 tabs 02/25/25 03/20/25 Rx epinephrine 0.3 mg/0.3 mL 0.3 mg (0.3 mL) IM Q10M PRN 02/28/25 03/20/25 Rx injection, auto-injector (EpiPen) anaphylaxis #2 ea mirtazapine 15 mg tablet 15 mg PO HS #90 tabs 03/11/25 03/20/25 Rx clopidogrel 75 mg tablet 75 mg PO QAM #30 tabs 03/21/25 Rx rosuvastatin 20 mg tablet 20 mg PO QPM #30 tabs 03/21/25 Rx Past Med/Surg History Problem List (Updated 03/21/25 @ 00:34 by Neetu Hernandez PA-C) Left hip pain Left leg numbness Left facial numbness (Acute) Acute CVA (cerebrovascular accident) (Acute) Hypertension controlled, stable per pt; white coat hypertension LVH (left ventricular hypertrophy) Diastolic dysfunction Nervus intermedius neuralgia Meningioma, cerebral Esophageal dysphagia H/O total hip arthroplasty Mood disorder Right hip pain Leg pain MDD (major depressive disorder), recurrent episode, mild Abdominal pain DDD (degenerative disc disease), cervical Traumatic coccydynia Cervical dystonia Myofascial pain Cervical paraspinal muscle spasm Cervico-occipital neuralgia Pneumonia Trigeminal neuralgia of left side of face Cervical stenosis of spinal canal Vitamin D deficiency Hyperparathyroidism Sacroiliitis Carpal tunnel syndrome, left Ulnar neuropathy LPRD (laryngopharyngeal reflux disease) controlled, stable per pt; occasional dysphagia with food Dyslipidemia Osteoporosis Arthritis of knee, left Insomnia Medical History (Updated 03/21/25 @ 00:34 by Neetu Hernandez PA-C) Opioid-induced constipation Trigeminal neuralgia of left side of face follows with dr. parekh, pt. states she gets a shot in the back of her neck for htis History of pneumonia (04/2024) per hx, pt can't recall Hypokalemia Hyponatremia Meningioma, cerebral hx, per [place] neuro records Traumatic coccydynia hx, 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 Gave her 2 failed enemas. Resolved with milk of magnesia after seeing dr and getting instructions to take it." Diastolic dysfunction hx, w/LVH Status post gamma knife [place] [facility] [place] (late 2023) per pt. "to help with pain she has deep in her left ear." Cervico-occipital neuralgia left; per [place] neuro record "Her symptoms are not really typical for trigeminal neuralgia and have not responded to standard treatments for this condition, including the recent gamma knife procedure done at [facility]. I suspect she has cervical occipital neuralgia or auricular neuralgia." DDD (degenerative disc disease), cervical Hx of hyperparathyroidism Dyslipidemia Hx of insomnia Cervical stenosis of spinal canal pain with ROM in neck per pt.; has received steroid injections in the past from [place] pain clinic History of dysphagia Hx of abdominal pain "belly hurts when she eats" Ear pain, left "reason for oxycodone" per pt. Per [place] neurology record "Her symptoms are not really typical for trigeminal neuralgia and have not responded to standard treatments for this condition, including the recent gamma knife procedure done at [facility]. I suspect she has cervical occipital neuralgia or auricular neuralgia." Angioedema 07/2024, found to be a reaction to her lisinopril, no longer taking Elevated troponin Hypoxia hx, resolved Acute respiratory failure with hypoxemia hx Fall hx TMJ dysfunction pt denies ever having Glossopharyngeal neuralgia syndrome hx Constipation Hip bursitis, left hx, resolved Hiatal hernia Contusion of left knee hx resolved Vitamin D deficiency LVH (left ventricular hypertrophy) Mild cLVH per 10/2020 Echo Mixed conductive and sensorineural hearing loss of left ear with restricted hearing of right ear History of COVID-19 (~2011) 03/2021-denies hospitalization-denies residual symptoms Hx of migraine headaches Vertigo states no longer has Osteoporosis Acquired deviated nasal septum Stroke (2019) "Mini stroke" to left eye during cataract surgery (2019) > blurry vision residual Knee osteonecrosis, left resolved w/sx. Hip pain left, occasional Depression Anxiety Surgical History Status post left partial knee replacement (12/2022) H/O laparoscopy x2, tubal pregnancies History of esophageal dilatation History of esophagogastroduodenoscopy (EGD) History of trigger finger (01/2021) Right ring + small finger trigger finger release [place], [facility] [place] History of colonoscopy History of dilatation and curettage Hx of bilateral cataract extraction H/O hemorrhoidectomy History of thumb surgery Left History of tonsillectomy History of lumbar surgery late 50's or early 60's in age, lower back H/O wrist surgery (2018) Left (2018) History of tooth extraction History of hip surgery (2001) Right LYNDON (1999), replacement (2000), repair of replacement (2001) History of appendectomy Family History Brother Cardiac arrest Father Cardiac arrest Mother Cardiac arrest Dementia Other Heart disease Hypertension No family history of adverse response to anesthesia No family history of bleeding disorder Denies family history of Ovarian cancer Breast cancer Lung cancer Colorectal cancer Stroke Social History Smoking Status: Never smoker Second Hand Exposure: No; Do You Dip or Chew Tobacco: No; Hx Alcohol Use: No Hx Substance Use: No Preferred Language: Guamanian Communication Ability: Effective Visual Impairment: No Limitations Hearing Ability: Normal [place] Required: No Beliefs That Will Affect Care: None marital status: Current Living Situation: Spouse current occupational status: retired How many Children do You have: 3 Feels Safe at Home: Yes Childhood Exposure to Second-Hand Smoke: No Diet: regular caffeine: No Dental Care, Regularly: Yes Physical Activity Frequency: Does not Exercise Seatbelt Use: always Sunscreen Use: Yes Do you think of yourself as: straight/heterosexual Assistive Devices: Cane and Walker Review of Systems Review of Systems: see HPI Physical Exam 2 Physical Exam: The patient is awake, alert and oriented 3, well developed and well nourished, normocephalic and atraumatic, in no acute distress. Non-toxic appearing. HEENT- EOMI, mucous membranes dry. Hearing grossly intact. Heart-normal S1 and S2. No murmurs, rubs or gallops. Lungs-clear bilaterally, no respiratory distress, no accessory muscle use. Abdomen-normal bowel sounds and soft. No ascites noted. Non-tender. Extremities- no clubbing, cyanosis, or edema. Psychiatric-normal affect. Musculoskeletal: 4/5 strength of L LE, limited due to jing n 5/5 strength R LE Neurologic: PERRL, EOMI, accommodation nl, no face palsy, no dysarthria no focal motor deficits and not confused Motor/Sensory: + sensory deficit (decreased sensation to left facial region ) Results & Data Results & Data Vital Signs (Past 12 Hours) Vital Signs Temp Pulse Resp BP Pulse Ox O2 Del Method 03/20/25 22:32 87 18 167/85 H 95 Room Air 03/20/25 22:00 77 17 164/84 H 97 Room Air 03/20/25 21:30 75 19 149/78 H 97 Room Air 03/20/25 20:30 77 16 160/76 H 99 Room Air 03/20/25 20:21 78 18 177/78 H 97 Room Air 03/20/25 20:12 76 19 118/61 98 Room Air 03/20/25 20:00 75 18 141/73 H 94 Room Air 03/20/25 19:42 74 17 141/73 H 97 Room Air 03/20/25 18:23 77 03/20/25 17:43 36.5 C 81 16 149/69 H 96 Room Air Laboratory Results Reviewed CBC, PT/INR, CMP, UA, mag Diagnostic Findings reviewed head CT, head CTA, neck CTA, brain MRI ordered BL hip XR Medications Administered Plavix 300 mg PO ECG Additional Comments: ordered Code Status & VTE Plan Code Status full code VTE Prophylaxis Plan VTE Prophylaxis will be ordered: Yes Supervising Physician Co-Signing Physician Notes Patient seen and examined, chart reviewed, case discussed with KYAW Hernandez and I agree with the assessment and plan as above. In brief, patient is a 80yo female presenting with two weeks of left sided facial numbness, left groin pain. On exam patient is resting comfortably, NAD Left facial numbness No acute motor deficits Pain with palpation of left inguinal crease, no hernia, no LAD Labs and images reviewed Assessment/Plan -Plavix load provided in the ER. -Continue ASA and Plavix -Increase Crestor to 20mg daily -Check echo with bubble -Remainder as above PG Care Time/CCT Total # of Minutes Spent Total Time Spent with Patient: Total time spent is greater than 50% in coordination of care (as documented) at patient's floor/unit and/or counseling patient: Coding Level of Care Code 18726 INT INP/OBS CARE 375MIN Diagnoses Acute CVA (cerebrovascular accident) I63.9 Left facial numbness R20.0 Left leg numbness R20.0 Left hip pain M25.552
[2025-03-21] MEDS: MIRTAZAPINE TAB 15 MG TAB PO ONE (00:14)
[2025-03-21] MEDS: MELATONIN 3 MG TAB PO ONE (00:14)
[2025-03-21] MEDS: ROSUVASTATIN CALCIUM 20 MG TAB PO STA (00:14)
[2025-03-21] MEDS: LIDOCAINE 5% 1 PATCH TD STA (00:15)
[2025-03-21] MEDS: lamoTRIgine 25 MG TAB PO STA (00:15)
--- NOTE | 2025-03-21 01:14 | XRay Report ---
EXAM: XR hip MALENA 2v w pelvis CLINICAL HISTORY: hip pain, fall TECHNIQUE: X-ray images of both hip joints in AP and lateral and pelvis were obtained in anteroposterior (AP) projection. COMPARISON: Comparison of right hip. 01/22/2025, CR Right hip FINDINGS: Pelvic Bones: There is evidence of hip replacement surgery on right side with implants seen in femoral and acetabular component. Implants are in appropriate in position. No definite evidence of loosening Lucencies is identified surrounding the implants likely due to osteopenia No evidence of fractures, dislocations Acetabular structures appear normal on left side. Implants are identified in the right acetabular region. No signs of acetabular fracture or dysplasia on left side Femoral heads are normal and centered within the acetabulum on left side. No evidence of fractures, avascular necrosis, or significant deformities. Hip Joints: Mild reduced hip joint space on the left side likely due to degenerative changes Small osteophytes are seen along acetabulum Mild degenerative changes seen in both sacroiliac joints Symphysis Pubis: The area of pubic symphysis is partially obscured, due to density projecting over it Soft Tissues: Visualized soft tissues are normal and unremarkable. No soft tissue swelling, calcifications, or masses. Additional Findings: No other significant abnormalities noted. Density is seen in the pelvis in midline and projecting over the pubic symphysis and superior pubic rami bilaterally Indeterminate tube is projecting over the pelvis Enthesopathy is identified along the left iliac blade IMPRESSION: No evidence of acute fracture in visualized bones Redemonstration of implants due to right hip replacement surgery, without definite evidence of loosening Mild degenerative changes in the left hip joint and both sacroiliac joints Density is seen in the pelvis in midline and projecting over the pubic symphysis and superior pubic rami bilaterally. Please correlate clinically, if there is any prior procedure Disclaimer: A subtle bone abnormality or fracture may not be readily apparent on X-rays, thus clinical correlation and further imaging including follow-up CT, MRI, or follow-up X-rays are advised as needed. Electronically signed by Jonathan Ron 03-21-2025 01:13 AM
[2025-03-21] MEDS ORDERED: ONDANSETRON INJ 2 MG/ML 2 ML VIAL IV PRN (01:38)
[2025-03-21] MEDS ORDERED: MELATONIN 3 MG TAB PO PRN (01:38)
[2025-03-21] MEDS ORDERED: DOCUSATE SODIUM 100 MG CAP PO PRN (01:38)
[2025-03-21] MEDS ORDERED: PHARMACIST DISCHARGE MED REC CONSULT PRN (01:38)
[2025-03-21 06:30] LABS: Hematocrit (blood only) 39.8 % (37.0-47.0); Hemoglobin 13.0 g/dL (12.0-16.0); Immature Granulocytes # (auto) 0.02 K/uL (0.01-0.20); Immature Granulocytes % (auto) 0.3 %; Mean Corpuscular Hemoglobin 28.6 pg (25.0-34.0); Mean Corpuscular Volume 87.5 fL (80.0-100.0); Platelet Count 210 K/uL (130-400); RDW Standard Deviation 46.5 fL (36.4-46.3); Red Blood Count 4.55 M/uL (4.20-5.40); White Blood Count 5.80 K/ul (4.8-10.8)
[2025-03-21 07:10] LABS: Alanine Aminotransferase 12.0 U/L (7-52); Albumin Globulin Ratio 1.5 (0.9-2); Albumin Level 4.3 gm/dl (3.4-5.0); Alkaline Phosphatase 38.0 U/L (34-104); Anion Gap 11.0 (3-11); Bilirubin,Total 0.7 mg/dl (0.2-1.0); Blood Urea Nitrogen 17.0 mg/dl (6-23); Calcium 9.4 mg/dl (8.6-10.3); Carbon Dioxide 22.0 mmol/L (21-32); Chloride 102.0 mmol/L (98-107); Cholesterol 169.0 mg/dl (0-200); Creatinine Clr Calc Pharmacy 51.9 ml/min; Globulin 2.9 gm/dl (2.5-4.0); Glucose 122.0 mg/dl (70-99(Fasting)); HDL Cholesterol 87.0 mg/dl; Potassium 4.1 mmol/L (3.5-5.1); Sodium 135.0 mmol/L (136-145); Total Protein 7.2 gm/dl (6.0-8.3); Triglycerides 84.0 mg/dl (0-150)
[2025-03-21 07:51] LABS: Hemoglobin A1C 6.2 % (4.5-5.6)
[2025-03-21] MEDS: hydroCHLOROthiazide 25 MG TAB PO SCH (08:55)
[2025-03-21] MEDS: ASPIRIN 81 MG ECTAB PO SCH (08:55)
[2025-03-21] MEDS: CLOPIDOGREL BISULFATE 75 MG TAB PO SCH (08:56)
[2025-03-21] MEDS: SPIRONOLACTONE 25 MG TAB PO SCH (08:56)
[2025-03-21] MEDS: lamoTRIgine 25 MG TAB PO SCH (08:57)
[2025-03-21] MEDS: POLYETHYLENE (MIRALAX) 17 GM PACK PO SCH (08:57)
[2025-03-21] MEDS: REMOVE LIDODERM PATCH SCH (08:57)
--- NOTE | 2025-03-21 10:39 | Pharmacy Report ---
- Date of Service March 21, 2025 - Pharmacy CVA/TIA Medication Review Medications to Prevent Stroke handout has been added to the patients discharge packet. Antiplatelet(s) * Aspirin 81mg + Clopidogrel 75mg Cholesterol * High intensity statin: Rosuvastatin 20 mg daily DVT Prophylaxis * SCD knee Therapeutic Anticoagulation * No history of Afib/Aflutter noted Type 2 Diabetes * Patient does not have T2DM, A1c 6.2%, pre-diabetic
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
--- NOTE | 2025-03-21 14:48 | XCELERA ---
[id number]
[2025-03-21] MEDS: OPTIRAY 320 125ml IV ONE (15:33)
--- NOTE | 2025-03-21 15:40 | Ultrasound Report ---
BILATERAL LOWER EXTREMITY VENOUS DOPPLER HISTORY: elevated D-dimer COMPARISON STUDY: 01/18/2025 FINDINGS: There is normal compressibility, flow, and augmentation within the bilateral lower extremit y deep venous systems. Probable left-sided Mcqueen's cyst measures 1.7 x 1.0 x 0.5 cm. IMPRESSION: No DVT within the right or left lower extremity. ACT 112: Negative or not required by law. Electronically signed by: Grant Roman M.D. 03/21/2025 3:38 PM
--- NOTE | 2025-03-21 16:01 | CT Scan Report ---
CT ANGIOGRAPHY OF THE ABDOMEN AND PELVIS CLINICAL HISTORY: Central groin pain, evaluate for occlusion. COMPARISON STUDY: CT of the abdomen and pelvis September 29, 2024. KUB October 05, 2024. TECHNIQUE: Helical axial images of the abdomen and pelvis were obtained during arterial phase followi ng intravenous injection of 115 cc of Optiray 320 IV. Sagittal and coronal reformats were viewed as w ell as maximal intensity projections on an independent 3-D workstation. A dose lowering technique was utilized adhering to the principles of ALARA. FINDINGS: Moderate-sized hiatal hernia is again noted. Subpleural densities within lungs represent at electasis. There is no pneumatosis, free air or portal venous gas. The caliber of the abdominal aorta is normal. There is extensive atherosclerotic plaque within the abdominal aorta. No dissection or an eurysm within the abdomen or pelvis is identified. The celiac axis, superior mesenteric artery and in ferior mesenteric arteries are patent. There is mild stenosis at the origin of the right renal artery . The left renal artery is patent. There is an accessory left renal artery. The bilateral common mello c, external iliac and common femoral arteries are patent without significant stenosis. The proximal b ilateral common iliac arteries are patent. Moderate stenoses within the distal branches are present. Arterial phase images of the liver, spleen, adrenal glands and pancreas are unremarkable. There is no biliary or pancreatic ductal dilatation. There is no lymphadenopathy. No evidence for a bowel obstru ction. Caliber and wall thickness of small and large bowel are normal. L1-L2 decompression and fusion is noted as well as a right hip arthroplasty with right acetabular internal fixation. Right renal cy st is incidentally noted. There is no hydronephrosis. IMPRESSION: 1. Patent, normal caliber abdominal aorta with extensive atherosclerotic plaque. Patent major branch vessels. 2. Mild stenosis at the origin the right renal artery. Moderate stenoses within smaller branches of t he bilateral internal iliac arteries. 3. No acute process within the abdomen or pelvis on CTA exam. ACT 112: Negative or not required by law. Electronically signed by: Aníbal Davenport M.D. 03/21/2025 3:59 PM
[2025-03-21] MEDS: ROSUVASTATIN CALCIUM 20 MG TAB PO SCH (20:30)
[2025-03-21] MEDS: LIDOCAINE 5% 1 PATCH TD SCH (20:30)
[2025-03-21] MEDS: ACETAMINOPHEN 325 MG TAB PO PRN (20:30)
[2025-03-21] MEDS: MELATONIN 3 MG TAB PO SCH (20:30)
[2025-03-21] MEDS: MIRTAZAPINE TAB 15 MG TAB PO SCH (20:30)
[2025-03-21] MEDS ORDERED: REMOVE LIDODERM PATCH SCH (21:00)
--- NOTE | 2025-03-22 05:51 | Electrocardiogram Report ---
Test Reason : Blood Pressure : */* mmHG Vent. Rate : 74 BPM Atrial Rate : 74 BPM P-R Int : 222 ms QRS Dur : 110 ms QT Int : 400 ms P-R-T Axes : 76 -46 -30 degrees QTcB Int : 444 ms Sinus rhythm with 1st degree A-V block Left axis deviation Minimal voltage criteria for LVH, may be normal variant ( Suresh product ) Anterolateral infarct , age undetermined Inferior infarct Abnormal ECG When compared with ECG of 19-Jan-2025 13:05, Left bundle branch block is no longer Present Anterolateral infarct is now Present Inferior infarct is now Present Confirmed by Issac Avendano ([id number]) on 03/22/2025 5:51:07 AM Referred By: REFERRED SELF Confirmed By: Issac Avendano
[2025-03-22] MEDS: STROKE PATIENT DISCHARGE STA (07:30)
--- NOTE | 2025-03-22 09:21 | Orthopedic Consultation ---
Date of Service March 22, 2025 Assessment & Plan (1) Osteoarthritis of left hip: * Case/imaging reviewed and discussed with Dr Shelton. Due to the several weeks of groin pain without underlying x-ray/radiographic findings were going to get an MRI of her left hip to make sure she did not have an occult hip fracture. Unlikely, but need to rule out before discharge. * Acute on chronic left hip pain, known osteoarthritis. Arthritis relatively mild. Will going to obtain an MRI of her hip to rule out occult hip fracture. * Recommend conservative measures including ice, OTC pain medication, activity modification as needed * Can discuss hip arthroplasty in outpatient/elective setting * Weight bearing status: Full activity as tolerated * Daily treatment: Physical Therapy/ Occupational Therapy per protocol * Regarding right hip, symptoms have significantly improved from where she was a few weeks ago. Inflammatory markers are still elevated, however no source has been identified for this. No concern for joint infection of either hip at this point. * Pain control * Disposition: TBD * Remainder care per primary team * Follow-up as needed with orthopedic team History of Present Illness Reason for Consultation: Left hip pain Requesting Physician: . Attending Physician: Miah Lopez MD, PhD 79-year-old female PMHx MDD, DDD, cerebral meningioma, hyperparathyroidism, sacroiliitis, LPRD, dyslipidemia, OP, HTN, LVH, and a multitude of orthopedic conditions. Known to orthopedic team, h/o partial knee replacement with Dr Shelton, also R acetabulum ORIF followed by LYNDON and subsequent revision by Dr Long approximately 23 years ago. Currently admitted to hospital medicine team for CVA workup. Patient reports ongoing left hip pain for approximately 2 weeks. Patient states that she was shifting her position in bed when she felt a pop in the left hip and has had persistent pain since that time. Known osteoarthritis of the left hip. Current workup including x-ray and CT left hip demonstrating mildmoderate degenerative changes, otherwise no fracture or acute injury. Orthopedics consulted for evaluation and management recommendations. At time of exam patient sitting comfortably in bed, no acute distress. Prior had been ambulatory around the room with walker. Patient states that she has a persistent aching pain of the anterior hip region and left groin. Denies any tingling/numbness on the left leg. Allergies Allergy/AdvReac Type Severity Reaction Status Date / Time lisinopril Allergy Severe angioedema Verified 03/20/25 19:04 nut - unspecified Allergy Severe Hives Verified 03/20/25 19:04 cashew nut Allergy Intermediate Hives Verified 03/20/25 19:04 morphine Allergy Intermediate Hives Verified 03/20/25 19:04 peanut Allergy Intermediate Hives Verified 03/20/25 19:04 Sulfa (Sulfonamide Allergy Intermediate Hives Verified 03/20/25 19:04 Antibiotics) amoxicillin [From Augmentin] AdvReac Intermediate Diarrhea Verified 03/20/25 19:04 cefdinir AdvReac Intermediate Diarrhea Verified 03/20/25 19:04 clavulanic acid AdvReac Intermediate Diarrhea Verified 03/20/25 19:04 [From Augmentin] hydromorphone [From Dilaudid] AdvReac Intermediate Hallucinati Verified 03/20/25 19:04 ons pregabalin AdvReac Intermediate Dizziness Verified 03/20/25 19:04 tramadol AdvReac Intermediate Diarrhea Verified 03/20/25 19:04 Home Medications Medication Instructions Recorded Confirmed Type blood pressure monitor #1 ea 03/11/20 02/28/25 Rx aspirin 81 mg tablet,delayed 81 mg PO QAM 04/05/23 03/20/25 History release (Keyanna Low Dose Aspirin) L.acid,bul,para,rham-B.anim,long 1 cap PO BID 04/30/24 03/20/25 History 10 billion cell-inulin 100 mg capsule (Probitoic Digestive Support (6 strain)) melatonin 10 mg capsule 10 mg PO HS 04/30/24 03/20/25 History denosumab 60 mg/mL subcutaneous 60 mg subcut Q6MO #1 mL 05/25/24 03/20/25 Rx syringe (Prolia) hydrochlorothiazide 25 mg tablet 25 mg PO QAM #90 tabs 09/25/24 03/20/25 Rx calcium 600 mg (as 1 tab PO BID 10/26/24 03/20/25 History carbonate)-vitamin D3 10 mcg (400 unit) tablet (Calcium 600 + D(3)) cholecalciferol (vitamin D3) 50 50 mcg PO BID 10/26/24 03/20/25 History mcg (2,000 unit) capsule (Vitamin D3) Colin Rea #1 ea 11/26/24 02/28/25 Rx onabotulinumtoxinA 100 unit 300 unit IM DIRECTED 12/26/24 03/20/25 History solution for injection spironolactone 50 mg tablet 50 mg PO QAM #60 tabs 02/04/25 03/20/25 Rx baclofen 10 mg tablet 10 mg PO BID #60 tabs 02/08/25 03/20/25 Rx acetaminophen 500 mg tablet 1,000 mg PO Q8H PRN Pain 02/11/25 03/20/25 History (Tylenol Extra Strength) amlodipine 5 mg tablet 5 mg PO QAM 02/11/25 03/20/25 History diclofenac sodium 1 % topical gel 2 g topical QID PRN pain in hip 02/11/25 03/20/25 History lamotrigine 150 mg tablet 150 mg PO BID #60 tabs 02/25/25 03/20/25 Rx epinephrine 0.3 mg/0.3 mL 0.3 mg (0.3 mL) IM Q10M PRN 02/28/25 03/20/25 Rx injection, auto-injector (EpiPen) anaphylaxis #2 ea mirtazapine 15 mg tablet 15 mg PO HS #90 tabs 03/11/25 03/20/25 Rx clopidogrel 75 mg tablet 75 mg PO QAM #30 tabs 03/21/25 Rx rosuvastatin 20 mg tablet 20 mg PO QPM #30 tabs 03/21/25 Rx Past Med/Surg History Problem List (Updated 03/22/25 @ 09:19 by Robby Salgado PA-C) Osteoarthritis of left hip Hypertension controlled, stable per pt; white coat hypertension LVH (left ventricular hypertrophy) Diastolic dysfunction Nervus intermedius neuralgia Meningioma, cerebral Esophageal dysphagia H/O total hip arthroplasty Mood disorder Right hip pain Leg pain MDD (major depressive disorder), recurrent episode, mild Abdominal pain DDD (degenerative disc disease), cervical Traumatic coccydynia Cervical dystonia Myofascial pain Cervical paraspinal muscle spasm Cervico-occipital neuralgia Pneumonia Trigeminal neuralgia of left side of face Cervical stenosis of spinal canal Vitamin D deficiency Hyperparathyroidism Sacroiliitis Carpal tunnel syndrome, left Ulnar neuropathy LPRD (laryngopharyngeal reflux disease) controlled, stable per pt; occasional dysphagia with food Dyslipidemia Osteoporosis Arthritis of knee, left Insomnia Medical History (Updated 03/22/25 @ 09:19 by Robby Salgado PA-C) Left hip pain Left leg numbness Left facial numbness Acute CVA (cerebrovascular accident) Opioid-induced constipation Trigeminal neuralgia of left side of face follows with dr. parekh, pt. states she gets a shot in the back of her neck for htis History of pneumonia (04/2024) per hx, pt can't recall Hypokalemia Hyponatremia Meningioma, cerebral hx, per [place] neuro records Traumatic coccydynia hx, 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 Gave her 2 failed enemas. Resolved with milk of magnesia after seeing dr and getting instructions to take it." Diastolic dysfunction hx, w/LVH Status post gamma knife treatment [facility] [place] ~6 months ago (late 2023) per pt. "to help with pain she has deep in her left ear." Cervico-occipital neuralgia left; per [place] neuro record "Her symptoms are not really typical for trigeminal neuralgia and have not responded to standard treatments for this condition, including the recent gamma knife procedure done at [facility]. I suspect she has cervical occipital neuralgia or auricular neuralgia." DDD (degenerative disc disease), cervical Hx of hyperparathyroidism Dyslipidemia Hx of insomnia Cervical stenosis of spinal canal pain with ROM in neck per pt.; has received steroid injections in the past from [place] [facility] clinic History of dysphagia Hx of abdominal pain "belly hurts when she eats" Ear pain, left "reason for oxycodone" per pt. Per [place] neurology record "Her symptoms are not really typical for trigeminal neuralgia and have not responded to standard treatments for this condition, including the recent gamma knife procedure done at [facility]. I suspect she has cervical occipital neuralgia or auricular neuralgia." Angioedema 07/2024, found to be a reaction to her lisinopril, no longer taking Elevated troponin Hypoxia hx, resolved Acute respiratory failure with hypoxemia hx Fall hx TMJ dysfunction pt denies ever having Glossopharyngeal neuralgia syndrome hx Constipation Hip bursitis, left hx, resolved Hiatal hernia Contusion of left knee hx resolved Vitamin D deficiency LVH (left ventricular hypertrophy) Mild cLVH per 10/2020 Echo Mixed conductive and sensorineural hearing loss of left ear with restricted hearing of right ear History of COVID-19 (~2011) 03/2021-denies hospitalization-denies residual symptoms Hx of migraine headaches Vertigo states no longer has Osteoporosis Acquired deviated nasal septum Stroke (2019) "Mini stroke" to left eye during cataract surgery (2019) > blurry vision residual Knee osteonecrosis, left resolved w/sx. Hip pain left, occasional Depression Anxiety Surgical History (Updated 03/22/25 @ 00:08 by Background Daemon) Status post left partial knee replacement (12/2022) H/O laparoscopy x2, tubal pregnancies History of esophageal dilatation History of esophagogastroduodenoscopy (EGD) History of trigger finger (01/2021) Right ring + small finger trigger finger release (01/2021, [facility] [place]) History of colonoscopy History of dilatation and curettage Hx of bilateral cataract extraction H/O hemorrhoidectomy History of thumb surgery Left History of tonsillectomy History of lumbar surgery late 50's or early 60's in age, lower back H/O wrist surgery (2018) Left (2018) History of tooth extraction History of hip surgery (2001) Right LYNDON (1999), replacement (2000), repair of replacement (2001) History of appendectomy Family History Brother Cardiac arrest Father Cardiac arrest Mother Cardiac arrest Dementia Other Heart disease Hypertension No family history of adverse response to anesthesia No family history of bleeding disorder Denies family history of Ovarian cancer Breast cancer Lung cancer Colorectal cancer Stroke Social History Smoking Status: Never smoker Second Hand Exposure: No; Do You Dip or Chew Tobacco: No; Hx Alcohol Use: No Hx Substance Use: No Preferred Language: [place] Citizen Communication Ability: Effective Visual Impairment: No Limitations Hearing Ability: Normal Digestion Operator Required: No Beliefs That Will Affect Care: None marital status: Current Living Situation: Spouse current occupational status: retired How many Children do You have: 3 Feels Safe at Home: Yes Childhood Exposure to Second-Hand Smoke: No Diet: regular caffeine: No Dental Care, Regularly: Yes Physical Activity Frequency: Does not Exercise Seatbelt Use: always Sunscreen Use: Yes Do you think of yourself as: straight/heterosexual Assistive Devices: Cane and Walker Review of Systems All systems reviewed & are unremarkable except as noted in HPI & below. Physical Exam . * General: Alert and oriented, no acute distress * Constitutional: well-developed, well-nourished. * Respiratory: Normal respiratory effort, no distress * Gastrointestinal: No tenderness to palpation, no rigidity or guarding. * Skin: No rash or lesion. * Neurologic: Grossly normal * Musculoskeletal: Left lower extremity with no obvious deformity or overlying skin changes. Mild TTP of the anterior hip and left groin region. Otherwise no tenderness of the distal thigh, knee, lower leg, foot/ankle. No pain with logroll, PROM hip IR/ER, or hip flexion. AROM knee flexion/extension, plantar/dorsiflexion intact. Sensation intact plantar/dorsal foot. Brisk capillary refill. Results & Data Results & Data Laboratory Results . Diagnostic Findings . Abdomen/Pelvis CTA 03/21/25 14:03 CT ANGIOGRAPHY OF THE ABDOMEN AND PELVIS CLINICAL HISTORY: Central groin pain, evaluate for occlusion. COMPARISON STUDY: CT of the abdomen and pelvis September 29, 2024. KUB October 05, 2024. TECHNIQUE: Helical axial images of the abdomen and pelvis were obtained during arterial phase following intravenous injection of 115 cc of Optiray 320 IV. Sagittal and coronal reformats were viewed as well as maximal intensity projections on an independent 3-D workstation. A dose lowering technique was utilized adhering to the principles of ALARA. FINDINGS: Moderate-sized hiatal hernia is again noted. Subpleural densities within lungs represent atelectasis. There is no pneumatosis, free air or portal venous gas. The caliber of the abdominal aorta is normal. There is extensive atherosclerotic plaque within the abdominal aorta. No dissection or aneurysm within the abdomen or pelvis is identified. The celiac axis, superior mesenteric artery and inferior mesenteric arteries are patent. There is mild stenosis at the origin of the right renal artery. The left renal artery is patent. There is an accessory left renal artery. The bilateral common iliac, external iliac and common femoral arteries are patent without significant stenosis. The proximal bilateral common iliac arteries are patent. Moderate stenoses within the distal branches are present. Arterial phase images of the liver, spleen, adrenal glands and pancreas are unremarkable. There is no biliary or pancreatic ductal dilatation. There is no lymphadenopathy. No evidence for a bowel obstruction. Caliber and wall thickness of small and large bowel are normal. L1-L2 decompression and fusion is noted as well as a right hip arthroplasty with right acetabular internal fixation. Right renal cyst is incidentally noted. There is no hydronephrosis. IMPRESSION: 1. Patent, normal caliber abdominal aorta with extensive atherosclerotic plaque. Patent major branch vessels. 2. Mild stenosis at the origin the right renal artery. Moderate stenoses within smaller branches of the bilateral internal iliac arteries. 3. No acute process within the abdomen or pelvis on CTA exam. ACT 112: Negative or not required by law. Electronically signed by: Aníbal Davenport M.D. 03/21/2025 3:59 PM Venous Doppler Study 03/21/25 14:03 BILATERAL LOWER EXTREMITY VENOUS DOPPLER HISTORY: elevated D-dimer COMPARISON STUDY: 01/18/2025 FINDINGS: There is normal compressibility, flow, and augmentation within the bilateral lower extremity deep venous systems. Probable left-sided Mcqueen's cyst measures 1.7 x 1.0 x 0.5 cm. IMPRESSION: No DVT within the right or left lower extremity. ACT 112: Negative or not required by law. Electronically signed by: Grant Roman M.D. 03/21/2025 3:38 PM PG Care Time/CCT Total # of Minutes Spent Total Time Spent with Patient: Total time spent is greater than 50% in coordination of care (as documented) at patient's floor/unit and/or counseling patient: Coding [place] [address] IN/OBS CONSULT LVL 2,35M Patient Type Established Medical Decision Making Straight Forward Diagnoses Osteoarthritis of left hip M16.12
[2025-03-22 11:07] VITALS: RESP 20
--- NOTE | 2025-03-22 14:08 | Magnetic Resonance Report ---
MR hip LT wo con CLINICAL HISTORY: 80 years-old Female with left hip pain. Subacute pain of the left hip COMPARISON: Pelvis and hip radiographs 03/20/2025 TECHNIQUE: Multiplanar, multi sequence MRI of the left hip was performed without intravenous contrast . FINDINGS: LABRUM: Degeneration with chronic tearing of the labrum which is most pronounced anteriorly and supe riorly. No associated chondrolabral separation or paralabral cyst. BONE MARROW: Heterogeneous appearance of the bone marrow, likely secondary to bone demineralization. No evidence of avascular necrosis, fracture or transient osteoporosis. BURSAE: There is no evidence for iliopsoas or trochanteric bursitis. HIP JOINT: Right hip arthroplasty. Mild to moderate osteoarthritis of the left hip. MUSCLES: Mild insertional tendinosis of the left gluteal tendons. Muscular signal and morphology is otherwise within normal limits. SCIATIC NERVE: The morphology and signal characteristics of the sciatic nerve appear normal. IMPRESSION: 1. Mild to moderate osteoarthritis of the left hip without acute fracture, significant marrow edema o r avascular necrosis. 2. Chronic tearing of the left labrum. 3. Unremarkable appearance of the musculature and soft tissues. ACT 112: Negative or not required by law. The above report was generated using voice recognition software. It may contain grammatical, syntax o r spelling errors. Electronically signed by: Grant Roman M.D. 03/22/2025 2:07 PM
[2025-03-22] MEDS ORDERED: STROKE PATIENT DISCHARGE STA (14:24)
[2025-03-22 15:12] VITALS: BP 118/72; PULSE 83; TEMP 99.9; O2SAT 93
--- NOTE | 2025-03-26 13:19 | Pharmacy Report ---
Pharmacist Stroke Counseling - Date of Service March 26, 2025 - Scope: Pharmacy has been consulted to provide medication discharge counseling for this patient admitted with [ischemic stroke] [hemorrhagic stroke] [transient ischemic attack] as per the Pharmacist Discharge Counseling for Stroke Patients Pro tocol. - Medications on Discharge: Home Medications Medication Instructions Recorded Confirmed aspirin 81 mg tablet,delayed 81 mg PO QAM 04/05/23 03/25/25 release (Keyanna Low Dose Aspirin) L.acid,bul,para,rham-B.anim,long 1 cap PO BID 04/30/24 03/25/25 10 billion cell-inulin 100 mg capsule (Probitoic Digestive Support (6 strain)) melatonin 10 mg capsule 10 mg PO HS 04/30/24 03/25/25 calcium 600 mg (as 1 tab PO BID 10/26/24 03/25/25 carbonate)-vitamin D3 10 mcg (400 unit) tablet (Calcium 600 + D(3)) cholecalciferol (vitamin D3) 50 50 mcg PO BID 10/26/24 03/25/25 mcg (2,000 unit) capsule (Vitamin D3) onabotulinumtoxinA 100 unit 300 unit IM DIRECTED 12/26/24 03/25/25 solution for injection acetaminophen 500 mg tablet 1,000 mg PO Q8H PRN Pain 02/11/25 03/25/25 (Tylenol Extra Strength) amlodipine 5 mg tablet 5 mg PO QAM 02/11/25 03/25/25 Medication Instructions Recorded blood pressure monitor #1 ea 03/11/20 denosumab 60 mg/mL subcutaneous 60 mg subcut Q6MO #1 mL 05/25/24 syringe (Prolia) hydrochlorothiazide 25 mg tablet 25 mg PO QAM #90 tabs 09/25/24 Colin Hose #1 ea 11/26/24 spironolactone 50 mg tablet 50 mg PO QAM #60 tabs 02/04/25 baclofen 10 mg tablet 10 mg PO BID #60 tabs 02/08/25 lamotrigine 150 mg tablet 150 mg PO BID #60 tabs 02/25/25 epinephrine 0.3 mg/0.3 mL 0.3 mg (0.3 mL) IM Q10M PRN 02/28/25 injection, auto-injector (EpiPen) anaphylaxis #2 ea mirtazapine 15 mg tablet 15 mg PO HS #90 tabs 03/11/25 clopidogrel 75 mg tablet 75 mg PO QAM #30 tabs 03/21/25 rosuvastatin 20 mg tablet 20 mg PO QPM #30 tabs 03/21/25 diclofenac sodium 1 % topical gel 2 g topical QID PRN pain in hip 03/25/25 #100 grams - Action: The above medications, specifically ones for stroke treatment/prophylaxis, have been reviewed in detail with the patient and/or patient field service representative(s) prior to discharge. This includes indication, common adverse reactions, drug interactions, and medication administration. Medication counseling has been employed using the teach-back method to ensure understanding. - Outcome: The patient and/or patient field service representative(s) have demonstrated understanding of the medications. Additional comments: Discussed new medications on discharge with patient. She reports seeing her PCP yesterday and they ended up placing plavix on hold as patient had developed hives and they were thinking it could have been in relation to medication. She reports they sent a referral to Dr. Ott/neurology to follow up to determine best course of action/plan for medication. She is awaiting phone call back for appt. Patient reporting some shoulder/neck pain. She has been using a heating pad but still having some discomfort. She plans to reach out to her PCP to determine if okay to see chiropractor. No other questions/concerns from patient. Thank you for allowing pharmacy to be involved in the care of this patient. Please call [phone] with any additional questions
== END 2025-03-22 16:01 | disposition home health service (06) ==
LOC: SUATTDRO → 2W 17:39 → ED 17:39 → SUATTDRO 23:25 → 2W 03-21 00:39